=== PATIENT | female | born 1985 | race African-American/Black ===

== ENCOUNTER 2021-04-22 13:57 | Emergency (ER) | payer MEDICAID, SELFPAY ==
[2021-04-22] VITALS (14 sets, daily range): BP systolic 132–166; BP diastolic 76–102; PULSE 78–104; RESP 16–23; TEMP 36.4–36.8; O2SAT 96–100; BMI 50.1
--- NOTE | ~2021-04-22 | XR_ITS ---
EXAMINATION: XR SHOULDER, RIGHT CLINICAL INFORMATION: Post reduction. COMPARISON: Radiograph of the right shoulder done earlier today at 2:36 PM. TECHNIQUE: One view of the right shoulder. XR/XR shoulder RT min 2V FINDINGS/IMPRESSION: Satisfactory reduction of previously described right shoulder dislocation which is now in anatomic positioning. No fractures.
--- NOTE | ~2021-04-22 | XR_ITS ---
EXAMINATION: XR SHOULDER, RIGHT XR HUMERUS, RIGHT CLINICAL INFORMATION: Shoulder pain. Fall. COMPARISON: None TECHNIQUE: 2 views, 3 images of the right shoulder. 2 views of the right humerus. FINDINGS: There is anterior glenohumeral dislocation. The acromioclavicular joint is intact. No acute humeral fracture. Grossly appropriate alignment of the elbow. The visualized ribs are intact. The visualized lung is clear. XR/XR shoulder RT min 2V IMPRESSION: No fracture. Anterior right shoulder dislocation.
--- NOTE | ~2021-04-22 | XR_ITS ---
EXAMINATION: XR SHOULDER, RIGHT XR HUMERUS, RIGHT CLINICAL INFORMATION: Shoulder pain. Fall. COMPARISON: None TECHNIQUE: 2 views, 3 images of the right shoulder. 2 views of the right humerus. FINDINGS: There is anterior glenohumeral dislocation. The acromioclavicular joint is intact. No acute humeral fracture. Grossly appropriate alignment of the elbow. The visualized ribs are intact. The visualized lung is clear. XR/XR humerus RT IMPRESSION: No fracture. Anterior right shoulder dislocation.
[2021-04-22] MEDS: Ibuprofen 800 MG TABLET PO (14:20)
--- NOTE | 2021-04-22 15:33 | PC.NURSE ---
pt moved to main ed for conscious sedation. report given to clotilde barney. pt aware of plan of care.
--- NOTE | 2021-04-22 15:42 | ED.EXTPRO ---
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 Reports was not paying attention and playing on phone when did not see curb and fell on right shoulder. Denies head trauma or LOC. Denies taking anticoagulation. Denies numbness, tingling, injury to other area MD Complaint: extremity pain Related Data Previous Rx's Medication Instructions Recorded acetaminophen 500 mg tablet 500 mg PO Q6H PRN #20 tab 04/22/21 (Tylenol Extra Strength) naproxen 500 mg tablet 500 mg PO BID PRN 10 Days #20 tab 04/22/21 Allergies Allergy/AdvReac Type Severity Reaction Status Date / Time No Known Allergies Allergy Unverified 10/31/19 16:14 Review of Systems Review of Systems: Constitutional: No Fever, No Chills ENT/Mouth: No Ear Pain, No Nasal Congestion, No sore throat, No Rhinorrhea, No Swallowing Difficulty Cardiovascular: No Chest Pain, No SOB Respiratory: No Cough Gastrointestinal: No Nausea, No Vomiting, No Diarrhea, No Abdominal pain Genitourinary: No Dysuria, No Urinary Incontinence, No Flank Pain Musculoskeletal: + joint pain, No Myalgias, No Joint Swelling Skin: No Skin Lesions, No rash Neuro: No Weakness, No Numbness, No Paresthesias, No headache, No LOC Yes all other systems are reviewed and are negative [facility] Past Medical History Attestation statement: The following information was validated with the patient. Medical History No known health problems Social History Social History Advance Directives: No Advance Directives Information Provided: Yes Patient : No Physical Exam Vital Signs: Vital Signs: Last Vital Signs Temp 98.3 F 04/22/21 16:36 Pulse 83 04/22/21 18:08 Resp 16 04/22/21 18:08 BP 138/99 H 04/22/21 18:08 Pulse Ox 98 04/22/21 18:08 BMI result Body Mass Index 50.1 Const: General: cooperative, healthy appearing and no acute distress Orientation/consciousness: patient oriented x3 Limitations: no limitations HENMT: Head: Yes normal to inspection and Yes atraumatic Ears: hearing grossly normal bilaterally General nose exam: Normal external nose present Face and sinus: Yes normal facial exam Eyes: General: appearance normal, both eyes and all related structures EOM: EOMs intact bilaterally Neck: Neck: Yes normal visual inspection and Yes no meningeal signs Resp: Effort & Inspection: normal respiratory effort and no respiratory distress Cardio: Rate: regular rate Peripheral pulses: radial pulses present Skin: Rashes: no rashes Wounds: no wounds Neuro: General: patient oriented x3 and no meningeal signs Gait exam (Neuro): Normal gait present Extrem: Other: + right shoulder with noted deformity. Tender to palpation. Neurovascularly intact distally. Limited ROM secondary to pain. Right elbow/forearm/wrist/hand nontender Course Course Course Narrative: XR humerus RT / XR shoulder RT min 2V IMPRESSION: No fracture. Anterior right shoulder dislocation >> will perform procedural sedation to reduce shoulder. Procedural consent signed Reduction successful with Dr. Turner and respiratory at bedside > sling applied XR shoulder RT min 2V FINDINGS/IMPRESSION: Satisfactory reduction of previously described right shoulder dislocation which is now in anatomic positioning. No fractures -[id number]--patient now awake and alert, A&O x3, ambulating around the ED without any difficulty. Safe for discharge home at this time. Discussed worrisome signs and symptoms and strict return precautions and needed close follow-up with orthopedics. She verbalized understanding and feel safe for discharge home . 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 On exam vital signs stable, NAD, appears in pain, physical exam as above. Concern for dislocation versus fracture. Plan: X-rays Medical Records Attestation: I reviewed the patient's medical records. Lab Data Attestation: I reviewed the patient's lab results. Procedures Orthopedic Joint Reduction Joint #1: Time Out Performed: Yes Side: right Joint Reduction Location: shoulder Analgesia: procedural sedation Shoulder Technique Used (if applicable): traction/counter-traction and external rotation Technique used: traction/counter-traction Post-reduction neuro exam: intact Post-reduction vascular: intact Post Reduction X-Ray Obtained: Yes Post Reduction X-Ray Results: reduced Splint Applied: Yes (sling) Patient Tolerated Procedure: well Procedural Sedation Indication: fracture/dislocation reduction ASA Class: I Mallampati Class: I Preparation: telemetry monitor applied, pulse oximeter, capnometry used, supplemental O2 applied, suction/airway equipment at bedside and IV secured IV Propofol dose (mg): 120 Patient Tolerated Procedure: well Complications: none Discharge Plan Discharge Clinical Impression: Anterior shoulder dislocation Patient Disposition: Home, Self-Care Instructions: Shoulder Dislocation (ED), Shoulder Immobilizer (ED) Additional Instructions: Your shoulder was dislocated and relocated today in the ED. Wear sling at all times, you may take off to shower and sleep however if you take it off do not move your arm more than what you would be able to if you were wearing the sling Ice Take Tylenol and Motrin for pain and swelling Please follow-up with orthopedics If you develop numbness, pain becomes unbearable, or you feel like her shoulder becomes dislocated again return to the ED immediately Prescriptions: New acetaminophen [Tylenol Extra Strength] 500 mg tablet 500 mg PO Q6H PRN (Reason: pain or fever) Qty: 20 0RF naproxen 500 mg tablet 500 mg PO BID PRN (Reason: pain) 10 Days Qty: 20 0RF Referrals: Matthew Vargas MD [Physician] - 5 days Stand Alone Forms: Work/School Release Interventions: ED Discharge Assessment Last Done: 04/22/21 18:06 Discharge Date/Time: 04/22/21 18:09
--- NOTE | 2021-04-22 16:58 | PC.NURSE ---
PT SHOULDER REDUCTION SUCCESSFUL, X RAY DONE TOTAL OF 120 OF PROPOFOL GIVEN BY DR MINAL Salas
[2021-04-22] MEDS: propofoL 200 MG/20 ML VIAL IVPUSH (17:03)
== END 2021-04-22 18:09 | disposition home or self-care (01) ==
PROVIDERS: Emergency Provider Emergency Medicine Emergency Medical Services; PCP Family Medicine
DX: S43.004A Unspecified dislocation of right shoulder joint, initial encounter (principal); W19.XXXA Unspecified fall, initial encounter; Y93.9 Activity, unspecified; Y92.481 Parking lot as the place of occurrence of the external cause; Y99.9 Unspecified external cause status
CPT/HCPCS: 23650; 73030; 73060; 96374; 96375; 99152; 99153; 99284; 99285

== ENCOUNTER → 2021-05-06 13:14 | Outpatient (BNVA) | payer MEDICAID, SELFPAY | PROVIDERS: PCP Family Medicine; Visit Provider Physician Assistant | DX: S43.014A Anterior dislocation of right humerus, initial encounter (principal) | CPT/HCPCS: 99202 ==

== ENCOUNTER 2021-06-16 06:04 | Outpatient (REF) | payer MEDICAID, SELFPAY ==
[2021-06-16 06:46] LABS: COVID-19 Test Negative (Negative)
== END 2021-06-16 06:05 | disposition home or self-care (01) ==
LOC: HO.LAB 06:04
PROVIDERS: Visit Provider Internal Medicine
DX: Z20.822 Contact with and (suspected) exposure to COVID-19 (principal)
CPT/HCPCS: 87635

== ENCOUNTER 2021-11-08 06:43 | Outpatient (REF) | payer OTHER, SELFPAY ==
[2021-11-08 07:37] LABS: COVID-19 Test Negative (Negative); IDNOW Serial# 9DB6401D
== END 2021-11-08 06:44 | disposition home or self-care (01) ==
LOC: HO.LAB 06:43
PROVIDERS: Visit Provider Internal Medicine
DX: Z20.822 Contact with and (suspected) exposure to COVID-19 (principal)
CPT/HCPCS: 87635

== ENCOUNTER 2023-02-14 22:02 | Inpatient (IN) | payer MEDICAID, SELFPAY ==
--- NOTE | 2023-02-14 | ECG_ITS ---
Test Reason : FEVER Blood Pressure : / mmHG Vent. Rate : 114 BPM Atrial Rate : 114 BPM P-R Int : 144 ms QRS Dur : 086 ms QT Int : 346 ms P-R-T Axes : 062 034 029 degrees QTc Int : 476 ms Sinus tachycardia Otherwise normal ECG When compared with ECG of 03-JUN-2019 00:02, Non-specific change in ST segment in Anterior leads Referred By: Generic ED Physician Electronically Signed By:Tesfaye Richard
--- NOTE | ~2023-02-14 | XR_ITS ---
EXAMINATION: XR CHEST CLINICAL INFORMATION: Cough, shortness of breath COMPARISON: 04/25/2018 TECHNIQUE: Frontal view of the chest was obtained. FINDINGS: No significant abnormality is noted involving the heart, lungs, mediastinum, bony thorax or soft tissues. XR/XR chest 1V IMPRESSION: Unremarkable examination.
[2023-02-14 22:14] VITALS: BP 150/90; PULSE 120; PULSE 131; RESP 26; TEMP 38.4; O2SAT 100; O2SAT 96; BMI 50.7
--- NOTE | 2023-02-14 22:25 | ED_ITS ---
HPI - SOB/Dyspnea General Chief Complaint: Dyspnea Stated Complaint: SOB, diminishing lung sounds bilaterally, on duone Time Seen by Provider: 02/14/23 22:11 History of Present Illness HPI Narrative: Patient is 37 years old positive history of asthma positive history of smoking positive coughing congestion upper respiratory symptoms. Feels very weak has subjective fever at home never been intubated for asthma been hospitalized x1 many years ago. Patient has a long history of smoking quit smoking in the last 24 hours. No diaphoresis. No leg swelling. Positive generalized aches Related Data Previous Rx's Medication Instructions Recorded acetaminophen 500 mg tablet 500 mg PO Q6H PRN pain or fever 04/22/21 (Tylenol Extra Strength) #20 tabs naproxen 500 mg tablet 500 mg PO BID PRN pain 10 days #20 04/22/21 tabs oseltamivir 75 mg capsule (Tamiflu) 75 mg PO BID 5 days #10 caps 02/14/23 Allergies Allergy/AdvReac Type Severity Reaction Status Date / Time No Known Allergies Allergy Unverified 05/06/21 13:59 Review of Systems 2 Review of Systems: Positive generalized ache Yes all other systems are reviewed and are negative COUNTS INCLUDE 234 BEDS AT THE [facility] Past Medical History Attestation statement: The following information was validated with the patient. 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 Oriented X3. No acute distress. Eyes: Pupils equal, round and reactive to light. ENT: Pharynx normal. Neck: Normal inspection. Neck supple. No lymph nodes noted. No crepitus CVS: Normal heart rate and rhythm. Pulses normal. Normal S1 and S2 Respiratory: No respiratory distress. Breath sounds normal. No Wheezing. No rales Abdomen: Soft and nontender. No rigidity. No distention. good BS x4 Skin: Skin warm and dry. Normal skin color. Normal skin turgor. Extremities: No lower extremity edema. Neurovascular intact to all extremities. No Lacerations. No Rash Neuro: Oriented X 3. No motor deficit. No sensory deficit. Moving all extermities. No slurred speech Medications Administered Discontinued Medications Generic Name Dose Route Start Last Admin Trade Name Freq PRN Reason Stop Dose Admin Acetaminophen 975 mg 02/14/23 22:22 02/14/23 22:47 Acetaminophen 325 Mg Tablet PO 02/14/23 22:23 975 mg ONCE ONE Administration Albuterol Sulfate 5 mg 02/14/23 22:23 02/14/23 22:35 Albuterol Sulfate (0.083%) 2.5 Mg/3 Ml Vial.Neb INHALE 02/14/23 22:24 5 mg ONCE ONE Administration Albuterol/Ipratropium 3 ml 02/14/23 22:23 02/14/23 22:35 Albuterol/Iprat 2.5/0.5mg 3 Ml Ampul.Neb INHALE 02/14/23 22:24 3 ml ONCE ONE Administration Sodium Chloride 1,000 mls @ 999 mls/hr 02/14/23 22:30 02/14/23 22:35 Ns IV 02/14/23 23:30 999 mls/hr .Q1H1M MINOR Administration Methylprednisolone Sodium Succinate 125 mg 02/14/23 22:23 02/14/23 22:47 Methylprednisolone Sod Succ 125 Mg/2 Ml Vial IVPUSH 02/14/23 22:24 125 mg ONCE ONE Administration Medical Decision Making Medical Decision Making MDM Narrative: Positive coughing congestion upper respiratory symptoms. Positive fever here in the emergency department. Patient's flu RSV COVID test was done. Positive for influenza. Symptoms started within the last 24 hours will start patient on Tamiflu. Have patient closely follow up on an outpatient basis. O2 sat is normal here in the emergency department chest x-ray by my interpretation showed no acute pneumonia pneumothorax. Cardiac enzymes are negative. Patient to be discharged home. Differential Diagnosis Differential Diagnoses: The differential diagnosis associated with the presentation includes Pneumonia, asthma, COVID, flu, RSV Admission/Observation Consideration of admission/observation: Escalation of care including admission/observation considered No need for admission is patient's symptoms improving Lab Data MDM Lab Attestation statement: I reviewed the patient's lab results. 02/14/23 22:27 02/14/23 22:27 Labs: Lab Results 02/14/23 02/14/23 Range/Units 22:27 22:30 WBC 10.3 (4.8-10.8) X10*3/uL RBC 3.78 L (4.20-5.50) X10*6/uL Hgb 7.2 L (12.0-16.0) g/dl Hct 25.9 L (37.0-47.0) % MCV 68.5 L (80.0-98.0) fL MCH 19.0 L (27.0-33.0) pg MCHC 27.8 L (31.0-35.0) g/dl RDW 18.9 H (11.0-16.0) % Plt Count 541 H (160-400) X10*3/uL MPV 9.6 (9.4-12.3) fL Immature Gran % (Auto) 0.3 (0.0-0.4) % Neut % (Auto) 77.2 H (45-73) % Lymph % (Auto) 12.9 L (20-40) % Throckmorton % (Auto) 8.4 (2-11) % Eos % (Auto) 0.9 (0-4) % Baso % (Auto) 0.3 (0-2) % Lymph # (Auto) 1.3 (1.2-4.9) X10*3/uL Throckmorton # (Auto) 0.9 (0.1-1.2) X10*3/uL Eos # (Auto) 0.1 (0.0-0.4) X10*3/uL Baso # (Auto) 0.0 (0.0-0.2) X10*3/uL Abs Immat Gran (auto) 0.03 (0.00-0.03) X10*3/uL Absolute Neuts (auto) 8.0 (2.0-8.3) x10*3/uL Absolute Nucleated RBC 0.000 (0.0-0.012) X10*3/uL Nucleated RBC % (auto) 0.0 (0.0-0.2) /100WBC Sodium 142 (135-145) mmol/L Potassium 3.8 (3.3-5.1) mmol/L Chloride 108 (96-108) mmol/L Carbon Dioxide 25 (22-29) mmol/L Anion Gap 13 (12-20) BUN 9 (9-16) mg/dL Creatinine 0.83 (0.5-1.4) mg/dL Estim Creat Clear Calc 147.6 Estimated GFR > 60 Random Glucose 105 (60-115) mg/dL Lactic Acid 1.3 (0.5-2.0) mmol/L Calcium 9.1 (8.4-10.2) mg/dL Total Bilirubin 0.3 (0.0-1.0) mg/dL AST 24 (5-31) U/L ALT 11 (0-31) U/L Alkaline Phosphatase 84 (39-117) U/L Troponin I High Sens 7.9 (<3.5-17.0) ng/L Total Protein 7.8 (6.5-8.0) g/dL Albumin 4.0 (3.5-5.0) g/dL Influenza Type A (PCR) POSITIVE A (Negative) Influenza Type B (PCR) NEGATIVE (Negative) RSV RNA Qual (PCR) NEGATIVE (Negative) SARS-CoV-2 RNA (RT-PCR) NEGATIVE (Negative) Independent Interpretation I performed an independent interpretation of an: Plain X-Ray (Grossly negative) Radiology Impression Discussion of test interpretation with radiology: I have reviewed the radiologist's reading. Prescription Management I considered prescription management with: Pain Medication and Antibiotic No need for antibiotic will give antiviral as patient has flu and symptoms less than 48 hours Chronic Conditions Asthma Discharge Plan Discharge Clinical Impression: Asthma with exacerbation, Influenza Patient Disposition: Home, Self-Care Instructions: Asthma (ED), Influenza (ED) Additional Instructions: Please drink lots of fluids. Please refrain from smoking. Prescriptions: New oseltamivir [Tamiflu] 75 mg capsule 75 mg PO BID 5 Days Qty: 10 0RF No Action acetaminophen [Tylenol Extra Strength] 500 mg tablet 500 mg PO Q6H PRN (Reason: pain or fever) Qty: 20 0RF naproxen 500 mg tablet 500 mg PO BID PRN (Reason: pain) 10 Days Qty: 20 0RF Referrals: [facility] [Provider Group] - 02/16/23
[2023-02-14 22:30] VITALS: PULSE 125; RESP 25
[2023-02-14 22:34] LABS: Basophils Percent Auto 0.3 % (0-2); Eosinophils Absolute Auto 0.1 X10*3/uL (0.0-0.4); Eosinophils Percent Auto 0.9 % (0-4); Hematocrit 25.9 % (37.0-47.0); Hemoglobin 7.2 g/dl (12.0-16.0); Imm Gran Abs Auto 0.03 X10*3/uL (0.00-0.03); Imm Gran Pct Auto 0.3 % (0.0-0.4); Lymphocytes Absolute Auto 1.3 X10*3/uL (1.2-4.9); Lymphocytes Percent Auto 12.9 % (20-40); MANUAL DIFF FLAG NO; Mean Corpuscular HGB Conc 27.8 g/dl (31.0-35.0); Mean Corpuscular Volume 68.5 fL (80.0-98.0); Mean Platelet Volume 9.6 fL (9.4-12.3); Monocytes Absolute Auto 0.9 X10*3/uL (0.1-1.2); Monocytes Percent Auto 8.4 % (2-11); Neutrophils Percent Auto 77.2 % (45-73); Platelet Count 541 X10*3/uL (160-400); Red Blood Count 3.78 X10*6/uL (4.20-5.50); Red Cell Distribution Width 18.9 % (11.0-16.0); White Blood Count 10.3 X10*3/uL (4.8-10.8)
[2023-02-14 22:35] VITALS: PULSE 124; RESP 30; O2SAT 99
[2023-02-14] MEDS: Albuterol Sulfate (0.083%) 2.5 MG/3 ML VIAL.NEB 5 MG INHALE (22:35)
[2023-02-14] MEDS: 0.9 % Sodium Chloride 1,000 ML 999 ML IV (22:35)
[2023-02-14] MEDS: Albuterol/Iprat 2.5/0.5MG 3 ML AMPUL.NEB INHALE (22:35)
[2023-02-14 22:43] LABS: Lactic Acid 1.3 mmol/L (0.5-2.0)
[2023-02-14] MEDS: methylPREDNISolone Sod Succ 125 MG/2 ML VIAL IVPUSH (22:47)
[2023-02-14] MEDS: Acetaminophen 325 MG TABLET 975 MG PO (22:47)
[2023-02-14 22:48] LABS: Alanine Aminotransferase 11 U/L (0-31); Alkaline Phosphatase 84 U/L (39-117); Anion Gap 13 (12-20); Aspartate Amino Transferase 24 U/L (5-31); Bilirubin Total 0.3 mg/dL (0.0-1.0); Blood Urea Nitrogen 9 mg/dL (9-16); Calcium 9.1 mg/dL (8.4-10.2); Carbon Dioxide 25 mmol/L (22-29); Chloride 108 mmol/L (96-108); Creatinine Clr Calc Pharmacy 147.6; Estimated Glomerular Filt Rate > 60; Glucose Random 105 mg/dL (60-115); Potassium 3.8 mmol/L (3.3-5.1); Sodium 142 mmol/L (135-145); Total Protein 7.8 g/dL (6.5-8.0)
[2023-02-14 22:55] LABS: Troponin-I High Sensitivity 7.9 ng/L (<3.5-17.0)
[2023-02-14 23:19] LABS: Influenza A PCR POSITIVE (Negative); Influenza B PCR NEGATIVE (Negative); Resp Syncy Virus RNA Qual PCR NEGATIVE (Negative); SARS COV2 PCR INHOUSE NEGATIVE (Negative)
--- NOTE | 2023-02-14 23:40 | PC.NURSE ---
pt states not feeling better after breathing tx. lung sounds wheezing/diminished. sats 93% on ra. Dr. Saleh notified.
--- OUTSIDE RECORDS SUMMARY | 2023-02-14 23:46 | XMS_ITS | Continuity of Care Document ---
Author Name Unknown Organization [facility] Kelly Hope n[facility] Address [address], [address] [place] [address]- Care Team Providers Care Furniture Reproducer Name Role Phone Aida Vasquez DO Primary Care Physician Encounter [facility] [place] Date(s): 04/18/19 - 07/13/19 [facility] Kelly ReyesTeam [facility] [address] [place] [address]- [facility] Attending Physician: George Andre MD Referring Physician: Aida Vasquez DO Allergies, Adverse Reactions, Alerts Substance Reaction Severity Status NKA Active Problem List Condition Effective Dates Status Health Status Inform ant Asthma(Confirmed) Active Chronic GERD(Confirmed) Active H/O transfusion of packed re d blood cells(Confirmed) 2008 Active Headache(Confirmed) 2019 Active History of gestational hypertension(Confirmed) 2010 Active HTN (hypertension)(Confirmed) 1 Active Morbid obesity with BMI of 4 5.0-49.9, adult(Confirmed) Active HEMORRHAGE(Confirmed) 09/10/08 Active 1no meds Social History Social History Type Response Smoking Status 5-9 cigarettes (betw een 1/4 to 1/2 pack)/day in last 30 days; Tobacco user in household: Yes entered on: 05/23/19 Sex
--- OUTSIDE RECORDS SUMMARY | 2023-02-14 23:46 | XMS_ITS | Continuity of Care Document ---
Author Name [facility] Address [address] [place] [address], [address] [place] [address]- Care Team Providers Care Daub Color Mixer Name Role Phone Aida Vasquez DO Primary Care Physician [place] [facility] [place] Date(s): 04/18/19 - 04/28/19 [facility] Kellyelizabeth ReyesArquo Technologiess [facility] [address] [place] [address], [address] [place] [address]- Attending Physician: Tyson Hardy Admitting Physician: Tyson Hardy Referring Physician: AdmtrTyson Allergies, Adverse Reactions, Alerts Substance Reaction Severity Status NKA Active Problem List Condition Effective Dates Status Health Status Inform ant Asthma(Confirmed) Active HTN (hypertension)(Confirmed) 1 Active Morbid obesity with BMI of 4 5.0-49.9, adult(Confirmed) Active HEMORRHAGE(Confirmed) 09/10/08 Active 1no meds
--- OUTSIDE RECORDS SUMMARY | 2023-02-14 23:46 | XMS_ITS | Continuity of Care Document ---
Author Name Unknown Organization [facility] Address [address] [place] [address]- Care Team Providers Care Plain Goods Hemmer Name Role Phone Aida Vasquez DO Primary Care Physician Encounter [facility] Date(s): 05/22/19 - 06/01/[facility] [address] [place] [address]- [facility] Attending Physician: Tyson Hardy Admitting Physician: Tyson [...]
--- OUTSIDE RECORDS SUMMARY | 2023-02-14 23:46 | XMS_ITS | Continuity of Care Document ---
Author Name Unknown Organization [facility] Kelly Hope [employer] [facility] Address [address], [address] [place] [address]- Care Team Providers Care Asphalt Distributor Tender Name Role Phone Aida Vasquez DO Primary Care Physician [place] [facility] [place] Date(s[place] 05/23/19 - 07/10/19 [facility] Kellyelizabeth ReyesK[employer] Pharm[employer]ss [facility] [address], [address] [place] [address]- [facility] Attending Physician: Olivia Alberto MD Allergies, Adverse Reactions, Alerts Substance Reaction Severity [...]
--- OUTSIDE RECORDS SUMMARY | 2023-02-14 23:46 | XMS_ITS | Continuity of Care Document ---
Author Name Unknown [facility] Address [address], [address] [place] [address]- Care Team Providers Care Histology Tech Name Role Phone Aida Vasquez DO Primary Care Physician Encounter [facility] [place] Date(s): 05/23/19 - 05/30/19 [facility] Kelly ReyesmSilicas [facility] [address], [address] [place] [address]- Attending Physician: George Andre MD Allergies, Adverse Reactions, Alerts Substance Reaction Severity Status NKA Active Problem List Condition Effective Dates Status Health Status Inform ant Asthma(Confirmed) Active Chronic GERD(Confirmed) Active H/O transfusion of packed re d blood cells(Confirmed) 2008 Active Headache(Confirmed) 2019 Active History of gestational hypertension(Confirmed) 2010 Active HTN (hypertension)(Confirmed) 1 Active Morbid obesity with BMI of 4 5.0-49.9, adult(Confirmed) Active HEMORRHAGE(Confirmed) 09/10/08 Active 1no meds Procedures Procedure Date Related Diagnosis Body Site Status Vaginal delivery 2010 Complete d Vaginal delivery 2008 Complete d Vital Signs Most recent to oldest [Reference Range]: 1 Height 172.00 cm (05/23/19 10:49 AM) Weight 140.75 kg (05/23/19 10:49 AM) Body Mass Index [18.5-24.99] 47.58 *>HHI* (05/23/19 10:49 AM) Dry Weight 134 kg (05/23/19 10:49 AM) Social History Social History Type Response Smoking Status 5-9 cigarettes (betw een 1/4 to 1/2 pack)/day in last 30 days; Tobacco user in household: Yes entered on: 05/23/19 Sex
--- OUTSIDE RECORDS SUMMARY | 2023-02-14 23:46 | XMS_ITS | Continuity of Care Document ---
Author Name Unknown Organization [facility] Kelly Hope [employer] Address [address], [address] [place] [address]- Care Team Providers Care Sr. Manager Marketing Name Role Phone Adia Vasquez DO Primary Care Physician [phone] Encounter [facility] [place] Date(s): 04/18/19 - 07/13/19 [facility] [address], [address] [place] [address]- [facility] Attending Physician: Sofiya Ireland MD Referring Physician: Aida Vasquez DO Allergies, [...]
--- OUTSIDE RECORDS SUMMARY | 2023-02-14 23:46 | XMS_ITS | Continuity of Care Document ---
Author Name Unknown Organization [facility] Kelly Hope n's [facility] Address [address], [address] [address]- Care Team Providers Care Picking Machine Operator Name Role Phone Aida Vasquez DO Primary Care Physician [phone] Encounter [facility] [place] Date(s): 05/23/19 - 06/22/19 [facility] Kelly ReyesCon[employer]ged Access[employer] [facility] [address], [address] [place] [address]- [facility] Attending Physician: Tyson Hardy Admitting Physician: Tyson [...]
[2023-02-15] VITALS (19 sets, daily range): BP systolic 124–168; BP diastolic 63–115; PULSE 78–117; RESP 18–27; TEMP 36.3–38.5; O2SAT 92–100
--- NOTE | 2023-02-15 00:04 | MHC.EDTECH ---
this pct assumed care of Patient at 2300 ,vitals taken ,RN aware of pt high temp ,resp and high heart rate ,Provider morales said not to bother get ekg as Patient has the flu .
--- NOTE | 2023-02-15 00:30 | PC.NURSE ---
after 2nd breathing tx pt states still not feeling well lung sounds remain same. ekg previously canceled by Dr. Saleh. sats 93% on RA drops to 89% while ambulating pt not tolerating ambulatory o2 well. pt refusing d/c; dr. saleh notified as I do not feel comfortable d/c home.
[2023-02-15] MEDS: Albuterol Sulfate (0.083%) 2.5 MG/3 ML VIAL.NEB INHALE (00:35)
--- NOTE | 2023-02-15 01:44 | PM.IMHP ---
History of Present Illness Date of Service: 02/15/23 Chief Complaint: Dyspnea This is a 37-year-old female with no pertinent past medical history and not on prescription medications who presents to the emergency department for evaluation of dyspnea. Patient states that dyspnea started 1 day prior to presentation. It has been progressive and she is unable to walk from her bedroom to her bathroom without being short of breath. Also has associated dry cough and wheezing. Endorses generalized body aches. No sick contacts. Patient denies melena, hematochezia or hematemesis. States she has been having heavy periods for the last 2 and half weeks. No fever, chills, chest discomfort, palpitations, abdominal pain, changes in urinary or bowel habits. In the emergency department, patient tested positive for influenza A. 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 Allergies Allergy/AdvReac Type Severity Reaction Status Date / Time No Known Allergies Allergy Unverified 05/06/21 13:59 Active Medications: Current Medications Albuterol/Ipratropium (Albuterol/Iprat 2.5/0.5mg 3 Ml Ampul.Neb) 3 ml INHALE RQ4H WHILE AWAKE [facility] Albuterol/Ipratropium (Albuterol/Iprat 2.5/0.5mg 3 Ml Ampul.Neb) 3 ml INHALE Q4H PRN PRN Reason: Wheezing Methylprednisolone Sodium Succinate (Methylprednisolone Sod Succ 40 Mg/Ml Vial) 40 mg IVPUSH Q12H [facility] Physical Exam Vital Signs and Narrative: Vital Signs: Last Vital Signs Temp 101.3 F H 02/15/23 00:00 Pulse 115 H 02/15/23 01:39 Resp 27 H 02/15/23 01:39 BP 133/63 02/15/23 00:00 Pulse Ox 92 02/15/23 01:39 O2 Del Method Room Air 02/15/23 01:39 BMI result Body Mass Index 50.7 Middle-aged female lying in bed in mild distress Neck supple, no JVD Tachycardic with regular rhythm, S1-S2 heard Decreased breath sounds due to body habitus, tachypneic Abdomen soft nontender, no guarding, no rigidity Patient is awake, alert and oriented to self, place, time and person ; no focal motor deficit Psych: Normal mood No pedal edema Results Labs 02/14/23 22:27 02/14/23 22:27 Labs: Laboratory Results - last 24 hr 02/14/23 02/14/23 22:27 22:30 MCV 68.5 L MCH 19.0 L MCHC 27.8 L RDW 18.9 H Plt Count 541 H MPV 9.6 Immature Gran % (Auto) 0.3 Neut % (Auto) 77.2 H Lymph % (Auto) 12.9 L [place] % (Auto) 8.4 Eos % (Auto) 0.9 Baso % (Auto) 0.3 Lymph # (Auto) 1.3 [place] # (Auto) 0.9 Eos # (Auto) 0.1 Baso # (Auto) 0.0 Abs Immat Gran (auto) 0.03 Absolute Neuts (auto) 8.0 Absolute Nucleated RBC 0.000 Nucleated RBC % (auto) 0.0 Anion Gap 13 Estim Creat Clear Calc 147.6 Estimated GFR > 60 Random Glucose 105 Lactic Acid 1.3 Calcium 9.1 Total Bilirubin 0.3 AST 24 ALT 11 Alkaline Phosphatase 84 Total Protein 7.8 Albumin 4.0 Influenza Type A (PCR) POSITIVE A Influenza Type B (PCR) NEGATIVE RSV RNA Qual (PCR) NEGATIVE SARS-CoV-2 RNA (RT-PCR) NEGATIVE Imaging Radiologist's Impressions: Impressions Chest X-Ray 02/14/23 22:45 IMPRESSION: Unremarkable examination. Assessment and Plan (1) Influenza: Status: Acute Plan This is a 37-year-old female with no pertinent past medical history and not on prescription medications who presents to the emergency department for evaluation of dyspnea. #. Acute respiratory distress due to influenza a bronchitis: Initiating systemic steroids and Tamiflu. Scheduled and p.r.n. DuoNebs. #. Tachypnea and tachycardia due to above. No sepsis #. Microcytic anemia likely iron deficiency due to menometrorrhagia: Obtaining iron panel. Giving IV iron. Will benefit from iron supplementation at discharge. #. Obesity: Counseled regarding diet and exercise DVT prophylaxis: Mechanical Full code Quality Stroke Does the patient have a stroke diagnosis?: No VTE Prior VTE?: No VTE Risk Level:: Medical - low VTE Device Contraindication: N/A - Device Ordered VTE Drug Contraindication: Treatment Not Indicated
[2023-02-15 02:05] LABS: Iron 13 mcg/dL (30-160); Percent Iron Saturation 4 % (15-50); Total Iron Binding Capacity 364 mcg/dL (228-428); Unsaturated Iron Binding 351 ug/dL
[2023-02-15] MEDS: Oseltamivir Phosphate 75 MG CAPSULE PO ×3 (02:09→19:46)
[2023-02-15] MEDS: Ibuprofen 600 MG TABLET PO (02:09)
--- NOTE | 2023-02-15 02:12 | MHC.EDTECH ---
Patient ekg taken ,2nd sets of blood culture drawn and sent to lab ,And Pt belongings list done .
--- NOTE | 2023-02-15 03:05 | MHC.EDTECH ---
Patient type and screen drawn ,urine sample collected and sent to lab .
[2023-02-15 03:19] LABS: Appearance Urine Cloudy; Glucose Urine UA Negative (Negative); Leukocyte Esterase Urine Small (1+) (Negative); Nitrite Urine Negative (Negative); PH 5.5 (5.0-9.0); UMIC TRIGGER UACC YES; Urine Blood Large (3+) (Negative); Urine Ketones Trace mg/dL (Negative); Urine Protein 100 (2+) mg/dL (Neg-Trace)
[2023-02-15 03:21] LABS: Color Urine Straw
[2023-02-15 03:23] LABS: Bacteria Urine 2+ (None Seen); Hyaline Casts Urine 0-2 /LPF (0-2); RBC Urine >20 /HPF (0-2); UACC Culture Trigger YES
[2023-02-15] MEDS: levalbuterol HCL 1.25 MG/3 ML VIAL.NEB 5 MG INHALE (05:25)
--- NOTE | 2023-02-15 05:29 | PC.NURSE ---
resp and dr. lowe called to bedside as pt states she cannot breathe. ra trial with respiratory pt 82% on RA. pt having breathing tx at this time.
[2023-02-15 05:43] LABS: ABG Base Excess -0.3 mmol/L; ABG HCO3 24 mmol/L (22-26); ABG pCO2 41 mmHg (32-45); ABG pH 7.38 (7.35-7.45); ABG pO2 87 mmHg (83-108)
[2023-02-15 05:53] LABS: ABG Refer to POC result
[2023-02-15 06:47] LABS: MANUAL DIFF FLAG NO
--- NOTE | 2023-02-15 06:56 | PC.NURSE ---
afebrile pt reports feeling better after breathing tx. blood infusing.
[2023-02-15 07:00] LABS: Basophils Percent Auto 0.3 % (0-2); Hemoglobin 7.4 g/dl (12.0-16.0); Imm Gran Abs Auto 0.05 X10*3/uL (0.00-0.03); Imm Gran Pct Auto 0.5 % (0.0-0.4); Lymphocytes Percent Auto 9.7 % (20-40); Mean Corpuscular HGB Conc 26.4 g/dl (31.0-35.0); Mean Corpuscular Hemoglobin 18.5 pg (27.0-33.0); Mean Corpuscular Volume 70.2 fL (80.0-98.0); Mean Platelet Volume 10.1 fL (9.4-12.3); Monocytes Absolute Auto 0.2 X10*3/uL (0.1-1.2); Monocytes Percent Auto 1.7 % (2-11); Neutrophils Absolute Auto 8.9 x10*3/uL (2.0-8.3); Neutrophils Percent Auto 87.8 % (45-73); Platelet Count 607 X10*3/uL (160-400); Red Blood Count 3.99 X10*6/uL (4.20-5.50); Red Cell Distribution Width 18.8 % (11.0-16.0); White Blood Count 10.2 X10*3/uL (4.8-10.8)
[2023-02-15 07:22] LABS: Anion Gap 11 (12-20); Blood Urea Nitrogen 9 mg/dL (9-16); Calcium 9.3 mg/dL (8.4-10.2); Carbon Dioxide 24 mmol/L (22-29); Chloride 110 mmol/L (96-108); Creatinine Clr Calc Pharmacy 149.4; Estimated Glomerular Filt Rate > 60; Glucose Random 131 mg/dL (60-115); Potassium 4.1 mmol/L (3.3-5.1); Sodium 141 mmol/L (135-145)
--- NOTE | 2023-02-15 07:31 | PC.NURSE ---
assumed care of pt at 0700. report taken from YADIEL Westbrook. pt a&o x4, pleasant, calm, and cooperative. pt has blood transfusing per hung by YADIEL Westbrook, documented in TAR. pt on 6L O2 via oxymask. sating 98% with forehead probe due to pt's artificial nails. pt on bedside monitor, pulse high 90s, low 100s. rr even/unlabored 23RR. pt awaiting bed assignment. aware of plan of care. pt resting quietly in stretcher, call escobedo within pt reach.
[2023-02-15] MEDS: Albuterol/Iprat 2.5/0.5MG 3 ML AMPUL.NEB INHALE ×4 (07:57→19:45)
[2023-02-15] MEDS: Magnesium Sulfate/H2O 2 GM/50 ML PIGGYBACK IV (07:57)
--- NOTE | 2023-02-15 08:03 | PHA.MEDREC ---
Pharmacy Consult ? Medication Reconciliation Pharmacy has completed the medication reconciliation. spoke with patient to confirm medications. She reports having two inhalers, one red (albuterol) and one blue (flovent). She reports that one of them is BID (flovent) however last case picker for this inhaler was in September. She reports using the albuterol nebulizer solution but ran out (last filled in October). She explains that she has an iron supplement at home but has not been taking it.
--- NOTE | 2023-02-15 08:10 | PC.NURSE ---
20G IV placed to RAC. Magnesium infusing per mar. pt ate banana from breakfast tray only. respiratory at bedside. plan of care ongoing.
--- NOTE | 2023-02-15 09:09 | PC.NURSE ---
confirmed with Dr. Padgett to give IV iron. given OK. called pharmacy to mix and bring down.
[2023-02-15] MEDS: methylPREDNISolone Sod Succ 40 MG/ML VIAL IVPUSH ×2 (09:27→19:44)
[2023-02-15] MEDS: ondansetron HCL 4 MG/2 ML VIAL IVPUSH (09:27)
[2023-02-15] MEDS: Iron Sucrose Complex 200 MG in 0.9 % Sodium Chloride 100 ML 440 MG IV ×2 (09:27→17:36)
--- NOTE | 2023-02-15 09:34 | PC.NURSE ---
pt medicated per apr. lights turned off and head of bed lowered for pt comfort. call escobedo within reach. pt watching tv. awaiting bed assignment.
--- NOTE | 2023-02-15 11:17 | MHC.CM.PN ---
Pt lives with her children, she is independent, does not have home health services, nor has had [facility] in the past. She does not use med equipment. She is able to get a ride home upon DC. CM to follow and assist as needed with DC.
--- NOTE | 2023-02-15 12:21 | PC.NURSE ---
pt BP noted to be elevated post blood transfusion. 161/115. Dr. Padgett notified. ordered amlodipine. pt medicated per apr. awaiting results.
--- NOTE | 2023-02-15 12:47 | PC.NURSE ---
pt BP noted to come down slightly. 138/108. pt resting quietly, rr even/unlabored. O2 100% on 6L oxymask.
--- NOTE | 2023-02-15 14:29 | MHC.CM.PN ---
HCP form given to Pt. and discussed. She declined to complete at this time.
--- NOTE | 2023-02-15 15:36 | PC.NURSE ---
pt intermittently c/o sob and being hot . pt also having cough attacks. BP still elevated. Dr. Padgett aware of all the above and plans on meeting with pt soon. pt speaking in full complete sentences. call escobedo within pt reach. plan of care ongoing.
--- NOTE | 2023-02-15 15:41 | PM.EVENT ---
Event Note Date of Service: 02/15/23 Event Note: Chart reviewed patient examined agree with history and physical and assessment and plan as outlined Time Spent With Patient Time: Total time managing care of this patient today ____ minutes.
--- NOTE | 2023-02-15 17:12 | MHC.EDTECH ---
Patient felt wet and patient was dry but changed purewick as it was soaked. Emptied purewick container as it was full. Gave patient a warm blanket.
--- NOTE | 2023-02-15 17:25 | PC.NURSE ---
admission report complete, awaiting transport to pt room.
[2023-02-15] MEDS: Acetaminophen 325 MG TABLET 650 MG PO (19:45)
[2023-02-16] VITALS (11 sets, daily range): BP systolic 126–166; BP diastolic 65–88; PULSE 62–99; RESP 16–22; TEMP 36.1–37; O2SAT 93–100
[2023-02-16] MEDS: 0.9 % Sodium Chloride Flush 3 ML SYRINGE IVFLUSH (01:05)
[2023-02-16] MEDS: Acetaminophen 325 MG TABLET 650 MG PO (05:16)
--- NOTE | 2023-02-16 11:42 | HO.PM.IMPN ---
Subjective Subjective Date of Service: 02/16/23 Interval History: Breathing still remains poor. Patient notes shortness of breath with minimal exertion Review of Systems Denies chest pain Admit shortness of breath minimal movement Denies nausea vomiting diarrhea Denies fever chills Physical Exam Vital Signs: Vital Signs: Last Vital Signs Temp 98 F 02/16/23 06:46 Pulse 98 02/16/23 07:16 Resp 22 H 02/16/23 07:16 BP 129/65 02/16/23 06:46 Pulse Ox 93 02/16/23 06:46 O2 Del Method Oxymask 02/16/23 06:46 O2 Flow Rate 7 02/16/23 04:00 BMI result Body Mass Index 50.7 Const: Other: Awake alert no acute distress Resp: Other: Diminished at bases with scattered expiratory wheezes Cardio: Other: No S4; positive S1-S2; no S3 murmurs rubs or gallops GI: Other: Soft nontender nondistended normoactive bowel sounds Extrem: Other: No edema bilaterally Objective Data Active Medications Acetaminophen (Acetaminophen 325 Mg Tablet) 650 mg PO Q6H PRN PRN Reason: Pain, Mild (Pain Scale 1-3) Last Admin: 02/16/23 05:16 Dose: 650 mg Documented By: KING Hydrocodone Bitart/Acetaminophen (Hydrocodone Bit/Acetam 5/325 Tablet) 1 tab PO Q4H PRN PRN Reason: Cough Albuterol Sulfate (Albuterol Sulfate 90 Mcg 8 Gm Inhaler) 2 puff INHALE RQ4H PRN PRN Reason: Wheezing Albuterol/Ipratropium (Albuterol/Iprat 2.5/0.5mg 3 Ml Ampul.Neb) 3 ml INHALE RQ4H WHILE AWAKE [facility] Last Admin: 02/16/23 07:14 Dose: 3 ml Documented By: BELLA Albuterol/Ipratropium (Albuterol/Iprat 2.5/0.5mg 3 Ml Ampul.Neb) 3 ml INHALE Q4H PRN PRN Reason: Wheezing Last Admin: 02/16/23 01:55 Dose: 3 ml Documented By: CYNTHIA Benzonatate (Benzonatate 100 Mg Capsule) 200 mg PO TID PRN PRN Reason: Cough Last Admin: 02/16/23 04:56 Dose: 200 mg Documented By: KING Guaifenesin (Guaifenesin 200 Mg/10 Ml 10 Ml Liquid) 10 ml PO Q4H PRN PRN Reason: Cough Melatonin (Melatonin 3 Mg Tablet) 6 mg PO BEDTIME PRN PRN Reason: Insomnia Omeprazole (Omeprazole 20 Mg Capsule.Dr) 20 mg PO DAILY PRN PRN Reason: Acid Reflux Ondansetron HCl (Ondansetron Hcl 4 Mg/2 Ml Vial) 4 mg IVPUSH Q8H PRN PRN Reason: Nausea and Vomiting Last Admin: 02/15/23 09:27 Dose: 4 mg Documented By: HOLDEN Oseltamivir Phosphate (Oseltamivir Phosphate 75 Mg Capsule) 75 mg PO BID [facility] Stop: 02/19/23 09:01 Last Admin: 02/16/23 09:43 Dose: 75 mg Documented By: MARIAM Sodium Chloride (0.9 % Sodium Chloride Flush 3 Ml Syringe) [facility] Last Admin: 02/16/23 09:43 Dose: 3 ml Documented By: MARIAM Labs 02/16/23 10:15 02/15/23 05:27 Labs: Laboratory Results - last 24 hr 02/16/23 10:15 MCV 71.5 L MCH 19.6 L MCHC 27.3 L RDW 19.5 H Plt Count 544 H MPV 9.7 Immature Gran % (Auto) 0.2 Neut % (Auto) 68.7 Lymph % (Auto) 21.6 [place] % (Auto) 9.3 Eos % (Auto) 0.0 Baso % (Auto) 0.2 Lymph # (Auto) 2.7 [place] # (Auto) 1.2 Eos # (Auto) 0.0 Baso # (Auto) 0.0 Abs Immat Gran (auto) 0.03 Absolute Neuts (auto) 8.6 H Absolute Nucleated RBC 0.040 H Nucleated RBC % (auto) 0.3 H Microbiology Microbiology Results: Microbiology 02/15/23 Unknown Urine Culture - Final Urine clean catch - Urine jimenes top 02/15/23 02:05 Blood Culture - Preliminary Blood - Venous No growth after 24 hours. 02/14/23 22:27 Blood Culture - Preliminary Blood - Venous No growth after 24 hours. Assessment and Plan (1) Influenza: Status: Acute (2) Asthma with exacerbation: Status: Acute Plan This is a 37-year-old female with asthma history history and not on prescription medications who presents to the emergency department for evaluation of dyspnea. Found to be asthma exacerbation secondary to influenza 1.Acute respiratory distress/asthma exacerbation due to influenza a bronchitis Slow response to therapy with considerable O2 requirement. Acutely short of breath with minimal movement. Notes chest pain with cough -increase methylprednisolone to 60 mg q.6 -titrate O2 to maintain sats greater than equal to 90 % 2.Microcytic anemia/iron deficiency Patient received 2 doses of IV iron in ER. Iron studies pending. -hematology consult Mechanical Full code Requires ongoing hospitalization for supplemental O2, IV steroids and specialist consultation Quality Stroke Does the patient have a stroke diagnosis?: No VTE Prior VTE?: No VTE Risk Level:: Medical - low VTE Device Contraindication: N/A - Device Ordered VTE Drug Contraindication: Treatment Not Indicated
[2023-02-17 03:53] VITALS: PULSE 99; RESP 21; O2SAT 95
[2023-02-17 04:00] VITALS: BP 143/75; PULSE 89; RESP 17; TEMP 36; O2SAT 96
[2023-02-17 07:07] VITALS: BP 146/85; PULSE 74; RESP 18; TEMP 36.1; O2SAT 99
--- NOTE | 2023-02-17 08:11 | PM.HEMONCCN ---
Subjective - Subjective Chief complaint: Shortness of breath Patient: new to practice Consult date: 02/17/23 Primary Care Provider: Aida Vasquez DO Medical Summary: Diagnosis: Iron deficiency anemia HPI - Consult Narrative Reason for consult: Anemia Narrative: Mayte Rosa is a 37 year old female who presented to emergency department for dyspnea. Workup revealed influenza a as well as iron deficiency anemia with hemoglobin of 7.2 gram/dL. She received 2 infusions of Venofer and 1 unit of PRBC because of hypoxemia and symptoms of shortness of breath. Patient has been told of iron deficiency anemia in the past, she received several units blood transfusion when she bled out after of her son 14 years ago. There is no family history of anemia, thalassemia or sickle cell disease. Patient denies any complaints of GERD, hematochezia or melena. She has been recommended oral iron which she takes on and off. Her menstrual cycles tend to be quite heavy and she is currently on her period. She is feeling slightly better today. Review of Systems - Constitutional Reports as per HPI, Reports malaise - Cardiovascular Reports no additional cardiovascular complaints - Respiratory Reports no additional respiratory complaints - Gastrointestinal Reports no additional gastrointestinal complaints - Neurologic Reports weakness PMFSH Medical History: Medical History (Last Updated 02/15/23 @ 23:11 by Ebony Arriola RN) Asthma No known health problems Social History: Social History (Last Reviewed 02/15/23 @ 01:50 by Elisa Lozano MD) Living Situation History: Household Members: Spouse Household Members: Children Housing: House Do you presently have visiting nurse or other home services: No Tobacco History: Patient Tobacco Use Status: Current everyday Tobacco Tobacco use type: Cigarette Second Hand Smoke Exposure: Yes Occupation Assessmet: service: No Current occupational status: employed 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 Home Medications and Allergies Current Medications: Current Medications Acetaminophen (Acetaminophen 325 Mg Tablet) 650 mg PO Q6H PRN PRN Reason: Pain, Mild (Pain Scale 1-3) Last Admin: 02/16/23 05:16 Dose: 650 mg Hydrocodone Bitart/Acetaminophen (Hydrocodone Bit/Acetam 5/325 Tablet) 1 tab PO Q4H PRN PRN Reason: Cough Last Admin: 02/17/23 01:52 Dose: 1 tab Albuterol Sulfate (Albuterol Sulfate 90 Mcg 8 Gm Inhaler) 2 puff INHALE RQ4H PRN PRN Reason: Wheezing Albuterol/Ipratropium (Albuterol/Iprat 2.5/0.5mg 3 Ml Ampul.Neb) 3 ml INHALE RQ4H WHILE AWAKE [facility] Last Admin: 02/16/23 20:16 Dose: 3 ml Albuterol/Ipratropium (Albuterol/Iprat 2.5/0.5mg 3 Ml Ampul.Neb) 3 ml INHALE Q4H PRN PRN Reason: Wheezing Last Admin: 02/17/23 03:53 Dose: 3 ml Benzonatate (Benzonatate 100 Mg Capsule) 200 mg PO TID PRN PRN Reason: Cough Last Admin: 02/16/23 20:02 Dose: 200 mg Guaifenesin (Guaifenesin 200 Mg/10 Ml 10 Ml Liquid) 10 ml PO Q4H PRN PRN Reason: Cough Last Admin: 02/17/23 01:52 Dose: 10 ml Melatonin (Melatonin 3 Mg Tablet) 6 mg PO BEDTIME PRN PRN Reason: Insomnia Last Admin: 02/16/23 20:02 Dose: 6 mg Methylprednisolone Sodium Succinate (Methylprednisolone Sod Succ 125 Mg/2 Ml Vial) 60 mg IVPUSH Q6H [facility] Last Admin: 02/17/23 06:45 Dose: 60 mg Omeprazole (Omeprazole 20 Mg Capsule.Dr) 20 mg PO DAILY PRN PRN Reason: Acid Reflux Ondansetron HCl (Ondansetron Hcl 4 Mg/2 Ml Vial) 4 mg IVPUSH Q8H PRN PRN Reason: Nausea and Vomiting Last Admin: 02/15/23 09:27 Dose: 4 mg Oseltamivir Phosphate (Oseltamivir Phosphate 75 Mg Capsule) 75 mg PO BID [facility] Stop: 02/19/23 09:01 Last Admin: 02/16/23 20:02 Dose: 75 mg Sodium Chloride (0.9 % Sodium Chloride Flush 3 Ml Syringe) 3 ml IVFLUSH QSHIFT [facility] Last Admin: 02/16/23 23:36 Dose: 3 ml Home Medications Medication Instructions Recorded Confirmed Type albuterol sulfate 90 mcg/actuation 2 puff inhalation Q4-6H PRN 02/15/23 02/15/23 History aerosol inhaler (Ventolin HFA) wheezing baclofen 10 mg tablet 10 mg PO TID PRN muscle spasm 02/15/23 02/15/23 History calcium carbonate 200 mg calcium 400 mg PO TIDWM PRN Heartburn 02/15/23 02/15/23 History (500 mg) chewable tablet (Calcium Antacid) fluticasone propionate 220 2 puff inhalation BID 02/15/23 02/15/23 History mcg/actuation HFA aerosol inhaler (Flovent HFA) omeprazole 20 mg capsule,delayed 20 mg PO DAILY PRN Acid Reflux 02/15/23 02/15/23 History release Allergies Allergy/AdvReac Type Severity Reaction Status Date / Time No Known Allergies Allergy Unverified 05/06/21 13:59 Physical Exam Vital signs: Vital Signs Temp 97 F 02/17/23 07:07 Pulse 74 02/17/23 07:07 Resp 18 02/17/23 07:07 BP 146/85 H 02/17/23 07:07 Pulse Ox 99 02/17/23 07:07 O2 Del Method Oxymask 02/17/23 07:07 O2 Flow Rate 7 02/17/23 07:07 Intake & Output 02/16/23 02/17/23 02/17/23 18:59 06:59 18:59 Intake Total 320 / 1760 1440 / 1760 Output Total 600 / 600 Balance 320 / 1160 840 / 1160 Urine Output (Average ml/kg/hr) 0.33 Intake: Intake, Oral Amount 320 / 1760 1440 / 1760 Output: Output, Urine Amount (Catheter) 600 / 600 purewick 600 / 600 Other: Breakfast % Eaten 100% Lunch % Eaten 100% Number of Unmeasured Voids 2 Urine Bathroom Weight 151.3 kg - Constitutional Present: no acute distress - Routine HEENT Exam Head: Present: normal inspection Eye: Present: PERRL - Routine Neck Exam Present: supple. Absent: lymphadenopathy - Routine Respiratory Exam Absent: stridor, wheezes - Routine Cardiovascular Exam Cardiovascular: Present: S1, S2 Hem/Onc Consult Result - Labs CBC & Chem 7: 02/16/23 10:15 02/15/23 05:27 Labs: Short CBC 02/16/23 Range/Units 10:15 WBC 12.5 H (4.8-10.8) X10*3/uL Hgb 7.9 L (12.0-16.0) g/dl Hct 28.9 L (37.0-47.0) % Plt Count 544 H (160-400) X10*3/uL Assessment and Plan Patient Active problem list reviewed?: Yes (1) Anemia Status: Acute Assessment and plan: 1. This is a 37-year-old woman with iron deficiency anemia secondary to menorrhagia. She has been recommended oral iron in the past but has not been compliant with it. Her acute worsening could be partly from iron deficiency and partly from recent infection. She has reactive leukocytosis and thrombocytosis. He has received 2 infusions of Venofer and 1 unit PRBC. I recommend that she take oral iron at home ferrous sulfate 325 mg p.o. once to twice a day with vitamin-C to enhance absorption. She can follow-up with Hematology upon discharge. - Time Spent With Patient Time Spent with Patient (in minutes): 18
[2023-02-17 08:25] VITALS: PULSE 84; RESP 18; O2SAT 96
--- NOTE | 2023-02-17 11:48 | MHC.CM.PN ---
Addendum entered by Yesi Alvarez RN 02/17/23 14:41: Patient now on RA. Cleared for DC home self care. Patient has own ride home. Original Note: EMR REVIEWED. PER MD ROUNDS PATIENT NOT MEDICALLY CLEARED AT THIS TIME, NURSING TO CONTINUE WEANING 02. CM WILL FOLLOW.
[2023-02-17 12:05] VITALS: PULSE 91; RESP 18; O2SAT 91
--- NOTE | 2023-02-17 14:17 | PM.DS ---
DS: Providers Provider Date of Service: 02/17/23 Date of admission: 02/15/23 01:44 Primary care physician: Aida Vasquez DO Consults: 02/16/23 11:34 Consult to Hematology / Oncology Routine Consulting Provider: Marisel Harper Reason for consultation: Anemia Has provider been notified: No DS: Diagnosis Discharge Diagnosis (1) Anemia: Status: Acute DS: Summary Hospital Course Hospital Course: Hospital course: Date of Service: 02/15/23 Chief Complaint: Dyspnea This is a 37-year-old female with no pertinent past medical history and not on prescription medications who presents to the emergency department for evaluation of dyspnea. Patient states that dyspnea started 1 day prior to presentation. It has been progressive and she is unable to walk from her bedroom to her bathroom without being short of breath. Also has associated dry cough and wheezing. Endorses generalized body aches. No sick contacts. Patient denies melena, hematochezia or hematemesis. States she has been having heavy periods for the last 2 and half weeks. No fever, chills, chest discomfort, palpitations, abdominal pain, changes in urinary or bowel habits. In the emergency department, patient tested positive for influenza A. History of presenting illness: 37-year-old female patient with past medical history significant for mild persistent asthma presented to [facility] due to symptoms of shortness of breath and diagnosed to have acute respiratory distress with acute asthma exacerbation due to influenza a bronchitis patient treated with IV steroids, updraft treatment and Tamifluvshe responded well to above treatment tachypnea tachycardia and shortness of breath resolved, her oxygenation normalized currently 94 95% on room air, therefore she is being discharged home on prednisone 20 mg daily for for 5 days, and 4 more dosages of Tamiflu to finish a total 5 day course she is recommended to cover face with sneezing and coughing in regard to microcytic anemia due to iron deficiency patient received 2 doses of IV iron infusion seen by Dr. Harper she recommends ferrous sulfate 325 mg twice daily with vitamin-C to enhance absorption, anemia likely related to acute infection, heavy periods, she is recommended to follow up with Hematology as outpatient. Morbid obesity recommend weight reduction. Time Attestation Discharge coordination time: Greater than 30 minutes Quality: Safe Use of Opioids Does Pt have an Active Cancer Diagnosis on the Problem List?: No Quality: Stroke Does the patient have a stroke diagnosis?: No Physical Exam Vital Signs: Vital Signs: Last Vital Signs Temp 97 F 02/17/23 07:07 Pulse 91 02/17/23 12:05 Resp 18 02/17/23 12:05 BP 146/85 H 02/17/23 07:07 Pulse Ox 99 02/17/23 07:07 O2 Del Method Oxymask 02/17/23 07:07 O2 Flow Rate 7 02/17/23 07:07 BMI result Body Mass Index 50.7 Const: Other: General awake alert x3, sitting comfortably in no acute distress. Neck supple no JVD. CVS regular rate rhythm, Respiratory lungs clear to auscultation, diminished, no respiratory distress, no wheeze, no rhonchi. Gastrointestinal abdomen soft, non tender, bowel sounds audible Extremities no edema. Neuro nonfocal Skin no rash Psych appropriate affect DS: Data Data Completed and Pending Labs on day of discharge: Preliminary micro results at discharge 02/15/23 02:05 Blood Culture - Preliminary Blood - Venous No growth after 48 hours. 02/14/23 22:27 Blood Culture - Preliminary Blood - Venous No growth after 48 hours. Discharge Plan Discharge Anticipated Discharge Date/Time: 02/17/23 14:08 Patient Disposition: Home, Self-Care Discharge Diagnosis: Acute asthma exacerbation due to influenza A Microcytic iron deficiency anemia Referrals: [facility] [Provider Group] - 02/16/23 Aida Vasquez DO [Primary Care Provider] - 1 Week Discharge Medications: New oseltamivir [Tamiflu] 75 mg Capsule 75 mg PO BID Qty: 4 0RF prednisone 20 mg tablet 20 mg PO DAILY Qty: 5 0RF albuterol sulfate 90 mcg/actuation HFA aerosol inhaler 2 puff inhalation Q6H PRN (Reason: sob) Qty: 8.5 0RF ferrous sulfate 325 mg (65 mg iron) tablet 325 mg PO BID Qty: 60 0RF ascorbic acid (vitamin C) [Vitamin C] 250 mg tablet 250 mg PO BID Qty: 60 0RF Continued baclofen 10 mg tablet 10 mg PO TID PRN (Reason: muscle spasm) calcium carbonate [Calcium Antacid] 200 mg calcium (500 mg) tablet,chewable 400 mg PO TIDWM PRN (Reason: Heartburn) omeprazole 20 mg capsule,delayed release(DR/EC) 20 mg PO DAILY PRN (Reason: Acid Reflux) fluticasone propionate [Flovent HFA] 220 mcg/actuation HFA aerosol inhaler 2 puff INHALATION BID albuterol sulfate [Ventolin HFA] 90 mcg/actuation HFA aerosol inhaler 2 puff INHALATION Q4-6H PRN (Reason: wheezing) Discharge Orders: Discharge Order (Routine); Ordered 02/17/23 Ordered By: Brandy Alcantar Diet: Advance to usual diet Activity on Discharge: As tolerated Stand Alone Forms: Patient Portal Discharge page, Work/School Release Activity Restrictions/Additional Instructions: Please drink lots of fluids. Please refrain from smoking. Care Plan Goals: Acute asthma exacerbation improved take prednisone as directed and albuterol inhaler 2 puffs as needed for shortness of breath Take Tamiflu four more dosages Rest ,drink fluids, cough medication as needed Cover mouth and face with sneezing and coughing Health Concerns: Asthma Plan of Treatment: Outpatient follow-up with primary care physician Outpatient follow-up with Hematology Dr. Harper call for appointment Assessment: As above Patient Instructions: Asthma (ED), Influenza (ED)
== END 2023-02-17 15:13 | disposition home or self-care (01) | DRG 113 ==
LOC: HO.ED 23:45 → HO.EDOVER 02-15 01:48 → HO.S3 02-15 16:25
PROVIDERS: Admitting Provider Student in an Organized Health Care Education/Training Program; Emergency Provider Emergency Medicine Emergency Medical Services; PCP Family Medicine; Visit Provider Hospitalist
DX: J10.1 Influenza due to other identified influenza virus with other respiratory manifestations (principal); J45.31 Mild persistent asthma with (acute) exacerbation; Z68.43 Body mass index [BMI] 50.0-59.9, adult; D50.9 Iron deficiency anemia, unspecified; F17.210 Nicotine dependence, cigarettes, uncomplicated; N92.0 Excessive and frequent menstruation with regular cycle; E66.01 Morbid (severe) obesity due to excess calories; R06.03 Acute respiratory distress; Z91.148 Patient's other noncompliance with medication regimen for other reason; Z71.3 Dietary counseling and surveillance; Z79.51 Long term (current) use of inhaled steroids; Z79.52 Long term (current) use of systemic steroids; Z79.899 Other long term (current) drug therapy
CPT/HCPCS: 0241U; 36415; 36600; 71045; 80048; 80053; 81001; 82803; 83540; 83605; 84484; 85025; 86850; 86870; 86900; 86901; 86902; 86905; 86920; 86922; 87040; 87086; 93005; 94640; 99285; J1756; J2405; J2920; J2930; J3475; P9016

== ENCOUNTER → 2023-02-14 | Outpatient (BNV) | payer MEDICAID, SELFPAY | PROVIDERS: Admitting Provider Student in an Organized Health Care Education/Training Program; Emergency Provider Emergency Medicine Emergency Medical Services; PCP Family Medicine; Visit Provider Internal Medicine Cardiovascular Disease | DX: R00.0 Tachycardia, unspecified (principal) | CPT/HCPCS: 93010 ==

== ENCOUNTER → 2023-02-15 01:44 | Outpatient (BNV) | payer MEDICAID, SELFPAY | PROVIDERS: Admitting Provider Student in an Organized Health Care Education/Training Program; Emergency Provider Emergency Medicine Emergency Medical Services; Visit Provider Student in an Organized Health Care Education/Training Program | DX: D64.9 Anemia, unspecified (principal) | CPT/HCPCS: 99222; 99233; 99239; 99499 ==

== ENCOUNTER → 2023-02-15 01:44 | Outpatient (BNV) | payer MEDICAID, SELFPAY | PROVIDERS: Admitting Provider Student in an Organized Health Care Education/Training Program; Emergency Provider Emergency Medicine Emergency Medical Services; PCP Family Medicine; Visit Provider Internal Medicine | DX: D50.0 Iron deficiency anemia secondary to blood loss (chronic) (principal); N92.0 Excessive and frequent menstruation with regular cycle | CPT/HCPCS: 99221 ==

== ENCOUNTER 2023-03-13 11:30 | Outpatient (REF) | payer MEDICAID, SELFPAY ==
[2023-03-13 13:07] LABS: MANUAL DIFF FLAG NO
[2023-03-13 13:19] LABS: Basophils Absolute Auto 0.1 X10*3/uL (0.0-0.2); Basophils Percent Auto 0.7 % (0-2); Eosinophils Absolute Auto 0.5 X10*3/uL (0.0-0.4); Eosinophils Percent Auto 6.1 % (0-4); Hematocrit 31.2 % (37.0-47.0); Hemoglobin 8.7 g/dl (12.0-16.0); Imm Gran Abs Auto 0.02 X10*3/uL (0.00-0.03); Imm Gran Pct Auto 0.3 % (0.0-0.4); Immature Retic Fraction 26.6 % (3.0-15.9); Lymphocytes Absolute Auto 2.7 X10*3/uL (1.2-4.9); Lymphocytes Percent Auto 36.7 % (20-40); Mean Corpuscular HGB Conc 27.9 g/dl (31.0-35.0); Mean Corpuscular Hemoglobin 21.1 pg (27.0-33.0); Mean Corpuscular Volume 75.7 fL (80.0-98.0); Mean Platelet Volume 10.7 fL (9.4-12.3); Monocytes Absolute Auto 0.5 X10*3/uL (0.1-1.2); Monocytes Percent Auto 7.1 % (2-11); Neutrophils Absolute Auto 3.7 x10*3/uL (2.0-8.3); Neutrophils Percent Auto 49.1 % (45-73); Platelet Count 532 X10*3/uL (160-400); Red Blood Count 4.12 X10*6/uL (4.20-5.50); Retic HGB Equivalent 21.5 pg (30.0-35.0); Reticulocyte Percent 1.6 % (0.5-1.8); Reticulocytes Absolute 0.068 X10*6/uL (0.026-0.095); White Blood Count 7.4 X10*3/uL (4.8-10.8)
[2023-03-13 13:52] LABS: Iron 20 mcg/dL (30-160); Percent Iron Saturation 7 % (15-50); Total Iron Binding Capacity 307 mcg/dL (228-428); Unsaturated Iron Binding 287 ug/dL
[2023-03-13 14:05] LABS: Vitamin D 25-OH Total 10.1 ng/mL (>30)
[2023-03-13 14:13] LABS: Ferritin 267 ng/mL (10-122)
[2023-03-13 14:25] LABS: Folate 7.1 ng/mL (> or = 4.0); Vitamin B12 615 pg/mL (200-900)
== END 2023-03-13 11:31 | disposition home or self-care (01) ==
LOC: HO.HHCL 11:30
PROVIDERS: Family Medicine; Internal Medicine; Visit Provider Registered Nurse
DX: D64.9 Anemia, unspecified (principal)
CPT/HCPCS: 36415; 82306; 82607; 82728; 82746; 83540; 85025; 85045

== ENCOUNTER → 2024-01-05 10:46 | Outpatient (BNVA) | payer MEDICAID, SELFPAY | PROVIDERS: PCP Family Medicine; Visit Provider Surgery ==

== ENCOUNTER 2024-01-19 11:46 | Outpatient (REF) | payer MEDICAID, SELFPAY ==
[2024-01-19 13:15] LABS: Hematocrit 27.9 % (37.0-47.0); Hemoglobin 7.4 g/dl (12.0-16.0); Mean Corpuscular HGB Conc 26.5 g/dl (31.0-35.0); Mean Corpuscular Hemoglobin 18.1 pg (27.0-33.0); Mean Corpuscular Volume 68.2 fL (80.0-98.0); Mean Platelet Volume 9.7 fL (9.4-12.3); Platelet Count 636 X10*3/uL (160-400); Red Blood Count 4.09 X10*6/uL (4.20-5.50); Red Cell Distribution Width 20.1 % (11.0-16.0); White Blood Count 11.6 X10*3/uL (4.8-10.8)
[2024-01-19 13:35] LABS: Estimated Average Glucose 100 mg/dL; Hemoglobin A1C 61.3479 umol/L; Hemoglobin A1c % 5.1 % (<6.0); Total Hemoglobin (HGBA1C) 1921.9142 umol/L
[2024-01-19 13:39] LABS: Anion Gap 10 (12-20)
[2024-01-19 13:42] LABS: Alanine Aminotransferase 11 U/L (0-31); Alkaline Phosphatase 89 U/L (39-117); Aspartate Amino Transferase 18 U/L (5-31); Bilirubin Direct 0.1 mg/dL (0.0-0.5); Bilirubin Total 0.3 mg/dL (0.0-1.0); Blood Urea Nitrogen 10 mg/dL (9-16); Calcium 9.7 mg/dL (8.4-10.2); Carbon Dioxide 25 mmol/L (22-29); Chloride 109 mmol/L (96-108); Cholesterol 147 mg/dL (<200); Estimated Glomerular Filt Rate > 60; Glucose Random 84 mg/dL (60-115); HDL Cholesterol 36 mg/dL (>40); Iron 16 mcg/dL (30-160); LDL Cholesterol Calculated 91 mg/dL (<100); Percent Iron Saturation 4 % (15-50); Potassium 3.7 mmol/L (3.3-5.1); Sodium 140 mmol/L (135-145); Total Iron Binding Capacity 396 mcg/dL (228-428); Triglycerides 100 mg/dL (<150); Unsaturated Iron Binding 380 ug/dL
[2024-01-19 14:01] LABS: Folate 7.2 ng/mL (> or = 4.0); Vitamin B12 558 pg/mL (200-900)
[2024-01-19 14:05] LABS: Ferritin 8 ng/mL (10-122); Free T4 (Free Thyroxine) 1.08 ng/dL (0.71-1.85); Thyroid Stimulating Hormone 0.85 uIU/mL (0.32-4.0)
[2024-01-19 14:29] LABS: CT PCR NOT DETECTED (Not Detect.); NG PCR NOT DETECTED (Not Detect.)
[2024-01-22 08:04] LABS: HIV AB/AG Nonreactive (Nonreactive); HIV Num 1 0.06 S/CO (0.00-0.99); ~Hepatitis C Antibody Nonreactive (Nonreactive)
[2024-01-22 17:13] LABS: RPR Rapid Plasma Reagin NON-REACTIVE (NON-REACTIVE)
== END 2024-01-19 11:47 | disposition home or self-care (01) ==
LOC: HO.HHCL 11:46
PROVIDERS: Visit Provider Family Medicine
DX: Z00.00 Encounter for general adult medical examination without abnormal findings (principal); R33.9 Retention of urine, unspecified; J45.41 Moderate persistent asthma with (acute) exacerbation; D64.9 Anemia, unspecified; K21.9 Gastro-esophageal reflux disease without esophagitis; N93.9 Abnormal uterine and vaginal bleeding, unspecified; R35.0 Frequency of micturition; E66.01 Morbid (severe) obesity due to excess calories; Z68.43 Body mass index [BMI] 50.0-59.9, adult
CPT/HCPCS: 80048; 80061; 80076; 82306; 82607; 82728; 82746; 83036; 83540; 84439; 84443; 85027; 86592; 86803; 87389; 87491; 87591

== ENCOUNTER 2024-01-22 08:02 | Outpatient (AMB) | payer MEDICAID, SELFPAY ==
--- NOTE | 2024-01-22 09:15 | A.OFFVIS_ITS ---
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 Allergies No Known Allergies Allergy (Verified 01/22/24 09:15) Medication List - Last Reconciled 01/22/24 by Jairon Fox MD albuterol sulfate 90 mcg/actuation (Ventolin HFA) 2 puffs inhalation Q4-6H PRN albuterol sulfate 90 mcg/actuation 2 puffs inhalation Q6H PRN baclofen 10 mg PO TID PRN fluticasone propionate 220 mcg/actuation (Flovent HFA) 2 puffs inhalation BID omeprazole 20 mg PO DAILY PRN prednisone 20 mg PO DAILY HPI HPI 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 53.7: Details: Start time: 9.03am, End time: 10.03am ?I spent 55 minutes speaking with the patient on the phone plus an additional 5 minutes reviewing and updating records for a total of 60 minutes HPI Comments Details: Previous weight loss efforts: Keto diet, exercise, supplements Wakes up: 7am, Sleeps: 10pm Breakfast: skips Lunch: occasionally Dinner: 5pm (meat, rice, potatoes, pasta, vegetables) Snacks: 6 times before dinner (cheese, yogurt, chips), 2-3 times after dinner (like before dinner) Exercise: none Fluids: Coffee: rarely, tea: none, soda: regular Coke and Pepsi, juice: daily, ETOH: 1/month PFS Medical History (Updated 01/22/24 @ 09:51 by Jairon Fox MD) Hypertension GERD (gastroesophageal reflux disease) Back pain Morbid obesity Anemia Asthma No known health problems Surgical History (Updated 01/22/24 @ 09:22 by Jairon Fox MD) History of bladder suspension procedure Social History Household Members: Spouse and Children Housing: House Do you presently have visiting nurse or other home services: No Patient Tobacco Use Status: Current everyday Tobacco user Tobacco use type: Cigarette Second Hand Smoke Exposure: Yes service: No Current occupational status: employed 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 Plan for lap sleeve gastrectomy. If diaphragmatic or ventral hernias are present at time of surgery, these will be repaired laparoscopically as well. Risks and complications include possible conversion to an open procedure, anastomotic leak, bleeding requiring transfusion, small bowel obstruction, , DVT and pulmonary embolism, cardiac, or pulmonary complications, as winch driver complications such as anastomotic ulcer, insufficient weight loss and vitamin deficiencies. I emphasized the importance of close follow-up, adherence to instructions and good communication. 2. Please buy a body composition scale and start sharing measurements with me 3. Do aerobic exercise (outside walking, or treadmill, or elliptical or stationary bike) and do 150 minutes of aerobic exercise per week, or 22 minutes per day. 4. Start the Zepbound when you get your body composition scale once a week. Use a calorie-counting binu to track your daily calories to create a calorie deficit with a target of consuming 1800 calories per day. We discussed the potential side effects of Zepbound such as nausea, vomiting, abdominal pain, diarrhea and constipation and you will need to contact me if any of these symptoms occur or for any other new symptom you may experience. Phentermine is not indicated because the patient has untreated hypertension and requires medical treatment. 5.?It is important of avoiding and for at least 18 month s postoperatively and has been discussed at the infosession. ?6. Goal is to lose at least 1.5-2lbs per week ?7. Goal to lose 10% of your weight before surgery, which is about 35lbs. Ultimate weight goal: 318lbs before surgery 8. I also prescribed a blood pressure medication because your blood pressure was very high. Please buy a blood pressure monitor, measure your blood pressure daily in the morning and let me know daily the readings. Orders: Orders Insulin Today E66.01 - Morbid (severe) obesity due to excess calories, J45.909 - Unspecified asthma, uncomplicated, K21.9 - Gastro-esophageal reflux disease without esophagitis Hemoglobin A1c Today E66.01 - Morbid (severe) obesity due to excess calories, J45.909 - Unspecified asthma, uncomplicated, K21.9 - Gastro-esophageal reflux disease without esophagitis H Pylori Breath Test Today E66.01 - Morbid (severe) obesity due to excess calories, J45.909 - Unspecified asthma, uncomplicated, K21.9 - Gastro-esophageal reflux disease without esophagitis Lipid Panel Today E66.01 - Morbid (severe) obesity due to excess calories, J45.909 - Unspecified asthma, uncomplicated, K21.9 - Gastro-esophageal reflux disease without esophagitis Comprehensive Met. Panel Today E66.01 - Morbid (severe) obesity due to excess calories, J45.909 - Unspecified asthma, uncomplicated, K21.9 - Gastro-esophageal reflux disease without esophagitis Vitamin B1 Today E66.01 - Morbid (severe) obesity due to excess calories, J45.909 - Unspecified asthma, uncomplicated, K21.9 - Gastro-esophageal reflux disease without esophagitis TSH reflex Free T4 Today E66.01 - Morbid (severe) obesity due to excess calories, J45.909 - Unspecified asthma, uncomplicated, K21.9 - Gastro-esophageal reflux disease without esophagitis Vitamin D 25-OH Total Today E66.01 - Morbid (severe) obesity due to excess calories, J45.909 - Unspecified asthma, uncomplicated, K21.9 - Gastro-esophageal reflux disease without esophagitis XR chest 2V Today E66.01 - Morbid (severe) obesity due to excess calories, J45.909 - Unspecified asthma, uncomplicated, K21.9 - Gastro-esophageal reflux disease without esophagitis Complete Blood Count Auto Diff Today E66.01 - Morbid (severe) obesity due to excess calories, J45.909 - Unspecified asthma, uncomplicated, K21.9 - Gastro- esophageal reflux disease without esophagitis IRON PROFILE Today E66.01 - Morbid (severe) obesity due to excess calories, J45.909 - Unspecified asthma, uncomplicated, K21.9 - Gastro-esophageal reflux disease without esophagitis Vitamin B12 and Folate Today E66.01 - Morbid (severe) obesity due to excess calories, J45.909 - Unspecified asthma, uncomplicated, K21.9 - Gastro-esophageal reflux disease without esophagitis Zinc Today E66.01 - Morbid (severe) obesity due to excess calories, J45.909 - Unspecified asthma, uncomplicated, K21.9 - Gastro-esophageal reflux disease without esophagitis C Reactive Protein Today E66.01 - Morbid (severe) obesity due to excess calories, J45.909 - Unspecified asthma, uncomplicated, K21.9 - Gastro-esophageal reflux disease without esophagitis Vitamin A Today E66.01 - Morbid (severe) obesity due to excess calories, J45.909 - Unspecified asthma, uncomplicated, K21.9 - Gastro-esophageal reflux disease without esophagitis Ferritin Today E66.01 - Morbid (severe) obesity due to excess calories, J45.909 - Unspecified asthma, uncomplicated, K21.9 - Gastro-esophageal reflux disease without esophagitis US abdomen comp w elastography Today E66.01 - Morbid (severe) obesity due to excess calories, J45.909 - Unspecified asthma, uncomplicated, K21.9 - Gastro- esophageal reflux disease without esophagitis ECG 12 lead EKG Today E66.01 - Morbid (severe) obesity due to excess calories, J45.909 - Unspecified asthma, uncomplicated, K21.9 - Gastro-esophageal reflux disease without esophagitis FL upper GI w air Today E66.01 - Morbid (severe) obesity due to excess calories, J45.909 - Unspecified asthma, uncomplicated, K21.9 - Gastro-esophageal reflux disease without esophagitis Referrals Nutrition/Dietitian Referral E66.01 - Morbid (severe) obesity due to excess calories, J45.909 - Unspecified asthma, uncomplicated, K21.9 - Gastro-esophageal reflux disease without esophagitis Behavioral Health Referral E66.01 - Morbid (severe) obesity due to excess calories, J45.909 - Unspecified asthma, uncomplicated, K21.9 - Gastro-esophageal reflux disease without esophagitis Medications: New tirzepatide (weight loss) (Zepbound) for 4 weeks 2.5 mg (0.5 mL) subcut QWEEK 2 mL 0RF E66.01 - Morbid (severe) obesity due to excess calories amlodipine 2.5 mg PO DAILY 30 tabs 0RF I10 - Essential (primary) hypertension
[2024-01-22 09:27] VITALS: BMI 53.7
== END 2024-01-22 10:05 | disposition home or self-care (01) ==
LOC: HO.HBS 08:02
PROVIDERS: PCP Family Medicine; Visit Provider Surgery
DX: E66.01 Morbid (severe) obesity due to excess calories (principal); Z68.43 Body mass index [BMI] 50.0-59.9, adult; E66.813 Obesity, class 3
CPT/HCPCS: 99205

== ENCOUNTER 2024-01-23 09:54 | Outpatient (REF) | payer MEDICAID, SELFPAY ==
--- NOTE | ~2024-01-23 | XR_ITS ---
EXAMINATION: XR CHEST CLINICAL INFORMATION: Morbid (severe) obesity due to excess calories E66.01. COMPARISON: XR Chest 02/14/2023 TECHNIQUE: 2 views of the chest were obtained. FINDINGS: No significant abnormality is noted involving the heart, lungs, mediastinum, bony thorax or soft tissues. XR/XR chest 2V IMPRESSION: No evidence of acute pulmonary process. Study is assigned/presented to me for interpretation on Feb 29, 2024 Electronically signed by: Paul Johnson MD 02/29/2024 12:58 PM EST
[2024-01-23 10:14] LABS: MANUAL DIFF FLAG NO
--- NOTE | 2024-01-23 11:13 | ECG_ITS ---
Test Reason : e66.01 Blood Pressure : / mmHG Vent. Rate : 093 BPM Atrial Rate : 093 BPM P-R Int : 146 ms QRS Dur : 088 ms QT Int : 374 ms P-R-T Axes : 061 047 036 degrees QTc Int : 465 ms Normal sinus rhythm Normal ECG When compared with ECG of 15-FEB-2023 01:48, No significant change was found Referred By: Jairon Fox Electronically Signed By:IVORY BACA MD
[2024-01-23 11:19] LABS: Basophils Absolute Auto 0.1 X10*3/uL (0.0-0.2); Basophils Percent Auto 0.5 % (0-2); Eosinophils Absolute Auto 0.5 X10*3/uL (0.0-0.4); Eosinophils Percent Auto 3.4 % (0-4); Hematocrit 27.5 % (37.0-47.0); Hemoglobin 7.1 g/dl (12.0-16.0); Imm Gran Abs Auto 0.05 X10*3/uL (0.00-0.03); Imm Gran Pct Auto 0.4 % (0.0-0.4); Lymphocytes Absolute Auto 4.2 X10*3/uL (1.2-4.9); Lymphocytes Percent Auto 31.7 % (20-40); Mean Corpuscular HGB Conc 25.8 g/dl (31.0-35.0); Mean Corpuscular Hemoglobin 17.8 pg (27.0-33.0); Mean Corpuscular Volume 69.1 fL (80.0-98.0); Mean Platelet Volume 9.8 fL (9.4-12.3); Monocytes Absolute Auto 0.8 X10*3/uL (0.1-1.2); Monocytes Percent Auto 5.7 % (2-11); Neutrophils Absolute Auto 7.7 x10*3/uL (2.0-8.3); Neutrophils Percent Auto 58.3 % (45-73); Platelet Count 664 X10*3/uL (160-400); Red Blood Count 3.98 X10*6/uL (4.20-5.50); Red Cell Distribution Width 19.6 % (11.0-16.0); White Blood Count 13.1 X10*3/uL (4.8-10.8)
[2024-01-23 11:42] LABS: Estimated Average Glucose 103 mg/dL; Hemoglobin A1C 62.2052 umol/L; Hemoglobin A1c % 5.2 % (<6.0); Total Hemoglobin (HGBA1C) 1859.8193 umol/L
[2024-01-23 12:03] LABS: Alanine Aminotransferase 10 U/L (0-31); Albumin Level 3.9 g/dL (3.5-5.0); Alkaline Phosphatase 77 U/L (39-117); Anion Gap 12 (12-20); Aspartate Amino Transferase 16 U/L (5-31); Bilirubin Total 0.4 mg/dL (0.0-1.0); Blood Urea Nitrogen 10 mg/dL (9-16); C Reactive Protein 4.15 mg/dL (< or = 0.50); Calcium 8.6 mg/dL (8.4-10.2); Carbon Dioxide 26 mmol/L (22-29); Chloride 105 mmol/L (96-108); Cholesterol 120 mg/dL (<200); Estimated Glomerular Filt Rate > 60; Glucose Random 79 mg/dL (60-115); HDL Cholesterol 36 mg/dL (>40); Iron 15 mcg/dL (30-160); LDL Cholesterol Calculated 66 mg/dL (<100); Percent Iron Saturation 4 % (15-50); Potassium 3.5 mmol/L (3.3-5.1); Sodium 139 mmol/L (135-145); Total Iron Binding Capacity 378 mcg/dL (228-428); Total Protein 7.5 g/dL (6.5-8.0); Triglycerides 92 mg/dL (<150); Unsaturated Iron Binding 363 ug/dL
[2024-01-23 12:18] LABS: Folate 5.8 ng/mL (> or = 4.0); Vitamin B12 527 pg/mL (200-900)
[2024-01-23 12:23] LABS: Ferritin 8 ng/mL (10-122); Insulin 23 uU/mL (2-29); TSH reflex Free T4 0.69 uIU/mL (0.32-4.0); Vitamin D 25-OH Total 11.3 ng/mL (>30)
[2024-01-26 13:42] LABS: Zinc 73 mcg/dL (60-130)
[2024-01-28 10:14] LABS: Vitamin A 61 mcg/dL (38-98)
[2024-01-29 06:14] LABS: Vitamin B1 <6 nmol/L (8-30)
== END 2024-01-23 09:55 | disposition home or self-care (01) ==
LOC: HO.XRAY 09:54
PROVIDERS: PCP Family Medicine; Visit Provider Surgery
DX: E66.01 Morbid (severe) obesity due to excess calories (principal); K21.9 Gastro-esophageal reflux disease without esophagitis; J45.909 Unspecified asthma, uncomplicated; N93.9 Abnormal uterine and vaginal bleeding, unspecified
CPT/HCPCS: 36415; 71046; 80053; 80061; 81025; 82306; 82607; 82728; 82746; 83036; 83525; 83540; 84425; 84443; 84590; 84630; 85025; 86140; 93005; 99202

== ENCOUNTER 2024-01-23 10:16 | Outpatient (AMB) | payer MEDICAID, SELFPAY ==
--- NOTE | 2024-01-23 10:24 | A.OFFVIS_ITS ---
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 ) Date of last menstrual period: 12/13/23 Review of Systems Const All systems reviewed & are unremarkable except as noted in HPI and below Physical Exam Chest Chest palpation & inspection: normal inspection of the chest and normal palpation of entire chest wall Breast/axilla inspection: normal inspection of the breasts and normal inspection of the axillae Breast/axilla palpation: normal palpation of the breasts and normal palpation of the axillae General: Yes no CVA tenderness External Female Exam: normal external appearance and normal appearance of the urethra Speculum Exam - Vagina: normal appearance of the vagina, normal palpation, no lesions and no masses Speculum Exam - Cervix: normal appearance of the cervix, normal palpation, no lesions, no masses and nontender Bimanual exam- vagina & uterus: normal bimanual exam, normal palpation, uterine size normal, normal palpation, uterine shape normal, No Cervical tenderness present and non-tender Bimanual Exam- Adnexa, other: normal adnexae Back/Spine/Pelvis Back: no CVA tenderness Assessment & Plan Assessment & Plan (1) Abnormal uterine bleeding: Code(s): N93.9 - Abnormal uterine and vaginal bleeding, unspecified Category: Medical Plan: Co testing done, GC and chlamydia taken CBC, TSH, HCG, and pelvic ultrasound ordered. Discussed with the patient the different causes of abnormal bleeding including thyroid disorders, uterine and ovarian pathology, endometrial hyperplasia, carcinoma and other potential causes. Discussed with the patient the work up including CBC (to r/o anemia), TSH, pelvic Ultrasound, endometrial biopsy to r/o endometrial pathology. All questions answered and the patient verbalized understanding. Instructed the patient to schedule an appointment for an endometrial biopsy in 2 weeks. Orders: Orders US pelvic and transvaginal Today N93.9 - Abnormal uterine and vaginal bleeding, unspecified Coding Level of Care Code New Pt Level 3 (65568) Diagnoses Abnormal uterine bleeding N93.9
== END 2024-01-23 10:52 | disposition home or self-care (01) ==
PROVIDERS: PCP Family Medicine; Visit Provider Obstetrics & Gynecology
DX: Z32.02 Encounter for pregnancy test, result negative (principal); N93.9 Abnormal uterine and vaginal bleeding, unspecified
CPT/HCPCS: 99203

== ENCOUNTER 2024-01-23 11:12 | Outpatient (REF) | payer MEDICAID, SELFPAY ==
[2024-01-24 13:33] LABS: HPV 16,18/45 See PAP report
== END 2024-01-23 11:13 | disposition home or self-care (01) ==
LOC: HO.LNP 11:12
PROVIDERS: Visit Provider Obstetrics & Gynecology
DX: N93.9 Abnormal uterine and vaginal bleeding, unspecified (principal)
CPT/HCPCS: 87624; 88175

== ENCOUNTER → 2024-01-23 11:13 | Outpatient (BNV) | payer MEDICAID, SELFPAY | PROVIDERS: PCP Family Medicine; Visit Provider Internal Medicine Cardiovascular Disease | DX: E66.01 Morbid (severe) obesity due to excess calories (principal) | CPT/HCPCS: 93010 ==

== ENCOUNTER → 2024-01-25 10:38 | Outpatient (BNVA) | payer MEDICAID, SELFPAY | PROVIDERS: PCP Family Medicine; Visit Provider Physician Assistant Surgical ==

== ENCOUNTER 2024-01-31 11:16 | Outpatient (REF) | payer MEDICAID, SELFPAY | END 2024-01-31 11:17 | disposition home or self-care (01) | LOC: HO.US 11:16 | PROVIDERS: PCP Family Medicine; Visit Provider Obstetrics & Gynecology | DX: N93.9 Abnormal uterine and vaginal bleeding, unspecified (principal) | CPT/HCPCS: 76830; 76856 ==

== ENCOUNTER 2024-02-01 11:29 | Day surgery (SDC) | payer MEDICAID, SELFPAY ==
--- NOTE | 2024-01-30 14:59 | P.CONAN_ITS ---
Documented by User: Ninfa Grullon NP 01/30/24 14:59 HPI - Anesthesia Eval Consult details Narrative: 38yo F for Upper Endoscopy PMFSH Active Problems Active Problems: All Active Problems Vitamin D deficiency (Acute) Abnormal uterine bleeding (Acute) Hypertension (Acute) GERD (gastroesophageal reflux disease) (Acute) Back pain (Acute) Asthma (Acute) Morbid obesity (Acute) Influenza (Acute) Past Medical History Medical History Hypertension GERD (gastroesophageal reflux disease) Back pain Morbid obesity Anemia Asthma Surgical History Surgical History H/O dilation and curettage History of bladder suspension procedure Social History Social History Household Members: Spouse and Children Housing: House Do you presently have visiting nurse or other home services: No Patient Tobacco Use Status: Current everyday Tobacco user Tobacco use type: Cigarette Cigarettes Per Day: 2 Second Hand Smoke Exposure: Yes service: No Current occupational status: employed 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 Allergies Allergy/AdvReac Type Severity Reaction Status Date / Time No Known Allergies Allergy Verified 01/25/24 11:29 Home Medications ?Medication ?Instructions ?Recorded ?Confirmed ?Last Taken ?Type albuterol sulfate 90 mcg/actuation 2 puff inhalation Q4-6H PRN 02/15/23 01/22/24 Unknown History aerosol inhaler (Ventolin HFA) wheezing baclofen 10 mg tablet 10 mg PO TID PRN muscle spasm 02/15/23 01/22/24 Unknown History fluticasone propionate 220 2 puff inhalation BID 02/15/23 01/22/24 Unknown History mcg/actuation HFA aerosol inhaler (Flovent HFA) omeprazole 20 mg capsule,delayed 20 mg PO DAILY PRN Acid Reflux 02/15/23 01/22/24 Unknown History release Assessment and Plan Assessment Anesthesia Assessment: Chart Reviewed Documented by User: Nilsa Alonso MD 02/01/24 13:08 [facility] Active Problems Active Problems: All Active Problems Vitamin D deficiency (Acute) Abnormal uterine bleeding (Acute) Hypertension (Acute) GERD (gastroesophageal reflux disease) (Acute) Back pain (Acute) Asthma (Acute). Inhaler prn Morbid obesity (Acute). BMI 53.9 Influenza (Acute) Snores but never tested for DELL Past Medical History Medical History Hypertension GERD (gastroesophageal reflux disease) Back pain Morbid obesity Anemia Asthma Family History Family history of problems with anesthesia: No Surgical History Surgical History H/O dilation and curettage History of bladder suspension procedure History of Problems with Anesthesia: No Social History Social History Household Members: Spouse and Children Housing: House Do you presently have visiting nurse or other home services: No Patient Tobacco Use Status: Current everyday Tobacco user Tobacco use type: Cigarette Cigarettes Per Day: 2 Second Hand Smoke Exposure: Yes service: No Current occupational status: employed 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 Allergies Allergy/AdvReac Type Severity Reaction Status Date / Time No Known Allergies Allergy Verified 01/25/24 11:29 Home Medications ?Medication ?Instructions ?Recorded ?Confirmed ?Last Taken ?Type albuterol sulfate 90 mcg/actuation 2 puff inhalation Q4-6H PRN 02/15/23 01/22/24 Unknown History aerosol inhaler (Ventolin HFA) wheezing baclofen 10 mg tablet 10 mg PO TID PRN muscle spasm 02/15/23 01/22/24 Unknown History fluticasone propionate 220 2 puff inhalation BID 02/15/23 01/22/24 Unknown History mcg/actuation HFA aerosol inhaler (Flovent HFA) omeprazole 20 mg capsule,delayed 20 mg PO DAILY PRN Acid Reflux 02/15/23 01/22/24 Unknown History release Exam Height,Weight and Vital Signs: Height 5 ft 8 in Weight 160.798 kg Vital Signs Temp Pulse Resp BP Pulse Ox O2 Del Method 02/01/24 11:58 98.2 F 85 16 143/95 H 99 Room Air Pertinent Lab Results Pertinent Lab Results: Lab Results 02/01/24 Range/Units 11:44 Urine Test NEGATIVE (NEGATIVE) Airway Mallampati Class: II TM Dist: >3cm Neck ROM: Full Loose/Missing/Broken Teeth: Yes (Some missing. Denies broken or loose teeth) Heart: RRR Lungs: CTAB Assessment and Plan Assessment Anesthesia Assessment: Anesthesia Plan Discussed and Chart Reviewed Final Anesthetic Review Family History of Problems with Anesthesia: No History of Problems with Anesthesia: No NPO: Yes ASA Class: III Final Preanesthetic Review: No Changes in Pt Med Stat, Meds/Allgs Chart Rev iewed, Consent Obtained/Reviewed and Anes Risks/Benef Reviewed Patient Risk: Intermediate Procedure Risk: Intermediate Assessment/Block/Sedation in SS: Assess/Block/Sedation-SS Anesthetic Plan Anesthetic Plan: TIVA Disposition: Standard PACU
[2024-02-01 11:50] VITALS: BMI 53.9
[2024-02-01 11:58] VITALS: BP 143/95; PULSE 85; RESP 16; TEMP 36.8; O2SAT 99
[2024-02-01 11:58] LABS: UPreg QC Valid YES; Urine Pregnancy NEGATIVE (NEGATIVE)
[2024-02-01] MEDS: Lactated Ringers 1,000 ML 80 ML IVCONT (12:21)
--- NOTE | 2024-02-01 12:50 | MHC.SHP ---
Pre-Procedural Eval Section A - 24 Hr Update-Section A only Date of Service: 02/01/24 The patient is an INPATIENT: No The patient has been examined within 24 hours of the surgical procedure. The History & Physical has been completed within 30 days and I have reviewed it.: Yes Section B - Complete if H&P > 30 days Chief Complaint: Morbid (severe) obesity due to excess calories Details of Present Illness: GERD Relevant Family History (Specify if Yes): No Relevant Social History: None Present Medications: None Medical History: No relevant PMH History of Previous Operations: No relevant previous surgery Allergies: Allergies Allergy/AdvReac Type Severity Reaction Status Date / Time No Known Allergies Allergy Verified 01/25/24 11:29 Review of Systems Sugical H&P ROS: Negative: Constitution, Cardiovascular, Respiratory, Neurological, Psychiatric, Hem-Onc, Allergic/Immunologic, Gastrointestinal, Genitourinary, Musculoskeletal, Integumentary, Endocrine and Eyes/Ears/Nose/Throat Exam Surgical H&P Exam: Normal: HEENT, Normal: Heart, Normal: Lungs, Normal: Extremities, Normal: Abdomen, Normal: Skin and Normal: Neurological Plan Diagnosis/Plan: Unchanged (EGD to assess etiology of GERD. Risks of bleeding and perforation were discussed with the patient and she is in agreement with the plan.) I have reviewed the history and physical and performed a pertinent physical examination on my patient. No changes have occurred unless specified. Time Spent With Patient Time: Total time managing care of this patient today ____ minutes.
--- NOTE | 2024-02-01 12:59 | PM.OP ---
Brief Operative Note Date of Service: 02/01/24 Pre-op diagnosis: GERD Post-op diagnosis: same (& dipahragmatic hernia) Procedure: PROCEDURE DATE: 02/01/2024 PREOPERATIVE DIAGNOSIS: GERD POSTOPERATIVE DIAGNOSIS: ?Same as above. 1) diaphragmatic hernia PROCEDURE: Inwltrhk-zmowxm-zbqnzzsvluub with biopsies Surgeon: ?Balwinder Fox M.D.. Ph.D. Timber Framer Helper: None ? Anesthesia: IV sedation Estimated blood loss: ?Minimal FINDINGS AND PROCEDURE: ? OPERATIVE INDICATIONS: ?The patient is a 38 year old female known to me who is interested in bariatric surgery. The patient has GERD. Based on this information I recommended an upper endoscopy to evaluate the patient's symptoms. Risks and complications of the surgery were discussed with the patient in advance particularly the possibility of perforation or bleeding that may require surgical intervention. The patient understood the risks and was in agreement with the plan. ? PROCEDURE: After informed consent was obtained by the patient, the patient was ?transferred to the Operating Room and was placed in the supine position.? After successful induction of IV sedation, a mouth block was inserted and the patient was placed in the left lateral decubitus position. An upper endoscopy was performed next, the oropharynx and esophagus appeared within the normal limits. There was a small 3cm diaphragmatic hernia. The z-line was smooth. Two biopsies were obtained from the distal esophagus 2-3 cm proximal to the GE junction and two additional biopsies from the GE junction. The stomach was entered and it appeared to be of normal size. There was no gastritis. There was no stricture or ulcer. A biopsy was obtained from the gastric fundus and the antrum. No significant bleeding was noted from any of the biopsy sites. Retroflexion of the scope confirmed the presence of a diaphragmatic hernia. The scope was then advanced into the duodenum which appeared to be normal as well. At that point the duodenum ?and the stomach were decompressed and the scope was withdrawn from the patient's mouth. The patient extubated and was transferred in stable condition to the Recovery Room for further care. I was present and performed all steps of the procedure. There were no residents to assist with this case. Balwinder Fox M.D., Ph.D. Surgeon: Jairon Fox MD Anesthesia: MAC Was an Timber Framer Helper used for this Procedure?: No Estimated blood loss (mL): 0 IV fluids (mL): 400 Urine output (mL): 0 (No Bose to record output) Pathology: other (1) antrum x1, 2) fundus x1, 3) GE junction x2, 4) distal esophagus x2) Condition: stable Disposition: PACU
[2024-02-01 13:46] VITALS: BP 146/104; PULSE 118; RESP 18; TEMP 37.1; O2SAT 96
[2024-02-01 14:01] VITALS: BP 138/87; PULSE 105; RESP 18; TEMP 37.1; O2SAT 96
== END 2024-02-01 14:46 | disposition home or self-care (01) ==
PROVIDERS: Nurse Practitioner; PCP Family Medicine; Visit Provider Surgery
PROC: 0DJ08ZZ Inspection of Upper Intestinal Tract, Via Natural or Artificial Opening Endoscopic (ICD-10-PCS; CPT 43235; principal; 2024-02-01 13:10)
DX: K21.9 Gastro-esophageal reflux disease without esophagitis (principal); E66.01 Morbid (severe) obesity due to excess calories; Z68.43 Body mass index [BMI] 50.0-59.9, adult; K44.9 Diaphragmatic hernia without obstruction or gangrene; I10 Essential (primary) hypertension; D64.9 Anemia, unspecified; J45.909 Unspecified asthma, uncomplicated; M54.9 Dorsalgia, unspecified; Z79.51 Long term (current) use of inhaled steroids; Z79.52 Long term (current) use of systemic steroids; Z79.899 Other long term (current) drug therapy; Z98.890 Other specified postprocedural states; F17.210 Nicotine dependence, cigarettes, uncomplicated
CPT/HCPCS: 43239; 81025; 88305; 88313; 88342; J1596; J2003; J2704

== ENCOUNTER → 2024-02-01 11:29 | Outpatient (BNV) | payer MEDICAID, SELFPAY | PROVIDERS: PCP Family Medicine; Visit Provider Surgery | DX: K44.9 Diaphragmatic hernia without obstruction or gangrene (principal) | CPT/HCPCS: 43239 ==

== ENCOUNTER → 2024-02-09 11:25 | Outpatient (AMB) | payer OTHER, SELFPAY ==
--- NOTE | 2024-02-09 11:15 | A.OFFWM_ITS ---
Intake 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: VIDEO BH Intake Allergies No Known Allergies Allergy (Verified 01/25/24 11:29) [facility] Medical History Hypertension GERD (gastroesophageal reflux disease) Back pain Morbid obesity Anemia Asthma Surgical History H/O dilation and curettage History of bladder suspension procedure Social History Household Members: Spouse and Children Housing: House Do you presently have visiting nurse or other home services: No Patient Tobacco Use Status: Current everyday Tobacco user Tobacco use type: Cigarette Cigarettes Per Day: 2 Second Hand Smoke Exposure: Yes service: No Current occupational status: employed 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 Presenting Concerns Referral Source WMP- Provider. Reason for referral Completion of behavioral health assessment as part of process for weight-loss surgery. Precipitating Event Obesity. Living Situation Current Living Situation Rent At risk of losing current housing? No Satisfied with current living situation? Yes Comments -PT lives with her 2 children and partn er. Also the family dog. Food/Weight/Diet Expectations of change Initial Goal to lose 10% of her weight before surgery, which is about 35lbs. Ultimate weight goal: 318lbs before surgery. Start weight 01/04- 353Lbs. Most recent weight 02/05/2024: 351Lbs Social History Family history and relationship PT is in a relationship for about 6 years. She has 2 children. Mom alive, no communication with father. She has 1 sister. PT reports she has good relationships in general but she's closer to her mom. Parental/Familial auto emissions technician obligations 2 children. They 're 15 (Boy) and 13 (girl). Developmental history and status PT had an IEP in school. Currently [place]. Social support Mother, children, partner. Community support PCP. DYS services for her son. Advent/Spirituality None Cultural/Ethnic information PT is , Mom from [place] and father from [place]. She was born in [place]. Legal Involvement and History Current or historical involvement with the legal system? None reported Education Highest grade completed GED. 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 Preferred learning style Learn by doing Currently enrolled in educational program? No Interested in further educational program? Yes Educational Interests/Skills PT would like to go to college in the healthcare field. 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 Employment Employment Status Unemployed (2 months ago. ) Wants help to find employment? No Meaningful activities [place]. Financial Situation Describe current financial situation Comfortable Financial assistance? Food [place] and [employer]AF[employer] Service Service? No Mental Health and Addiction Treatment Current/Past substance abuse? No Comments Alcohol: 1-2 x month. more than 4. Cigarettes/Tobacco: smokes 7-8 cigarettes at day Cannabis/Edibles: Yes, smokes cannabis daily, 5 blonds at day. Current/Past addictive behavior concerns? No Psychiatric history Not in counseling now but has been in the past. Last time about 1 year ago due to a lot of things going on on her life . PT reports a diagnosis of depression however she has never had a full depressive episode, rather has been couple days feeling down, depressed and with low energy. In the past she was on Zoloft prescribed by her PCP. PT denies ever been in crisis or inpatient for mental health. There is no history and/or current concern about SI/SA and self-harm or other-harm. Medical and Physical Health Summary Additional Medical History not covered in history None additional Sexual History concerns None reported Physical exam in the last year? Yes Pain Screening Current pain? No Pain in the last few months? Yes (Back pain. ) Medications Is the patient compliant with medications? Yes Does the patient have [place] Guardian in place? Not applicable Does the patient use complimentary health approaches? No Trauma/Abuse History History of trauma? No (She was under DCF -custody, in foster home on and off for couple years in childhood. committed to DYS from age 14 to 20. ) Current Involvement By Other (DYS for her son's behavior. ) Questionnaires PHQ-9 Over the last 2 weeks, how often have you been bothered by any of the following problems? 1. Little interest or pleasure in doing things: several days 2. Feeling down, depressed, or hopeless: several days 3. Trouble falling or staying asleep, or sleeping too much: not at all 4. Feeling tired or having little energy: not at all 5. Poor appetite or overeating: nearly every day 6. Feeling bad about yourself - or that you are a failure or have let yourself or your family down: several days 7. Trouble concentrating on things, such as reading the newspaper or watching television: several days 8. Moving or speaking so slowly that other people could have noticed. Or the opposite - being so fidgety or restless that you have been moving around a lot more than usual: not at all 9. Thoughts that you would be better off or of hurting yourself in some way: not at all Total score: 7 Depression Screening Interpretation: Positive (From new client Pck- scanned on 01/25 - NEW ONE WILL BE ADMINISTERED AT NEXT VISIT OR BEFORE COMPETING ASSESSMENT FOR ACCURATE RESULTS AND STATUS.) Depression Screening Done: Yes Source: Developed by Drs. Schuyler Hanley, Anjelica Lopez, Adrian Farmer and colleagues, with an educational cyrus from [employer]. Binge Eating Scale Group 1 A. I don't feel self-conscious about my wt. or body size when I'm with others. B. I feel concerned about how I look to others, but it normally does not make me fell disappointed with myself C. I do get self-conscious about my appearance and wt. which makes me feel disappointed in myself. D. I feel very self-conscious about my wt. and frequently I feel intense shame and disgust for myself. I try to avoid social contacts because of my self- consciousness. Response Group 1: D Group 2 A. I don't have any difficulty eating slowly in the proper manner. B. Although I seem to gobble down foods, I don't end up feeling stuffed because of eating to much. C. At times, I tend to eat quickly and then, I feel uncomfortably full afterwards. D. I have the habit of bolting down my food, without really chewing it. When this happens I usually feel uncomfortably stuffed because I've eaten to much. Response Group 2: C Group 3 A. I feel capable to control my eating urges when I want to. B. I feel like I have failed to control my eating more than the average person. C. I feel utterly helpless when it comes to feeling in control of my eating urges. D. Because I feel so helpless about controlling my eating I have become very desperate about trying to get control. Response Group 3: C Group 4 A. I don't have the habit of eating when I'm bored. B. I sometimes eat when I'm bored, but often I'm able to get busy and get my mind off food. C. I have a regular habit of eating when I'm bored, but occasionally, I can use some other activity to get my mind off eating. D. I have a strong habit of eating when I'm bored. Nothing seems to help me breath the habit. Response Group 4: D Group 5 A. I'm usually physically hungry when I eat something. B. Occasionally, I eat something on impulse even though I really am not hungry. C. I have the regular habit of eating foods, that I might not really enjoy, to satisfy a hungry feeling even though physically, I don't need the food. D. Although I'm not physically hungry, I get a hungry feeling in my mouth that only seems to be satisfied when I eat a food, like sandwich, that fills my mouth. Sometimes, when I eat the food to satisfy my mouth hunger, I then spit the food out so I won't gain weight. Response Group 5: B Group 6 A. I don't feel any guilt or self-hate after I overeat. B. After I overeat, occasionally I feel guilt or self-hate. C. Almost all the time I experience strong guilt or self-hate after I overeat. Response Group 6: B Group 8 A. I rarely eat so much food that I feel uncomfortably stuffed afterwards. B. Usually about once a month, I each such a quantity of food, I end up feeling very stuffed. C. I have regular periods during the month when I eat large amounts of food, either at mealtime or at snacks. D. I eat so much food that I regularly feel quite uncomfortable after eating and sometimes a bit nauseous. Response Group 8: C Group 9 A. My level of calorie intake does not go up very high or go down very low on a regular basis. B. Sometimes after I overeat, I will try to reduce my caloric intake to almost nothing to compensate for the excess calories I've eaten. C. I have a regular habit of overeating during the night. It seems that my routine is not to be hungry in the morning but overeat in the evening. D. In my adult years, I have had week-long periods where I practically starve myself. This follows periods when I overeat. It seems I live a life of either feast or famine. Response Group 9: C Group 10 A. I usually am able to stop eating when I want to. I know when enough is enough. B. Every so often, I experience a compulsion to eat which I can't seem to control. C. Frequently, I experience strong urges to eat which I seem unable to control, but at other times I can control my eating urges. D. I feel incapable of controlling urges to eat. I have a fear of not being able to stop eating voluntarily. Response Group 10: B Group 11 A. I don't have any problem stopping eating when I feel full. B. I usually can stop eating when I feel full but occasionally overeat leaving me feeling uncomfortably stuffed. C. I have a problem stopping eating once I start and usually I feel uncomfortably stuffed after I eat a meal. D. Because I have a problem not being able to stop eating when I want, I sometimes have to induce vomiting to relieve my stuffed feeling. Response Group 11: C Group 12 A. I seem to eat just as much when I'm with others, Family social gatherings as when I'm by myself. B. Sometimes, when I'm with other persons, I don't eat as much as I want to eat because I'm self-conscious about my eating. C. Frequently, I eat only a small amount of food when others are present, because I'm very embarrassed about my eating. D. I feel so ashamed about overeating that I pick times to overeat when I know no one will see me. I feel like a closet eater. Response Group 12: B Group 13 A. I eat three meals a day with only an occasional between meal snack. B. I eat 3 meals a day, but I also normally snack between meals. C. When I am snacking heavily, I get in the habit of skipping regular meals. D. There are regular periods when I seem to be continually eating, with no planned meals. Response Group 13: C Group 14 A. I don't think much about trying to control unwanted eating urges. B. At least some of the time, I feel my thoughts are pre-occupied with trying to control my eating urges. C. I feel that frequently I spend much time thinking about how much I ate or about trying not to eat anymore. D. It seems to me that most of my waking hours are pre-occupied by thoughts about eating or not eating. I feel like I'm constantly struggling not to eat. Response Group 14: C Group 15 A. I don't think about food a great deal. B. I have strong craving for food but they last only for brief periods of time. C. I have days when I can't seem to think about anything else but food. D. Most of my days seem to be pre-occupied with thoughts about food. I feel like I live to eat. Response Group 15: C Group 16 A. I usually know whether or not I'm physically hungry. I take the right portion of food to satisfy me. B. Occasionally, I feel uncertain about knowing whether or not I'm physically hungry. A these times it's hard to know how much food I should take to satisfy me. C. Even though I might know how many calories I should eat, I don't have any idea what is a normal amount of food for me. Response Group 16: B (PT wrote: NOT SURE ) Binge Eating Score: 27 Score less than 17 Minimal Risk Score between 18-26 Moderate Risk Score between 27-46 High Risk Assessment & Plan Assessment & Plan (1) Morbid obesity: Code(s): E66.01 - Morbid (severe) obesity due to excess calories (2) Adjustment disorder, unspecified: Code(s): F43.20 - Adjustment disorder, unspecified (3) Inappropriate diet and eating habits: Code(s): Z72.4 - Inappropriate diet and eating habits Plan PT not cleared yet. She will return in 2-4 weeks to complete assessment. A new PHQ-9 will be administered at next visit. Next binu: 02/18/2023 at 1pm - Telehealth Telehealth Telehealth [facility]health [facility] Location of provider rendering services: practice address Location of patient: address on file Patient Identification confirmed using: Name, : Yes Telehealth method: video Patient verbally consented to treatment: Yes Patient verbally consented to billing insurance company: Yes Patient informed of any privacy concerns related to visit: Yes Minutes spent on Phone/Video with Pt.: 45 Coding Level of Care Code New Pt Tele Psy Diag [place] ([id number]) Patient Type New Diagnoses Morbid obesity E66.01 Adjustment disorder, unspecified F43.20 Inappropriate diet and eating habits Z72.4 Time Spent (min) 45
== END ==
PROVIDERS: PCP Family Medicine; Visit Provider Counselor Mental Health
DX: F43.20 Adjustment disorder, unspecified (principal); E66.01 Morbid (severe) obesity due to excess calories; Z72.4 Inappropriate diet and eating habits
CPT/HCPCS: 90834

== ENCOUNTER 2024-02-20 10:13 | Outpatient (AMB) | payer MEDICAID, SELFPAY ==
--- NOTE | 2024-02-20 10:05 | MHC.WMTHER ---
Intake 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: VIDEO BH F/U Allergies No Known Allergies Allergy (Verified 01/25/24 11:29) [facility] Medical History Hypertension GERD (gastroesophageal reflux disease) Back pain Morbid obesity Anemia Asthma Surgical History H/O dilation and curettage History of bladder suspension procedure Social History Household Members: Spouse and Children Housing: House Do you presently have visiting nurse or other home services: No Patient Tobacco Use Status: Current everyday Tobacco user Tobacco use type: Cigarette Cigarettes Per Day: 2 Second Hand Smoke Exposure: Yes service: No Current occupational status: employed Current occupation: [employer] Behavioral Health Assessment Weight Management Therapy Therapy Notes Details The patient is a 38-year-old female presenting for a second visit to complete a behavioral health assessment as part of the surgical weight loss program. She reports that she is not currently in counseling but has previously participated in therapy, with her last session occurring about a year ago due to a lot of things going on in her life. The patient has been diagnosed with depression but states that she has never experienced a full depressive episode. Instead, she has occasionally felt down, depressed, and low in energy for a few days at a time. In the past, she was prescribed Zoloft by her primary care provider. The patient denies any history of crisis situations or inpatient mental health treatment. There are no current or past concerns regarding suicidal ideation (SI), suicidal attempts (SA), self-harm, or harm to others. There is no indication of stress or emotional eating. BES scores suggest a low to moderate risk for binge eating behavior. PHQ scores show no active symptoms or concerns related to depression. Additionally, the mental status exam is within normal limits, indicating that the patient?s overall functioning is not impaired. At this time, the patient is cleared from a behavioral health standpoint. Presenting Concerns Referral Source WMP- Provider. Reason for referral Completion of behavioral health assessment as part of process for weight-loss surgery. Precipitating Event Obesity. Living Situation Current Living Situation Rent At risk of losing current housing? No Satisfied with current living situation? Yes Comments -PT lives with her 2 children and partner. Also the family dog. Food/Weight/Diet Expectations of change PT would like to lose weight and maintain a healthy weight to be healthy and feel comfortable with her body. She feels tired of being big and wants to focus on living longer a healthier and happier life. . The initial Goal is to lose 10% of her weight before surgery, about 35 lbs. Ultimate weight goal: 318lbs before surgery. Start weight 01/04- 353 lbs. weight 02/05/2024: 351Lbs Weight 02/19/2024: 342Lbs . Meal plan: under 1800cal a day. Using an binu. exercise plan: attends [employer], 3-4 days at week. It does treadmill mostly. Using [employer]. History/Relationship with food PT reports she loves food and likes to eat junk and grease food. Denies using food to either cheer herself up or celebrate good things. However, found herself snacking more when tense. . Example of meals before starting the program: Breakfast: Skip or would have regular food like a slice of pizza or pasta around. never had a set time for the first meal of the day. Lunch: none formal, mostly snacks. Chips, candy. Dinner: 5-6pm/ somedays homemade, some take-out a couple of days a week. If cooking at home, it would be rice, fried chicken, beans, and rarely salad or veggies. Snacks: mostly during the whole day in between breakfast and dinner. Mostly things chips, candy, ice cream, cheese. And a bigger portion. snacking mostly in between dinner and bedtime. History/Relationship with weight PT reports she was always a chunky girl but very active. She believes she was under 300 lbs 5 years ago, and around 200 lbs when had her first child 15 years ago. The client was never weighting herself regularly, so she's not aware of her highest and/or lowest weight in the past year. History/Relationship with dieting 7 years ago did WMP @[facility] [employer]. Self diets OTC pills Working out. Never stick to any method for the longest, a couple of months but less than a year and was never consistent. Binge Eating Do you frequently eat large amounts of food in short periods of time, not feeling physically hungry? No Do you feel out of control when you eat a large amount of food in a short period of time? No Do you eat large amounts of food rapidly and typically alone? No Night Eating Do you wake up at least once during the night to eat? Yes If you wake up in the night, do you find that it is necessary to eat something in order to fall back asleep? No Do you have little or no appetite in the morning and feel very hungry in the evening, often overeating between dinner and when you go to bed? Yes Social History Family history and relationship PT is in a relationship for about 6 years. She has 2 children. Mom alive, no communication with father. She has 1 sister. PT reports she has good relationships in general but she's closer to her mom. 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 They 're 15 (Boy) and 13 (girl). Developmental history and status PT had an IEP in school. Currently [facility]. Social support Mother, children, partner. Community support PCP. DYS services for her son. Orthodoxy/Spirituality None Cultural/Ethnic information PT is , Mom from [place] and father from [place]. She was born in [place]. Legal Involvement and History Current or historical involvement with the legal system? None reported Education Highest grade completed GED. [employer] license. Preferred learning style Learn by doing Currently enrolled in educational program? No Interested in further educational program? Yes Educational Interests/Skills PT would like to go to college in the healthcare field. 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 Employment Employment Status Unemployed (2 months ago. ) Wants help to find employment? No Meaningful activities [employer]. Financial Situation Describe current financial situation Comfortable Financial assistance? Food Kathleen and [employer]AF[employer] Service Service? No Mental Health and Addiction Treatment Current/Past substance abuse? No Comments Alcohol: 1-2 x month. more than 4. Cigarettes/Tobacco: smokes 7-8 cigarettes at day Cannabis/Edibles: Yes, smokes cannabis daily, 5 blonds at day. Current/Past addictive behavior concerns? No Psychiatric history Not in counseling now but has been in the past. Last time about 1 year ago due to a lot of things going on on her life . PT reports a diagnosis of depression however she has never had a full depressive episode, rather has been couple days feeling down, depressed and with low energy. In the past she was on Zoloft prescribed by her PCP. PT denies ever been in crisis or inpatient for mental health. There is no history and/or current concern about SI/SA and self-harm or other-harm. Medical and Physical Health Summary Additional Medical History not covered in history None additional Sexual History concerns None reported Physical exam in the last year? Yes Pain Screening Current pain? No Pain in the last few months? Yes (Back pain. ) Medications Is the patient compliant with medications? Yes Does the patient have [place] Guardian in place? Not applicable Does the patient use complimentary health approaches? No Trauma/Abuse History History of trauma? No (She was under DCF -custody, in foster home on and off for couple years in childhood. committed to DYS from age 14 to 20. ) Current Involvement By Other (DYS for her son's behavior. ) Questionnaires PHQ-9 Over the last 2 weeks, how often have you been bothered by any of the following problems? 1. Little interest or pleasure in doing things: not at all 2. Feeling down, depressed, or hopeless: not at all 3. Trouble falling or staying asleep, or sleeping too much: not at all 4. Feeling tired or having little energy: not at all 5. Poor appetite or overeating: several days (Poor appetite) 6. Feeling bad about yourself - or that you are a failure or have let yourself or your family down: not at all 7. Trouble concentrating on things, such as reading the newspaper or watching television: not at all 8. Moving or speaking so slowly that other people could have noticed. Or the opposite - being so fidgety or restless that you have been moving around a lot more than usual: not at all 9. Thoughts that you would be better off or of hurting yourself in some way: not at all Total score: 1 Depression Screening Interpretation: Negative Depression Screening Done: Yes 77450 - PHQ-9 Billing: Yes Source: Developed by Drs. Schuyler Hanley, Anjelica Lopez, Adrian Farmer and colleagues, with an educational cyrus from [employer]. Binge Eating Scale Group 1 A. I don't feel self-conscious about my wt. or body size when I'm with others. B. I feel concerned about how I look to others, but it normally does not make me fell disappointed with myself C. I do get self-conscious about my appearance and wt. which makes me feel disappointed in myself. D. I feel very self-conscious about my wt. and frequently I feel intense shame and disgust for myself. I try to avoid social contacts because of my self-consciousness. Response Group 1: D Group 2 A. I don't have any difficulty eating slowly in the proper manner. B. Although I seem to gobble down foods, I don't end up feeling stuffed because of eating to much. C. At times, I tend to eat quickly and then, I feel uncomfortably full afterwards. D. I have the habit of bolting down my food, without really chewing it. When this happens I usually feel uncomfortably stuffed because I've eaten to much. Response Group 2: C Group 3 A. I feel capable to control my eating urges when I want to. B. I feel like I have failed to control my eating more than the average person. C. I feel utterly helpless when it comes to feeling in control of my eating urges. D. Because I feel so helpless about controlling my eating I have become very desperate about trying to get control. Response Group 3: C Group 4 A. I don't have the habit of eating when I'm bored. B. I sometimes eat when I'm bored, but often I'm able to get busy and get my mind off food. C. I have a regular habit of eating when I'm bored, but occasionally, I can use some other activity to get my mind off eating. D. I have a strong habit of eating when I'm bored. Nothing seems to help me breath the habit. Response Group 4: D Group 5 A. I'm usually physically hungry when I eat something. B. Occasionally, I eat something on impulse even though I really am not hungry. C. I have the regular habit of eating foods, that I might not really enjoy, to satisfy a hungry feeling even though physically, I don't need the food. D. Although I'm not physically hungry, I get a hungry feeling in my mouth that only seems to be satisfied when I eat a food, like sandwich, that fills my mouth. Sometimes, when I eat the food to satisfy my mouth hunger, I then spit the food out so I won't gain weight. Response Group 5: B Group 6 A. I don't feel any guilt or self-hate after I overeat. B. After I overeat, occasionally I feel guilt or self-hate. C. Almost all the time I experience strong guilt or self-hate after I overeat. Response Group 6: B Group 8 A. I rarely eat so much food that I feel uncomfortably stuffed afterwards. B. Usually about once a month, I each such a quantity of food, I end up feeling very stuffed. C. I have regular periods during the month when I eat large amounts of food, either at mealtime or at snacks. D. I eat so much food that I regularly feel quite uncomfortable after eating and sometimes a bit nauseous. Response Group 8: C Group 9 A. My level of calorie intake does not go up very high or go down very low on a regular basis. B. Sometimes after I overeat, I will try to reduce my caloric intake to almost nothing to compensate for the excess calories I've eaten. C. I have a regular habit of overeating during the night. It seems that my routine is not to be hungry in the morning but overeat in the evening. D. In my adult years, I have had week-long periods where I practically starve myself. This follows periods when I overeat. It seems I live a life of either feast or famine. Response Group 9: C Group 10 A. I usually am able to stop eating when I want to. I know when enough is enough. B. Every so often, I experience a compulsion to eat which I can't seem to control. C. Frequently, I experience strong urges to eat which I seem unable to control, but at other times I can control my eating urges. D. I feel incapable of controlling urges to eat. I have a fear of not being able to stop eating voluntarily. Response Group 10: B Group 11 A. I don't have any problem stopping eating when I feel full. B. I usually can stop eating when I feel full but occasionally overeat leaving me feeling uncomfortably stuffed. C. I have a problem stopping eating once I start and usually I feel uncomfortably stuffed after I eat a meal. D. Because I have a problem not being able to stop eating when I want, I sometimes have to induce vomiting to relieve my stuffed feeling. Response Group 11: C Group 12 A. I seem to eat just as much when I'm with others, Family social gatherings as when I'm by myself. B. Sometimes, when I'm with other persons, I don't eat as much as I want to eat because I'm self-conscious about my eating. C. Frequently, I eat only a small amount of food when others are present, because I'm very embarrassed about my eating. D. I feel so ashamed about overeating that I pick times to overeat when I know no one will see me. I feel like a closet eater. Response Group 12: B Group 13 A. I eat three meals a day with only an occasional between meal snack. B. I eat 3 meals a day, but I also normally snack between meals. C. When I am snacking heavily, I get in the habit of skipping regular meals. D. There are regular periods when I seem to be continually eating, with no planned meals. Response Group 13: C Group 14 A. I don't think much about trying to control unwanted eating urges. B. At least some of the time, I feel my thoughts are pre-occupied with trying to control my eating urges. C. I feel that frequently I spend much time thinking about how much I ate or about trying not to eat anymore. D. It seems to me that most of my waking hours are pre-occupied by thoughts about eating or not eating. I feel like I'm constantly struggling not to eat. Response Group 14: C Group 15 A. I don't think about food a great deal. B. I have strong craving for food but they last only for brief periods of time. C. I have days when I can't seem to think about anything else but food. D. Most of my days seem to be pre-occupied with thoughts about food. I feel like I live to eat. Response Group 15: C Group 16 A. I usually know whether or not I'm physically hungry. I take the right portion of food to satisfy me. B. Occasionally, I feel uncertain about knowing whether or not I'm physically hungry. A these times it's hard to know how much food I should take to satisfy me. C. Even though I might know how many calories I should eat, I don't have any idea what is a normal amount of food for me. Response Group 16: B (PT wrote: NOT SURE ) Binge Eating Score: 27 Score less than 17 Minimal Risk Score between 18-26 Moderate Risk Score between 27-46 High Risk Assessment & Plan Assessment & Plan (1) Morbid obesity: Code(s): E66.01 - Morbid (severe) obesity due to excess calories (2) Adjustment disorder, unspecified: Code(s): F43.20 - Adjustment disorder, unspecified (3) Inappropriate diet and eating habits: Code(s): Z72.4 - Inappropriate diet and eating habits Plan The patient is cleared from a behavioral health standpoint. The patient has expressed a desire to meet with this provider prior to surgery, as she anticipates feeling stressed and would like additional support. Since the surgery date is not yet set and depends on her progress toward the initial weight loss goal, she will be scheduled for follow-up in 6-8 weeks. Next appointment: 04/02/2024 at 10:00 AM via Telehealth. Telehealth Telehealth [facility]health [facility]: [facility] Location of provider rendering services: practice address Location of patient: address on file Patient Identification confirmed using: Name, : Yes Telehealth method: video Patient verbally consented to treatment: Yes Patient verbally consented to billing insurance company: Yes Patient informed of any privacy concerns related to visit: Yes Minutes spent on Phone/Video with Pt.: 55 Coding Level of Care Code Established Pt Tele Psytx >53 mins (10563) Patient Type Established Diagnoses Morbid obesity E66.01 Adjustment disorder, unspecified F43.20 Inappropriate diet and eating habits Z72.4 Additional Codes PHQ-9 - 81748 - PHQ-9 Billing: Yes ([id number]) Time Spent (min) 55
== END 2024-02-20 11:19 | disposition home or self-care (01) ==
LOC: HO.HBST 10:13
PROVIDERS: PCP Family Medicine; Visit Provider Counselor Mental Health
DX: F43.20 Adjustment disorder, unspecified (principal); E66.01 Morbid (severe) obesity due to excess calories; Z72.4 Inappropriate diet and eating habits
CPT/HCPCS: 90837

== ENCOUNTER → 2024-02-20 10:13 | Outpatient (BNVA) | payer OTHER, MEDICAID, SELFPAY | PROVIDERS: PCP Family Medicine; Visit Provider Counselor Mental Health ==

== ENCOUNTER 2024-02-26 08:37 | Outpatient (REF) | payer MEDICAID, SELFPAY ==
--- NOTE | ~2024-02-26 | US_ITS ---
EXAMINATION: US ABDOMEN COMPLETE WITH LIVER ELASTOGRAPHY HISTORY: E66.01 - Morbid (severe) obesity due to excess calories TECHNIQUE: Real-time grayscale ultrasound imaging of the abdomen was performed and images were reviewed. COMPARISON: There are no prior studies for comparison. FINDINGS: Liver: The liver is normal in size, but demonstrates increased echotexture, consistent with steatosis. No focal mass or intrahepatic biliary ductal dilatation is identified. There is normal hepatopedal flow in the portal vein. Ultrasound elastography of the liver was performed with 10 separate measurements of the liver parenchyma with the patient in the supine position. Measurements were obtained approximately 2 cm below Josie's capsule and perpendicular to the capsule. Images are of satisfactory quality. The median shear wave velocity is 1.22 m/s. The interquartile range/median (IQR/median) is 0.11. Gallbladder and biliary tree: The gallbladder is unremarkable, without evidence of calculi, wall thickening, or pericholecystic fluid. There is no sonographic Aguiar sign. The common bile duct is normal in caliber measuring 3 mm. Kidneys: The right kidney measures 11.7 cm in length. The left kidney measures 11.6 cm in length. The kidneys are unremarkable, without evidence of masses, hydronephrosis, or calculi. Pancreas: The pancreatic head, neck, and body are unremarkable. The pancreatic tail is obscured by bowel gas. Spleen: The spleen is normal in size and contour, measuring 10.7 cm in length. Abdominal aorta and inferior vena cava: The visualized portions of the abdominal aorta and inferior vena cava are normal in caliber. There is no free fluid in the abdomen. US/US abdomen comp w elastography IMPRESSION: Hepatic steatosis. The median shear wave velocity is 1.22 m/s, corresponding to a median liver stiffness of 4.52 kPa. The IQR/median value is 0.11. This is indicative of a quality data set. Findings are indicative of a normal elastography value with a low likelihood of severe fibrosis or cirrhosis. REFERENCE: Society of Radiologists in Ultrasound Liver Stiffness Thresholds (2019): LIVER STIFFNESS THRESHOLDS: *Shear wave velocity less than 1.3 m/s (Liver Stiffness equal or less than 5 kPa): High probability of being normal. *Shear wave velocity less than 1.7 m/s (Liver Stiffness less than 9 kPa): In the absence of other known clinical signs, rules out compensated advanced chronic liver disease. *Shear wave velocity between 1.7-2.1 m/s (Liver Stiffness 9-13 kPa): Suggestive of compensated advanced chronic liver disease but need further test for confirmation. *Shear wave velocity between 2.1-2.4 m/s (Liver Stiffness 13-17 kPa): Rules in compensated advanced chronic liver disease. *Shear wave velocity greater than 2.4 m/s (Liver Stiffness over 17 kPa): Suggestive of clinically significant portal hypertension. QUALITY OF DATA SET: *IQR/Median value equal or less than 0.15 implies a quality data set. *IQR/Median value over 0.15 implies a poor quality data set. SIGNIFICANT CHANGE FROM PRIOR EXAM: Significant change if liver stiffness measurement is 10% or greater from prior exam. OTHER CONSIDERATIONS: The stage of liver fibrosis may be overestimated in the setting of acute hepatitis, liver inflammation, elevated liver function tests, hepatic vascular congestion, obstructive cholestasis, non-fasting state, and infiltrative diseases such as amyloidosis and lymphoma. In some patients with NAFLD, the liver stiffness thresholds for compensated advanced chronic liver disease may be lower. In causes other than viral hepatitis and NAFLD, liver stiffness thresholds are not well established. Electronically signed by: Schuyler Montes De Oca MD 02/27/2024 11:27 AM [facility]
== END 2024-02-26 08:38 | disposition home or self-care (01) ==
LOC: HO.US 08:37
PROVIDERS: PCP Family Medicine; Visit Provider Surgery
DX: E66.01 Morbid (severe) obesity due to excess calories (principal); K21.9 Gastro-esophageal reflux disease without esophagitis; J45.909 Unspecified asthma, uncomplicated
CPT/HCPCS: 76700; 76981

== ENCOUNTER → 2024-02-26 08:41 | Outpatient (BNV) | payer MEDICAID, SELFPAY | PROVIDERS: PCP Family Medicine; Visit Provider Radiology Diagnostic Radiology | DX: K74.00 Hepatic fibrosis, unspecified (principal) | CPT/HCPCS: 76700 ==

== ENCOUNTER 2024-04-02 10:18 | Outpatient (AMB) | payer OTHER, SELFPAY ==
--- NOTE | 2024-04-02 10:00 | MHC.WMTHER ---
Intake 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: VIDEO BH F/U Allergies No Known Allergies Allergy (Verified 04/30/24 11:18) [facility] Medical History Hypertension GERD (gastroesophageal reflux disease) Back pain Morbid obesity Anemia Asthma Surgical History H/O dilation and curettage History of bladder suspension procedure Social History Household Members: Spouse and Children Housing: House Do you presently have visiting nurse or other home services: No Patient Tobacco Use Status: Current everyday Tobacco user Tobacco use type: Cigarette Cigarettes Per Day: 2 Second Hand Smoke Exposure: Yes Patient : No service: No Current occupational status: employed 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 While she has not yet stopped smoking as advised, she is now aware that her insurance requires nicotine labs, which has motivated her to begin reducing her smoking. She currently smokes [insert current number of cigarettes per day, if available]. Objective: The patient presented for a follow-up visit via Telehealth. We discussed her current functioning, progress, and any challenges she is facing as she prepares for bariatric surgery. A smoking cessation plan was reviewed, and we worked on increasing her readiness for surgery by exploring her motivations and setting realistic goals for smoking reduction. Cognitive Behavioral Therapy (CBT) techniques were used to help her identify and challenge any thoughts that might be hindering her ability to quit smoking. We also discussed potential triggers for smoking and worked on developing strategies to manage cravings. Assessment/Response: Mental Status: Within normal limits. The patient was alert, oriented, and engaged in the session. She demonstrated insight into her smoking behavior and the importance of quitting for her surgical success and overall health. Risk: No immediate risk concerns identified. The patient denies any issues related to self-harm, suicidal ideation, or substance abuse. She is aware of the risks smoking poses to her health and is actively working on reducing her nicotine use. Food/Weight/Diet Expectations of change PT would like to lose weight and maintain a healthy weight to be healthy and feel comfortable with her body. She feels tired of being big and wants to focus on living longer a healthier and happier life. . The initial Goal is to lose 10% of her weight before surgery, about 35 lbs. Ultimate weight goal: 318lbs before surgery. Start weight 01/04- 353 lbs. weight 02/05/2024: 351Lbs Weight 02/19/2024: 342Lbs Weight 03/29/2024: 321Lbs . Meal plan: under 1800cal a day. Using an binu. Breakfast: eggs or fruit. Lunch: protein shake - Dinner: mac and cheese yesterday. exercise plan: attends [employer], 2-3 days a week. It does treadmill for 1 hour. Using [employer]. Assessment & Plan Assessment & Plan (1) Morbid obesity: Code(s): E66.01 - Morbid (severe) obesity due to excess calories (2) Adjustment disorder, unspecified: Code(s): F43.20 - Adjustment disorder, unspecified (3) Inappropriate diet and eating habits: Code(s): Z72.4 - Inappropriate diet and eating habits Plan PT is cleared from BH standpoint. We will follow up 1-2 weeks post-operatively. Telehealth Telehealth Telehealth Platform: [facility] Location of provider rendering services: other Location of patient: address on file Patient Identification confirmed using: Name, : Yes Telehealth method: video Patient verbally consented to treatment: Yes Patient verbally consented to billing insurance company: Yes Patient informed of any privacy concerns related to visit: Yes Minutes spent on Phone/Video with Pt.: 55 Coding Level of Care Code Established Pt Tele Psytx >53 mins (30614) Patient Type Established Diagnoses Morbid obesity E66.01 Adjustment disorder, unspecified F43.20 Inappropriate diet and eating habits Z72.4 Time Spent (min) 55
--- OUTSIDE RECORDS SUMMARY | 2024-04-02 11:18 | XMS_ITS | Clinical Summary ---
Author Organization [email or web address] Address [address] [facility] [address] [place] [address] Care Team Providers Care Professional Architect Name Role Phone Aida Vasquez DO Primary Care Provider Allergies Active Allergy Reactions Criticality Noted Date Comments Pollen Extract 07/08/2022 Medications * This document contains information received from the source organization and may not represent a complete record from that organization. acetaminophen (Tylenol 8 Hour) 650 MG ER tablet TAKE 1 TABLET BY MOUTH EVERY 8 HOURS NEEDED FOR PAIN OR FEVER 11/30/19 22 Active ergocalciferol (Vitamin D2) 1.25 MG (00121 UT) capsuleIndicati ons:Vitamin D deficiency Take 1 capsule (1.25 mg) by mouth 1 (one) time per week. 12 capsule 3 04/19/19 24 Active albuterol (2.5 MG/3ML) 0.083% nebulizer solution INHALE 1 AMPULE USING A NEBULIZER EVERY 4 HOURS NEEDED FOR COUGH, WHEEZING, OR SHORTNESS OF BREATH 90 mL 2 04/25/19 24 Active nicotine polacrilex (Nicorette) 4 MG gumIndications: Tobacco dependence CHEW 1 PIECE OF GUM NEEDED SMOKING CESSATION, UP TO 20 PER DAY 110 each 06/14/19 24 Active nicotine (Nicoderm, Step 1) 21 MG/24HR patchIndication s:Tobacco dependence APPLY 1 PATCH TOPICALLY TO THE SKIN IN THE MORNING *DO NOT SMOKE WHILE USING PATCH* 30 patch 06/14/19 24 Active omeprazole (PriLOSEC) [address] capsule TAKE 1 CAPSULE BY MOUTH TWICE DAILY BEFORE BREAKFAST AND BEFORE SUPPER DO NOT BREAK, CRUSH, DISSOLVE OR CHEW 180 capsule 3 09/04/19 24 Active baclofen (Lioresal) 10 MG tabletIndicatio ns:Acute right-sided low back pain, unspecified whether sciatica present TAKE 1 TABLET BY MOUTH THREE TIMES DAILY NEEDED FOR MUSCLE SPASMS OR MUSCLE PAIN 60 tablet 09/25/19 24 Active cyclobenzaprine (Flexeril) 10 MG tablet Take 1 tablet (10 mg) by mouth at bedtime for 15 days. 15 tablet 10/25/19 24 Active meloxicam (Mobic) 7.5 MG tablet Take 1 tablet (7.5 mg) by mouth Once per day. 60 tablet 11 10/25/19 24 025 Active calcium carbonate (Calcium Antacid) 500 MG chewable tablet CHEW 2 TABLETS BY MOUTH AFTER MEALS NEEDED HEARTBURN. DO NOT EXCEED 8 TABLETS IN 24 HOURS 180 tablet 10/25/19 24 Active Asmanex HFA 200 MCG/ACT aerosol INHALE 2 PUFFS BY MOUTH TWICE DAILY RINSE MOUTH AFTER USING. 13 g 3 11/17/19 24 Active loratadine (Claritin) 10 MG tablet Take 1 tablet (10 mg) by mouth Once per day. 90 tablet 3 01/19/20 24 025 Active oxybutynin XL (Ditropan XL) 5 MG 24 hr tablet Take 1 tablet (5 mg) by mouth Once per day. Do not crush, chew, or split. 90 tablet 3 01/19/20 24 025 Active Semaglutide-Salvador ght Management (Wegovy) 0.25 MG/0.5ML solution auto-injector Inject 0.5 mL (0.25 mg) under the skin 1 (one) time per week. 2 mL 3 01/19/20 24 Active ferrous sulfate (Fe Tabs) 325 (65 Fe) MG EC tabletIndicatio ns:Anemia, unspecified type Take 1 tablet (325 mg) by mouth with breakfast. 90 tablet 3 01/23/20 24 025 Active cholecalciferol (Vitamin D-3) 50 MCG (2000 UT) capsule Take 1 capsule (50 mcg) by mouth Once per day. 90 capsule 3 01/23/20 24 025 Active albuterol (Ventolin HFA) 108 (90 Base) MCG/ACT inhalerIndicati ons:Asthma, unspecified asthma severity, unspecified whether complicated, unspecified whether persistent INHALE 2 PUFFS BY MOUTH EVERY 4 TO 6 HOURS NEEDED FOR COUGH, WHEEZING, OR SHORTNESS OF BREATH 18 g 1 03/27/19 25 Active ascorbic acid (Vitamin C) 250 MG tabletIndicatio ns:Anemia, unspecified type Take 1 tablet (250 mg) by mouth in the morning. 90 tablet 3 03/13/19 24 025 albuterol (Ventolin HFA) 108 (90 Base) MCG/ACT inhalerIndicati ons:Asthma, unspecified asthma severity, unspecified whether complicated, unspecified whether persistent INHALE 2 PUFFS BY MOUTH EVERY 4 TO 6 HOURS NEEDED FOR WHEEZING OR SHORTNESS OF BREATH OR FOR COUGH 18 g 1 01/26/20 24 025 Discontinued Active Problems Problem Noted Date Diagnosed Date History of hypertension 03/29/2023 Family conflict 08/19/2022 History of gestational hypertension 07/08/2022 Chronic gastroesophageal reflux disease 07/09/19 23 PCOS (polycystic ovarian syndrome) 07/08/2022 Anemia 07/08/2022 Chronic low back pain 07/08/2022 Moderate persistent asthma 06/01/2016 Anxiety 01/28/2015 BMI 50.0-59.9, adult 01/28/2015 Tobacco dependence 01/28/2015 Major depression, recurrent, chronic 01/28/2015 Resolved Problems Problem Noted Date Diagnosed Date Resolved Date Mastitis 08/29/2022 03/29/2023 Assessment & Plan (08/29/2022 11:52 AM EDT): Keep area Clean and dry, piercing off area for now. Bactrim DS x 10d to cover potential MRSA Use Lotrisone cream bid On affected area and fu with PCP for complete resolution of sxs, may or not need mammogram if a lesion is detected Elevated blood-pressure read ing without diagnosis of hypertension 08/29/2022 03/29/2023 Assessment & Plan (08/29/2022 11:55 AM EDT): Hx gestational htn Counseled re low salt diet/increase moderate physical activity. Check home BP BIW and prn CP/DOW/COHEN FU with PCP in 10d. No meds for now Moderate episode of recurren t major depressive disorder 08/19/2022 03/29/2023 Assessment & Plan (08/19/2022 3:19 PM EDT): Patient presenting with positive depression screening showing moderate depressive sxs. Annette presents with anhedonia, hopelessness, depressed mood, difficulty sleeping, fatigued and irritability nearly daily for at least the past 2 weeks, which has presented as very difficult to take care of home, family, work and get along with others. Patient indicates that depressive sxs have been part of her life for many years, but have exacerbated in the past month after her son who was in custody of DSS/DCF ran away and has been missing since. We discussed possible treatment options and patient agreed to referral to individual BH therapy in OP setting, but requested it be telehealth. Encounters Date Type Department Care Team Description 03/30/2024 Orders Only [facility] [address] ProviderQueta MD 03/25/2024 [place] [address] Aida Vasquez DO Asthma, unspecified asthma severity, unspecified whether complicated, unspecified whether persistent 02/06/2024 [place] [address] Aida Vasquez DO Prior Authorization 02/01/2024 Orders Only GENERIC EXTERNAL DATA DEPARTMENT Provider, Generic External Data 01/31/2024 Orders Only [facility] External Provider, [facility] 01/26/2024 Refill [facility] [place] [address] Aida Vasquez DO Asthma, unspecified asthma severity, unspecified whether complicated, unspecified whether persistent 01/23/2024 [place] [address] Aida Vasquez DO Prior Authorization (DONAL López: [place]) 01/23/2024 Orders Only GENERIC EXTERNAL DATA DEPARTMENT Provider, Generic External Data 01/19/2024 10:30 AM EST [place] [address] Aida Vasquez DO Routine history and physical examination of adult (Primary Dx); Major depression, recurrent, chronic ([facility]); Moderate persistent asthma with acute exacerbation; Anemia, unspecified type; Chronic gastroesophageal reflux disease; Abnormal uterine bleeding (AUB); Urinary frequency; Morbid obesity ([facility]); BMI 50.0-59.9, adult ([facility]); Encounter for immunization 01/19/2024 Telephone [facility] [address] [place] [address] Sunshine Pardo RN Results 01/19/2024 Travel 01/05/2024 Patient Outreach [facility] [address], [place] [phone] Aida Vasquez DO Pre-visit Planning (Pre-visit planning - LVM ) from Last 3 Months Immunizations Name Administration Dates Next Due DTaP 05/02/1990, 0,08/02/1988,06/02,04/04/1988 Hep B, Adolescent or Pediatric 01/06/1999,1997,12/18/1997 Hib ([facility]) 01/02/1990 Influenza injectable quadriv alent IIV4 with preservative 11/11/2015 Influenza injectable quadriv alent preservative free 03/13/2023,01/14/2020,01/15/2018 Influenza, IIV3, injectable 11/11/2013, 2 Influenza, Split (incl. niles fied surface antigen) 12/03/2012 Influenza, seasonal, injecta ble, preservative free 01/19/2024 MMR 01/06/1999,01/02/1990 OPV 07/02/1992, 9,06/02/1988,04/04 Pfizer Covid-19 Vaccine 12+ 01/19/2024 Pneumococcal Conjugate PCV 20 03/13/2023 Pneumococcal Polysaccharide PPSV23 11/11/2013 TD (adult), 2 Lf tetanus tox oid, preservative free, adsorbed 07/31/2006,07/02/1992 Tdap 03/13/2023,02/14/2013 Family History Medical History Relation Name Comments Coronary artery disease Maternal Grandmother Diabetes Maternal Grandmother Asthma Mother COPD Mother Hypertension Mother Stomach cancer Mother Asthma Sister Relation Name Status Comments Maternal Grandmother Mother Sister Social History Tobacco Use Types Packs/Day Years Used Date Smoking Tobacco: Every Day Cigarettes Smokeless Tobacco: Never Tobacco Cessation:Ready to Q uit: Not Asked; Counseling Given: Not Answered Alcohol Use Standard Drinks/Week Comments Not Currently 0 (1 standard drink = 0.6 oz pur e alcohol) social Depression Answer Date Recorded Patient Health Questionnaire-9 Score 11 01/19/2024 Patient Health Questionnaire-9 Score 11 01/19/2024 Last PHQ-9: Questionnaire Data Not on file 1 03/21/2023 Housing Stability Answer Date Recorded What is your housing situation today? I have marya jain [address] you li ve. Do you have problems with any of the following? None of the above 2022 Food Insecurity Answer Date Recorded Within the past 12 months, y ou worried that your food would run out before you got money to buy more: Never True 2022 Within the past 12 months,th e food you bought just didn't last and you didn't have enough money to get more: Never True 07/2022 Transportation Answer Date Recorded In the past 12 months, has l ack of transportation kept you from medical appts, meetings, work or from getting things needed for daily living? No 2022 Utilities Answer Date Recorded In the past 12 months, has t he electric, gas, oil or water company threatened to shut off services in your home? No 2022 Depression Answer Date Recorded Patient Health Questionnaire-2 Score 5 01/19/2024 Comments Unknown Sex and Gender Information Value Date Recorded Sex Assigned at Female 12/13/2021 10:14 AM EDT Legal Sex Female 10:14 AM EDT Gender Identity Female 12/13/2021 10:14 AM EDT Sexual Orientation Lesbian or Lucio 12/13/2021 10 :14 AM EDT Last Filed Vital Signs Vital Sign Reading Time Taken Comments Blood Pressure 134/90 01/19/2024 1:47 PM EST Pulse 101 01/19/2024 11:05 AM EST Temperature 36.4 ??C (97.5 ??F) 01/19/2024 11:[address] Respiratory Rate 16 01/19/2024 11:05 AM EST Oxygen Saturation 96% 10/25/2023 10:31 AM EDT Inhaled Oxygen Concentration - - Weight 159 kg (350 lb) 01/19/2024 11:05 AM EST Height 172.7 cm (5' 8 ) 01/19/2024 11:05 AM EST Body Mass Index 53.22 01/19/2024 11:05 AM EST Plan of Treatment Health Maintenance Due Date Last Done Comments Family Planning (PISQ) 12/18/2002 Hepatitis A Vaccines (1 of 2 - Risk 2-dose series) 12/18/2006 SDOH Screening 02/23/2024 02/22/2023 Depression Monitoring (PHQ-9) 07/19/2024 01/19/2024, 01/19/2024 Alcohol/Substance Use Screening 01/18/2025 01/19/2024 Depression Screening 01/18/2025 01/19/2024, 01/19/20 Tobacco Screening 01/18/2025 01/19/2024 Cervical Cancer Screening 01/22/2029 HPV/Cotest 01/22/2029 Lipid Panel 01/22/2029 01/23/2024, 07/2023, 07/08/2022, Additional history exists Pap Smear 01/22/2029 01/23/2024 DTaP/Tdap/Td Vaccines (8 - Td or Tdap) 03/13/2033 03/13/2023, 02/14/2013, 07/31/2006, Additional history exists Zoster Vaccines (1 of 2) 12/18/2037 RSV Patients and Patients Aged 60 years or older (1 - 1-dose 75+ series) 12/18/2062 HIB Vaccines Completed 01/02/1990 IPV Vaccines Completed 07/02/1992, 07/15, 06/02/1988, Additional history exists Hepatitis B Vaccines Completed 01/06/1999, 01/19/1998, 12/18/1997 Pneumococcal Vaccine: Pediatrics (0 to 5 Years) and At-Risk Patients (6 to 49) Years) Completed 03/13/2023, 11/11/2013 COVID-19 Vaccine Completed 01/19/2024, 03/2020, 09/24/2020 HIV Screening Completed 01/19/2024, 06/14, 10/22/2021, Additional history exists Hepatitis C Screening Completed 01/19/2024 , 07/08/2022, 10/22/2021, Additional history exists Influenza Vaccine Completed 01/19/2024, , 01/14/2020, Additional history exists HPV Vaccines Aged Out No longer eligi ble based on patient's age to complete this topic Meningococcal Vaccine Aged Out No justine melissa eligible based on patient's age to complete this topic RSV under 20 months Aged Out No longe r eligible based on patient's age to complete this topic Rotavirus Vaccines Aged Out No longer eligible based on patient's age to complete this topic Procedures Procedure Name Priority Date/Time Associated Diagnosis Comments US ABDOMEN COMPLETE WITH ELASTOGRAPHY Routine 02/26/2024 9:14 AM EST HEMATOXYLIN AND EOSIN STAIN Routine 02/01/2024 1:35 PM EST HCG, QL, URINE Routine 02/01/2024 11:44 AM EST US PELVIS TRANSVAGINAL Routine 01/31/2024 11:43 AM EST HM PAP/HPV Routine 01/23/2024 5:50 PM EST XR CHEST 2 VIEWS Routine 01/23/2024 10:5 8 AM EST VITAMIN B1 Routine 01/23/2024 10:12 AM EST VITAMIN A Routine 01/23/2024 10:12 AM EST ZINC Routine 01/23/2024 10:12 AM EST INSULIN Routine 01/23/2024 10:12 AM EST TSH W/REFLEX TO FT4 Routine 01/23/2024 1 0:12 AM EST VITAMIN D,25-OH,TOTAL,IA Routine 01/23/2024 10:12 AM EST FERRITIN Routine 01/23/2024 10:12 AM EST VITAMIN B12/FOLATE, SERUM PANEL Routine 01/23/2024 10:12 AM EST LIPID PANEL, STANDARD Routine 01/23/2024 10:12 AM EST C-REACTIVE PROTEIN Routine 01/23/2024 10 :12 AM EST IRON AND TOTAL IRON BINDING CAPACITY Routine 01/23/2024 10:12 AM EST COMPREHENSIVE METABOLIC PANEL Routine 01/23/2024 10:12 AM EST HEMOGLOBIN A1C Routine 01/23/2024 10:12 AM EST CBC WITH AUTO DIFFERENTIAL Routine 01/23/2024 10:12 AM EST IRON AND TOTAL IRON BINDING CAPACITY Routine 01/19/2024 11:52 AM EST Routine history and physical examination of adult Major depression, recurrent, chronic (CMS/HCC) Moderate persistent asthma with acute exacerbation Anemia, unspecified type Chronic gastroesophageal reflux disease Abnormal uterine bleeding (AUB) Urinary frequency Morbid obesity (CMS/HCC) BMI 50.0-59.9, adult (CMS/HCC) FERRITIN Routine 01/19/2024 11:52 AM EST Routine history and physical examination of adult Major depression, recurrent, chronic (CMS/HCC) Moderate persistent asthma with acute exacerbation Anemia, unspecified type Chronic gastroesophageal reflux disease Abnormal uterine bleeding (AUB) Urinary frequency Morbid obesity (CMS/HCC) BMI 50.0-59.9, adult (CMS/HCC) VITAMIN B12/FOLATE, SERUM PANEL Routine 01/19/2024 11:52 AM EST Routine history and physical examination of adult Major depression, recurrent, chronic (CMS/HCC) Moderate persistent asthma with acute exacerbation Anemia, unspecified type Chronic gastroesophageal reflux disease Abnormal uterine bleeding (AUB) Urinary frequency Morbid obesity (CMS/HCC) BMI 50.0-59.9, adult (CMS/HCC) RPR (MONITOR) W/REFL TITER Routine 01/19/2024 11:52 AM EST Routine history and physical examination of adult Major depression, recurrent, chronic (CMS/HCC) Moderate persistent asthma with acute exacerbation Anemia, unspecified type Chronic gastroesophageal reflux disease Abnormal uterine bleeding (AUB) Urinary frequency Morbid obesity (CMS/HCC) BMI 50.0-59.9, adult (CMS/HCC) HEPATITIS C AB W/REFL TO HCV RNA, QN, PCR Routine 01/19/2024 11:52 AM EST Routine history and physical examination of adult Major depression, recurrent, chronic (CMS/HCC) Moderate persistent asthma with acute exacerbation Anemia, unspecified type Chronic gastroesophageal reflux disease Abnormal uterine bleeding (AUB) Urinary frequency Morbid obesity (CMS/HCC) BMI 50.0-59.9, adult (CMS/HCC) HIV 1/2 ANTIGEN/ANTIBODY, FOURTH GENERATION W/RFL Routine 01/19/2024 11:52 AM EST Routine history and physical examination of adult Major depression, recurrent, chronic (CMS/HCC) Moderate persistent asthma with acute exacerbation Anemia, unspecified type Chronic gastroesophageal reflux disease Abnormal uterine bleeding (AUB) Urinary frequency Morbid obesity (CMS/HCC) BMI 50.0-59.9, adult (CMS/HCC) BASIC METABOLIC PANEL Routine 01/19/2024 11:52 AM EST Routine history and physical examination of adult Major depression, recurrent, chronic (CMS/HCC) Moderate persistent asthma with acute exacerbation Anemia, unspecified type Chronic gastroesophageal reflux disease Abnormal uterine bleeding (AUB) Urinary frequency Morbid obesity (CMS/HCC) BMI 50.0-59.9, adult (CMS/HCC) CBC Routine 01/19/2024 11:52 AM EST Routine history and physical examination of adult Major depression, recurrent, chronic (CMS/HCC) Moderate persistent asthma with acute exacerbation Anemia, unspecified type Chronic gastroesophageal reflux disease Abnormal uterine bleeding (AUB) Urinary frequency Morbid obesity (CMS/HCC) BMI 50.0-59.9, adult (CMS/HCC) HEMOGLOBIN A1C Routine 01/19/2024 11:52 AM EST Routine history and physical examination of adult Major depression, recurrent, chronic (CMS/HCC) Moderate persistent asthma with acute exacerbation Anemia, unspecified type Chronic gastroesophageal reflux disease Abnormal uterine bleeding (AUB) Urinary frequency Morbid obesity (CMS/HCC) BMI 50.0-59.9, adult (CMS/HCC) HEPATIC FUNCTION PANEL Routine 01/19/2024 11:52 AM EST Routine history and physical examination of adult Major depression, recurrent, chronic (CMS/HCC) Moderate persistent asthma with acute exacerbation Anemia, unspecified type Chronic gastroesophageal reflux disease Abnormal uterine bleeding (AUB) Urinary frequency Morbid obesity (CMS/HCC) BMI 50.0-59.9, adult (CMS/HCC) VITAMIN D,25-OH,TOTAL,IA Routine 01/19/2024 11:52 AM EST Routine history and physical examination of adult Major depression, recurrent, chronic (CMS/HCC) Moderate persistent asthma with acute exacerbation Anemia, unspecified type Chronic gastroesophageal reflux disease Abnormal uterine bleeding (AUB) Urinary frequency Morbid obesity (CMS/HCC) BMI 50.0-59.9, adult (CMS/HCC) TSH Routine 01/19/2024 11:52 AM EST Routine history and physical examination of adult Major depression, recurrent, chronic (CMS/HCC) Moderate persistent asthma with acute exacerbation Anemia, unspecified type Chronic gastroesophageal reflux disease Abnormal uterine bleeding (AUB) Urinary frequency Morbid obesity (CMS/HCC) BMI 50.0-59.9, adult (CMS/HCC) LIPID PANEL, STANDARD Routine 01/19/2024 11:52 AM EST Routine history and physical examination of adult Major depression, recurrent, chronic (CMS/HCC) Moderate persistent asthma with acute exacerbation Anemia, unspecified type Chronic gastroesophageal reflux disease Abnormal uterine bleeding (AUB) Urinary frequency Morbid obesity (CMS/HCC) BMI 50.0-59.9, adult (CMS/HCC) T4, FREE Routine 01/19/2024 11:52 AM EST Routine history and physical examination of adult Major depression, recurrent, chronic (CMS/HCC) Moderate persistent asthma with acute exacerbation Anemia, unspecified type Chronic gastroesophageal reflux disease Abnormal uterine bleeding (AUB) Urinary frequency Morbid obesity (CMS/HCC) BMI 50.0-59.9, adult (CMS/HCC) CHLAMYDIA/N. GONORRHOEAE RNA, TMA, UROGENITAL Routine 01/19/2024 11:52 AM EST Routine history and physical examination of adult Major depression, recurrent, chronic (CMS/HCC) Moderate persistent asthma with acute exacerbation Anemia, unspecified type Chronic gastroesophageal reflux disease Abnormal uterine bleeding (AUB) Urinary frequency Morbid obesity (CMS/HCC) BMI 50.0-59.9, adult (CMS/HCC) from Last 3 Months Results * US Abdomen Comp w elastography (02/26/2024 9:14 AM EST) Anatomical Region Laterality Modality Abdomen Ultrasound 02/26/2024 9:14 AM EST Narrative 02/27/2024 11:29 AM EST ? [facility] ?[address] ?[place] [address] ? Ultrasound Report ? Signed ? Patient: Colon,Quiara ?MR#: [id number] ? : 1985 ?Acct:[id number] ? Age/Sex: 38 / F ?ADM Date: 02/26/24 ? Loc: HO.US ? Attending Dr: Jairon Fox MD ? Ordering Physician: Jairon Fox MD ?? Date of Service: 02/26/24 ?? Procedure(s): US abdomen comp w elastography ?? Accession Number(s): [id number] ? cc: Aida Vasquez DO; Jairon Fox MD ? EXAMINATION: ??US ABDOMEN COMPLETE WITH LIVER ELASTOGRAPHY ? HISTORY: E66.01 - Morbid (severe) obesity due to excess calories ? TECHNIQUE: Real-time grayscale ultrasound imaging of the abdomen was ?? performed and images were reviewed. ? COMPARISON: There are no prior studies for comparison. ? FINDINGS: ?? Liver: ??The liver is normal in size, but demonstrates increased ?? echotexture, consistent with steatosis. ??No focal mass or intrahepatic ?? biliary ductal dilatation is identified. ??There is normal hepatopedal ?? flow in the portal vein. ? Ultrasound elastography of the liver was performed with 10 separate ?? measurements of the liver parenchyma with the patient in the supine ?? position. ??Measurements were obtained approximately 2 cm below ?? Josie's capsule and perpendicular to the capsule. ??Images are of ?? satisfactory quality. ? The median shear wave velocity is 1.22 m/s. ?? The interquartile range/median (IQR/median) is 0.11. ? Gallbladder and biliary tree: The gallbladder is unremarkable, without ?? evidence of calculi, wall thickening, or pericholecystic fluid. ??There ?? is no sonographic Aguiar sign. ??The common bile duct is normal in ?? caliber measuring 3 mm. ? Kidneys: ??The right kidney measures 11.7 cm in length. The left kidney ?? measures 11.6 cm in length. ??The kidneys are unremarkable, without ?? evidence of masses, hydronephrosis, or calculi. ? Pancreas: The pancreatic head, neck, and body are unremarkable. The ?? pancreatic tail is obscured by bowel gas. ? Spleen: The spleen is normal in size and contour, measuring 10.7 cm in ?? length. ? Abdominal aorta and inferior vena cava: The visualized portions of the ?? abdominal aorta and inferior vena cava are normal in caliber. ? There is no free fluid in the abdomen. ? US/US abdomen comp w elastography ?? IMPRESSION: ? Hepatic steatosis. ? The median shear wave velocity is 1.22 m/s, corresponding to a median ?? liver stiffness of 4.52 kPa. ??The IQR/median value is 0.11. ??This is ?? indicative of a quality data set. ?? Findings are indicative of a normal elastography value with a low ?? likelihood of severe fibrosis or cirrhosis. ? REFERENCE: ?? Society of Radiologists in Ultrasound Liver Stiffness Thresholds (2020): ? LIVER STIFFNESS THRESHOLDS: ?? *Shear wave velocity less than 1.3 m/s (Liver Stiffness equal or less ?? than 5 kPa): ??High probability of being normal. ?? *Shear wave velocity less than 1.7 m/s (Liver Stiffness less than 9 ?? kPa): ??In the absence of other known clinical signs, rules out ?? compensated advanced chronic liver disease. ?? *Shear wave velocity between 1.7-2.1 m/s (Liver Stiffness 9-13 kPa): ? Suggestive of compensated advanced chronic liver disease but need ?? further test for confirmation. ?? *Shear wave velocity between 2.1-2.4 m/s (Liver Stiffness 13-17 kPa): ? Rules in compensated advanced chronic liver disease. ?? *Shear wave velocity ??greater than 2.4 m/s (Liver Stiffness over 17 ?? kPa): ??Suggestive of clinically significant portal hypertension. ? QUALITY OF DATA SET: ?? *IQR/Median value equal or less than 0.15 implies a quality data set. ?? *IQR/Median value over 0.15 implies a poor quality data set. ? SIGNIFICANT CHANGE FROM PRIOR EXAM: ?? Significant change if liver stiffness measurement is 10% or greater ?? from prior exam. ? OTHER CONSIDERATIONS: ?? The stage of liver fibrosis may be overestimated in the setting of ?? acute hepatitis, liver inflammation, elevated liver function tests, ?? hepatic vascular congestion, obstructive cholestasis, non-fasting ?? state, and infiltrative diseases such as amyloidosis and lymphoma. ??In ?? some patients with NAFLD, the liver stiffness thresholds for ?? compensated advanced chronic liver disease may be lower. ??In causes ?? other than viral hepatitis and NAFLD, liver stiffness thresholds are ?? not well established. ? Electronically signed by: ??Schuyler Montes De Oca MD ??02/27/2024 11:27 AM EST ?? RP ? Dictated By: ?Schuyler Montes De Oca MD ? Signed By: ?<Electronically signed by Schuyler Montes De Oca MD in OV> ?02/27/24 1127 ? DD/ 0914 ? TD/TT: 02/26/24 0927 ? Captain Assistant: ? Procedure Note Cristhian, Image - 02/27/[address] [address] Ultrasound Report Signed Patient: Shanae Rosa#: [id number] : 1985Acct:[id number] Age/Sex: 38 / FADM Date: 02/26/24 Loc: HO.US Attending Dr: Jairon Fox MD Ordering Physician: Jairon Fox MD Date of Service: 02/26/24 Procedure(s): US abdomen comp w elastography Accession Number(s): [id number] cc: Aida Vasquez DO; Jairon Fox MD EXAMINATION: US ABDOMEN COMPLETE WITH LIVER ELASTOGRAPHY HISTORY: E66.01 - Morbid (severe) obesity due to excess calories TECHNIQUE: Real-time grayscale ultrasound imaging of the abdomen was performed and images were reviewed. COMPARISON: There are no prior studies for comparison. FINDINGS: Liver: The liver is normal in size, but demonstrates increased echotexture, consistent with steatosis. No focal mass or intrahepatic biliary ductal dilatation is identified. There is normal hepatopedal flow in the portal vein. Ultrasound elastography of the liver was performed with 10 separate measurements of the liver parenchyma with the patient in the supine position. Measurements were obtained approximately 2 cm below Josie's capsule and perpendicular to the capsule. Images are of satisfactory quality. The median shear wave velocity is 1.22 m/s. The interquartile range/median (IQR/median) is 0.11. Gallbladder and biliary tree: The gallbladder is unremarkable, without evidence of calculi, wall thickening, or pericholecystic fluid. There is no sonographic Aguiar sign. The common bile duct is normal in caliber measuring 3 mm. Kidneys: The right kidney measures 11.7 cm in length. The left kidney measures 11.6 cm in length. The kidneys are unremarkable, without evidence of masses, hydronephrosis, or calculi. Pancreas: The pancreatic head, neck, and body are unremarkable. The pancreatic tail is obscured by bowel gas. Spleen: The spleen is normal in size and contour, measuring 10.7 cm in length. Abdominal aorta and inferior vena cava: The visualized portions of the abdominal aorta and inferior vena cava are normal in caliber. There is no free fluid in the abdomen. US/US abdomen comp w elastography IMPRESSION: Hepatic steatosis. The median shear wave velocity is 1.22 m/s, corresponding to a median liver stiffness of 4.52 kPa. The IQR/median value is 0.11. This is indicative of a quality data set. Findings are indicative of a normal elastography value with a low likelihood of severe fibrosis or cirrhosis. REFERENCE: Society of Radiologists in Ultrasound Liver Stiffness Thresholds (2020): LIVER STIFFNESS THRESHOLDS: *Shear wave velocity less than 1.3 m/s (Liver Stiffness equal or less than 5 kPa): High probability of being normal. *Shear wave velocity less than 1.7 m/s (Liver Stiffness less than 9 kPa): In the absence of other known clinical signs, rules out compensated advanced chronic liver disease. *Shear wave velocity between 1.7-2.1 m/s (Liver Stiffness 9-13 kPa): Suggestive of compensated advanced chronic liver disease but need further test for confirmation. *Shear wave velocity between 2.1-2.4 m/s (Liver Stiffness 13-17 kPa): Rules in compensated advanced chronic liver disease. *Shear wave velocity greater than 2.4 m/s (Liver Stiffness over 17 kPa): Suggestive of clinically significant portal hypertension. QUALITY OF DATA SET: *IQR/Median value equal or less than 0.15 implies a quality data set. *IQR/Median value over 0.15 implies a poor quality data set. SIGNIFICANT CHANGE FROM PRIOR EXAM: Significant change if liver stiffness measurement is 10% or greater from prior exam. OTHER CONSIDERATIONS: The stage of liver fibrosis may be overestimated in the setting of acute hepatitis, liver inflammation, elevated liver function tests, hepatic vascular congestion, obstructive cholestasis, non-fasting state, and infiltrative diseases such as amyloidosis and lymphoma. In some patients with NAFLD, the liver stiffness thresholds for compensated advanced chronic liver disease may be lower. In causes other than viral hepatitis and NAFLD, liver stiffness thresholds are not well established. Electronically signed by: Schuyler Montes De Oca MD 02/27/2024 11:27 AM EST Dictated By: Schuyler Montes De Oca MD Signed By: <Electronically signed by Schuyler Montes De Oca MD in OV> 02/27/24 1127 DD/ TD/TT: 02/26/2427 Captain Assistant: us [facility] External Provider IMG US PROCEDURES Final Result * Hematoxylin and Eosin Stain (02/01/2024 1:35 PM EST) 02/01/2024 1:35 PM EST 02/01/2024 2:24 PM EST [facility] - 02/06/2024 7:58 AM EST ----- ------- Name: Colon,Quiara ? Age/Sex: 38/F ? : 1985 Unit#: [id number] ?? Attend Dr: Jairon Fox MD ?Re02/01/24 ?Status: DEP SDC ? Location: HO.SSS ?Disch: ? ----- ------- SPEC : [id number] ? RECD: 02/01/24 ? STATUS: ??SOUT ? REQ NUM: [id number] ? JILLIAN: 02/01/244 ? SUBM DR: Jairon Fox MD ? ENTERED: ??02/01/24 ?SP TYPE: Surgical ? OTHR DR: Aida Vasquez DO ? ORDERED: ??HE Stain/9, Gross Micro L4/4, IHC/2, H. pylori/2, AB/PAS/3 ?Addendum Addendum ??1 ?Entered: 02/06/24-756 Metaplastic changes are not present, supported by AB/PAS stains (A, B and C); Helicobacter organisms are not identified with H. pylori immunostain (A, B). ??No change is made to the diagnoses. Addendum Signed (signature on file) Pradip Johnson MD 02/06/24 0758 ? ----- ------- ? Diagnosis ?? A. ??Stomach, antrum, biopsy: ??Oxyntic mucosa within normal limits. ? B. ??Stomach, fundus, biopsy: ??Oxyntic mucosa with mild chronic inactive inflammation. ? C. ??EG junction, biopsy: ?- Cardiac-type mucosa with moderate chronic inactive inflammation; no intestinal ?? metaplasia seen. ?- Squamous mucosa within normal limits. ? D. ??Esophagus, biopsy: ??Active esophagitis (maximum eosinophil count 2 per high powered ?? field). ? Comment: ??H.pylori immunostains will be addended (A and B). ?Clinical History Pre-Op Dx: ??Obesity Post-Op Dx: Diaphragmatic hernia ?Microscopic Description A-D. ??Microscopic sections reviewed. ? CONTINUED ON NEXT PAGE ----- ------- Name: Colon,Quiara ? Age/Sex: 38/F ? : 1985 Unit#: [id number] ?? Attend Dr: Jairon Fox MD ?Re02/01/24 ?Status: DEP SDC ? Location: HO.SSS ?Disch: ? ----- ------- SPEC : [id number] ? RECD: 02/01/24 ? STATUS: ??SOUT ? REQ NUM: [id number] ? JILLIAN: 02/01/24-1334 ? SUBM DR: Jairon Fox MD ? ENTERED: ??02/01/24 ?SP TYPE: Surgical ? OTHR DR: Aida Vasquez DO ? ORDERED: ??HE Stain/9, Gross Micro L4/4, IHC/2, H. pylori/2, AB/PAS/3 ? Material Received ?? A. Antrum bx's ?? B. Fundus bx's ?? C. EG junction bx's ?? D. Esophagus bx's ? Gross Description Received in 4 parts. Part A: ??Received in formalin labeled ?antrum biopsy? is 1 piece of doty-pink tissue measuring 0.2 cm, all submitted in cassette labeled A. Part B: ??Received in formalin labeled ?fundus biopsy is 1 piece of doty- pink tissue measuring 0.5 cm, all submitted in cassette labeled B. Part C: ??Received in formalin labeled ?GE junction biopsy? are 2 pieces of doty-pink tissue measuring from 0.5-0.6 cm, all submitted in cassette labeled C. Part D: ??Received in formalin labeled ?esophagus biopsy are 2 pieces of doty tissue both measuring 0.4 cm, all submitted in cassette labeled D. FM Copies To: ?? Aida Vasquez DO ?? [facility] ?? [address] ?? [place] [address] ?? [phone] ?? Jairon Fox MD ?? [facility] ?? [address] ?? [place] [address] ?? [phone] ----- ------- Signed (signature on file) Pradip Johnson MD 02/02/24 2492 ? ----- ------- ? END OF REPORT ? us Generic External Data Provider LAB BLOOD ORDERAB LES Final Result Performing Organization Address [facility] [[email or web address]] Co de Phone Number [facility] [address] [place] [address] [phone] * HCG, Qualitative, Urine (02/01/2024 11:44 AM EST) Urine NEGATIVE NEGATIVE [facility] Comment:This test was develo ped to detect early . Falsenegative results may occur after the 5th - 7th week ofpregnancy when using this test method. If clinicallyindicated, consider a serum hCG. 02/01/2024 11:4 4 AM EST 02/01/2024 11:49 AM EST us Generic External Data Provider LAB URINE ORDERAB LES Final Result Performing Organization Address [facility] [[email or web address]] Co de Phone Number [facility] [address] [place] [address] [phone] * US Pelvis Transvaginal (01/31/2024 11:43 AM EST) Anatomical Region Laterality Modality Pelvis Ultrasound 01/31/2024 11:4 3 AM EST Narrative 03/12/2024 2:08 PM EST ? [facility] ?[address] ?[place] [address] ? Ultrasound Report ? Signed ? Patient: Colon,Quiara ?MR#: [id number] ? : 1985 ?Acct:[id number] ? Age/Sex: 38 / F ?ADM Date: 01/31/24 ? Loc: HO.US ? Attending Dr: Juan Velazco MD ? Ordering Physician: Juan Velazco MD ?? Date of Service: 01/31/24 ?? Procedure(s): US pelvic and transvaginal ?? Accession Number(s): [id number] ? cc: Aida Vasquez DO; Juan Velazco MD ? EXAMINATION: ? US PELVIS ? CLINICAL INFORMATION: ? Abnormal uterine bleeding. 38-year-old, currently menstruating. ? COMPARISON: ?? 09/02/2019 ? TECHNIQUE: ?? Ultrasound of the pelvis is performed using both transabdominal and ?? transvaginal transducers along with Doppler. Transvaginal imaging is ?? performed due to inadequate visualization transabdominally. ? FINDINGS: ?? Uterus: ?? The uterus is anteverted and measures 9.8 x 5.8 x 6.4 cm. ??0.4 ? The double wall endometrial thickness is 0.4 mm. ? The uterus is somewhat globular in appearance with heterogeneous ?? appearing myometrium. ??No visible fibroid. ? Adnexa: ?? Both ovaries are visualized. There is normal color flow to the adnexa. ?? There is no ovarian torsion. ??There is no pelvic ascites or fluid ?? collection. ? Right ovary measures 4.0 x 2.1 x 2.1 cm. ? Left ovary measures 3.4 x 2.9 x 2.6 cm. ? US/US pelvic and transvaginal ?? IMPRESSION: ?? Somewhat globular appearance of the uterus with heterogeneous appearing ?? myometrium. This is a nonspecific finding but can be seen in the ?? setting of adenomyosis. ? Electronically signed by: ??Dorita Lopez MD ??03/12/2024 02:05 PM EST RP ? Dictated By: ?Dorita Lopez MD ? Signed By: ?<Electronically signed by Dorita Lopez MD in OV> ? 03/12/24 1405 ? DD/ 1143 ? TD/TT: 01/30/24 1155 ? Captain Assistant: ? Procedure Note Donotuseinterpreter, Image - 03/12/2024 [place] [address] Ultrasound Report Signed Patient: Shanae Rosa#: [id number] : 1985Acct:[id number] Age/Sex: 38 / FADM Date: 01/31/24 Loc: HO.US Attending Dr: Juan Velazco MD Ordering Physician: Juan Velazco MD Date of Service: 01/31/24 Procedure(s): US pelvic and transvaginal Accession Number(s): [id number] cc: Aida Vasquez DO; Juan Velazco MD EXAMINATION: US PELVIS CLINICAL INFORMATION: Abnormal uterine bleeding. 38-year-old, currently menstruating. COMPARISON: 09/02/2019 TECHNIQUE: Ultrasound of the pelvis is performed using both transabdominal and transvaginal transducers along with Doppler. Transvaginal imaging is performed due to inadequate visualization transabdominally. FINDINGS: Uterus: The uterus is anteverted and measures 9.8 x 5.8 x 6.4 cm. 0.4 The double wall endometrial thickness is 0.4 mm. The uterus is somewhat globular in appearance with heterogeneous appearing myometrium. No visible fibroid. Adnexa: Both ovaries are visualized. There is normal color flow to the adnexa. There is no ovarian torsion. There is no pelvic ascites or fluid collection. Right ovary measures 4.0 x 2.1 x 2.1 cm. Left ovary measures 3.4 x 2.9 x 2.6 cm. US/US pelvic and transvaginal IMPRESSION: Somewhat globular appearance of the uterus with heterogeneous appearing myometrium. This is a nonspecific finding but can be seen in the setting of adenomyosis. Electronically signed by: Dorita Lopez MD 03/12/2024 02:05 PM [facility] [place] [place] Dictated By: Dorita Lopez MD Signed By: <Electronically signed by Dorita Lopez MD in OV> 03/12/24 1405 DD/ 1143 TD/TT: 01/31/24 1155 Captain Assistant: us [facility] External Provider IMG US PROCEDURES Final Result * HM PAP/HPV (01/23/2024 5:50 PM EST) us Historical Provider HEALTH MAINTENANCE Final Result * XR Chest 2 Views (01/23/2024 10:58 AM EST) Anatomical Region Laterality Modality Chest Radiographic Mamie ging 01/23/2024 10:5 8 AM EST Narrative 02/29/2024 1:01 PM EST ? [facility] ?[address] ?[place] [address] ?XRay Report ? Signed ? Patient: Colon,Quiara ?MR#: [id number] ? : 1985 ?Acct:[id number] ? Age/Sex: 38 / F ?ADM Date: 01/23/24 ? Loc: HO.XRAY ? Attending Dr: Jairon Fox MD ? Ordering Physician: Jairon Fox MD ?? Date of Service: 01/23/24 ?? Procedure(s): XR chest 2V ?? Accession Number(s): [id number] ? cc: Aida Vasquez DO; Jairon Fox MD ? EXAMINATION: ?? XR CHEST ? CLINICAL INFORMATION: ?? Morbid (severe) obesity due to excess calories E66.01. ? COMPARISON: ?? XR Chest 02/14/2023 ? TECHNIQUE: ?? 2 views of the chest were obtained. ? FINDINGS: ?? No significant abnormality is noted involving the heart, lungs, ?? mediastinum, bony thorax or soft tissues. ? XR/XR chest 2V ?? IMPRESSION: ?? No evidence of acute pulmonary process. ? Study is assigned/presented to wi for interpretation on Feb 29, 2024 ? Electronically signed by: ??Paul Johnson MD ??02/29/2024 12:58 PM EST ?? RP ? Dictated By: ?Paul Johnson MD ? Signed By: ?<Electronically signed by Paul Johnson MD in OV> ?02/29/24 1258 ? DD/ 1058 ? TD/TT: 12/10/24 1110 ? Captain Assistant: HB ? Procedure Note Donotuseinterpreter, Image - 02/29/[address] [address] XRay Report Signed Patient: Shanae Rosa#: [id number] : 1985Acct:[id number] Age/Sex: 38 / FADM Date: 01/23/24 Loc: HO.XRAY Attending Dr: Jairon Fox MD Ordering Physician: Jairon Fox MD Date of Service: 01/23/24 Procedure(s): XR chest 2V Accession Number(s): [id number] cc: Aida aVsquez DO; Jairon Fox MD EXAMINATION: XR CHEST CLINICAL INFORMATION: Morbid (severe) obesity due to excess calories E66.01. COMPARISON: XR Chest 02/14/2023 TECHNIQUE: 2 views of the chest were obtained. FINDINGS: No significant abnormality is noted involving the heart, lungs, mediastinum, bony thorax or soft tissues. XR/XR chest 2V IMPRESSION: No evidence of acute pulmonary process. Study is assigned/presented to me for interpretation on Feb 29, 2024 Electronically signed by: Paul Johnson MD 02/29/2024 12:58 PM EST RP Dictated By: Paul Johnson MD Signed By: <Electronically signed by Paul Johnson MD in OV> 02/29/24 1258 DD/ 1058 TD/TT: 01/23/24 1110 Captain Assistant: NATALIA us [facility] External Provider IMG XR PROCEDURES Final Result * (ABNORMAL) Vitamin D, 25-Hydroxy, Total, Immunoassay (01/23/2024 10:12 AM EST) Only the most recent of2 resultswithin the time period is included. Vitamin D 25-OH Total 11.3(L) >30 ng/mL [facility] Comment:Health Based Referen ce Values*< 20 ng/mL Drxpusszf06-37 ng/mL Insufficient> 30 ng/mL Sufficient*Tanner PGAE. N Engl J Med. 2007;357:266-280Care must be taken in interpreting Vitamin D results fromdifferent laboratories and methodologies. Published datademonstrated that results from patients undergoinghemodialysis may show a negative bias when tested withvarious automated 25-OH vitamin D assays when compared toLC-MS/MS.When testing samples from patients whose predominant form ofVitamin D is Vitamin D2, such as patients receiving VitaminD2 supplementation, results that are subtherapeutic shouldbe confirmed with another method such as LC-MS/MS. 01/23/2024 10:1 2 AM EST 01/23/2024 10:12 AM EST Generic External Data Provider LAB BLOOD ORDERAB LES Final Result Performing Organization Address [facility] [[email or web address]] Co de Phone Number [facility] [address] [place] [phone] * Vitamin B12 (Cobalamin) and Folate Panel, Serum (01/23/2024 10:12 AM EST) Only the most recent of2 resultswithin the time period is included. Vitamin B12 527 200 - 900 pg/mL [facility] Comment:NORMAL 200-900 PG/ML INDETERMINATE 160-199 PG/ML DEFICIENT < 160 PG/ML Folate 5.8 > or = 4.0 ng/mL [facility] Comment:Reference Values:> o r = 4.0 ng/mL< 4.0 ng/mL suggests folate deficiency Methotrexate, aminopterin and folinic acid(leucovorin) are chemotherapeutic agents whose molecularstructures are similar to folate; therefore, the Architectfolate assay cannot be used for patients using these drugs. 01/23/2024 10:1 2 AM EST 01/23/2024 10:12 AM EST Generic External Data Provider LAB BLOOD ORDERAB LES Final Result Performing Organization Address [facility] [[email or web address]] Co de Phone Number [facility] [address] [place] [phone] * TSH with Reflex to Free T4 (01/23/2024 10:12 AM EST) TSH reflex Free T4 0.69 0.32 - 4.0 uIU/mL [facility] 01/23/2024 10:1 2 AM EST 01/23/2024 10:12 AM EST us Generic External Data Provider LAB BLOOD ORDERAB LES Final Result [facility] [address] [place] [address] [phone] * (ABNORMAL) CBC auto differential (01/23/2024 10:12 AM EST) White Blood Count 13.1(H) 4.8 - 10.8 X10*3/uL [facility] Red Blood Count 3.98(L) 4.20 - 5.50 X10*6/uL [facility] Hemoglobin 7.1(L) 12.0 - 16.0 g/dl [facility] Hematocrit 27.5(L) 37.0 - 47.0 % [facility] Mean Corpuscular Volume 69.1(L) 80.0 - 98.0 fL [facility] Mean Corpuscular Hemoglobin 17.8(L) 27.0 - 33.0 pg [facility] Mean Corpuscular HGB Conc 25.8(L) 31.0 - 35.0 g/dl [facility] Red Cell Distribution Width 19.6(H) 11.0 - 16.0 % [facility] Platelet Count 664(H) 160 - 400 X10*3/uL [facility] Mean Platelet Volume 9.8 9.4 - 12.3 fL [facility] Neutrophils Percent Auto 58.3 45 - 73 % [facility] Imm Gran Pct Auto 0.4 0.0 - 0.4 % [facility] Lymphocytes Percent Auto 31.7 20 - 40 % [facility] Monocytes Percent Auto 5.7 2 - 11 % [facility] Eosinophils Percent Auto 3.4 0 - 4 % [facility] Basophils Percent Auto 0.5 0 - 2 % [facility] NRBC Pct Auto 0.0 0.0 - 0.2 /100WBC [facility] Neutrophils Absolute Auto 7.7 2.0 - 8.3 x10*3/uL [facility] Imm Gran Abs Auto 0.05(H) 0.00 - 0.03 X10*3/uL [facility] Lymphocytes Absolute Auto 4.2 1.2 - 4.9 X10*3/uL [facility] Monocytes Absolute Auto 0.8 0.1 - 1.2 X10*3/uL [facility] Eosinophils Absolute Auto 0.5(H) 0.0 - 0.4 X10*3/uL [facility] Basophils Absolute Auto 0.1 0.0 - 0.2 X10*3/uL [facility] NRBC Abs Auto 0.000 0.0 - 0.012 X10*3/uL [facility] 01/23/2024 10:1 2 AM EST 01/23/2024 10:12 AM EST us Generic External Data Provider LAB BLOOD ORDERAB LES Final Result [facility] [address] [place] [phone] * (ABNORMAL) Iron And Total Iron Binding Capacity (01/23/2024 10:12 AM EST) Only the most recent of2 resultswithin the time period is included. Iron 15(L) 30 - 160 mcg/dL [facility] Total Iron Binding Capacity 378 228 - 428 mcg/dL [facility] Percent Iron Saturation 4(L) 15 - 50 % [facility] Unsaturated Iron Binding 363 ug/dL [facility] 01/23/2024 10:1 2 AM EST 01/23/2024 10:12 AM EST us Generic External Data Provider LAB BLOOD ORDERAB LES Final Result Performing Organization Address [facility] [[email or web address]] Co de Phone Number [facility] [address] [place] [phone] * Insulin (01/23/2024 10:12 AM EST) Insulin 23 2 - 29 uU/mL [facility] Comment:This test was perfor med using the Gonzalez chemiluminescentmethod. Values obtained from different assay methods cannot beused interchangeably. This insulin assay shows a possiblecross-reactivity with antibodies generated against insulin(immunoreactive insulin and some patients treated withbovine or porcine insulin). Insulin levels may be measuredlower in patients with insulin autoimmune syndrome orfamilial high pro-insulinemia. 01/23/2024 10:1 2 AM EST 01/23/2024 10:12 AM EST Generic External Data Provider LAB BLOOD ORDERAB LES Final Result Performing Organization Address [facility] de Phone Number [facility] [address] [place] [phone] * Zinc (01/23/2024 10:12 AM EST) Zinc 73 60 - 130 mcg/dL [facility] Comment:This test was develo ped and its analytical performancecharacteristics have been determined by [employer] [place], [place]. It hasnot been cleared or approved by the U.S. Food and DrugAdministration. This assay has been validated pursuantto the CLIA regulations and is used for clinicalpurposes.THIS TEST WAS PERFORMED AT:[employer] [place] [address]CILBSSMPRABHU BUSTAMANTE MD,PHD 01/23/2024 10:1 2 AM EST 01/23/2024 10:12 AM EST us Generic External Data Provider LAB BLOOD ORDERAB LES Final Result Performing Organization Address City/[facility] [[email or web address]] Co de Phone Number [facility] [address] [place] [phone] * Vitamin A (01/23/2024 10:12 AM EST) [facility] Vitamin A (Retinol) 61 38 - 98 mcg/dL [facility] Comment:Vitamin supplementat ion within 24 hours prior toblood draw may affect the accuracy of the results.This test was developed and its analytical performancecharacteristics have been determined by [employer] [place], [place]. It hasnot been cleared or approved by the U.S. Food and DrugAdministration. This assay has been validated pursuantto the CLIA regulations and is used for clinicalpurposes.THIS TEST WAS PERFORMED AT:[employer]/[facility] [place] [address]ESURJPMPRABHU BUSTAMANTE MD,PHD 01/23/2024 10:1 2 AM EST 01/23/2024 10:12 AM EST us Generic External Data Provider LAB BLOOD ORDERAB LES Final Result [facility] [address] [place] [phone] * (ABNORMAL) C-reactive Protein (01/23/2024 10:12 AM EST) [facility] C Reactive Protein 4.15(H) < or = 0.50 mg/dL [facility] 01/23/2024 10:1 2 AM EST 01/23/2024 10:12 AM EST us Generic External Data Provider LAB BLOOD ORDERAB LES Final Result Performing Organization Address City/[facility]/ZIP Co de Phone Number [facility] [address] [place] [phone] * (ABNORMAL) Vitamin B1 (01/23/2024 10:12 AM EST) [facility] Vitamin B1 <6(A) 8 - 30 nmol/L [facility] Comment:Vitamin supplementat ion within 24 hours prior toblood draw may affect the accuracy of the results.This test was developed and its analytical performancecharacteristics have been determined by [employer] [place], [place]. It hasnot been cleared or approved by the U.S. Food and DrugAdministration. This assay has been validated pursuantto the CLIA regulations and is used for clinicalpurposes.THIS TEST WAS PERFORMED AT:[employer]/[facility] [place] [address]GDUDTXIPRABHU BUSTAMANTE MD,PHD 01/23/2024 10:1 2 AM EST 01/23/2024 10:12 AM EST us Generic External Data Provider LAB BLOOD ORDERAB LES Final Result Performing Organization Address City/[facility]/ZIP Co de Phone Number [facility] [address] [place] [phone] * Hemoglobin A1c (01/23/2024 10:12 AM EST) Only the most recent of2 resultswithin the time period is included. Hemoglobin A1c 5.2 <6.0 % [facility] Comment:Hemoglobin A1C Refer ence Range Adults: 4.8 - 6.0 % Non diabetic: < 6.0 % Goal: < 7.0 %Additional Action Suggested: > 8.0 %Note: Hemoglobin A1c results are invalid for patients with abnormal amounts of HbF. Blood transfusions may impact the HbA1c concentration in the patient sample. Estimated Average Glucose 103 mg/dL [facility] Comment:eAG = Estimated ave rage glucose which is %A1C expressed asaverage glucose, using the formula of the U2L-OdvjjvxYemtqau Glucose study (ADAG), Diabetes Care, Vol.31,#8,Sep. 2007 01/23/2024 10:1 2 AM EST 01/23/2024 10:12 AM EST us Generic External Data Provider LAB BLOOD ORDERAB LES Final Result [facility] [address] [place] [address] [phone] * (ABNORMAL) Ferritin (01/23/2024 10:12 AM EST) Only the most recent of2 resultswithin the time period is included. Ferritin 8(L) 10 - 122 ng/mL [facility] 01/23/2024 10:1 2 AM EST 01/23/2024 10:12 AM EST us Generic External Data Provider LAB BLOOD ORDERAB LES Final Result Performing Organization Address [facility] [[email or web address]] Co de Phone Number [facility] [address] [place] [phone] * (ABNORMAL) Lipid Panel, Standard (01/23/2024 10:12 AM EST) Only the most recent of2 resultswithin the time period is included. Triglycerides 92 <150 mg/dL [facility] Comment:Desirable Triglyceri de: less than 150 mg/dLBorderline High Triglyceride 150-199 mg/dLHigh Triglyceride: 200-499 mg/dLVery High Triglyceride: greater than or equal to 5OO mg/dL Cholesterol 120 <200 mg/dL [facility] Comment:Desirable Cholestero l: less than 200 mg/dLBorderline High Cholesterol: 200-239 mg/dLHigh Cholesterol: greater than 239 mg/dL LDL Cholesterol Calculated 66 <100 mg/dL [facility] Comment:Desirable LDL: less than 100 mg/dLNear Optimal/Above Optimal LDL: 110- 129 mg/dLBorderline High LDL: 130-159 mg/dLHigh LDL: 160-189 mg/dLVery High LDL: greater than or equal to 190 mg/dL HDL Cholesterol 36(L) >40 mg/dL [facility] Comment:Desirable HDL: great er than 40 mg/dL Note: This HDL assay may give artificially low results in patients with liver disease. 01/23/2024 10:1 2 AM EST 01/23/2024 10:12 AM EST us Generic External Data Provider LAB BLOOD ORDERAB LES Final Result Performing Organization Address City/[facility]/ZIP Co de Phone Number [facility] [address] [place] [address] [phone] * Comprehensive Metabolic Panel (01/23/2024 10:12 AM EST) Sodium 139 135 - 145 mmol/L [facility] Potassium 3.5 3.3 - 5.1 mmol/L [facility] Chloride 105 96 - 108 mmol/L [facility] Carbon Dioxide 26 22 - 29 mmol/L [facility] Anion Gap 12 12 - 20 [facility] Urea Nitrogen (BUN) 10 9 - 16 mg/dL [facility] Creatinine, Serum 0.75 0.5 - 1.4 mg/dL [facility] Estimated Glomerular Filt Rate >60 [facility] Comment:Chronic Kidney Disea se: Estimated GFR < 60 mL/min/1.74x6Psksjg Kidney Disease: Estimated GFR < 15 mL/min/1.73m2 Glucose 79 60 - 115 mg/dL [facility] Calcium 8.6 8.4 - 10.2 mg/dL [facility] Bilirubin, Total 0.4 0.0 - 1.0 mg/dL [facility] Aspartate Amino Transferase 16 5 - 31 U/L [facility] Alanine Aminotransferase 10 0 - 31 U/L [facility] Total Protein 7.5 6.5 - 8.0 g/dL [facility] Albumin Level 3.9 3.5 - 5.0 g/dL [facility] Alkaline Phosphatase 77 39 - 117 U/L [facility] 01/23/2024 10:1 2 AM EST 01/23/2024 10:12 AM EST us Generic External Data Provider LAB BLOOD ORDERAB LES Final Result Performing Organization Address City/[facility]/ZIP Co de Phone Number [facility] [address] [place] [address] [phone] * Hepatitis C Antibody with Reflex to HCV, RNA, Quantitative, Real-Time PCR (01/19/2024 11:52 AM EST) Hepatitis C Antibody Nonreactive Nonreactive [facility] Comment:Antibodies to HCV no t detected; does not exclude early acuteHCV infection. Blood Venous blood specimen / Unknown 01/19/2024 11:52 AM EST 01/19/2024 12:55 PM EST us Aida Vasquez DO LAB BLOOD ORDERABLES Final R esult [facility] [address] [place] [phone] * Chlamydia/N. Gonorrhoeae RNA, TMA, Urogenitial (01/19/2024 11:52 AM EST) [facility] CT PCR NOT DETECTED Not Detect. [facility] Comment:A not detected test result does not exclude the possibilityof infection because test results can be affected byimproper specimen collection, concurrent antibiotic therapy,or the number of organisms in the specimen which may bebelow the sensitivity of the test. As with many diagnostictests, results from the Xpert CT/NG assay should beinterpreted in conjunction with other laboratory andclinical data available to the clinician.Xpert CT/NG performance has not been evaluated in patientsless than 14 years of age. The assay should not be used forthe evaluationof suspected sexual abuse or for other medico-legalindications. Additional testing is recommended in anycircumstance when false positive or false negative resultscould lead to adverse medical, social or psychologicalconsequences. NG PCR NOT DETECTED Not Detect. [facility] Comment:A not detected test result does not exclude the possibilityof infection because test results can be affected byimproper specimen collection, concurrent antibiotic therapy,or the number of organisms in the specimen which may bebelow the sensitivity of the test. As with many diagnostictests, results from the Xpert CT/NG assay should beinterpreted in conjunction with other laboratory andclinical data available to the clinician.Xpert CT/NG performance has not been evaluated in patientsless than 14 years of age. The assay should not be used forthe evaluationof suspected sexual abuse or for other medico-legalindications. Additional testing is recommended in anycircumstance when false positive or false negative resultscould lead to adverse medical, social or psychologicalconsequences. Urine Urethral structure / Unknown 01/19/2024 11:52 AM EST 01/19/2024 12:54 PM EST Narrative [facility] - 01/19/2024 2:29 PM EST Urine us Aida Vasquez DO LAB MICROBIOLOGY - GENERAL O RDERABLES Final Result Performing Organization Address [facility] de Phone Number [facility] [address] [place] [phone] * RPR (Monitor) with Reflex to??Titer (01/19/2024 11:52 AM EST) RPR (Monitor) w/Refl Titer NON-REACTI VE NON-REACT LESLY [facility] Comment:THIS TEST WAS PERFOR MED AT:[employer] [address] [id number] AGUILAR MD Rapid Plasma Reagin Ab Titer TNP [facility] Blood Venous blood specimen / Unknown 01/19/2024 11:52 AM EST 01/19/2024 12:55 PM EST us Aida Vasquez DO LAB BLOOD ORDERABLES Final R esult Performing Organization Address [facility] [[email or web address]] Co de Phone Number [facility] [address] [place] [phone] * HIV-1/2 Antigen and Antibodies, Fourth Generation, with Reflexes (01/19/2024 11:52 AM EST) HIV AB/AG Nonreactive Nonreactive [facility] Comment:HIV-1 p24 Ag and/or HIV-1/HIV-2 Ab not detected.A test result that is nonreactive does not exclude thepossibility of exposure to or infection with HIV-1 and/orHIV-2. Nonreactive results in this assay for individualswith prior exposure to HIV-1 and/or HIV-2 may be due toantigen and antibody levels that are below the limit ofdetection of this assay.The [employer] HIV Ag/Ab Combo assay result andsupplemental assay results should be interpreted inconjunction with the patient's clinical presentation,history and other laboratory results. If the results areinconsistent with clinical evidence, additional testing issuggested to confirm the result. Blood Venous blood specimen / Unknown 01/19/2024 11:52 AM EST 01/19/2024 12:55 PM EST us Aida Vasquez DO LAB BLOOD ORDERABLES Final R esult [facility] [address] [place] [phone] * (ABNORMAL) CBC (01/19/2024 11:52 AM EST) White Blood Count 11.6(H) 4.8 - 10.8 X10*3/uL [facility] Red Blood Count 4.09(L) 4.20 - 5.50 X10*6/uL [facility] Hemoglobin 7.4(L) 12.0 - 16.0 g/dl [facility] Hematocrit 27.9(L) 37.0 - 47.0 % [facility] Mean Corpuscular Volume 68.2(L) 80.0 - 98.0 fL [facility] Mean Corpuscular Hemoglobin 18.1(L) 27.0 - 33.0 pg [facility] Mean Corpuscular HGB Conc 26.5(L) 31.0 - 35.0 g/dl [facility] Red Cell Distribution Width 20.1(H) 11.0 - 16.0 % [facility] Platelet Count 636(H) 160 - 400 X10*3/uL [facility] Mean Platelet Volume 9.7 9.4 - 12.3 fL [facility] NRBC Pct Auto 0.0 0.0 - 0.2 /100WBC [facility] NRBC Abs Auto 0.000 0.0 - 0.012 X10*3/uL [facility] Blood Venous blood specimen / Unknown 01/19/2024 11:52 AM EST 01/19/2024 12:55 PM EST Aida Vasquez LAB BLOOD ORDERABLES Final R esult Performing Organization Address City/[facility]/ZIP Co de Phone Number [facility] [address] [place] [phone] * TSH (01/19/2024 11:52 AM EST) Thyroid Stimulating Hormone 0.85 0.32 - 4.0 uIU/mL [facility] Comment:TSH 3rd Generation ( [facility]) Blood Venous blood specimen / Unknown 01/19/2024 11:52 AM EST 01/19/2024 12:55 PM EST Aida Vasquez LAB BLOOD ORDERABLES Final R esult Performing Organization Address [facility] [[email or web address]] Co de Phone Number [facility] [address] [place] [phone] * T4, Free (01/19/2024 11:52 AM EST) Free T4 (Free Thyroxine) 1.08 0.71 - 1.85 ng/dL [facility] Blood Venous blood specimen / Unknown 01/19/2024 11:52 AM EST 01/19/2024 12:55 PM EST Aida Pedro LAB BLOOD ORDERABLES Final R esult Performing Organization Address City/[facility]/ZIP Co de Phone Number [facility] [address] [place] [phone] * Hepatic Function Panel (01/19/2024 11:52 AM EST) Pathologist [facility] Bilirubin, Total 0.3 0.0 - 1.0 mg/dL [facility] Bilirubin, Direct 0.1 0.0 - 0.5 mg/dL [facility] Aspartate Amino Transferase 18 5 - 31 U/L [facility] Alanine Aminotransferase 11 0 - 31 U/L [facility] Total Protein 8.0 6.5 - 8.0 g/dL [facility] Albumin Level 4.0 3.5 - 5.0 g/dL [facility] Alkaline Phosphatase 89 39 - 117 U/L [facility] Blood Venous blood specimen / Unknown 01/19/2024 11:52 AM EST 01/19/2024 12:55 PM EST Aida Vasquez DO LAB BLOOD ORDERABLES Final R esult Performing Organization Address City/State/[facility] [[email or web address]] Co de Phone Number [facility] [address] [place] [phone] * (ABNORMAL) Basic Metabolic Panel (01/19/2024 11:52 AM EST) Pathologist [facility] Sodium 140 135 - 145 mmol/L [facility] Potassium 3.7 3.3 - 5.1 mmol/L [facility] Chloride 109(H) 96 - 108 mmol/L [facility] Carbon Dioxide 25 22 - 29 mmol/L [facility] Anion Gap 10(L) 12 - 20 [facility] Urea Nitrogen (BUN) 10 9 - 16 mg/dL [facility] Creatinine, Serum 0.78 0.5 - 1.4 mg/dL [facility] Estimated Glomerular Filt Rate >60 [facility] Comment:Chronic Kidney Disea se: Estimated GFR < 60 mL/min/1.82e1Miffrm Kidney Disease: Estimated GFR < 15 mL/min/1.73m2 Glucose 84 60 - 115 mg/dL [facility] Calcium 9.7 8.4 - 10.2 mg/dL [facility] Blood Venous blood specimen / Unknown 01/19/2024 11:52 AM EST 01/19/2024 12:55 PM EST Aida Vasquez DO LAB BLOOD ORDERABLES Final R esult [facility] [address] [place] [phone] [phone] from Last 3 Months Insurance [employer] Care Teams Professional Architect Relationship Specialty Start Date End Date Aida Vasquez DO [address] [place] [address] PCP - General Family Medicine 10/24/14
--- OUTSIDE RECORDS SUMMARY | 2024-04-02 11:19 | XMS_ITS | Encounter Summary ---
Author Organization [employer] Address [address] [facility] [address]t [place] [address] Care Team Providers Care Clinical Molecular Geneticist Name Role Phone Pedro Aida Primary Care Provider + [phone] Encounter Details Date Type Department Care Team (Late st Contact Info) Description 03/30/2024 Orders Only [facility] [address] [place] [address] ProviderQueta MD Social History Tobacco Use Types Packs/Day Years Used Date Smoking Tobacco: Every Day Cigarettes Smokeless Tobacco: Never Alcohol Use Standard Drinks/Week Comments Not Currently [...] or Lucio 12/13/2021 10 :14 AM EDT documented as of this encounter Plan of Treatment Not on file documented as of this encounter Procedures Procedure Name Priority Date/Time Associated Diagnosis Comments HM PAP/HPV Routine 01/23/2024 5:50 PM EST documented in this encounter Results * HM PAP/HPV (01/23/2024 5:50 PM EST) us Historical Provider HEALTH MAINTENANCE Final Result documented in this encounter Visit Diagnoses Not on filedocumented in this encounter Additional Health Concerns Assessment Noted Time PHQ-9 Depression Total Score: 11 024 11:07 AM EST documented as of this encounter Care Teams Clinical Molecular Geneticist Relationship Specialty Start Date End Date Aida Vasquez DO [address] [place] [address] PCP - General Family Medicine 10/24/14 documented as of this encounter
--- OUTSIDE RECORDS SUMMARY | 2024-04-02 11:19 | XMS_ITS | Encounter Summary ---
Author Organization [employer] Address [address] [facility] 7t [place] [address] Care Team Providers Care Ironworker Name Role Phone Aida Vasquez DO Primary Care Provider [phone] Encounter Details Date Type Department Care Team (Late st Contact Info) Description 05/12/2022 Orders Only [facility] [address] [place] [address] Aida Feliz LPN Social History Tobacco Use Types Packs/Day Years Used Date Smoking Tobacco: Never Assessed Comments Unknown Sex and Gender Information Value Date Recorded Sex Assigned at Female 12/13/2021 10:14 AM EDT Legal Sex Female 10:14 AM EDT Gender Identity Female 12/13/2021 10:14 AM EDT Sexual Orientation Lesbian or Lucio 12/13/2021 10 :14 AM EDT documented as of this encounter Plan of Treatment Not on file documented as of this encounter Visit Diagnoses Not on filedocumented in this encounter Care Teams Ironworker Relationship Specialty Start Date End Date Aida Vasquez DO [address] [place] [address] PCP - General Family Medicine 10/24/14 documented as of this encounter
--- OUTSIDE RECORDS SUMMARY | 2024-04-02 11:19 | XMS_ITS | Encounter Summary ---
Author Organization [employer] Address [address] [facility] 7t [place] [address] Care Team Providers Care Saturation Equipment Operator Name Role Phone Aida Vasquez DO Primary Care Provider [phone] Encounter Details Date Type Department Care Team (Late st Contact Info) Description 03/01/2022 Orders Only [facility] MED[facility] [address] [place] [address] Cielo Elias LPN Social History Tobacco Use Types Packs/Day [...] on filedocumented in this encounter Care Teams Saturation Equipment Operator Relationship Specialty Start Date End Date Aida Vasquez DO [address] [place] [address] PCP - General Family Medicine 10/24/14 documented as of this encounter
--- OUTSIDE RECORDS SUMMARY | 2024-04-02 11:19 | XMS_ITS | Encounter Summary ---
Author Organization [employer] Address [address] [facility] [address] [place] [address] Care Team Providers Care Electronic Scale Subassembler Name Role Phone PedroAida Primary Care Provider + [phone] Encounter Details Date Type Department Care Team (Late st Contact Info) Description 01/31/2024 Orders Only [facility] External Provider, [facility] Social History Tobacco Use Types Packs/Day Years [...] Name Priority Date/Time Associated Diagnosis Comments US PELVIS TRANSVAGINAL Routine 01/31/2024 11:43 AM EST documented in this encounter Results * US Pelvis Transvaginal (01/31/2024 11:43 AM EST) Anatomical Region Laterality Modality Pelvis Ultrasound 01/31/2024 11:4 3 AM EST Narrative 03/12/2024 2:08 PM EST ? [facility] ?[address] ?[place] [address] ? Ultrasound Report ? Signed ? Patient: Colon,Quiara ?MR#: [id number] ? : 1985 ?Acct:[id number] ? Age/Sex: 38 / F ?ADM Date: 01/31/24 ? Loc: HO.US ? Attending Dr: Juan Velazco MD ? Ordering Physician: Juan Velazco MD ?? Date of Service: 01/31/24 ?? Procedure(s): US pelvic and transvaginal ?? Accession Number(s): [id number] ? cc: Aida Vasquez DO; Juan Velazco [...] 03/12/24 1405 ? DD/ 1143 ? TD/TT: 01/31/24 1155 ? Cafe Helper: ? Procedure Note Cristhian, Image - 03/12/2024 [place] [address] Ultrasound Report Signed Patient: Shanae Rosa#: [id number] : 1985Acct:[id number] Age/Sex: 38 / FADM Date: 01/31/24 Loc: HO.US Attending Dr: Juan Velazco MD Ordering Physician: Juan Velazco MD Date of Service: 01/31/24 Procedure(s): US pelvic and transvaginal Accession Number(s): [id number] cc: Aida Vasquez DO; Juan Velazco MD [...] by: Dorita Lopez MD 03/12/2024 02:05 PM EST Dictated By: Dorita Lopez MD Signed By: <Electronically signed by Dorita Lopez MD in OV> 03/12/24 1405 DD/ 1143 TD/TT: 01/31/24 1155 Cafe Helper: [facility] External Provider IMG US PROCEDURES Final Result documented in this encounter Visit Diagnoses Not on filedocumented in this encounter Additional Health Concerns Assessment Noted Time PHQ-9 Depression Total Score: 11 024 11:07 AM EST documented as of this encounter Care Teams Electronic Scale Subassembler Relationship Specialty Start Date End Date Aida Vasquez DO [address] [place] [phone] PCP - General Family Medicine 10/24/14 documented as of this encounter
--- OUTSIDE RECORDS SUMMARY | 2024-04-02 11:19 | XMS_ITS | Encounter Summary ---
Author Organization [employer] Address [address] [facility] [address]t [place] [address] Care Team Providers Care Seismic Computer Name Role Phone Aida Vasquez DO Primary Care Provider + [phone] Reason for Visit * Reason Comments Med Refill Encounter Details Date Type Department Care Team (Late st Contact Info) Description 03/25/2024 Refill [facility] MED[facility] [address] [place] [address] Aida Vasquez DO [address] [place] [address] Asthma, unspecified asthma severity, unspecified whether complicated, unspecified whether persistent Social History Tobacco Use Types Packs/Day Years [...] documented as of this encounter Visit Diagnoses Diagnosis Asthma, unspecified asthma severity, unspecified whether complicated, unspecified whether persistent documented in this encounter Additional Health Concerns Assessment Noted Time PHQ-9 Depression Total Score: 11 024 11:07 AM EST documented as of this encounter Care Teams Seismic Computer Relationship Specialty Start Date End Date Aida Vasquez DO [address] [place] [address] PCP - General Family Medicine 10/24/14 documented as of this encounter
== END 2024-04-02 11:17 | disposition home or self-care (01) ==
LOC: HO.HBST 10:18
PROVIDERS: PCP Family Medicine; Visit Provider Counselor Mental Health
DX: F43.20 Adjustment disorder, unspecified (principal); Z72.4 Inappropriate diet and eating habits; E66.01 Morbid (severe) obesity due to excess calories
CPT/HCPCS: 90837

== ENCOUNTER 2024-04-15 07:53 | Outpatient (REF) | payer MEDICAID, SELFPAY ==
--- NOTE | ~2024-04-15 | FL_ITS ---
EXAMINATION: XR FLUOROSCOPY UPPER GI WITH AIR CLINICAL INFORMATION: Moderate/severe obesity due to excess calories. Preop. COMPARISON: None available. TECHNIQUE: Routine upper GI air contrast study was performed in upright and lying position. FINDINGS: Following oral administration of thick barium and effervescent granules and upright view standing there is normal propagation bolus from the oral cavity through the pharynx, esophagus into stomach without any evidence of obstruction, narrowing or stricture. On placing patient in supine and prone lying there is mild gastroesophageal reflux without hiatal hernia. Otherwise the course and caliber of the stomach and the duodenal bulb and sweep is normal. The mucosal pattern of the stomach and the duodenum is normal. FLUOROSCOPY TIME: 2.04 minutes DOSE AREA PRODUCT: 2869 uGy-m2 (microgray-meter squared) FL/FL upper GI w air IMPRESSION: Mild gastroesophageal reflux without hiatal hernia. Rest of the upper GI exam is unremarkable. Electronically signed by: Clay Georges MD 04/15/2024 10:14 AM COTY
--- OUTSIDE RECORDS SUMMARY | 2024-04-15 07:58 | XMS_ITS | Encounter Summary ---
Author Organization [employer] Address [address] [facility] [address]t [place] [address] Care Team Providers Care Mid Teacher Name Role Phone Aida Vasquez DO Primary Care Provider [phone] Encounter Details Date Type Department Care Team (Late st Contact Info) Description 05/12/2022 Orders Only [facility] [address] [place] [address] Aida Feliz LPN Social History Tobacco Use [...] on filedocumented in this encounter Care Teams Mid Teacher Relationship Specialty Start Date End Date Aida Vasquez DO [address] [place] [address] PCP - General Family Medicine 10/24/14 documented as of this encounter
--- OUTSIDE RECORDS SUMMARY | 2024-04-15 07:58 | XMS_ITS | Encounter Summary ---
Author Organization [employer] [facility] Address [address] [facility] [address] [place] [address] Care Team Providers Care Global Compensation Director Name Role Phone Aida Vasquez DO Primary Care Provider [phone] Encounter Details Date Type Department Care Team (Late st Contact Info) Description 03/01/2022 Orders Only [facility] MED[facility] [address] [place] [address] Cielo Elias LPN Social History Tobacco Use [...] on filedocumented in this encounter Care Teams Global Compensation Director Relationship Specialty Start Date End Date Aida Vasquez DO [address] [place] [address] PCP - General Family Medicine 10/24/14 documented as of this encounter
--- OUTSIDE RECORDS SUMMARY | 2024-04-15 07:58 | XMS_ITS | Encounter Summary ---
Author Organization [employer] Address [address] [facility] [address] [place] [address] Care Team Providers Care Tuber Machine Operator Name Role Phone Aida Vasquez DO Primary Care Provider + [phone] Reason for Visit * Reason Comments Med Refill Encounter Details Date Type Department Care Team (Late st Contact Info) Description 03/25/2024 Refill [facility]INE [address] [place] [address] Aida Vasquez DO [address] [place] [address] Asthma, unspecified asthma severity, unspecified whether complicated, [...] documented as of this encounter Care Teams Tuber Machine Operator Relationship Specialty Start Date End Date Aida Vasquez DO [address] [place] [address] PCP - General Family Medicine 10/24/14 documented as of this encounter
--- OUTSIDE RECORDS SUMMARY | 2024-04-15 07:58 | XMS_ITS | Clinical Summary ---
Author Organization [employer] Address [address] [facility] 7[address] [place] [address] Care Team Providers Care Die Designer Name Role Phone JaneyAida young DO Primary Care Provider Allergies Active Allergy [...] 22 Active ergocalciferol (Vitamin D2) 1.25 MG (18665 UT) capsuleIndicati ons:Vitamin D deficiency Take 1 [...] BREATH 18 g 1 03/27/19 25 Active albuterol (Ventolin HFA) 108 (90 Base) [...] positive depression screening showing moderate depressive sxs. Quaira presents with anhedonia, hopelessness, depressed mood, difficulty [...] and patient agreed to referral to individual therapy in OP setting, but requested it be telehealth. Encounters Date Type Department Care Team Description 03/30/2024 Orders Only [address] [address] Provider, MD Queta 03/25/[address] [address] Aida Vasquez DO Asthma, unspecified asthma severity, unspecified whether complicated, unspecified whether persistent 02/06/[address] [address] Aida Vasquez DO Prior Authorization 02/01/2024 Orders Only GENERIC EXTERNAL DATA DEPARTMENT Provider, Generic External Data 01/31/2024 Orders Only [facility] External Provider, [facility] 01/26/[address] [address] Aida Vasquez DO Asthma, unspecified asthma severity, unspecified whether complicated, unspecified whether persistent 01/23/[address] [address] Aida Vasquez DO Prior Authorization ( [facility]rak[employer]: Winter[place]) 01/23/2024 Orders Only GENERIC EXTERNAL DATA DEPARTMENT Provider, Generic External Data 01/19/2024 10:30 AM EST Office Visit [address] [address] Aida Vasquez DO Routine history and physical examination of adult (Primary Dx); Major depression, recurrent, chronic (CMS/HCC); Moderate persistent asthma with acute exacerbation; Anemia, unspecified type; Chronic gastroesophageal reflux disease; Abnormal uterine bleeding (AUB); Urinary frequency; Morbid obesity (CMS/HCC); BMI 50.0-59.9, adult ([facility]); Encounter for immunization 01/19/[address] [facility] [address] [place] [address] [phone] Sunshine Pardo, RN Results 01/19/2024 Travel from Last 3 Months Immunizations Name Administration Dates Next Due DTaP 05/02/1990, 0,08/02/1988,06/02,04/04/1988 Hep B, Adolescent or Pediatric 01/06/1999,1997,12/18/1997 Hib ([facility]) 01/02/1990 Influenza injectable quadriv alent IIV4 with [...] EST Narrative 02/27/2024 11:29 AM EST ? [facility] ?[address] ?[place] [address] ? Ultrasound Report ? Signed ? Patient: Colon,Quiara ?MR#: [id number] ? : 1985 ?Acct:[id number] ? Age/Sex: 38 / F ?ADM Date: 02/26/24 ? Loc: HO.US ? Attending Dr: Jairon Fox MD ? Ordering Physician: Jairon Fox MD ?? Date of Service: 02/26/24 ?? Procedure(s): US abdomen comp w elastography ?? Accession Number(s): [id number] ? cc: Aida Vasquez DO; Jairon Fox [...] of Radiologists in Ultrasound Liver Stiffness Thresholds (2019): ? LIVER STIFFNESS THRESHOLDS: ?? *Shear wave [...] De Oca MD ??02/27/2024 11:27 AM EST ? Dictated By: ?Schuyler Montes De Oca MD ? Signed By: ?<Electronically signed by Schuyler Montes De Oca MD in OV> ?02/27/24 1127 ? DD/ 3 ? TD/TT: 02/26/24926 ? Cutter Operator Tile: ? Procedure Note Cristhian, Son - 02/27/2024 [place] [address] Ultrasound Report Signed Patient: Shanae Rosa#: [id number] : 1985Acct:[id number] Age/Sex: 38 / FADM Date: 02/26/24 Loc: HO.US Attending Dr: Jairon Fox MD Ordering Physician: Jairon Fox MD Date of Service: 02/26/24 Procedure(s): US abdomen comp w elastography Accession Number(s): [id number] cc: Aida Vasquez DO; Jairon Fox MD [...] Oca MD in OV> 02/27/24 1127 DD/ 0914 TD/TT: 02/26/24 0927 Cutter Operator Tile: us [facility] External Provider IMG US PROCEDURES Final Result * Hematoxylin and Eosin Stain (02/01/2024 1:35 PM EST) 02/01/2024 1:35 PM EST 02/01/2024 2:24 PM EST [facility] - 02/06/2024 7:58 AM EST ----- ------- Name: Colon,Quiara ? Age/Sex: 38/F ? : 1985 Unit#: [id number] ?? Attend Dr: Jairon Fox MD ?Re02/01/24 ?Status: DEP SDC ? Location: HO.SSS ?Disch: ? ----- ------- SPEC : [id number] ? RECD: 02/01/24 ? STATUS: ??SOUT ? REQ NUM: [id number] ? JILLIAN: 02/01/248 ? SUBM DR: Jairon Fox MD ? ENTERED: ??02/01/24 ?SP TYPE: Surgical ? OTHR DR: Aida Vasquez DO ? ORDERED: ??HE Stain/9, Gross Micro L4/4, IHC/2, H. pylori/2, AB/PAS/3 ?Addendum Addendum ??1 ?Entered: 02/06/245663 Metaplastic changes are not present, supported by [...] ? Age/Sex: 38/F ? : 1985 Unit#: [id number] ?? Attend Dr: Jairon Fox MD ?Re02/01/24 ?Status: DEP SDC ? Location: HO.SSS ?Disch: ? ----- ------- SPEC : [id number] ? RECD: 02/01/24 ? STATUS: ??SOUT ? REQ NUM: [id number] ? JILLIAN: 02/01/24-1 ? SUBM DR: Jairon Fox MD ? [...] cm, all submitted in cassette labeled D. Copies To: ?? Aida Vasquez DO ?? [facility] ?? [address] ?? [place] [address] ?? [phone] ?? Jairon Fox MD ?? [facility] ?? [address] ?? [place] [address] ?? [phone] ----- ------- Signed (signature on file) Pradip Johnson MD 02/02/24 4616 ? ----- ------- ? END OF REPORT ? us Generic External Data Provider LAB BLOOD ORDERAB LES Final Result Performing Organization Address [facility] de Phone Number [facility] [address] [place] [address] [phone] * HCG, Qualitative, Urine (02/01/2024 11:44 AM EST) Urine NEGATIVE NEGATIVE [facility] Comment:This test was develo ped to detect early . Falsenegative results may occur after the 5th - 7th week ofpregnancy when using this test method. If clinicallyindicated, consider a serum hCG. 02/01/2024 11:4 4 AM EST 02/01/2024 11:49 AM EST us Generic External Data Provider LAB URINE ORDERAB LES Final Result Performing Organization Address [facility] de Phone Number [facility] [address] [place] [address] [phone] * US Pelvis Transvaginal (01/31/2024 11:43 AM EST) Anatomical Region Laterality Modality Pelvis Ultrasound 01/31/2024 11:4 3 AM EST Narrative 03/12/2024 2:08 PM EST ? [facility] ?[address] ?[place] [address] ? Ultrasound Report ? Signed ? Patient: Colon,Quiara ?MR#: [id number] ? : 1985 ?Acct:[id number] ? Age/Sex: 38 / F ?ADM Date: 12/18/24 ? Loc: HO.US ? Attending Dr: Juan Velazco MD ? Ordering Physician: Juan Velazco MD ?? Date of Service: 01/31/24 ?? Procedure(s): US pelvic and transvaginal ?? Accession Number(s): [id number] ? cc: Aida Vasquez DO; Juan Velazco [...] DD/ 1143 ? TD/TT: 01/31/24 1155 ? Cutter Operator Tile: ? Procedure Note Son Morrow - 03/12/[address] [address] Ultrasound Report Signed Patient: Shanae Rosa#: [id number] : 1985Acct:[id number] Age/Sex: 38 / FADM Date: 01/31/24 Loc: HO.US Attending Dr: Juan Velazco MD Ordering Physician: Juan Velazco MD Date of Service: 01/31/24 Procedure(s): US pelvic and transvaginal Accession Number(s): [id number] cc: Aida Vasquez DO; Juan Velazco MD [...] 03/12/24 1405 DD/ 1143 TD/TT: 01/31/24 1155 Cutter Operator Tile: [facility] External Provider IMG US PROCEDURES Final Result * HM PAP/HPV (01/23/2024 5:50 PM EST) Historical Provider HEALTH MAINTENANCE Final Result * XR Chest 2 Views (01/23/2024 10:58 AM EST) Anatomical Region Laterality Modality Chest Radiographic Mamie ging 01/23/2024 10:5 8 AM EST Narrative 02/29/2024 1:01 PM EST ? [facility] ?[address] ?[place] [address] ?XRay Report ? Signed ? Patient: Colon,Quiara ?MR#: [id number] ? : 1985 ?Acct:[id number] ? Age/Sex: 38 / F ?ADM Date: 01/23/24 ? Loc: HO.XRAY ? Attending Dr: Jairon Fox MD ? Ordering Physician: Jairon Fox MD ?? Date of Service: 01/23/24 ?? Procedure(s): XR chest 2V ?? Accession Number(s): [id number] ? cc: Aida Vasquez DO; Jairon Fox [...] ??Paul Johnson MD ??02/29/2024 12:58 PM EST ? Dictated By: ?Baweja,Paul MD ? Signed By: ?<Electronically signed by Paul Johnson MD in OV> ?02/29/24 1258 ? DD/ 1058 ? TD/TT: 01/23/24 1110 ? Cutter Operator Tile: HB ? Procedure Note Son Morrow - 02/29/[address] [address] XRay Report Signed Patient: Shanae Rosa#: [id number] : 1985Acct:[id number] Age/Sex: 38 / FADM Date: 01/23/24 Loc: HO.XRAY Attending Dr: Jairon Fox MD Ordering Physician: aJiron Fox MD Date of Service: 01/23/24 Procedure(s): XR chest 2V Accession Number(s): [id number] cc: Aida Vasquez DO; Jairon Fox MD EXAMINATION: XR CHEST [...] Johnson MD 02/29/2024 12:58 PM EST RP Workstation: [employer] Dictated By: Paul Johnson MD Signed By: <Electronically signed by Paul Johnson MD in OV> 02/29/24 1258 DD/ 1058 TD/TT: 01/23/24 1110 Cutter Operator Tile: NATALIA [facility] External Provider IMG XR PROCEDURES Final Result * (ABNORMAL) Vitamin D, 25-Hydroxy, Total, Immunoassay (01/23/2024 10:12 AM EST) Only the most recent of2 resultswithin the time period is included. Vitamin D 25-OH Total 11.3(L) >30 ng/mL [facility] Comment:Health Based Referen ce Values*< 20 ng/mL Aymjwojcb25-74 ng/mL Insufficient> 30 ng/mL Sufficient*Tanner PAGE. N Engl J Med. 2007;357:266-280Care must be [...] ORDERAB LES Final Result Performing Organization Address City/[facility] de Phone Number [facility] [address] [place] [phone] * Vitamin B12 (Cobalamin) and Folate Panel, Serum (01/23/2024 10:12 AM EST) Only the most recent of2 resultswithin the time period is included. Vitamin B12 527 200 - 900 pg/mL [facility] Comment:NORMAL 200-900 PG/ML INDETERMINATE 160-199 PG/ML DEFICIENT < 160 PG/ML Folate 5.8 > or = 4.0 ng/mL [facility] Comment:Reference Values:> o r = 4.0 ng/mL< 4.0 ng/mL suggests folate deficiency Methotrexate, aminopterin and folinic acid(leucovorin) are chemotherapeutic agents whose molecularstructures are similar to folate; therefore, the Architectfolate assay cannot be used for patients using these drugs. 01/23/2024 10:1 2 AM EST 01/23/2024 10:12 AM EST us Generic External Data Provider LAB BLOOD ORDERAB LES Final Result Performing Organization Address [facility] de Phone Number [facility] [address] [place] [phone] * TSH with Reflex to Free T4 (01/23/2024 10:12 AM EST) TSH reflex Free T4 0.69 0.32 - 4.0 uIU/mL [facility] 01/23/2024 10:1 2 AM EST 01/23/2024 10:12 AM EST us Generic External Data Provider LAB BLOOD ORDERAB LES Final Result [facility] [address] [place], [place] [phone] * (ABNORMAL) CBC auto differential (01/23/2024 10:12 AM EST) White Blood Count 13.1(H) 4.8 - 10.8 X10*3/uL [facility] Red Blood Count 3.98(L) 4.20 - 5.50 X10*6/uL [facility] Hemoglobin 7.1(L) 12.0 - 16.0 g/dl [facility] Hematocrit 27.5(L) 37.0 - 47.0 % [facility] Mean Corpuscular Volume 69.1(L) 80.0 - 98.0 fL [facility] Mean Corpuscular Hemoglobin 17.8(L) 27.0 - 33.0 pg [facility] Mean Corpuscular HGB Conc 25.8(L) 31.0 - 35.0 g/dl [facility] Red Cell Distribution Width 19.6(H) 11.0 - 16.0 % [facility] Platelet Count 664(H) 160 - 400 X10*3/uL [facility] Mean Platelet Volume 9.8 9.4 - 12.3 fL [facility] Neutrophils Percent Auto 58.3 45 - 73 % [facility] Imm Gran Pct Auto 0.4 0.0 - 0.4 % [facility] Lymphocytes Percent Auto 31.7 20 - 40 % [facility] Monocytes Percent Auto 5.7 2 - 11 % [facility] Eosinophils Percent Auto 3.4 0 - 4 % [facility] Basophils Percent Auto 0.5 0 - 2 % [facility] NRBC Pct Auto 0.0 0.0 - 0.2 /100WBC [facility] Neutrophils Absolute Auto 7.7 2.0 - 8.3 x10*3/uL [facility] Imm Gran Abs Auto 0.05(H) 0.00 - 0.03 X10*3/uL [facility] Lymphocytes Absolute Auto 4.2 1.2 - 4.9 X10*3/uL [facility] Monocytes Absolute Auto 0.8 0.1 - 1.2 X10*3/uL [facility] Eosinophils Absolute Auto 0.5(H) 0.0 - 0.4 X10*3/uL [facility] Basophils Absolute Auto 0.1 0.0 - 0.2 X10*3/uL [facility] NRBC Abs Auto 0.000 0.0 - 0.012 X10*3/uL [facility] 01/23/2024 10:1 2 AM EST 01/23/2024 10:12 AM EST Generic External Data Provider LAB BLOOD ORDERAB LES Final Result Performing Organization Address [facility] de Phone Number [facility] [address] [place] [phone] * (ABNORMAL) Iron And Total Iron Binding Capacity (01/23/2024 10:12 AM EST) Only the most recent of2 resultswithin the time period is included. Iron 15(L) 30 - 160 mcg/dL [facility] Total Iron Binding Capacity 378 228 - 428 mcg/dL [facility] Percent Iron Saturation 4(L) 15 - 50 % [facility] Unsaturated Iron Binding 363 ug/dL [facility] 01/23/2024 10:1 2 AM EST 01/23/2024 10:12 AM EST Generic External Data Provider LAB BLOOD ORDERAB LES Final Result Performing Organization Address [facility] de Phone Number [facility] [address] [place] [phone] * Insulin (01/23/2024 10:12 AM EST) Insulin 23 2 - 29 uU/mL [facility] Comment:This test was perfor med [...] ORDERAB LES Final Result Performing Organization Address [facility] de Phone Number [facility] [address] [place] [phone] * Zinc (01/23/2024 10:12 AM EST) Zinc 73 60 - 130 mcg/dL [facility] Comment:This test was develo ped and its analytical performancecharacteristics have been determined by [employer] [place], [place]. It hasnot been cleared or approved by the U.S. Food and DrugAdministration. This assay has been validated pursuantto the CLIA regulations and is used for clinicalpurposes.THIS TEST WAS PERFORMED AT:[id number] [place] [address]FZBADQUPRABHU BUSTAMANTE MD,PHD 01/23/2024 10:1 2 AM EST 01/23/2024 10:12 AM EST Generic External Data Provider LAB BLOOD ORDERAB LES Final Result Performing Organization Address [facility] de Phone Number [facility] [address] [place] [phone] * Vitamin A (01/23/2024 10:12 AM EST) Vitamin A (Retinol) 61 38 - 98 mcg/dL [facility] Comment:Vitamin supplementat ion within 24 hours prior toblood draw may affect the accuracy of the results.This test was developed and its analytical performancecharacteristics have been determined by [employer] [place], [place]. It hasnot been cleared or approved by the U.S. Food and DrugAdministration. This assay has been validated pursuantto the CLIA regulations and is used for clinicalpurposes.THIS TEST WAS PERFORMED AT:[employer]/[facility] [id number] [place] [address]NOJJQVCPRABHU BUSTAMANTE MD,PHD 01/23/2024 10:1 2 AM EST 01/23/2024 10:12 AM EST Generic External Data Provider LAB BLOOD ORDERAB LES Final Result Performing Organization Address [facility]/ZIP Co de Phone Number [facility] [address] [place] [phone] * (ABNORMAL) C-reactive Protein (01/23/2024 10:12 AM EST) C Reactive Protein 4.15(H) < or = 0.50 mg/dL [facility] 01/23/2024 10:1 2 AM EST 01/23/2024 10:12 AM EST Generic External Data Provider LAB BLOOD ORDERAB LES Final Result Performing Organization Address [facility] de Phone Number [facility] [address] [place] [phone] * (ABNORMAL) Vitamin B1 (01/23/2024 10:12 AM EST) Vitamin B1 <6(A) 8 - 30 nmol/L [facility] Comment:Vitamin supplementat ion within 24 hours prior toblood draw may affect the accuracy of the results.This test was developed and its analytical performancecharacteristics have been determined by [employer], [place]. It hasnot been cleared or approved by the U.S. Food and DrugAdministration. This assay has been validated pursuantto the CLIA regulations and is used for clinicalpurposes.THIS TEST WAS PERFORMED AT:[employer]/[facility] [id number] [place] [address]DJIBSCPPRABHU BUSTAMANTE MD,PHD 01/23/2024 10:1 2 AM EST 01/23/2024 10:12 AM EST us Generic External Data Provider LAB BLOOD ORDERAB LES Final Result Performing Organization Address City/[facility]/ZIP Co de Phone Number [facility] [address] [place] [phone] * Hemoglobin A1c (01/23/2024 10:12 AM EST) Only the most recent of2 resultswithin the time period is included. Hemoglobin A1c 5.2 <6.0 % [facility] Comment:Hemoglobin A1C Refer ence Range Adults: 4.8 - 6.0 % Non diabetic: < 6.0 % Goal: < 7.0 %Additional Action Suggested: > 8.0 %Note: Hemoglobin A1c results are invalid for patients with abnormal amounts of HbF. Blood transfusions may impact the HbA1c concentration in the patient sample. Estimated Average Glucose 103 mg/dL [facility] Comment:eAG = Estimated ave rage glucose which is %A1C expressed asaverage glucose, using the formula of the L4X-JqcurniWyewthx Glucose study (ADAG), Diabetes Care, Vol.31,#8,Sep. 2007 01/23/2024 10:1 2 AM EST 01/23/2024 10:12 AM EST us Generic External Data Provider LAB BLOOD ORDERAB LES Final Result Performing Organization Address [facility]/ZIP Co de Phone Number [facility] [address] [place] [phone] * (ABNORMAL) Ferritin (01/23/2024 10:12 AM EST) Only the most recent of2 resultswithin the time period is included. Ferritin 8(L) 10 - 122 ng/mL [facility] 01/23/2024 10:1 2 AM EST 01/23/2024 10:12 AM EST Generic External Data Provider LAB BLOOD ORDERAB LES Final Result Performing Organization Address [facility] de Phone Number [facility] [address] [place] [phone] * (ABNORMAL) Lipid Panel, Standard (01/23/2024 10:12 AM EST) Only the most recent of2 resultswithin the time period is included. Triglycerides 92 <150 mg/dL [facility] Comment:Desirable Triglyceri de: less than 150 mg/dLBorderline High Triglyceride 150-199 mg/dLHigh Triglyceride: 200-499 mg/dLVery High Triglyceride: greater than or equal to 5OO mg/dL Cholesterol 120 <200 mg/dL [facility] Comment:Desirable Cholestero l: less than 200 mg/dLBorderline High Cholesterol: 200-239 mg/dLHigh Cholesterol: greater than 239 mg/dL LDL Cholesterol Calculated 66 <100 mg/dL [facility] Comment:Desirable LDL: less than 100 mg/dLNear Optimal/Above Optimal LDL: 110- 129 mg/dLBorderline High LDL: 130-159 mg/dLHigh LDL: 160-189 mg/dLVery High LDL: greater than or equal to 190 mg/dL HDL Cholesterol 36(L) >40 mg/dL [facility] Comment:Desirable HDL: great er than 40 mg/dL Note: This HDL assay may give artificially low results in patients with liver disease. 01/23/2024 10:1 2 AM EST 01/23/2024 10:12 AM EST us Generic External Data Provider LAB BLOOD ORDERAB LES Final Result Performing Organization Address [facility] de Phone Number [facility] [address] [place] [phone] * Comprehensive Metabolic Panel (01/23/2024 10:12 AM EST) Sodium 139 135 - 145 mmol/L [facility] Potassium 3.5 3.3 - 5.1 mmol/L [facility] Chloride 105 96 - 108 mmol/L [facility] Carbon Dioxide 26 22 - 29 mmol/L [facility] Anion Gap 12 12 - 20 [facility] Urea Nitrogen (BUN) 10 9 - 16 mg/dL [facility] Creatinine, Serum 0.75 0.5 - 1.4 mg/dL [facility] Estimated Glomerular Filt Rate >60 [facility] Comment:Chronic Kidney Disea se: Estimated GFR < 60 mL/min/1.72w1Kptjrm Kidney Disease: Estimated GFR < 15 mL/min/1.73m2 Glucose 79 60 - 115 mg/dL [facility] Calcium 8.6 8.4 - 10.2 mg/dL [facility] Bilirubin, Total 0.4 0.0 - 1.0 mg/dL [facility] Aspartate Amino Transferase 16 5 - 31 U/L [facility] Alanine Aminotransferase 10 0 - 31 U/L [facility] Total Protein 7.5 6.5 - 8.0 g/dL [facility] Albumin Level 3.9 3.5 - 5.0 g/dL [facility] Alkaline Phosphatase 77 39 - 117 U/L [facility] 01/23/2024 10:1 2 AM EST 01/23/2024 10:12 AM EST us Generic External Data Provider LAB BLOOD ORDERAB LES Final Result [facility] [address] [place] [phone] * Hepatitis C Antibody with Reflex to HCV, RNA, Quantitative, Real-Time PCR (01/19/2024 11:52 AM EST) Hepatitis C Antibody Nonreactive Nonreactive [facility] Comment:Antibodies to HCV no t detected; does not exclude early acuteHCV infection. Blood Venous blood specimen / Unknown 01/19/2024 11:52 AM EST 01/19/2024 12:55 PM EST us Aida Pedro DO LAB BLOOD ORDERABLES Final R esult [facility] [address] [place] [phone] * Chlamydia/N. Gonorrhoeae RNA, TMA, Urogenitial (01/19/2024 11:52 AM EST) CT PCR NOT DETECTED Not Detect. [facility] Comment:A not detected test result [...] psychologicalconsequences. NG PCR NOT DETECTED Not Detect. [facility] Comment:A not detected test result [...] AM EST 01/19/2024 12:54 PM EST Narrative [facility] - 01/19/2024 2:29 PM EST Urine us Aida Vasquez DO LAB MICROBIOLOGY - GENERAL O RDERABLES Final Result Performing Organization Address [facility] de Phone Number [facility] [address] [place] [phone] * RPR (Monitor) with Reflex to??Titer (01/19/2024 11:52 AM EST) RPR (Monitor) w/Refl Titer NON-REACTI VE NON-REACT LESLY [facility] Comment:THIS TEST WAS PERFOR MED AT:[facility] [place] [id number] AGUILAR MD Rapid Plasma Reagin Ab Titer TNP [facility] Blood Venous blood specimen / Unknown 01/19/2024 11:52 AM EST 01/19/2024 12:55 PM EST us Aida Vasquez DO LAB BLOOD ORDERABLES Final R esult Performing Organization Address [facility]/ZIP Co de Phone Number [facility] [address] [place] [phone] * HIV-1/2 Antigen and Antibodies, Fourth Generation, with Reflexes (01/19/2024 11:52 AM EST) HIV AB/AG Nonreactive Nonreactive [facility] Comment:HIV-1 p24 Ag and/or HIV-1/HIV-2 Ab not detected.A test result that is nonreactive does not exclude thepossibility of exposure to or infection with HIV-1 and/orHIV-2. Nonreactive results in this assay for individualswith prior exposure to HIV-1 and/or HIV-2 may be due toantigen and antibody levels that are below the limit ofdetection of this assay.The [employer] HIV Ag/Ab Combo assay result andsupplemental assay results should be interpreted inconjunction with the patient's clinical presentation,history and other laboratory results. If the results areinconsistent with clinical evidence, additional testing issuggested to confirm the result. Blood Venous blood specimen / Unknown 01/19/2024 11:52 AM EST 01/19/2024 12:55 PM EST us Aida Pedro FLOYD LAB BLOOD ORDERABLES Final R esult [facility] [address] [place] [phone] * (ABNORMAL) CBC (01/19/2024 11:52 AM EST) White Blood Count 11.6(H) 4.8 - 10.8 X10*3/uL [facility] Red Blood Count 4.09(L) 4.20 - 5.50 X10*6/uL [facility] Hemoglobin 7.4(L) 12.0 - 16.0 g/dl [facility] Hematocrit 27.9(L) 37.0 - 47.0 % [facility] Mean Corpuscular Volume 68.2(L) 80.0 - 98.0 fL [facility] Mean Corpuscular Hemoglobin 18.1(L) 27.0 - 33.0 pg [facility] Mean Corpuscular HGB Conc 26.5(L) 31.0 - 35.0 g/dl [facility] Red Cell Distribution Width 20.1(H) 11.0 - 16.0 % [facility] Platelet Count 636(H) 160 - 400 X10*3/uL [facility] Mean Platelet Volume 9.7 9.4 - 12.3 fL [facility] NRBC Pct Auto 0.0 0.0 - 0.2 /100WBC [facility] NRBC Abs Auto 0.000 0.0 - 0.012 X10*3/uL [facility] Blood Venous blood specimen / Unknown 01/19/2024 11:52 AM EST 01/19/2024 12:55 PM EST Aida Pedro DO LAB BLOOD ORDERABLES Final R esult Performing Organization Address [facility] Co de Phone Number [facility] [address] [place] [phone] * TSH (01/19/2024 11:52 AM EST) Thyroid Stimulating Hormone 0.85 0.32 - 4.0 uIU/mL [facility] Comment:TSH 3rd Generation ( [facility]) Blood Venous blood specimen / Unknown 01/19/2024 11:52 AM EST 01/19/2024 12:55 PM EST Aida Vasquez DO LAB BLOOD ORDERABLES Final R esult Performing Organization Address [facility] de Phone Number [facility] [address] [place] [phone] * T4, Free (01/19/2024 11:52 AM EST) Free T4 (Free Thyroxine) 1.08 0.71 - 1.85 ng/dL [facility] Blood Venous blood specimen / Unknown 01/19/2024 11:52 AM EST 01/19/2024 12:55 PM EST Aida Pedro DO LAB BLOOD ORDERABLES Final R esult Performing Organization Address [facility] Co de Phone Number [facility] [address] [place] [phone] * Hepatic Function Panel (01/19/2024 11:52 AM EST) Bilirubin, Total 0.3 0.0 - 1.0 mg/dL [facility] Bilirubin, Direct 0.1 0.0 - 0.5 mg/dL [facility] Aspartate Amino Transferase 18 5 - 31 U/L [facility] Alanine Aminotransferase 11 0 - 31 U/L [facility] Total Protein 8.0 6.5 - 8.0 g/dL [facility] Albumin Level 4.0 3.5 - 5.0 g/dL [facility] Alkaline Phosphatase 89 39 - 117 U/L [facility] Blood Venous blood specimen / Unknown 01/19/2024 11:52 AM EST 01/19/2024 12:55 PM EST us Aida Vasquez DO LAB BLOOD ORDERABLES Final R esult Performing Organization Address City/[facility]/ZIP Co de Phone Number [facility] [address] [place] [phone] * (ABNORMAL) Basic Metabolic Panel (01/19/2024 11:52 AM EST) Sodium 140 135 - 145 mmol/L [facility] Potassium 3.7 3.3 - 5.1 mmol/L [facility] Chloride 109(H) 96 - 108 mmol/L [facility] Carbon Dioxide 25 22 - 29 mmol/L [facility] Anion Gap 10(L) 12 - 20 [facility] Urea Nitrogen (BUN) 10 9 - 16 mg/dL [facility] Creatinine, Serum 0.78 0.5 - 1.4 mg/dL [facility] Estimated Glomerular Filt Rate >60 [facility] Comment:Chronic Kidney Disea se: Estimated GFR < 60 mL/min/[id number] Kidney Disease: Estimated GFR < 15 mL/min/1.73m2 Glucose 84 60 - 115 mg/dL [facility] Calcium 9.7 8.4 - 10.2 mg/dL [facility] Blood Venous blood specimen / Unknown 01/19/2024 11:52 AM EST 01/19/2024 12:55 PM EST us Aida Vasquez DO LAB BLOOD ORDERABLES Final R esult Performing Organization Address [facility]/ZIP Co de Phone Number [facility] [address] [place] [phone] from Last 3 Months Insurance [facility] C3 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
--- OUTSIDE RECORDS SUMMARY | 2024-04-15 07:58 | XMS_ITS | Encounter Summary ---
Author Organization [employer] Address [address] [facility] [address] [place] [address] Care Team Providers Care Beam Builder Helper Name Role Phone Pedro Aida Primary Care Provider + [phone] Encounter Details Date Type Department Care Team (Late st Contact Info) Description 03/30/2024 Orders Only [facility] [address] [place] [address] ProviderQueta MD Social History Tobacco Use Types [...] documented as of this encounter Care Teams Beam Builder Helper Relationship Specialty Start Date End Date Aida Vasquez DO [address] [place] [address] PCP - General Family Medicine 10/24/14 documented as of this encounter
[2024-04-19 01:39] LABS: Cotinine 11 ng/mL (see note); Nicotine <2 ng/mL (see note)
[2024-04-19 18:29] LABS: Cotinine, U 84 ng/mL; Nicotine, U 24 ng/mL
== END 2024-04-15 07:54 | disposition home or self-care (01) ==
LOC: HO.XRAY 07:53
PROVIDERS: Absent Provider Physician Assistant Surgical; PCP Family Medicine; Visit Provider Surgery
DX: E66.01 Morbid (severe) obesity due to excess calories (principal); Z01.818 Encounter for other preprocedural examination; K21.9 Gastro-esophageal reflux disease without esophagitis; J45.909 Unspecified asthma, uncomplicated
CPT/HCPCS: 58100; 74246; 80323

== ENCOUNTER → 2024-04-15 08:11 | Outpatient (BNV) | payer MEDICAID, SELFPAY | PROVIDERS: Absent Provider Physician Assistant Surgical; PCP Family Medicine; Visit Provider Radiology Diagnostic Radiology | DX: K21.9 Gastro-esophageal reflux disease without esophagitis (principal) | CPT/HCPCS: 74246 ==

== ENCOUNTER 2024-04-15 08:58 | Outpatient (AMB) | payer MEDICAID, SELFPAY ==
--- NOTE | 2024-04-15 09:18 | MHC.OFFVIS ---
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 Present (Kassy) Accompanied by: Self / Same As Patient Allergies No Known Allergies Allergy (Verified 04/15/24 09:26) HPI Comments Details: Presenting for EMB [facility] Medical History Hypertension GERD (gastroesophageal reflux disease) Back pain Morbid obesity Anemia Asthma Surgical History H/O dilation and curettage History of bladder suspension procedure Social History Household Members: Spouse and Children Housing: House Do you presently have visiting nurse or other home services: No Patient Tobacco Use Status: Current everyday Tobacco user Tobacco use type: Cigarette Cigarettes Per Day: 2 Second Hand Smoke Exposure: Yes service: No Current occupational status: employed 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 hysteroscopy D&C) & the risks were discussed with the patient including but not limited: pain, uterine perforation, bleeding, infection, possible injury to bladder, bowel, ureter, possible need for blood transfusion with all its possible risks. The patient verbalized understanding all questions answered and signed consent. Urine test done in the office was negative The patient was placed into the dorsal lithotomy position; a speculum was inserted in the vagina. Using aseptic technique for the procedure, the cervix was cleansed with Betadine. The anterior lip of the cervix was grasped with a single tooth tenaculum. The uterus was sounded to 7 cm with a 4 mm Pipelle was used. Tissues samples were obtained and placed in formalin, in a patient labeled container and sent to the pathology department. At the end of the procedure, there was minimal bleeding noted The patient tolerated the procedure well and was discharged in good condition with the following instructions: Nothing in the vagina until the bleeding stops. No sex until the bleeding stops, to call if any of the following occurs: fever (>100.4), flu-like symptoms, abdominal pain, heavy bleeding, four smelling vaginal discharge. The patient was instructed to schedule a Follow up appointment in 2 weeks to discuss pathology results of the biopsy and treatment options. This note was generated with a voice recognition program. Some errors may have been overlooked during the review of this note. Sometimes these errors may affect the content or meaning of a given sentence. 25923-[id number] Biopsy Assessment & Plan Assessment & Plan (1) Abnormal uterine bleeding: Code(s): N93.9 - Abnormal uterine and vaginal bleeding, unspecified Category: Medical Plan: EMB done, see procedure note Orders: Orders AMB Endometrial Biopsy Today N93.9 - Abnormal uterine and vaginal bleeding, unspecified Coding Level of Care Code Procedure Only Diagnoses Abnormal uterine bleeding N93.9 CPT Codes Endometrial Biopsy - CPT: 24750-Hivsleiyedq Biopsy ([id number])
--- OUTSIDE RECORDS SUMMARY | 2024-04-15 09:34 | XMS_ITS | Clinical Summary ---
Author Organization [employer] Address [address] [place] [address] Care Team Providers Care Back Grinder Name Role Phone JaneyAida young DO Primary [...] 22 Active ergocalciferol (Vitamin D2) 1.25 MG (76281 UT) capsuleIndicati ons:Vitamin D deficiency Take 1 [...] Department Care Team Description 03/30/2024 Orders Only [address] [address] Provider, MD Queta 03/25/[address] [address] Aida Vasquez DO Asthma, unspecified asthma severity, unspecified whether complicated, unspecified whether persistent 02/06/[address] [address] Aida Vasquez DO Prior Authorization 02/01/2024 Orders Only GENERIC EXTERNAL DATA DEPARTMENT Provider, Generic External Data 01/31/2024 Orders Only [facility] External Provider, [employer] 01/26/[address] [address] Aida Vasquez DO Asthma, unspecified asthma severity, unspecified whether complicated, unspecified whether persistent 01/23/[address] [address] Aida Vasquez DO Prior Authorization ( [facility] [employer]rak[employer]: [place]) 01/23/2024 Orders Only GENERIC EXTERNAL DATA DEPARTMENT Provider, Generic External Data 01/19/2024 10:30 AM EST Office Visit [address] [address] Aida Vasquez DO Routine history and physical examination of adult (Primary Dx); Major depression, recurrent, chronic (CMS/HCC); Moderate persistent asthma with acute exacerbation; Anemia, unspecified type; Chronic gastroesophageal reflux disease; Abnormal uterine bleeding (AUB); Urinary frequency; Morbid obesity (CMS/HCC); BMI 50.0-59.9, adult ([facility]); Encounter for immunization 01/19/2024 Telephone [facility] [address] [place] [address] [phone] Sunshine Pardo, RN Results 01/19/2024 Travel from Last 3 Months Immunizations Name Administration Dates Next Due DTaP 05/02/1990, 0,08/02/1988,06/02,04/04/1988 Hep B, Adolescent or Pediatric 01/06/1999,1997,12/18/1997 Hib ([facility]) 01/02/1990 Influenza injectable quadriv alent IIV4 with [...] EST Narrative 02/27/2024 11:29 AM EST ? [employer] ?[address] ?[place] [address] ? Ultrasound Report ? Signed ? Patient: Colon,Quiara ?MR#: [id number] ? : 1985 ?Acct:[id number] ? Age/Sex: 38 / F ?ADM Date: 02/26/24 ? Loc: HO.US ? Attending Dr: Jairon Fox MD ? Ordering Physician: Jairon Fox MD ?? Date of Service: 02/26/24 ?? Procedure(s): US abdomen comp w elastography ?? Accession Number(s): [id number] ? cc: Aida Vasquez DO; Jairon Fox [...] ? DD/ 3 ? TD/TT: 02/26/24926 ? Bench Chemist: ? Procedure Note Cristhian, Son - 02/27/2024 [place] [address] Ultrasound Report Signed Patient: Shanae Rosa#: [id number] : 1985Acct:[id number] Age/Sex: 38 / FADM Date: 02/26/24 Loc: HO.US Attending Dr: Jairon Fox MD Ordering Physician: Jairon Fox MD Date of Service: 02/26/24 Procedure(s): US abdomen comp w elastography Accession Number(s): [id number] cc: Aida Vasquez DO; Jairon Fox MD [...] 02/27/24 1127 DD/ 0914 TD/TT: 02/26/24 0927 Bench Chemist: us [employer] External Provider IMG US PROCEDURES Final Result * Hematoxylin and Eosin Stain (02/01/2024 1:35 PM EST) 02/01/2024 1:35 PM EST 02/01/2024 2:24 PM EST [facility] - 02/06/2024 7:58 AM EST ----- ------- Name: Colon,Quiara ? Age/Sex: 38/F ? : 1985 Unit#: [id number] ?? Attend Dr: Jairon Fox MD ?Re02/01/24 ?Status: DEP SDC ? Location: HO.SSS ?Disch: ? ----- ------- SPEC : [id number] ? RECD: 02/01/24 ? STATUS: ??SOUT ? REQ NUM: [id number] ? JILLIAN: 02/01/247 ? SUBM DR: Jairon Fox MD ? ENTERED: ??02/01/24 ?SP TYPE: Surgical ? OTHR DR: Aida Vasquez DO ? ORDERED: ??HE Stain/9, Gross Micro L4/4, IHC/2, H. pylori/2, AB/PAS/3 ?Addendum Addendum ??1 ?Entered: 02/06/245254 Metaplastic changes are not present, supported by [...] ? Age/Sex: 38/F ? : 1985 Unit#: [id number] ?? Attend Dr: Jairon Fox MD ?Re02/01/24 ?Status: DEP SDC ? Location: HO.SSS ?Disch: ? ----- ------- SPEC : [id number] ? RECD: 02/01/24 ? STATUS: ??SOUT ? REQ NUM: [id number] ? JILLIAN: 02/01/24- ? SUBM DR: Jairon Fox MD ? [...] Copies To: ?? Aida Vasquez DO ?? [facility] ?? [address] ?? [place] [address] ?? [phone] ?? Jairon Fox MD ?? [facility] ?? [address] ?? [place] [address] ?? [phone] ----- ------- Signed (signature on file) Pradip Johnson MD 02/02/24 4582 ? ----- ------- ? END OF REPORT ? us Generic External Data Provider LAB BLOOD ORDERAB LES Final Result Performing Organization Address [facility] de Phone Number [facility] [address] [place] [address] [phone] * HCG, Qualitative, Urine (02/01/2024 11:44 AM EST) Urine NEGATIVE NEGATIVE [facility] Comment:This test was develo ped to detect early . Falsenegative results may occur after the 5th - 7th week ofpregnancy when using this test method. If clinicallyindicated, consider a serum hCG. 02/01/2024 11:4 4 AM EST 02/01/2024 11:49 AM EST us Generic External Data Provider LAB URINE ORDERAB LES Final Result Performing Organization Address [facility] de Phone Number [facility] [address] [place] [address] [phone] * US Pelvis Transvaginal (01/31/2024 11:43 AM EST) Anatomical Region Laterality Modality Pelvis Ultrasound 01/31/2024 11:4 3 AM EST Narrative 03/12/2024 2:08 PM EST ? [employer] ?[address] ?[place] [address] ? Ultrasound Report ? Signed ? Patient: Colon,Quiara ?MR#: [id number] ? : 1985 ?Acct:[id number] ? Age/Sex: 38 / F ?ADM Date: 12/18/24 ? Loc: HO.US ? Attending Dr: Juan Velazco MD ? Ordering Physician: Juan Velazco MD ?? Date of Service: 01/31/24 ?? Procedure(s): US pelvic and transvaginal ?? Accession Number(s): [id number] ? cc: Aida Vasquez DO; Juan Velazco [...] DD/ 1143 ? TD/TT: 01/31/24 1155 ? Bench Chemist: ? Procedure Note Son Morrow - 03/12/[address] [address] Ultrasound Report Signed Patient: Shanae Rosa#: [id number] : 1985Acct:[id number] Age/Sex: 38 / FADM Date: 01/31/24 Loc: HO.US Attending Dr: Juan Velazco MD Ordering Physician: Juan Velazco MD Date of Service: 01/31/24 Procedure(s): US pelvic and transvaginal Accession Number(s): [id number] cc: Aida Vasquez DO; Juan Velazco MD [...] the setting of adenomyosis. Electronically signed by: Doirta Lopez MD 03/12/2024 02:05 PM EST Dictated By: Dorita Lopez MD Signed By: <Electronically signed by Dorita Lopez MD in OV> 03/12/24 1405 DD/ 1143 TD/TT: 01/31/24 1155 Bench Chemist: [facility] External Provider IMG US PROCEDURES Final Result * HM PAP/HPV (01/23/2024 5:50 PM EST) Historical Provider HEALTH MAINTENANCE Final Result * XR Chest 2 Views (01/23/2024 10:58 AM EST) Anatomical Region Laterality Modality Chest Radiographic Mamie ging 01/23/2024 10:5 8 AM EST Narrative 02/29/2024 1:01 PM EST ? [employer] ?[address] ?[place] [address] ?XRay Report ? Signed ? Patient: Colon,Quiara ?MR#: [id number] ? : 1985 ?Acct:[id number] ? Age/Sex: 38 / F ?ADM Date: 01/23/24 ? Loc: HO.XRAY ? Attending Dr: Jairon Fox MD ? Ordering Physician: Jairon Fox MD ?? Date of Service: 01/23/24 ?? Procedure(s): XR chest 2V ?? Accession Number(s): [id number] ? cc: Aida Vasquez DO; Jairon Fox [...] pulmonary process. ? Study is assigned/presented to ar for interpretation on Feb 29, 2024 ? Electronically signed by: ??Paul Johnson MD ??02/29/2024 12:58 PM EST ? Dictated By: ?Baweja,Paul MD ? Signed By: ?<Electronically signed by Paul Johnson MD in OV> ?02/29/24 1258 ? DD/ 1058 ? TD/TT: 01/23/24 1110 ? Bench Chemist: HB ? Procedure Note Son Morrow - 02/29/[address] [address] XRay Report Signed Patient: Shanae Rosa#: [id number] : 1985Acct:[id number] Age/Sex: 38 / FADM Date: 01/23/24 Loc: HO.XRAY Attending Dr: Jairon Fox MD Ordering Physician: Jairon Fox MD Date of Service: 01/23/24 Procedure(s): XR chest 2V Accession Number(s): [id number] cc: Aida Vasquez DO; Jairon Fox MD [...] MD 02/29/2024 12:58 PM EST RP Workstation: [employer] [address] Dictated By: Paul Johnson MD Signed By: <Electronically signed by Paul Johnson MD in OV> 02/29/24 1258 DD/ 1058 TD/TT: 01/23/24 1110 Bench Chemist: NATALIA [facility] External Provider IMG XR PROCEDURES Final Result * (ABNORMAL) Vitamin D, 25-Hydroxy, Total, Immunoassay (01/23/2024 10:12 AM EST) Only the most recent of2 resultswithin the time period is included. Vitamin D 25-OH Total 11.3(L) >30 ng/mL [facility] Comment:Health Based Referen ce Values*< 20 ng/mL Ipdgqvlxl50-50 ng/mL Insufficient> 30 ng/mL Sufficient*Tanner PAGE. N [...] ORDERAB LES Final Result Performing Organization Address City/[facility] Co de Phone Number [facility] [address] [place] [phone] * Vitamin B12 (Cobalamin) and Folate Panel, Serum (01/23/2024 10:12 AM EST) Only the most recent of2 resultswithin the time period is included. Vitamin B12 527 200 - 900 pg/mL [facility] Comment:NORMAL 200-900 PG/ML INDETERMINATE 160-199 PG/ML DEFICIENT < 160 PG/ML Folate 5.8 > or = 4.0 ng/mL [facility] Comment:Reference Values:> o r = 4.0 ng/mL< 4.0 ng/mL suggests folate deficiency Methotrexate, aminopterin and folinic acid(leucovorin) are chemotherapeutic agents whose molecularstructures are similar to folate; therefore, the Architectfolate assay cannot be used for patients using these drugs. 01/23/2024 10:1 2 AM EST 01/23/2024 10:12 AM EST us Generic External Data Provider LAB BLOOD ORDERAB LES Final Result Performing Organization Address [facility] Co de Phone Number [facility] [address] [place] [phone] * TSH with Reflex to Free T4 (01/23/2024 10:12 AM EST) TSH reflex Free T4 0.69 0.32 - 4.0 uIU/mL [facility] 01/23/2024 10:1 2 AM EST 01/23/2024 10:12 AM EST us Generic External Data Provider LAB BLOOD ORDERAB LES Final Result [facility] [address] [place], [place] [phone] * (ABNORMAL) CBC auto differential (01/23/2024 10:12 AM EST) White Blood Count 13.1(H) 4.8 - 10.8 X10*3/uL [facility] Red Blood Count 3.98(L) 4.20 - 5.50 X10*6/uL [facility] Hemoglobin 7.1(L) 12.0 - 16.0 g/dl [facility] Hematocrit 27.5(L) 37.0 - 47.0 % [facility] Mean Corpuscular Volume 69.1(L) 80.0 - 98.0 fL [facility] Mean Corpuscular Hemoglobin 17.8(L) 27.0 - 33.0 pg [facility] Mean Corpuscular HGB Conc 25.8(L) 31.0 - 35.0 g/dl [facility] Red Cell Distribution Width 19.6(H) 11.0 - 16.0 % [facility] Platelet Count 664(H) 160 - 400 X10*3/uL [facility] Mean Platelet Volume 9.8 9.4 - 12.3 fL [facility] Neutrophils Percent Auto 58.3 45 - 73 % [facility] Imm Gran Pct Auto 0.4 0.0 - 0.4 % [facility] Lymphocytes Percent Auto 31.7 20 - 40 % [facility] Monocytes Percent Auto 5.7 2 - 11 % [facility] Eosinophils Percent Auto 3.4 0 - 4 % [facility] Basophils Percent Auto 0.5 0 - 2 % [facility] NRBC Pct Auto 0.0 0.0 - 0.2 /100WBC [facility] Neutrophils Absolute Auto 7.7 2.0 - 8.3 x10*3/uL [facility] Imm Gran Abs Auto 0.05(H) 0.00 - 0.03 X10*3/uL [facility] Lymphocytes Absolute Auto 4.2 1.2 - 4.9 X10*3/uL [facility] Monocytes Absolute Auto 0.8 0.1 - 1.2 X10*3/uL [facility] Eosinophils Absolute Auto 0.5(H) 0.0 - 0.4 X10*3/uL [facility] Basophils Absolute Auto 0.1 0.0 - 0.2 X10*3/uL [facility] NRBC Abs Auto 0.000 0.0 - 0.012 X10*3/uL [facility] 01/23/2024 10:1 2 AM EST 01/23/2024 10:12 AM EST Generic External Data Provider LAB BLOOD ORDERAB LES Final Result Performing Organization Address [facility] de Phone Number [facility] [address] [place] [phone] * (ABNORMAL) Iron And Total Iron Binding Capacity (01/23/2024 10:12 AM EST) Only the most recent of2 resultswithin the time period is included. Iron 15(L) 30 - 160 mcg/dL [facility] Total Iron Binding Capacity 378 228 - 428 mcg/dL [facility] Percent Iron Saturation 4(L) 15 - 50 % [facility] Unsaturated Iron Binding 363 ug/dL [facility] 01/23/2024 10:1 2 AM EST 01/23/2024 10:12 AM EST Generic External Data Provider LAB BLOOD ORDERAB LES Final Result Performing Organization Address [facility] Co de Phone Number [facility] [address] [place] [phone] * Insulin (01/23/2024 10:12 AM EST) Insulin 23 2 - 29 uU/mL [facility] Comment:This test was perfor med [...] ORDERAB LES Final Result Performing Organization Address [facility] Co de Phone Number [facility] [address] [place] [phone] * Zinc (01/23/2024 10:12 AM EST) Zinc 73 60 - 130 mcg/dL [facility] Comment:This test was develo ped and its analytical performancecharacteristics have been determined by [employer] [place], [place]. It hasnot been cleared or approved by the U.S. Food and DrugAdministration. This assay has been validated pursuantto the CLIA regulations and is used for clinicalpurposes.THIS TEST WAS PERFORMED AT:[id number] [place] [address]MKAFEFCPRABHU BUSTAMANTE MD,PHD 01/23/2024 10:1 2 AM EST 01/23/2024 10:12 AM EST Generic External Data Provider LAB BLOOD ORDERAB LES Final Result Performing Organization Address [facility] de Phone Number [facility] [address] [place] [phone] * Vitamin A (01/23/2024 10:12 AM EST) Vitamin A (Retinol) 61 38 - 98 mcg/dL [facility] Comment:Vitamin supplementat ion within 24 hours prior toblood draw may affect the accuracy of the results.This test was developed and its analytical performancecharacteristics have been determined by [employer] [place], [place]. It hasnot been cleared or approved by the U.S. Food and DrugAdministration. This assay has been validated pursuantto the CLIA regulations and is used for clinicalpurposes.THIS TEST WAS PERFORMED AT:[employer] [id number] [place] [address]PBRWUYFPRABHU BUSTAMANTE MD,PHD 01/23/2024 10:1 2 AM EST 01/23/2024 10:12 AM EST Generic External Data Provider LAB BLOOD ORDERAB LES Final Result Performing Organization Address [facility]/ZIP Co de Phone Number [facility] [address] [place] [phone] * (ABNORMAL) C-reactive Protein (01/23/2024 10:12 AM EST) C Reactive Protein 4.15(H) < or = 0.50 mg/dL [facility] 01/23/2024 10:1 2 AM EST 01/23/2024 10:12 AM EST Generic External Data Provider LAB BLOOD ORDERAB LES Final Result Performing Organization Address [facility] Co de Phone Number [facility] [address] [place] [phone] * (ABNORMAL) Vitamin B1 (01/23/2024 10:12 AM EST) Vitamin B1 <6(A) 8 - 30 nmol/L [facility] Comment:Vitamin supplementat ion within 24 hours prior toblood draw may affect the accuracy of the results.This test was developed and its analytical performancecharacteristics have been determined by [employer] [place], [place]. It hasnot been cleared or approved by the U.S. Food and DrugAdministration. This assay has been validated pursuantto the CLIA regulations and is used for clinicalpurposes.THIS TEST WAS PERFORMED AT:[employer]/[place] [id number] [place] [address]DXXIVTPPRABHU BUSTAMANTE MD,PHD 01/23/2024 10:1 2 AM EST 01/23/2024 10:12 AM EST us Generic External Data Provider LAB BLOOD ORDERAB LES Final Result Performing Organization Address City/[facility]/ZIP Co de Phone Number [facility] [address] [place] [phone] * Hemoglobin A1c (01/23/2024 10:12 AM EST) Only the most recent of2 resultswithin the time period is included. Hemoglobin A1c 5.2 <6.0 % [facility] Comment:Hemoglobin A1C Refer ence Range Adults: 4.8 - 6.0 % Non diabetic: < 6.0 % Goal: < 7.0 %Additional Action Suggested: > 8.0 %Note: Hemoglobin A1c results are invalid for patients with abnormal amounts of HbF. Blood transfusions may impact the HbA1c concentration in the patient sample. Estimated Average Glucose 103 mg/dL [facility] Comment:eAG = Estimated ave rage glucose which is %A1C expressed asaverage glucose, using the formula of the N8F-OwvnuexTbxgqgz Glucose study (ADAG), Diabetes Care, Vol.31,#8,Sep. 2007 01/23/2024 10:1 2 AM EST 01/23/2024 10:12 AM EST us Generic External Data Provider LAB BLOOD ORDERAB LES Final Result Performing Organization Address [facility]/ZIP Co de Phone Number [facility] [address] [place] [phone] * (ABNORMAL) Ferritin (01/23/2024 10:12 AM EST) Only the most recent of2 resultswithin the time period is included. Ferritin 8(L) 10 - 122 ng/mL [facility] 01/23/2024 10:1 2 AM EST 01/23/2024 10:12 AM EST Generic External Data Provider LAB BLOOD ORDERAB LES Final Result Performing Organization Address [facility] de Phone Number [facility] [address] [place] [phone] * (ABNORMAL) Lipid Panel, Standard (01/23/2024 10:12 AM EST) Only the most recent of2 resultswithin the time period is included. Triglycerides 92 <150 mg/dL [facility] Comment:Desirable Triglyceri de: less than 150 mg/dLBorderline High Triglyceride 150-199 mg/dLHigh Triglyceride: 200-499 mg/dLVery High Triglyceride: greater than or equal to 5OO mg/dL Cholesterol 120 <200 mg/dL [facility] Comment:Desirable Cholestero l: less than 200 mg/dLBorderline High Cholesterol: 200-239 mg/dLHigh Cholesterol: greater than 239 mg/dL LDL Cholesterol Calculated 66 <100 mg/dL [facility] Comment:Desirable LDL: less than 100 mg/dLNear Optimal/Above Optimal LDL: 110- 129 mg/dLBorderline High LDL: 130-159 mg/dLHigh LDL: 160-189 mg/dLVery High LDL: greater than or equal to 190 mg/dL HDL Cholesterol 36(L) >40 mg/dL [facility] Comment:Desirable HDL: great er than 40 mg/dL Note: This HDL assay may give artificially low results in patients with liver disease. 01/23/2024 10:1 2 AM EST 01/23/2024 10:12 AM EST us Generic External Data Provider LAB BLOOD ORDERAB LES Final Result Performing Organization Address [facility] Co de Phone Number [facility] [address] [place] [phone] * Comprehensive Metabolic Panel (01/23/2024 10:12 AM EST) Sodium 139 135 - 145 mmol/L [facility] Potassium 3.5 3.3 - 5.1 mmol/L [facility] Chloride 105 96 - 108 mmol/L [facility] Carbon Dioxide 26 22 - 29 mmol/L [facility] Anion Gap 12 12 - 20 [facility] Urea Nitrogen (BUN) 10 9 - 16 mg/dL [facility] Creatinine, Serum 0.75 0.5 - 1.4 mg/dL [facility] Estimated Glomerular Filt Rate >60 [facility] Comment:Chronic Kidney Disea se: Estimated GFR < 60 mL/min/1.91g3[place] Kidney Disease: Estimated GFR < 15 mL/min/1.73m2 Glucose 79 60 - 115 mg/dL [facility] Calcium 8.6 8.4 - 10.2 mg/dL [facility] Bilirubin, Total 0.4 0.0 - 1.0 mg/dL [facility] Aspartate Amino Transferase 16 5 - 31 U/L [facility] Alanine Aminotransferase 10 0 - 31 U/L [facility] Total Protein 7.5 6.5 - 8.0 g/dL [facility] Albumin Level 3.9 3.5 - 5.0 g/dL [facility] Alkaline Phosphatase 77 39 - 117 U/L [facility] 01/23/2024 10:1 2 AM EST 01/23/2024 10:12 AM EST us Generic External Data Provider LAB BLOOD ORDERAB LES Final Result [facility] [address] [place] [phone] * Hepatitis C Antibody with Reflex to HCV, RNA, Quantitative, Real-Time PCR (01/19/2024 11:52 AM EST) Hepatitis C Antibody Nonreactive Nonreactive [facility] Comment:Antibodies to HCV no t detected; does not exclude early acuteHCV infection. Blood Venous blood specimen / Unknown 01/19/2024 11:52 AM EST 01/19/2024 12:55 PM EST us Aida Pedro DO LAB BLOOD ORDERABLES Final R esult [facility] [address] [place] [phone] * Chlamydia/N. Gonorrhoeae RNA, TMA, Urogenitial (01/19/2024 11:52 AM EST) CT PCR NOT DETECTED Not Detect. [facility] Comment:A not detected test result [...] psychologicalconsequences. NG PCR NOT DETECTED Not Detect. [facility] Comment:A not detected test result [...] AM EST 01/19/2024 12:54 PM EST Narrative [facility] - 01/19/2024 2:29 PM EST Urine us Aida Vasquez DO LAB MICROBIOLOGY - GENERAL O RDERABLES Final Result Performing Organization Address [facility] Co de Phone Number [facility] [address] [place] [phone] * RPR (Monitor) with Reflex to??Titer (01/19/2024 11:52 AM EST) RPR (Monitor) w/Refl Titer NON-REACTI VE NON-REACT LESLY [facility] Comment:THIS TEST WAS PERFOR MED AT:[employer] [place] [id number] AGUILAR MD Rapid Plasma Reagin Ab Titer TNP [facility] Blood Venous blood specimen / Unknown 01/19/2024 11:52 AM EST 01/19/2024 12:55 PM EST us Aida Vasquez DO LAB BLOOD ORDERABLES Final R esult Performing Organization Address [facility]/ZIP Co de Phone Number [facility] [address] [place] [phone] * HIV-1/2 Antigen and Antibodies, Fourth Generation, with Reflexes (01/19/2024 11:52 AM EST) HIV AB/AG Nonreactive Nonreactive [facility] Comment:HIV-1 p24 Ag and/or HIV-1/HIV-2 Ab not detected.A test result that is nonreactive does not exclude thepossibility of exposure to or infection with HIV-1 and/orHIV-2. Nonreactive results in this assay for individualswith prior exposure to HIV-1 and/or HIV-2 may be due toantigen and antibody levels that are below the limit ofdetection of this assay.The [employer] HIV Ag/Ab Combo assay result andsupplemental assay results should be interpreted inconjunction with the patient's clinical presentation,history and other laboratory results. If the results areinconsistent with clinical evidence, additional testing issuggested to confirm the result. Blood Venous blood specimen / Unknown 01/19/2024 11:52 AM EST 01/19/2024 12:55 PM EST us Aida Pedro FLOYD LAB BLOOD ORDERABLES Final R esult [facility] [address] [place] [phone] * (ABNORMAL) CBC (01/19/2024 11:52 AM EST) White Blood Count 11.6(H) 4.8 - 10.8 X10*3/uL [facility] Red Blood Count 4.09(L) 4.20 - 5.50 X10*6/uL [facility] Hemoglobin 7.4(L) 12.0 - 16.0 g/dl [facility] Hematocrit 27.9(L) 37.0 - 47.0 % [facility] Mean Corpuscular Volume 68.2(L) 80.0 - 98.0 fL [facility] Mean Corpuscular Hemoglobin 18.1(L) 27.0 - 33.0 pg [facility] Mean Corpuscular HGB Conc 26.5(L) 31.0 - 35.0 g/dl [facility] Red Cell Distribution Width 20.1(H) 11.0 - 16.0 % [facility] Platelet Count 636(H) 160 - 400 X10*3/uL [facility] Mean Platelet Volume 9.7 9.4 - 12.3 fL [facility] NRBC Pct Auto 0.0 0.0 - 0.2 /100WBC [facility] NRBC Abs Auto 0.000 0.0 - 0.012 X10*3/uL [facility] Blood Venous blood specimen / Unknown 01/19/2024 11:52 AM EST 01/19/2024 12:55 PM EST Aida Pedro DO LAB BLOOD ORDERABLES Final R esult Performing Organization Address [facility] Co de Phone Number [facility] [address] [place] [phone] * TSH (01/19/2024 11:52 AM EST) Thyroid Stimulating Hormone 0.85 0.32 - 4.0 uIU/mL [facility] Comment:TSH 3rd Generation ( [facility]) Blood Venous blood specimen / Unknown 01/19/2024 11:52 AM EST 01/19/2024 12:55 PM EST Aida Vasquez DO LAB BLOOD ORDERABLES Final R esult Performing Organization Address [facility] de Phone Number [facility] [address] [place] [phone] * T4, Free (01/19/2024 11:52 AM EST) Free T4 (Free Thyroxine) 1.08 0.71 - 1.85 ng/dL [facility] Blood Venous blood specimen / Unknown 01/19/2024 11:52 AM EST 01/19/2024 12:55 PM EST Aida Pedro DO LAB BLOOD ORDERABLES Final R esult Performing Organization Address [facility] Co de Phone Number [facility] [address] [place] [phone] * Hepatic Function Panel (01/19/2024 11:52 AM EST) Bilirubin, Total 0.3 0.0 - 1.0 mg/dL [facility] Bilirubin, Direct 0.1 0.0 - 0.5 mg/dL [facility] Aspartate Amino Transferase 18 5 - 31 U/L [facility] Alanine Aminotransferase 11 0 - 31 U/L [facility] Total Protein 8.0 6.5 - 8.0 g/dL [facility] Albumin Level 4.0 3.5 - 5.0 g/dL [facility] Alkaline Phosphatase 89 39 - 117 U/L [facility] Blood Venous blood specimen / Unknown 01/19/2024 11:52 AM EST 01/19/2024 12:55 PM EST us Aida Vasquez DO LAB BLOOD ORDERABLES Final R esult Performing Organization Address City/[facility]/ZIP Co de Phone Number [facility] [address] [place] [phone] [phone] * (ABNORMAL) Basic Metabolic Panel (01/19/2024 11:52 AM EST) Sodium 140 135 - 145 mmol/L [facility] Potassium 3.7 3.3 - 5.1 mmol/L [facility] Chloride 109(H) 96 - 108 mmol/L [facility] Carbon Dioxide 25 22 - 29 mmol/L [facility] Anion Gap 10(L) 12 - 20 [facility] Urea Nitrogen (BUN) 10 9 - 16 mg/dL [facility] Creatinine, Serum 0.78 0.5 - 1.4 mg/dL [facility] Estimated Glomerular Filt Rate >60 [facility] Comment:Chronic Kidney Disea se: Estimated GFR < 60 mL/min/1.20g6Fbsmqv Kidney Disease: Estimated GFR < 15 mL/min/1.73m2 Glucose 84 60 - 115 mg/dL [facility] Calcium 9.7 8.4 - 10.2 mg/dL [facility] Blood Venous blood specimen / Unknown 01/19/2024 11:52 AM EST 01/19/2024 12:55 PM EST us Aida Vasquez DO LAB BLOOD ORDERABLES Final R esult Performing Organization Address [facility]/ZIP Co de Phone Number [facility] [address] [place] [phone] from Last 3 Months Insurance [facility] C3 Care Teams Back Grinder Relationship Specialty Start Date End Date Aida Vasquez DO [address] [place] [phone] PCP - General Family Medicine 10/24/14
--- OUTSIDE RECORDS SUMMARY | 2024-04-15 09:34 | XMS_ITS | Encounter Summary ---
Author Organization [employer] Address [address] [facility] [address] [place] [address] Care Team Providers Care Sub Arc Operator Name Role Phone Pedro Aida Primary Care Provider + [phone] Encounter Details Date Type Department Care Team (Late st Contact Info) Description 03/30/2024 Orders Only [facility] MED[facility]INE [address] [place] [address] ProviderQueta MD Social History Tobacco Use Types [...] documented as of this encounter Care Teams Sub Arc Operator Relationship Specialty Start Date End Date Aida Vasquez DO [address] [place] [address] PCP - General Family Medicine 10/24/14 documented as of this encounter
--- OUTSIDE RECORDS SUMMARY | 2024-04-15 09:34 | XMS_ITS | Encounter Summary ---
Author Organization [employer] [facility] Address [address] [facility] [address] [place] [address] Care Team Providers Care Monomer Recovery Operator Name Role Phone Aida Vasquez DO Primary Care Provider +[phone] Encounter Details Date Type Department Care Team (Late st Contact Info) Description 03/01/2022 Orders Only [facility] MED[facility]INE [address] [place] [address] Cielo Elias LPN Social History Tobacco Use [...] on filedocumented in this encounter Care Teams Monomer Recovery Operator Relationship Specialty Start Date End Date Aida Vasquez DO [address] [place] [address] PCP - General Family Medicine 10/24/14 documented as of this encounter
--- OUTSIDE RECORDS SUMMARY | 2024-04-15 09:34 | XMS_ITS | Encounter Summary ---
Author Organization [employer] Address [address] [facility] 7[address] [place] [address] Care Team Providers Care Director Education Name Role Phone Aida Vasquez DO Primary Care Provider [phone] Encounter Details Date Type Department Care Team (Late st Contact Info) Description 05/12/2022 Orders Only [facility] [address] [place] [address] Aida Feliz LPN Social History Tobacco Use [...] on filedocumented in this encounter Care Teams Director Education Relationship Specialty Start Date End Date Aida Vasquez DO [address] [place] [address] PCP - General Family Medicine 10/24/14 documented as of this encounter
--- OUTSIDE RECORDS SUMMARY | 2024-04-15 09:34 | XMS_ITS | Encounter Summary ---
Author Organization [employer] Address [address] [facility] [address] [place] [address] Care Team Providers Care Scrap Drop Engineer Name Role Phone Aida Vasquez DO Primary Care Provider + [phone] Reason for Visit * Reason Comments Med Refill Encounter Details Date Type Department Care Team (Late st Contact Info) Description 03/25/2024 Refill [facility] MEDICINE [address] [place] [address] Aida Vasquez DO [address] [place] [address] Asthma, unspecified asthma severity, unspecified whether complicated, [...] documented as of this encounter Care Teams Scrap Drop Engineer Relationship Specialty Start Date End Date Aida Vasquez DO [address] [place] [address] PCP - General Family Medicine 10/24/14 documented as of this encounter
== END 2024-04-15 09:39 | disposition home or self-care (01) ==
LOC: HO.HWS 08:58
PROVIDERS: PCP Family Medicine; Visit Provider Obstetrics & Gynecology
DX: N93.9 Abnormal uterine and vaginal bleeding, unspecified (principal)
CPT/HCPCS: 58100

== ENCOUNTER 2024-04-15 10:15 | Outpatient (REF) | payer MEDICAID, SELFPAY ==
--- OUTSIDE RECORDS SUMMARY | 2024-04-15 12:36 | XMS_ITS | Encounter Summary ---
Author Organization [employer] Address [address] [facility] [address] [place] [address] Care Team Providers Care Mailroom Coordinator Name Role Phone Pedro Aida Primary Care Provider + [phone] Encounter Details Date Type Department Care Team (Late st Contact Info) Description 03/30/2024 Orders Only [facility] MEDICINE [address] [place] [address] ProviderQueta MD Social History Tobacco Use Types [...] Procedure Name Priority Date/Time Associated Diagnosis Comments FL UPPER GI W AIR Routine 04/15/2024 8:1 1 AM EST HM PAP/HPV Routine 01/23/2024 5:50 PM EST documented in this encounter Results * FL upper GI w air (04/15/2024 8:11 AM EST) Anatomical Region Laterality Modality Body Radiographic Mamie ging 04/15/2024 8:11 AM EST Narrative 04/15/2024 10:17 AM EST ? [facility] ?[address] ?[place] [address] ? Fluoroscopy Report ? Signed ? Patient: Colon,Quiara ?MR#: [id number] ? : 1985 ?Acct:[id number] ? Age/Sex: 38 / F ?ADM Date: 04/15/24 ? Loc: HO.XRAY ? Attending Dr: Jairon Fox MD ? Ordering Physician: Jairon Fox MD ?? Date of Service: 04/15/24 ?? Procedure(s): FL upper GI w air ?? Accession Number(s): [id number] ? cc: Aida Vasquez DO; Jairon Fox MD ? EXAMINATION: ?? XR FLUOROSCOPY UPPER GI WITH AIR ? CLINICAL INFORMATION: ?? Moderate/severe obesity due to excess calories. Preop. ? COMPARISON: ?? None available. ? TECHNIQUE: ?? Routine upper GI air contrast study was performed in upright and lying ?? position. ? FINDINGS: ?? Following oral administration of thick barium and effervescent granules ?? and upright view standing there is normal propagation bolus from the ?? oral cavity through the pharynx, esophagus into stomach without any ?? evidence of obstruction, narrowing or stricture. ? On placing patient in supine and prone lying there is mild ?? gastroesophageal reflux without hiatal hernia. Otherwise the course and ?? caliber of the stomach and the duodenal bulb and sweep is normal. The ?? mucosal pattern of the stomach and the duodenum is normal. ? FLUOROSCOPY TIME: ?? 2.04 minutes ? DOSE AREA PRODUCT: ?? 2869 uGy-m2 (microgray-meter squared) ? FL/FL upper GI w air ?? IMPRESSION: ?? Mild gastroesophageal reflux without hiatal hernia. ??Rest of the upper ?? GI exam is unremarkable. ? Electronically signed by: ??Clay Georges MD ??04/15/2024 10:14 AM EST RP ? Dictated By: ?Clay Georges MD ? Signed By: ?<Electronically signed by Clay Georges MD in OV> ?04/15/24 1014 ? DD/ 0811 ? TD/TT: 04/15/24 0845 ? Maintenance Apprentice: MSM ? Procedure Note Cristhian, Image - 04/15/2024 [place] [id number] Fluoroscopy Report Signed Patient: Shanae Rosa#: [id number] : 1985Acct:[id number] Age/Sex: 38 / FADM Date: 04/15/24 Loc: DASH Attending Dr: Jairon Fox MD Ordering Physician: Jairon Fox MD Date of Service: 04/15/24 Procedure(s): FL upper GI w air Accession Number(s): [id number] cc: Aida Vasquez DO; Jairon Fox MD EXAMINATION: XR FLUOROSCOPY UPPER GI WITH AIR CLINICAL INFORMATION: Moderate/severe obesity due to excess calories. Preop. COMPARISON: None available. TECHNIQUE: Routine upper GI air contrast study was performed in upright and lying position. FINDINGS: Following oral administration of thick barium and effervescent granules and upright view standing there is normal propagation bolus from the oral cavity through the pharynx, esophagus into stomach without any evidence of obstruction, narrowing or stricture. On placing patient in supine and prone lying there is mild gastroesophageal reflux without hiatal hernia. Otherwise the course and caliber of the stomach and the duodenal bulb and sweep is normal. The mucosal pattern of the stomach and the duodenum is normal. FLUOROSCOPY TIME: 2.04 minutes DOSE AREA PRODUCT: 2869 uGy-m2 (microgray-meter squared) FL/FL upper GI w air IMPRESSION: Mild gastroesophageal reflux without hiatal hernia. Rest of the upper GI exam is unremarkable. Electronically signed by: Clay Georges MD 04/15/2024 10:14 AM EST RP Dictated By: Clay Georges MD Signed By: <Electronically signed by Clay Georges MD in OV> 04/15/24 1014 DD/ 0811 TD/TT: 04/15/24 0845 Maintenance Apprentice: PEDRO [facility] External Provider IMG FLU OROSCOPY PROCEDURES Final Result * HM PAP/HPV (01/23/2024 5:50 PM EST) Historical Provider HEALTH MAINTENANCE Final Result documented in this encounter Visit Diagnoses Not on filedocumented in this encounter Additional Health Concerns Assessment Noted Time PHQ-9 Depression Total Score: 11 024 11:07 AM EST documented as of this encounter Care Teams Mailroom Coordinator Relationship Specialty Start Date End Date Aida Vasquez DO [address] [place] [phone] PCP - General Family Medicine 10/24/14 documented as of this encounter
--- OUTSIDE RECORDS SUMMARY | 2024-04-15 12:36 | XMS_ITS | Encounter Summary ---
Author Organization [employer] Address [address] [facility] [address]t [place] [address] Care Team Providers Care Hand Singer Name Role Phone Aida Vasquez DO Primary Care Provider + [phone] Reason for Visit * Reason Comments Med Refill Encounter Details Date Type Department Care Team (Late st Contact Info) Description 03/25/2024 Refill [facility]INE [address] [place] [address] Aida Vasquez DO [address] [place] [address] Asthma, unspecified asthma severity, unspecified whether complicated, [...] documented as of this encounter Care Teams Hand Singer Relationship Specialty Start Date End Date Aida Vasquez DO [address] [place] [address] PCP - General Family Medicine 10/24/14 documented as of this encounter
--- OUTSIDE RECORDS SUMMARY | 2024-04-15 12:36 | XMS_ITS | Clinical Summary ---
Author Organization [employer] Address [address] [place] [address] Care Team Providers Care Ironmolder Name Role Phone JaneyAida young DO Primary Care Provider [phone] Allergies Active Allergy Reactions Criticality Noted Date Comments Pollen Extract 07/08/2022 Medications * This document contains information received from the source organization and may not represent a complete record from that organization. acetaminophen (Tylenol 8 Hour) 650 MG ER tablet TAKE 1 TABLET BY MOUTH EVERY 8 HOURS NEEDED FOR PAIN OR FEVER 11/30/19 22 Active ergocalciferol (Vitamin D2) 1.25 MG (95624 UT) capsuleIndicati ons:Vitamin D deficiency Take 1 [...] Department Care Team Description 03/30/2024 Orders Only [address] [address] Provider, MD Queta 03/25/[address] [address] Aida Vasquez DO Asthma, unspecified asthma severity, unspecified whether complicated, unspecified whether persistent 02/06/[address] [address] Aida Vasquez DO Prior Authorization 02/01/2024 Orders Only GENERIC EXTERNAL DATA DEPARTMENT Provider, Generic External Data 01/31/2024 Orders Only [facility] External Provider, [facility] 01/26/[address] [address] Aida Vasquez DO Asthma, unspecified asthma severity, unspecified whether complicated, unspecified whether persistent 01/23/[address] [address] Aida Vasquez DO Prior Authorization ( [facility]rak[employer]: Winter[place]) 01/23/2024 Orders Only GENERIC EXTERNAL DATA DEPARTMENT Provider, Generic External Data 01/19/2024 10:30 AM EST Office Visit [address] [address] Aida Vasquez DO Routine history and physical examination of adult (Primary Dx); Major depression, recurrent, chronic (CMS/HCC); Moderate persistent asthma with acute exacerbation; Anemia, unspecified type; Chronic gastroesophageal reflux disease; Abnormal uterine bleeding (AUB); Urinary frequency; Morbid obesity (CMS/HCC); BMI 50.0-59.9, adult ([facility]); Encounter for immunization 01/19/2024 Telephone [facility] [address] [place] [address] [phone] Sunshine Pardo, RN Results 01/19/2024 Travel from Last 3 Months Immunizations Name Administration Dates Next Due DTaP 05/02/1990, 0,08/02/1988,06/02,04/04/1988 Hep B, Adolescent or Pediatric 01/06/1999,1997,12/18/1997 Hib ([facility]) 01/02/1990 Influenza injectable quadriv alent IIV4 with [...] AIR Routine 04/15/2024 8:1 1 AM EST US ABDOMEN COMPLETE WITH ELASTOGRAPHY Routine 02/26/2024 [...] frequency Morbid obesity (CMS/HCC) BMI 50.0-59.9, adult ([facility]) LIPID PANEL, STANDARD Routine 01/19/2024 11:52 AM EST Routine history and physical examination of adult Major depression, recurrent, chronic (CMS/HCC) Moderate persistent asthma with acute exacerbation Anemia, unspecified type Chronic gastroesophageal reflux disease Abnormal uterine bleeding (AUB) Urinary frequency Morbid obesity (CMS/HCC) BMI 50.0-59.9, adult ([facility]/HCC) T4, FREE Routine 01/19/2024 11:52 AM EST Routine history and physical examination of adult Major depression, recurrent, chronic (CMS/HCC) Moderate persistent asthma with acute exacerbation Anemia, unspecified type Chronic gastroesophageal reflux disease Abnormal uterine bleeding (AUB) Urinary frequency Morbid obesity (CMS/HCC) BMI 50.0-59.9, adult ([facility]/HCC) CHLAMYDIA/N. GONORRHOEAE RNA, TMA, UROGENITAL Routine 01/19/2024 11:52 AM EST Routine history and physical examination of adult Major depression, recurrent, chronic (CMS/HCC) Moderate persistent asthma with acute exacerbation Anemia, unspecified type Chronic gastroesophageal reflux disease Abnormal uterine bleeding (AUB) Urinary frequency Morbid obesity (CMS/HCC) BMI 50.0-59.9, adult (CMS/HCC) from Last 3 Months Results * FL upper GI w air (04/15/2024 8:11 AM EST) Anatomical Region Laterality Modality Body Radiographic Mamie ging 04/15/2024 8:11 AM EST Narrative 04/15/2024 10:17 AM EST ? [facility] ?[address] ?[place] [address] ? Fluoroscopy Report ? Signed ? Patient: Colon,Quiara ?MR#: [id number] ? : 1985 ?Acct:[id number] ? Age/Sex: 38 / F ?ADM Date: 04/15/24 ? Loc: HO.XRAY ? Attending Dr: Jairon Fox MD ? Ordering Physician: Jairon Fox MD ?? Date of Service: 04/15/24 ?? Procedure(s): FL upper GI w air ?? Accession Number(s): [id number] ? cc: Aida Vasquez DO; Jairon Fox [...] 10:14 AM EST RP ? Dictated By: ?Destini,Clay S MD ? Signed By: ?<Electronically signed by lCay S Destini, MD in OV> ?04/15/24 1014 ? DD/ 0811 ? TD/TT: 04/15/24 0845 ? Skills Trainer: PEDRO ? Procedure Note Donotkevininterpreter, Image - 04/15/[address] [address] Fluoroscopy Report Signed Patient: Shanae Rosa#: [id number] : 1985Acct:[id number] Age/Sex: 38 / FADM Date: 04/15/24 Loc: HO.XRAY Attending Dr: Jairon Fox MD Ordering Physician: Jairon Fox MD Date of Service: 04/15/24 Procedure(s): FL upper GI w air Accession Number(s): [id number] cc: Aida Vasquez DO; Jairon Fox MD [...] by: Clay Georges MD 04/15/2024 10:14 AM [facility] Dictated By: Clay Georges MD Signed By: <Electronically signed by Clay Georges MD in OV> 04/15/24 1014 DD/ 0811 TD/TT: 04/15/24 0845 Skills Trainer: PEDOR [facility] External Provider IMG FLU OROSCOPY PROCEDURES Final Result * US Abdomen Comp w elastography (02/26/2024 9:14 AM EST) Anatomical Region Laterality Modality Abdomen Ultrasound 02/26/2024 9:14 AM EST Narrative 02/27/2024 11:29 AM EST ? [facility] ?[address] ?[place] [address] ? Ultrasound Report ? Signed ? Patient: Colon,Quiara ?MR#: [id number] ? : 1985 ?Acct:[id number] ? Age/Sex: 38 / F ?ADM Date: 02/26/24 ? Loc: HO.US ? Attending Dr: Jairon Fox MD ? Ordering Physician: Jairon Fox MD ?? Date of Service: 02/26/24 ?? Procedure(s): US abdomen comp w elastography ?? Accession Number(s): [id number] ? cc: Aida Vasquez DO; Jairon Fox [...] ? DD/ 3 ? TD/TT: 02/26/24926 ? Skills Trainer: ? Procedure Note Son Morrow - 02/27/[address] [address] Ultrasound Report Signed Patient: Shanae Rosa#: [id number] : 1985Acct:[id number] Age/Sex: 38 / FADM Date: 02/26/24 Loc: HO.US Attending Dr: Jairon Fox MD Ordering Physician: Jairon Fox MD Date of Service: 02/26/24 Procedure(s): US abdomen comp w elastography Accession Number(s): [id number] cc: Aida Vasquez DO; Jairon Fox MD [...] Radiologists in Ultrasound Liver Stiffness Thresholds (2019): LIVER STIFFNESS THRESHOLDS: *Shear wave velocity less [...] not well established. Electronically signed by: Schuyler Monte sDe Oca MD 02/27/2024 11:27 AM EST Dictated By: Schuyler Montes De Oca MD Signed By: <Electronically signed by Schuyler Montes De Oca MD in OV> 02/27/24 1127 DD/ TD/TT: 02/26/[address] Skills Trainer: us [facility] External Provider IMG US PROCEDURES Final Result * Hematoxylin and Eosin Stain (02/01/2024 1:35 PM EST) 02/01/2024 1:35 PM EST 02/01/2024 2:24 PM EST [facility] - 02/06/2024 7:58 AM EST ----- ------- Name: Colon,Quiara ? Age/Sex: 38/F ? : 1985 Unit#: [id number] ?? Attend Dr: Jairon Fox MD ?Re02/01/24 ?Status: DEP SDC ? Location: HO.SSS ?Disch: ? ----- ------- SPEC : [id number] ? RECD: 02/01/24 ? STATUS: ??SOUT ? REQ NUM: [id number] ? JILLIAN: 02/01/24-1334 ? SUBM DR: Jairon [...] ? Age/Sex: 38/F ? : 1985 Unit#: [id number] ?? Attend Dr: Jairon Fox MD ?Re02/01/24 ?Status: DEP SDC ? Location: HO.SSS ?Disch: ? ----- ------- SPEC : [id number] ? RECD: 02/01/24 ? STATUS: ??SOUT ? REQ NUM: [id number] ? JILLIAN: 02/01/246 ? SUBM DR: Jairon Fox MD ? [...] Copies To: ?? Aida Vasquez DO ?? [facility] ?? [address] ?? [place] [address] ?? [phone] ?? Jairon Fox MD ?? [facility] ?? [address] ?? [place] [address] ?? [phone] ----- ------- Signed (signature on file) Pradip Johnson MD 02/02/24 8542 ? ----- ------- ? END OF REPORT ? Generic External Data Provider LAB BLOOD ORDERAB LES Final Result Performing Organization Address [facility] Co de Phone Number [facility] [address] [place] [address] [phone] * HCG, Qualitative, Urine (02/01/2024 11:44 AM EST) Urine NEGATIVE NEGATIVE [facility] Comment:This test was develo ped to detect early . Falsenegative results may occur after the 5th - 7th week ofpregnancy when using this test method. If clinicallyindicated, consider a serum hCG. 02/01/2024 11:4 4 AM EST 02/01/2024 11:49 AM EST Generic External Data Provider LAB URINE ORDERAB LES Final Result Performing Organization Address [facility]/ZIP Co de Phone Number [facility] [address] [place] [address] [phone] * US Pelvis Transvaginal (01/31/2024 11:43 AM EST) Anatomical Region Laterality Modality Pelvis Ultrasound 01/31/2024 11:4 3 AM EST Narrative 03/12/2024 2:08 PM EST ? [facility] ?[address] ?[place] [address] ? Ultrasound Report ? Signed ? Patient: Colon,Quiara ?MR#: [id number] ? : 1985 ?Acct:[id number] ? Age/Sex: 38 / F ?ADM Date: 12/18/24 ? Loc: HO.US ? Attending Dr: Juan Velazco MD ? Ordering Physician: Juan Velazco MD ?? Date of Service: 01/31/24 ?? Procedure(s): US pelvic and transvaginal ?? Accession Number(s): [id number] ? cc: Aida Vasquez DO; Juan Velazco [...] DD/ 1143 ? TD/TT: 01/31/24 1155 ? Skills Trainer: ? Procedure Note Cristhian, Image - 01/28/[address] [address] Ultrasound Report Signed Patient: Shanae Rosa#: [id number] : 1985Acct:[id number] Age/Sex: 38 / FADM Date: 01/31/24 Loc: .US Attending Dr: Juan Velazco MD Ordering Physician: Juan Velazco MD Date of Service: 01/31/24 Procedure(s): US pelvic and transvaginal Accession Number(s): [id number] cc: Aida Vasquez DO; Juan Velazco MD [...] by: Dorita Lopez MD 03/12/2024 02:05 PM [facility] Dictated By: Dorita Lopez MD Signed By: <Electronically signed by Dorita Lopez MD in OV> 03/12/24 1405 DD/ 1143 TD/TT: 01/31/24 1155 Skills Trainer: [facility] External Provider IMG US PROCEDURES Final Result * HM PAP/HPV (01/23/2024 5:50 PM EST) us Historical Provider HEALTH MAINTENANCE Final Result * XR Chest 2 Views (01/23/2024 10:58 AM EST) Anatomical Region Laterality Modality Chest Radiographic Mamie ging 01/23/2024 10:5 8 AM EST Narrative 02/29/2024 1:01 PM EST ? [facility] ?[address] ?[place] [address] ?XRay Report ? Signed ? Patient: Colon,Quiara ?MR#: [id number] ? : 1985 ?Acct:[id number] ? Age/Sex: 38 / F ?ADM Date: 01/23/24 ? Loc: HO.XRAY ? Attending Dr: Jairon Fox MD ? Ordering Physician: Jairon Fox MD ?? Date of Service: 01/23/24 ?? Procedure(s): XR chest 2V ?? Accession Number(s): [id number] ? cc: Aida Vasquez DO; Jairon Fox [...] pulmonary process. ? Study is assigned/presented to [facility] for interpretation on Feb 29, 2024 ? Electronically signed by: ??Paul Johnson MD ??02/29/2024 12:58 PM EST ?? RP ? Dictated By: ?Paul Johnson MD ? Signed By: ?<Electronically signed by Paul Johnson MD in OV> ?02/29/24 1258 ? DD/ 1058 ? TD/TT: 01/23/24 1110 ? Skills Trainer: HB ? Procedure Note Cristhian, Image - 02/29/[address] [address] XRay Report Signed Patient: Shanae Rosa#: [id number] : 1985Acct:[id number] Age/Sex: 38 / FADM Date: 01/23/24 Loc: HO.XRAY Attending Dr: Jairon Fox MD Ordering Physician: Jairon Fox MD Date of Service: 01/23/24 Procedure(s): XR chest 2V Accession Number(s): [id number] cc: Aida Vasquez DO; Jairon Fox MD [...] Paul Johnson MD 02/29/2024 12:58 PM EST Dictated By: Paul Johnson MD Signed By: <Electronically signed by Paul Johnson MD in OV> 02/29/24 1258 DD/ 1058 TD/TT: 01/23/24 1110 Skills Trainer: NATALIA [facility] External Provider IMG XR PROCEDURES Final Result * (ABNORMAL) Vitamin D, 25-Hydroxy, Total, Immunoassay (01/23/2024 10:12 AM EST) Only the most recent of2 resultswithin the time period is included. Vitamin D 25-OH Total 11.3(L) >30 ng/mL [facility] Comment:Health Based Referen ce Values*< 20 ng/mL Lrdebwmen35-47 ng/mL Insufficient> 30 ng/mL Sufficient*Tanner PAGE. N [...] ORDERAB LES Final Result Performing Organization Address [facility] Co de Phone Number [facility] [address] [place] [phone] * Vitamin B12 (Cobalamin) and Folate Panel, Serum (01/23/2024 10:12 AM EST) Only the most recent of2 resultswithin the time period is included. Vitamin B12 527 200 - 900 pg/mL [facility] Comment:NORMAL 200-900 PG/ML INDETERMINATE 160-199 PG/ML DEFICIENT < 160 PG/ML Folate 5.8 > or = 4.0 ng/mL [facility] Comment:Reference Values:> o r = 4.0 ng/mL< 4.0 ng/mL suggests folate deficiency Methotrexate, aminopterin and folinic acid(leucovorin) are chemotherapeutic agents whose molecularstructures are similar to folate; therefore, the Architectfolate assay cannot be used for patients using these drugs. 01/23/2024 10:1 2 AM EST 01/23/2024 10:12 AM EST us Generic External Data Provider LAB BLOOD ORDERAB LES Final Result Performing Organization Address [facility] Co de Phone Number [facility] [address] [place] [phone] * TSH with Reflex to Free T4 (01/23/2024 10:12 AM EST) TSH reflex Free T4 0.69 0.32 - 4.0 uIU/mL [facility] 01/23/2024 10:1 2 AM EST 01/23/2024 10:12 AM EST us Generic External Data Provider LAB BLOOD ORDERAB LES Final Result [facility] [address] [place] [address] [phone] * (ABNORMAL) CBC auto differential (01/23/2024 10:12 AM EST) Pathologist [facility] White Blood Count 13.1(H) 4.8 - 10.8 X10*3/uL [facility] Red Blood Count 3.98(L) 4.20 - 5.50 X10*6/uL [facility] Hemoglobin 7.1(L) 12.0 - 16.0 g/dl [facility] Hematocrit 27.5(L) 37.0 - 47.0 % [facility] Mean Corpuscular Volume 69.1(L) 80.0 - 98.0 fL [facility] Mean Corpuscular Hemoglobin 17.8(L) 27.0 - 33.0 pg [facility] Mean Corpuscular HGB Conc 25.8(L) 31.0 - 35.0 g/dl [facility] Red Cell Distribution Width 19.6(H) 11.0 - 16.0 % [facility] Platelet Count 664(H) 160 - 400 X10*3/uL [facility] Mean Platelet Volume 9.8 9.4 - 12.3 fL [facility] Neutrophils Percent Auto 58.3 45 - 73 % [facility] Imm Gran Pct Auto 0.4 0.0 - 0.4 % [facility] Lymphocytes Percent Auto 31.7 20 - 40 % [facility] Monocytes Percent Auto 5.7 2 - 11 % [facility] Eosinophils Percent Auto 3.4 0 - 4 % [facility] Basophils Percent Auto 0.5 0 - 2 % [facility] NRBC Pct Auto 0.0 0.0 - 0.2 /100WBC [facility] Neutrophils Absolute Auto 7.7 2.0 - 8.3 x10*3/uL [facility] Imm Gran Abs Auto 0.05(H) 0.00 - 0.03 X10*3/uL [facility] Lymphocytes Absolute Auto 4.2 1.2 - 4.9 X10*3/uL [facility] Monocytes Absolute Auto 0.8 0.1 - 1.2 X10*3/uL [facility] Eosinophils Absolute Auto 0.5(H) 0.0 - 0.4 X10*3/uL [facility] Basophils Absolute Auto 0.1 0.0 - 0.2 X10*3/uL [facility] NRBC Abs Auto 0.000 0.0 - 0.012 X10*3/uL [facility] 01/23/2024 10:1 2 AM EST 01/23/2024 10:12 AM EST us Generic External Data Provider LAB BLOOD ORDERAB LES Final Result Performing Organization Address [facility] de Phone Number [facility] [address] [place] [phone] * (ABNORMAL) Iron And Total Iron Binding Capacity (01/23/2024 10:12 AM EST) Only the most recent of2 resultswithin the time period is included. Iron 15(L) 30 - 160 mcg/dL [facility] Total Iron Binding Capacity 378 228 - 428 mcg/dL [facility] Percent Iron Saturation 4(L) 15 - 50 % [facility] Unsaturated Iron Binding 363 ug/dL [facility] 01/23/2024 10:1 2 AM EST 01/23/2024 10:12 AM EST us Generic External Data Provider LAB BLOOD ORDERAB LES Final Result [facility] [address] [place] [phone] [phone] * Insulin (01/23/2024 10:12 AM EST) Insulin 23 2 - 29 uU/mL [facility] Comment:This test was perfor med using [...] ORDERAB LES Final Result Performing Organization Address City/[facility]/ZIP Co de Phone Number [facility] [address] [place] [phone] * Zinc (01/23/2024 10:12 AM EST) Zinc 73 60 - 130 mcg/dL [facility] Comment:This test was develo ped and its analytical performancecharacteristics have been determined by [facility] [place], [place]. It hasnot been cleared or approved by the U.S. Food and DrugAdministration. This assay has been validated pursuantto the CLIA regulations and is used for clinicalpurposes.THIS TEST WAS PERFORMED AT:[facility] [place] [address]WOJCXEPPRABHU BUSTAMANTE MD,PHD 01/23/2024 10:1 2 AM EST 01/23/2024 10:12 AM EST us Generic External Data Provider LAB BLOOD ORDERAB LES Final Result [facility] [address] [place] [phone] [phone] * Vitamin A (01/23/2024 10:12 AM EST) Vitamin A (Retinol) 61 38 - 98 mcg/dL [facility] Comment:Vitamin supplementat ion within 24 hours prior toblood draw may affect the accuracy of the results.This test was developed and its analytical performancecharacteristics have been determined by [facility] [place], [place]. It hasnot been cleared or approved by the U.S. Food and DrugAdministration. This assay has been validated pursuantto the CLIA regulations and is used for clinicalpurposes.THIS TEST WAS PERFORMED AT:[facility] [place] [address]IDRMGWRPRABHU BUSTAMANTE MD,PHD 01/23/2024 10:1 2 AM EST 01/23/2024 10:12 AM EST Generic External Data Provider LAB BLOOD ORDERAB LES Final Result Performing Organization Address City/[facility]/ZIP Co de Phone Number [facility] [address] [place] [phone] * (ABNORMAL) C-reactive Protein (01/23/2024 10:12 AM EST) [facility] C Reactive Protein 4.15(H) < or = 0.50 mg/dL [facility] 01/23/2024 10:1 2 AM EST 01/23/2024 10:12 AM EST Generic External Data Provider LAB BLOOD ORDERAB LES Final Result Performing Organization Address City/[facility]/ZIP Co de Phone Number [facility] [address] [place] [phone] * (ABNORMAL) Vitamin B1 (01/23/2024 10:12 AM EST) Pathologist [facility] Vitamin B1 <6(A) 8 - 30 nmol/L [facility] Comment:Vitamin supplementat ion within 24 hours prior toblood draw may affect the accuracy of the results.This test was developed and its analytical performancecharacteristics have been determined by [facility] [place]. It hasnot been cleared or approved by the U.S. Food and DrugAdministration. This assay has been validated pursuantto the CLIA regulations and is used for clinicalpurposes.THIS TEST WAS PERFORMED AT:[facility] [place] [address]TQCRRSAPRABHU BUSTAMANTE MD,PHD 01/23/2024 10:1 2 AM EST 01/23/2024 10:12 AM EST us Generic External Data Provider LAB BLOOD ORDERAB LES Final Result Performing Organization Address [facility]/ZIP Co de Phone Number [facility] [address] [place] [address] [phone] * Hemoglobin A1c (01/23/2024 10:12 AM EST) Only the most recent of2 resultswithin the time period is included. Hemoglobin A1c 5.2 <6.0 % [facility] Comment:Hemoglobin A1C Refer ence Range Adults: 4.8 - 6.0 % Non diabetic: < 6.0 % Goal: < 7.0 %Additional Action Suggested: > 8.0 %Note: Hemoglobin A1c results are invalid for patients with abnormal amounts of HbF. Blood transfusions may impact the HbA1c concentration in the patient sample. Estimated Average Glucose 103 mg/dL [facility] Comment:eAG = Estimated ave rage glucose which is %A1C expressed asaverage glucose, using the formula of the C2F-FhoqaskLfbuomw Glucose study (ADAG), Diabetes Care, Vol.31,#8,2007 01/23/2024 10:1 2 AM EST 01/23/2024 10:12 AM EST us Generic External Data Provider LAB BLOOD ORDERAB LES Final Result Performing Organization Address City/[facility]/ZIP Co de Phone Number [facility] [address] [place] [phone] * (ABNORMAL) Ferritin (01/23/2024 10:12 AM EST) Only the most recent of2 resultswithin the time period is included. Ferritin 8(L) 10 - 122 ng/mL [facility] 01/23/2024 10:1 2 AM EST 01/23/2024 10:12 AM EST Generic External Data Provider LAB BLOOD ORDERAB LES Final Result [facility] [address] [place] [phone] * (ABNORMAL) Lipid Panel, Standard (01/23/2024 10:12 AM EST) Only the most recent of2 resultswithin the time period is included. Triglycerides 92 <150 mg/dL [facility] Comment:Desirable Triglyceri de: less than 150 mg/dLBorderline High Triglyceride 150-199 mg/dLHigh Triglyceride: 200-499 mg/dLVery High Triglyceride: greater than or equal to 5OO mg/dL Cholesterol 120 <200 mg/dL [facility] Comment:Desirable Cholestero l: less than 200 mg/dLBorderline High Cholesterol: 200-239 mg/dLHigh Cholesterol: greater than 239 mg/dL LDL Cholesterol Calculated 66 <100 mg/dL [facility] Comment:Desirable LDL: less than 100 mg/dLNear Optimal/Above Optimal LDL: 110- 129 mg/dLBorderline High LDL: 130-159 mg/dLHigh LDL: 160-189 mg/dLVery High LDL: greater than or equal to 190 mg/dL HDL Cholesterol 36(L) >40 mg/dL [facility] Comment:Desirable HDL: great er than 40 mg/dL Note: This HDL assay may give artificially low results in patients with liver disease. 01/23/2024 10:1 2 AM EST 01/23/2024 10:12 AM EST us Generic External Data Provider LAB BLOOD ORDERAB LES Final Result Performing Organization Address City/[facility]/ZIP Co de Phone Number [facility] [address] [place] [phone] * Comprehensive Metabolic Panel (01/23/2024 10:12 AM EST) Sodium 139 135 - 145 mmol/L [facility] Potassium 3.5 3.3 - 5.1 mmol/L [facility] Chloride 105 96 - 108 mmol/L [facility] Carbon Dioxide 26 22 - 29 mmol/L [facility] Anion Gap 12 12 - 20 [facility] Urea Nitrogen (BUN) 10 9 - 16 mg/dL [facility] Creatinine, Serum 0.75 0.5 - 1.4 mg/dL [facility] Estimated Glomerular Filt Rate >60 [facility] Comment:Chronic Kidney Disea se: Estimated GFR < 60 mL/min/1.35h6Wvsgkj Kidney Disease: Estimated GFR < 15 mL/min/1.73m2 Glucose 79 60 - 115 mg/dL [facility] Calcium 8.6 8.4 - 10.2 mg/dL [facility] Bilirubin, Total 0.4 0.0 - 1.0 mg/dL [facility] Aspartate Amino Transferase 16 5 - 31 U/L [facility] Alanine Aminotransferase 10 0 - 31 U/L [facility] Total Protein 7.5 6.5 - 8.0 g/dL [facility] Albumin Level 3.9 3.5 - 5.0 g/dL [facility] Alkaline Phosphatase 77 39 - 117 U/L [facility] 01/23/2024 10:1 2 AM EST 01/23/2024 10:12 AM EST us Generic External Data Provider LAB BLOOD ORDERAB LES Final Result Performing Organization Address [facility]/ZIP Co de Phone Number [facility] [address] [place] [address] [phone] * Hepatitis C Antibody with Reflex to HCV, RNA, Quantitative, Real-Time PCR (01/19/2024 11:52 AM EST) Hepatitis C Antibody Nonreactive Nonreactive [facility] Comment:Antibodies to HCV no t detected; does not exclude early acuteHCV infection. Blood Venous blood specimen / Unknown 01/19/2024 11:52 AM EST 01/19/2024 12:55 PM EST Aida Vasquez DO LAB BLOOD ORDERABLES Final R esult [facility] [address] [place] [phone] [phone] * Chlamydia/N. Gonorrhoeae RNA, TMA, Urogenitial (01/19/2024 11:52 AM EST) CT PCR NOT DETECTED Not Detect. [facility] Comment:A not detected test result does [...] psychologicalconsequences. NG PCR NOT DETECTED Not Detect. [facility] Comment:A not detected test result does [...] AM EST 01/19/2024 12:54 PM EST Narrative [facility] - 01/19/2024 2:29 PM EST Urine Aida Vasquez DO LAB MICROBIOLOGY - GENERAL O RDERABLES Final Result Performing Organization Address [facility] Co de Phone Number [facility] [address] [place] [address] [phone] * RPR (Monitor) with Reflex to??Titer (01/19/2024 11:52 AM EST) RPR (Monitor) w/Refl Titer NON-REACTI VE NON-REACT LESLY [facility] Comment:THIS TEST WAS PERFOR MED AT:[employer] [place] [id number] AGUILAR MD Rapid Plasma Reagin Ab Titer TNP [facility] Blood Venous blood specimen / Unknown 01/19/2024 11:52 AM EST 01/19/2024 12:55 PM EST us Aida Vasquez DO LAB BLOOD ORDERABLES Final R esult Performing Organization Address [facility]/ZIP Co de Phone Number [facility] [address] [place] [phone] * HIV-1/2 Antigen and Antibodies, Fourth Generation, with Reflexes (01/19/2024 11:52 AM EST) HIV AB/AG Nonreactive Nonreactive [facility] Comment:HIV-1 p24 Ag and/or HIV-1/HIV-2 Ab not detected.A test result that is nonreactive does not exclude thepossibility of exposure to or infection with HIV-1 and/orHIV-2. Nonreactive results in this assay for individualswith prior exposure to HIV-1 and/or HIV-2 may be due toantigen and antibody levels that are below the limit ofdetection of this assay.The [employer] HIV Ag/Ab Combo assay result andsupplemental assay results should be interpreted inconjunction with the patient's clinical presentation,history and other laboratory results. If the results areinconsistent with clinical evidence, additional testing issuggested to confirm the result. Blood Venous blood specimen / Unknown 01/19/2024 11:52 AM EST 01/19/2024 12:55 PM EST us Aida Vasquez DO LAB BLOOD ORDERABLES Final R esult [facility] [address] [place] [phone] [phone] * (ABNORMAL) CBC (01/19/2024 11:52 AM EST) White Blood Count 11.6(H) 4.8 - 10.8 X10*3/uL [facility] Red Blood Count 4.09(L) 4.20 - 5.50 X10*6/uL [facility] Hemoglobin 7.4(L) 12.0 - 16.0 g/dl [facility] Hematocrit 27.9(L) 37.0 - 47.0 % [facility] Mean Corpuscular Volume 68.2(L) 80.0 - 98.0 fL [facility] Mean Corpuscular Hemoglobin 18.1(L) 27.0 - 33.0 pg [facility] Mean Corpuscular HGB Conc 26.5(L) 31.0 - 35.0 g/dl [facility] Red Cell Distribution Width 20.1(H) 11.0 - 16.0 % [facility] Platelet Count 636(H) 160 - 400 X10*3/uL [facility] Mean Platelet Volume 9.7 9.4 - 12.3 fL [facility] NRBC Pct Auto 0.0 0.0 - 0.2 /100WBC [facility] NRBC Abs Auto 0.000 0.0 - 0.012 X10*3/uL [facility] Blood Venous blood specimen / Unknown 01/19/2024 11:52 AM EST 01/19/2024 12:55 PM EST Aida Vasquez DO LAB BLOOD ORDERABLES Final R esult Performing Organization Address [facility]/ZIP Co de Phone Number [facility] [address] [place] [phone] * TSH (01/19/2024 11:52 AM EST) Thyroid Stimulating Hormone 0.85 0.32 - 4.0 uIU/mL [facility] Comment:TSH 3rd Generation ( [facility]) Blood Venous blood specimen / Unknown 01/19/2024 11:52 AM EST 01/19/2024 12:55 PM EST Aida Vasquez DO LAB BLOOD ORDERABLES Final R esult Performing Organization Address [facility] Co de Phone Number [facility] [address] [place] [phone] * T4, Free (01/19/2024 11:52 AM EST) Free T4 (Free Thyroxine) 1.08 0.71 - 1.85 ng/dL [facility] Blood Venous blood specimen / Unknown 01/19/2024 11:52 AM EST 01/19/2024 12:55 PM EST Aida Vasquez DO LAB BLOOD ORDERABLES Final R esult Performing Organization Address [facility] Co de Phone Number [facility] [address] [place] [phone] * Hepatic Function Panel (01/19/2024 11:52 AM EST) Bilirubin, Total 0.3 0.0 - 1.0 mg/dL [facility] Bilirubin, Direct 0.1 0.0 - 0.5 mg/dL [facility] Aspartate Amino Transferase 18 5 - 31 U/L [facility] Alanine Aminotransferase 11 0 - 31 U/L [facility] Total Protein 8.0 6.5 - 8.0 g/dL [facility] Albumin Level 4.0 3.5 - 5.0 g/dL [facility] Alkaline Phosphatase 89 39 - 117 U/L [facility] Blood Venous blood specimen / Unknown 01/19/2024 11:52 AM EST 01/19/2024 12:55 PM EST us Aida Vasquez DO LAB BLOOD ORDERABLES Final R esult [facility] [address] [place] [phone] * (ABNORMAL) Basic Metabolic Panel (01/19/2024 11:52 AM EST) Pathologist [facility] Sodium 140 135 - 145 mmol/L [facility] Potassium 3.7 3.3 - 5.1 mmol/L [facility] Chloride 109(H) 96 - 108 mmol/L [facility] Carbon Dioxide 25 22 - 29 mmol/L [facility] Anion Gap 10(L) 12 - 20 [facility] Urea Nitrogen (BUN) 10 9 - 16 mg/dL [facility] Creatinine, Serum 0.78 0.5 - 1.4 mg/dL [facility] Estimated Glomerular Filt Rate >60 [facility] Comment:Chronic Kidney Disea se: Estimated GFR < 60 mL/min/1.80r5Rtzyui Kidney Disease: Estimated GFR < 15 mL/min/1.73m2 Glucose 84 60 - 115 mg/dL [facility] Calcium 9.7 8.4 - 10.2 mg/dL [facility] Blood Venous blood specimen / Unknown 01/19/2024 11:52 AM EST 01/19/2024 12:55 PM EST us Aida Vasquez DO LAB BLOOD ORDERABLES Final R esult [facility] [address] [place] [phone] from Last 3 Months [facility] [employer] Care Teams Ironmolder Relationship Specialty Start Date End Date Aida Vasquez DO [address] [place] [phone] PCP - General Family Medicine 10/24/14
--- OUTSIDE RECORDS SUMMARY | 2024-04-15 12:36 | XMS_ITS | Encounter Summary ---
Author Organization [employer] [facility] Address [address] [facility] [address] [place] [address] Care Team Providers Care Hardboard Panel Printer Name Role Phone Aida Vasquez DO Primary Care Provider [phone] Encounter Details Date Type Department Care Team (Late st Contact Info) Description 03/01/2022 Orders Only [facility] [address] [place] [address] Cielo Elias LPN Social History Tobacco Use [...] on filedocumented in this encounter Care Teams Hardboard Panel Printer Relationship Specialty Start Date End Date Aida Vasquez DO [address] [place] [address] PCP - General Family Medicine 10/24/14 documented as of this encounter
--- OUTSIDE RECORDS SUMMARY | 2024-04-15 12:36 | XMS_ITS | Encounter Summary ---
Author Organization [employer] Address [address] [facility] [address] [place] [address] Care Team Providers Care Petrology Teacher Name Role Phone Aida Vasquez DO Primary Care Provider [phone] Encounter Details Date Type Department Care Team (Late st Contact Info) Description 05/12/2022 Orders Only [facility] [address] [place] [address] Aida Feliz LPN Social History Tobacco Use [...] on filedocumented in this encounter Care Teams Petrology Teacher Relationship Specialty Start Date End Date Aida Vasquez DO [address] [place] [address] PCP - General Family Medicine 10/24/14 documented as of this encounter
== END 2024-04-15 10:16 | disposition home or self-care (01) ==
LOC: HO.LNP 10:15
PROVIDERS: Visit Provider Obstetrics & Gynecology
DX: N93.9 Abnormal uterine and vaginal bleeding, unspecified (principal)
CPT/HCPCS: 88305

== ENCOUNTER 2024-04-30 10:11 | Outpatient (AMB) | payer MEDICAID, SELFPAY ==
[2024-04-30 11:17] VITALS: BP 120/88
--- NOTE | 2024-04-30 11:17 | A.OFFVIS_ITS ---
Vital Signs 04/30/24 11:17 BP 120/88 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: pre op Conference Manager: Conference Manager Present Allergies No Known Allergies Allergy (Verified 04/30/24 11:18) Is last menstrual period known: Yes Last menstrual period: 12/12/19 Post menopausal: No Patient : No Do you need a note to return to daycare/school/sports/work: Yes (for surgery on monday) HPI Comments Details: The patient is presenting after endometrial biopsy. The patient has no co mplaints, no vaginal bleeding, no feverishness chills or abdominal pain. The endometrial biopsy pathology report showed the following: Benign dyssynchronous secretory endometrium with fragments suggestive of benign polyps; no atypia or carcinoma PFSH Medical History Hypertension GERD (gastroesophageal reflux disease) Back pain Morbid obesity Anemia Asthma Surgical History H/O dilation and curettage History of bladder suspension procedure Social History Household Members: Spouse and Children Housing: House Do you presently have visiting nurse or other home services: No Patient Tobacco Use Status: Current everyday Tobacco user Tobacco use type: Cigarette Cigarettes Per Day: 2 Second Hand Smoke Exposure: Yes service: No Current occupational status: employed 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 Female Reproductive History Menstrual Date of last menstrual period: 12/12/19 Total pregnancies: 2 Full term: 2 Review of Systems Card Reports as per HPI and Reports no additional complaints Resp Reports as per HPI and Reports no additional complaints GI Reports as per HPI and Reports no additional complaints Reports as per HPI Physical Exam Vital Signs: Last Vital Signs BP 120/88 04/30/24 11:17 Const General: cooperative, healthy appearing and comfortable Resp Effort & Inspection: normal respiratory effort Auscultation: clear to auscultation bilaterally Percussion: percussion normal Cardio Palpation: normal PMI Rate: regular rate Rhythm: regular rhythm Heart sounds: no murmurs and no rubs Peripheral pulses: Peripheral pulses 2+ throughout GI Inspection: Yes normal to inspection Palpation (GI): Soft to palpation, nontender, no guarding, not rigid and No hepatosplenomegaly present Percussion: Yes normal to percussion Auscultation: normal bowel sounds Rectal Exam - Female: deferred Assessment & Plan Assessment & Plan (1) Abnormal uterine bleeding: Comment: Endometrial polyp on EMB pathology Code(s): N93.9 - Abnormal uterine and vaginal bleeding, unspecified Category: Medical Plan: Discussed with the patient the results the pathology showing benign endometrial polyp, recommended hysteroscopy D&C possible polypectomy/myomectomy. Discussed with the patient the procedure , all benefits and risks including but not limited to inability to complete the procedure , insufficient endometrial tissue for a complete evaluation of the endometrial cavity , bleeding, infection, possible need for blood transfusion with all its risk ( HIV,syphilis, Hepatitis, anaphylaxis shock, others..), injury to bladder, rectum, possible need for laparoscopy/laparotomy or hysterectomy. The patient verbalized understanding and signed the consent. Instructions given the patient to stay NPO after midnight the day prior to the procedure and to hold off after Tirzepatid3 for 1 week prior to the procedure and take only lisinopril with amlodipine the morning of the surgical procedure and to schedule a 2 week postoperative appointment Coding Level of Care Code Est Pt Level 3 (08928) Diagnoses Abnormal uterine bleeding N93.9
--- OUTSIDE RECORDS SUMMARY | 2024-04-30 11:38 | XMS_ITS | Encounter Summary ---
Author Organization [employer] Address [address] [facility] [address] [place] [address] Care Team Providers Care Institute Scientist Name Role Phone TomasAida schwartz Primary Care Provider [phone] Encounter Details Date Type Department Care Team ([facility] st Contact Info) Description 04/26/2024 Population Health Risk Score [facility] (C3) Department [address] [facility] [address] [place] [phone] Provider, Population Health Generic Social History Tobacco Use Types Packs/Day Years [...] documented as of this encounter Care Teams Institute Scientist Relationship Specialty Start Date End Date Aida Vasquez DO [address] [place] [address] PCP - General Family Medicine 10/24/14 documented as of this encounter
--- OUTSIDE RECORDS SUMMARY | 2024-04-30 11:38 | XMS_ITS | Encounter Summary ---
Author Organization [employer] Address [address] [facility] [address] [place] [address] Care Team Providers Care Environmental Compliance Officer Name Role Phone Aida Vasquez DO Primary Care Provider [phone] Encounter Details Date Type Department Care Team (Late st Contact Info) Description 03/01/2022 Orders Only [facility] [address] [place] [address] Cielo Elias LPN Social History Tobacco Use [...] on filedocumented in this encounter Care Teams Environmental Compliance Officer Relationship Specialty Start Date End Date Aida Vasquez DO [address] [place] [address] PCP - General Family Medicine 10/24/14 documented as of this encounter
--- OUTSIDE RECORDS SUMMARY | 2024-04-30 11:38 | XMS_ITS | Clinical Summary ---
Author Organization [employer] Address [address] [facility] 7t [place] [address] Care Team Providers Care Safety Supervisor Name Role Phone Aida Vasquez Primary Care Provider [phone] Allergies Active Allergy Reactions Criticality Noted Date Comments Pollen Extract 07/08/2022 Medications * This document contains information received from the source organization and may not represent a complete record from that organization. acetaminophen (Tylenol 8 Hour) 650 MG ER tablet TAKE 1 TABLET BY MOUTH EVERY 8 HOURS NEEDED FOR PAIN OR FEVER 11/30/19 22 Active ergocalciferol (Vitamin D2) 1.25 MG (65957 UT) capsuleIndicati ons:Vitamin D deficiency Take 1 capsule (1.25 mg) by mouth 1 (one) time per week. 12 capsule 3 04/19/19 24 Active nicotine polacrilex (Nicorette) 4 MG [...] 60 tablet 11 10/25/19 24 025 Active Asmanex HFA 200 MCG/ACT aerosol INHALE [...] 18 g 1 03/27/19 25 Active albuterol (2.5 MG/3ML) 0.083% nebulizer solution INHALE 1 AMPULE USING A NEBULIZER EVERY 4 HOURS NEEDED FOR COUGH, WHEEZING, OR SHORTNESS OF BREATH 90 mL 2 04/26/19 25 Active calcium carbonate (Calcium Antacid) 500 MG chewable tablet CHEW 2 TABLETS BY MOUTH AFTER MEALS NEEDED FOR HEARTBURN, DO NOT EXCEED 8 TABLETS / 24 HOURS 180 tablet 04/26/19 25 Active albuterol (2.5 MG/3ML) 0.083% nebulizer solution INHALE 1 AMPULE USING A NEBULIZER EVERY 4 HOURS NEEDED FOR COUGH, WHEEZING, OR SHORTNESS OF BREATH 90 mL 2 04/25/19 24 025 Discontinued calcium carbonate (Calcium Antacid) 500 MG chewable tablet CHEW 2 TABLETS BY MOUTH AFTER MEALS NEEDED HEARTBURN. DO NOT EXCEED 8 TABLETS IN 24 HOURS 180 tablet 10/25/19 24 025 Discontinued Active Problems Problem Noted [...] Encounters Date Type Department Care Team Description 04/26/2024 Population Health Risk Score [facility] (C3) Department [address] [id number] Provider, Population Health Generic 04/25/2024 Refill [facility] [address] [place] [address] Aida Vasquez DO 04/15/2024 Orders Only GENERIC EXTERNAL DATA DEPARTMENT Provider, Generic External Data 03/30/2024 Orders Only [facility] [address] [place] [address] Provider, MD Queta 03/25/2024 Refill [facility] [address] [place] [address] Aida Vasquez DO Asthma, unspecified asthma severity, unspecified whether complicated, unspecified whether persistent 02/06/2024 Telephone [facility] [address] [place] [address] Aida Vasquez DO Prior Authorization 02/01/2024 Orders Only GENERIC EXTERNAL DATA DEPARTMENT Provider, Generic External Data 01/31/2024 Orders Only [facility] External Provider, [facility] from Last 3 Months Immunizations Name Administration Dates Next Due DTaP 05/02/1990, 0,08/02/1988,06/02,04/04/1988 Hep B, Adolescent or Pediatric 01/06/1999,1997,12/18/1997 Hib (HbOC) 01/02/1990 Influenza injectable quadriv alent IIV4 with [...] is your housing situation today? I have maryapaula jain [address] you [...] Last Done Comments Family Planning (PISQ) 12/18/2002 SDOH Screening 02/23/2024 02/22/2023 Depression Monitoring (PHQ-9) 07/19/2024 01/19/2024, 01/19/2024 Alcohol/Substance Use Screening 01/18/2025 01/19/2024 Depression Screening 01/18/2025 01/19/2024, 01/19/20 Tobacco Screening 01/18/2025 01/19/2024 Cervical Cancer Screening 01/22/2029 HPV/Cotest 01/22/2029 Lipid Panel 01/22/2029 01/23/2024, 12/07/2023, 07/08/2022, Additional history exists Pap Smear 01/22/2029 [...] on patient's age to complete this topic Hepatitis A Vaccines Aged Out No long er eligible based on patient's age to complete [...] AIR Routine 04/15/2024 8:1 1 AM EST NICOTINE AND COTININE, SERUM/PLASMA Routine 04/15/2024 8:06 AM EST NICOTINE AND COTININE, URINE Routine 04/15/2024 8:05 AM EST US ABDOMEN COMPLETE WITH ELASTOGRAPHY Routine 02/26/2024 9:14 AM EST HEMATOXYLIN AND EOSIN STAIN Routine 02/01/2024 1:35 PM EST HCG, QL, URINE Routine 02/01/2024 11:44 AM EST US PELVIS TRANSVAGINAL Routine 01/31/2024 11:43 AM EST HM PAP/HPV Routine 01/23/2024 5:50 PM EST LIPID PANEL, STANDARD Routine 01/23/2024 10:12 AM EST HEPATITIS C AB W/REFL TO HCV RNA, [...] 50.0-59.9, adult (CMS/HCC) from Last 3 Months or Most Recently Relevant to Health Maintenance Results * FL upper GI w air (04/15/2024 8:11 AM EST) Anatomical Region Laterality Modality Body Radiographic Mamie ging 04/15/2024 8:11 AM EST Narrative 04/15/2024 10:17 AM EST ? [facility] ?[address] ?[place] [address] ? Fluoroscopy Report ? Signed ? Patient: Colon,Quiara ?MR#: [id number] ? : 1985 ?Acct:[id number] ? Age/Sex: 38 / F ?ADM Date: 03/03/25 ? Loc: HO.XRAY ? Attending Dr: Jairon Fox MD ? Ordering Physician: Jairon Fox MD ?? Date of Service: 04/15/24 ?? Procedure(s): FL upper GI w air ?? Accession Number(s): [id number] ? cc: Aida Vasquez DO; Jairon Fox [...] DD/ 0811 ? TD/TT: 04/15/24 0845 ? Ceo & Board Director: MSM ? Procedure Note Crsithian, Son - 04/15/[address] [address] Fluoroscopy Report Signed Patient: Shanae Rosa#: [id number] : 1985Acct:[id number] Age/Sex: 38 / FADM Date: 04/15/24 Loc: HO.XRAY Attending Dr: Jairon Fox MD Ordering Physician: Jairon Fox MD Date of Service: 04/15/24 Procedure(s): FL upper GI w air Accession Number(s): [id number] cc: Aida Vasquez DO; Jairon Fox MD [...] Clay Georges MD 04/15/2024 10:14 AM EST Dictated By: Clay Georges MD Signed By: <Electronically signed by Clay Georges MD in OV> 04/15/24 1014 DD/ 0811 TD/TT: 04/15/24 0845 Ceo & Board Director: PEDRO [facility] External Provider IMG FLU OROSCOPY PROCEDURES Final Result * Nicotine and Metabolite, Qnt, Plasma, Whole Blood, or Serum (04/15/2024 8:06 AM EST) Nicotine, Serum/Plasma <2 see note ng/mL [facility] Comment:Reference Ranges(ng/ mL): Non-Smoker Active Tobacco User < or = to 4 2-10 Cotinine, Serum/Plasma 11 see note ng/mL [facility] Comment:Reference Ranges(ng/ mL): Non-Smoker Active Tobacco User < or = to 8 16-145This test was developed and its analytical performancecharacteristics have been determined by [facility], [place]. It hasnot been cleared or approved by the U.S. Food and DrugAdministration. This assay has been validated pursuantto the CLIA regulations and is used for clinicalpurposes.THIS TEST WAS PERFORMED AT:[employer] [id number] [place] [address]URSQVJNPRABHU BUSTAMANTE MD,PHD 04/15/2024 8:06 AM EST 04/15/2024 8:06 AM EST us Generic External Data Provider LAB BLOOD ORDERAB LES Final Result [facility] [address] [place] [phone] * Nicotine and Cotinine, Urine (04/15/2024 8:05 AM EST) Nicotine, Urine 24 ng/mL [facility] Cotinine, Urine 84 ng/mL [facility] Comment:Reference Range: Mundo otine, Urine Smokers: 200-700 ng/mL Nonsmokers: < or = 17 ng/mL Cotinine, Urine Smokers: 300-1300 ng/mL Nonsmokers: < or = 20 ng/mLIndividuals exposed to second-hand or passive tobaccosmoke may demonstrate concentrations of nicotine andcotinine greater than those indicated for non-smokers.This test was developed and its analytical performancecharacteristics have been determined by [place], [place]. It hasnot been cleared or approved by the U.S. Food and DrugAdministration. This assay has been validated pursuantto the CLIA regulations and is used for clinicalpurposes.THIS TEST WAS PERFORMED AT:[employer] [place] [address]NPYLSFOPRABHU BUSTAMANTE MD,PHD 04/15/2024 8:05 AM EST 04/15/2024 8:15 AM EST us Generic External Data Provider LAB URINE ORDERAB LES Final Result [facility] [address] [place] [address] [phone] * US Abdomen Comp w elastography (02/26/2024 9:14 AM EST) Anatomical Region Laterality Modality Abdomen Ultrasound 02/26/2024 9:14 AM EST Narrative 02/27/2024 11:29 AM EST ? [facility] ?[address] ?[place] [address] ? Ultrasound Report ? Signed ? Patient: Colon,Quiara ?MR#: [id number] ? : 1985 ?Acct:[id number] ? Age/Sex: 38 / F ?ADM Date: 02/26/24 ? Loc: HO.US ? Attending Dr: Jairon Fox MD ? Ordering Physician: Jairon Fox MD ?? Date of Service: 02/26/24 ?? Procedure(s): US abdomen comp w elastography ?? Accession Number(s): [id number] ? cc: Aida Vasquez DO; Jairon Fox [...] Montes De Oca MD in OV> ?02/27/24 112 ? DD/ 3 ? TD/TT: 02/26/249[address] ? Ceo & Board Director: ? Procedure Note Son Morrow - 02/27/[address] [address] Ultrasound Report Signed Patient: Shanae Rosa#: [id number] : 1985Acct:[id number] Age/Sex: 38 / FADM Date: 02/26/24 Loc: HO.US Attending Dr: Jairon Fox MD Ordering Physician: Jairon Fox MD Date of Service: 02/26/24 Procedure(s): US abdomen comp w elastography Accession Number(s): [id number] cc: Aida Vasquez DO; Jairon Fox MD [...] in OV> 02/27/24 1127 DD/ 0914 TD/TT: 02/26/2427 Ceo & Board Director: [facility] External Provider IMG US PROCEDURES Final Result * Hematoxylin and Eosin Stain (02/01/2024 1:35 PM EST) 02/01/2024 1:35 PM EST 02/01/2024 2:24 PM EST [facility] - 02/06/2024 7:58 AM EST ----- ------- Name: Colon,Quiara ? Age/Sex: 38/F ? : 1985 Unit#: [id number] ?? Attend Dr: Jairon Fox MD ?Re02/01/24 ?Status: DEP SDC ? Location: HO.SSS ?Disch: ? ----- ------- SPEC : [id number] ? RECD: 02/01/24 ? STATUS: ??SOUT ? REQ NUM: [id number] ? JILLIAN: 02/01/24 ? SUBM DR: Jairon Fox MD ? ENTERED: ??02/01/24 ?SP TYPE: Surgical ? OTHR DR: Aida Vasquez DO ? ORDERED: ??HE Stain/9, Gross Micro L4/4, IHC/2, H. pylori/2, AB/PAS/3 ?Addendum Addendum ??1 ?Entered: 02/06/24 Metaplastic changes are not present, supported by AB/PAS stains (A, B and C); Helicobacter organisms are not identified with H. pylori immunostain (A, B). ??No change is made to the diagnoses. Addendum Signed (signature on file) Pradip Johnson MD 02/06/248 ? ----- ------- ? Diagnosis ?? A. [...] ? Age/Sex: 38/F ? : 1985 Unit#: [id number] ?? Attend Dr: Jairon Fox MD ?Re02/01/24 ?Status: DEP SDC ? Location: HO.SSS ?Disch: ? ----- ------- SPEC : [id number] ? RECD: 02/01/24 ? STATUS: ??SOUT ? REQ NUM: [id number] ? JILLIAN: 02/01/242 ? SUBM DR: Jairon Fox MD ? [...] Copies To: ?? Aida Vasquez DO ?? [facility] ?? [address] ?? [place] [address] ?? [phone] ?? Jairon Fox MD ?? [facility] ?? [address] ?? [place] [address] ?? [phone] ----- ------- Signed (signature on file) Pradip Johnson MD 02/02/24 5282 ? ----- ------- ? END OF REPORT ? Generic External Data Provider LAB BLOOD ORDERAB LES Final Result Performing Organization Address [facility] de Phone Number [facility] [address] [place] [address] [phone] * HCG, Qualitative, Urine (02/01/2024 11:44 AM EST) Urine NEGATIVE NEGATIVE [facility] Comment:This test was develo ped to detect early . Falsenegative results may occur after the 5th - 7th week ofpregnancy when using this test method. If clinicallyindicated, consider a serum hCG. 02/01/2024 11:4 4 AM EST 02/01/2024 11:49 AM EST Generic External Data Provider LAB URINE ORDERAB LES Final Result Performing Organization Address [facility] Co de Phone Number [facility] [address] [place] [address] [phone] * US Pelvis Transvaginal (01/31/2024 11:43 AM EST) Anatomical Region Laterality Modality Pelvis Ultrasound 01/31/2024 11:4 3 AM EST Narrative 03/12/2024 2:08 PM EST ? [facility] ?[address] ?[place] [address] ? Ultrasound Report ? Signed ? Patient: Colon,Quiara ?MR#: [id number] ? : 1985 ?Acct:[id number] ? Age/Sex: 38 / F ?ADM Date: 12/18/24 ? Loc: HO.US ? Attending Dr: Juan Velazco MD ? Ordering Physician: Juan Velazco MD ?? Date of Service: 01/31/24 ?? Procedure(s): US pelvic and transvaginal ?? Accession Number(s): [id number] ? cc: Aida Vasquez DO; Juan Velazco [...] DD/ 1143 ? TD/TT: 01/31/24 1155 ? Ceo & Board Director: ? Procedure Note Cristhian, Image - 03/12/[address] [address] Ultrasound Report Signed Patient: Shanae Rosa#: [id number] : 1985Acct:[id number] Age/Sex: 38 / FADM Date: 01/31/24 Loc: .US Attending Dr: Juan Velazco MD Ordering Physician: Juan Velazco MD Date of Service: 01/31/24 Procedure(s): US pelvic and transvaginal Accession Number(s): [id number] cc: Aida Vasquez DO; Juan Velazco MD [...] by: Dorita Lopez MD 03/12/2024 02:05 PM [facility] Dictated By: Dorita Lopez MD Signed By: <Electronically signed by Dorita Lopez MD in OV> 03/12/24 1405 DD/ 1143 TD/TT: 01/31/24 1155 Ceo & Board Director: us [facility] External Provider IMG US PROCEDURES Final Result * HM PAP/HPV (01/23/2024 5:50 PM EST) us Historical Provider HEALTH MAINTENANCE Final Result * (ABNORMAL) Lipid Panel, Standard (01/23/2024 10:12 AM EST) Triglycerides 92 <150 mg/dL [facility] Comment:Desirable Triglyceri de: less than 150 mg/dLBorderline High Triglyceride 150-199 mg/dLHigh Triglyceride: 200-499 mg/dLVery High Triglyceride: greater than or equal to 5OO mg/dL Cholesterol 120 <200 mg/dL [facility] Comment:Desirable Cholestero l: less than 200 mg/dLBorderline High Cholesterol: 200-239 mg/dLHigh Cholesterol: greater than 239 mg/dL LDL Cholesterol Calculated 66 <100 mg/dL [facility] Comment:Desirable LDL: less than 100 mg/dLNear Optimal/Above Optimal LDL: 110- 129 mg/dLBorderline High LDL: 130-159 mg/dLHigh LDL: 160-189 mg/dLVery High LDL: greater than or equal to 190 mg/dL HDL Cholesterol 36(L) >40 mg/dL [facility] Comment:Desirable HDL: great er than 40 mg/dL Note: This HDL assay may give artificially low results in patients with liver disease. 01/23/2024 10:1 2 AM EST 01/23/2024 10:12 AM EST us Generic External Data Provider LAB BLOOD ORDERAB LES Final Result [facility] [address] [place] [address] [phone] * Hepatitis C Antibody with Reflex to HCV, RNA, Quantitative, Real-Time PCR (01/19/2024 11:52 AM EST) Hepatitis C Antibody Nonreactive Nonreactive [facility] Comment:Antibodies to HCV no t detected; does not exclude early acuteHCV infection. Blood Venous blood specimen / Unknown 01/19/2024 11:52 AM EST 01/19/2024 12:55 PM EST Aida Pedro DO LAB BLOOD ORDERABLES Final R esult Performing Organization Address City/[facility] Co de Phone Number [facility] [address] [place] [address] [phone] * HIV-1/2 Antigen and Antibodies, Fourth Generation, with Reflexes (01/19/2024 11:52 AM EST) HIV AB/AG Nonreactive Nonreactive [facility] Comment:HIV-1 p24 Ag and/or HIV-1/HIV-2 Ab not detected.A test result that is nonreactive does not exclude thepossibility of exposure to or infection with HIV-1 and/orHIV-2. Nonreactive results in this assay for individualswith prior exposure to HIV-1 and/or HIV-2 may be due toantigen and antibody levels that are below the limit ofdetection of this assay.The Gene[employer] HIV Ag/Ab Combo assay result andsupplemental assay results should be interpreted inconjunction with the patient's clinical presentation,history and other laboratory results. If the results areinconsistent with clinical evidence, additional testing issuggested to confirm the result. Blood Venous blood specimen / Unknown 01/19/2024 11:52 AM EST 01/19/2024 12:55 PM EST Aida Vasquez DO LAB BLOOD ORDERABLES Final R kyleult Performing Organization Address City/[facility]/ZIP Co de Phone Number [facility] [address] [place] [address] [phone] from Last 3 Months or Most Recently Relevant to Health Maintenance [facility] Care Teams Safety Supervisor Relationship Specialty Start Date End Date Aida Vasquez DO [address] [place] [address] PCP - General Family Medicine 10/24/14
--- OUTSIDE RECORDS SUMMARY | 2024-04-30 11:38 | XMS_ITS | Encounter Summary ---
Author Organization [employer] Address [address] [facility] 7t [place] [address] Care Team Providers Care Patient Transport Orderly Name Role Phone Aida Vasquez DO Primary Care Provider + [phone] Reason for Visit * Reason Comments Med Refill Encounter Details Date Type Department Care Team (Late st Contact Info) Description 04/25/2024 Refill [facility] MEDICINE [address] [place] [address] Aida Vasquez DO [address] [place] [address] Social History Tobacco Use Types Packs/Day Years [...] documented as of this encounter Care Teams Patient Transport Orderly Relationship Specialty Start Date End Date Aida Vasquez DO [address] [place] [address] PCP - General Family Medicine 10/24/14 documented as of this encounter
--- OUTSIDE RECORDS SUMMARY | 2024-04-30 11:38 | XMS_ITS | Encounter Summary ---
Author Organization [employer] Address [address] [facility] [address]t [place] [address] Care Team Providers Care Chefs Name Role Phone Aida Vasquez DO Primary Care Provider [phone] Encounter Details Date Type Department Care Team (Late st Contact Info) Description 05/12/2022 Orders Only [facility] MED & PEDS [address] [place] [address] Aida Feliz LPN Social History Tobacco Use [...] on filedocumented in this encounter Care Teams Chefs Relationship Specialty Start Date End Date Aida Vasquez DO [address] [place] [address] PCP - General Family Medicine 10/24/14 documented as of this encounter
--- OUTSIDE RECORDS SUMMARY | 2024-04-30 11:38 | XMS_ITS | Encounter Summary ---
Author Organization [employer] Address [address] [facility] 7t [place] [address] Care Team Providers Care Wire Mill Rover Name Role Phone JaneyAida young Primary Care Provider + [phone] Encounter Details Date Type Department Care Team (Late st Contact Info) Description 04/15/2024 Orders Only GENERIC EXTERNAL DATA DEPARTMENT Provider, Generic External Data Social History Tobacco Use Types Packs/Day Years [...] Procedure Name Priority Date/Time Associated Diagnosis Comments NICOTINE AND COTININE, SERUM/PLASMA Routine 04/15/2024 8:06 AM EST NICOTINE AND COTININE, URINE Routine 04/15/2024 8:05 AM EST documented in this encounter Results * Nicotine and Metabolite, Qnt, Plasma, Whole Blood, or Serum (04/15/2024 8:06 AM EST) Nicotine, Serum/Plasma <2 see note ng/mL [facility] Comment:Reference Ranges(ng/ mL): Non-Smoker Active Tobacco User < or = to 4 2-10 Cotinine, Serum/Plasma 11 see note ng/mL [facility] Comment:Reference Ranges(ng/ mL): Non-Smoker Active Tobacco User < or = to 8 16-145This test was developed and its analytical performancecharacteristics have been determined by [employer], [place]. It hasnot been cleared or approved by the U.S. Food and DrugAdministration. This assay has been validated pursuantto the CLIA regulations and is used for clinicalpurposes.THIS TEST WAS PERFORMED AT:[employer]/[facility] [id number] [place] [address]TPHILJJPRABHU BUSTAMANTE MD,PHD 04/15/2024 8:06 AM EST 04/15/2024 8:06 AM EST us Generic External Data Provider LAB BLOOD ORDERAB LES Final Result [facility] [address] [place] [phone] [phone] * Nicotine and Cotinine, Urine (04/15/2024 8:05 AM EST) Nicotine, Urine 24 ng/mL [facility] Cotinine, Urine 84 ng/mL [facility] Comment:Reference Range: Mundo otine, Urine Smokers: 200-700 ng/mL Nonsmokers: < or = 17 ng/mL Cotinine, Urine Smokers: 300-1300 ng/mL Nonsmokers: < or = 20 ng/mLIndividuals exposed to second-hand or passive tobaccosmoke may demonstrate concentrations of nicotine andcotinine greater than those indicated for non-smokers.This test was developed and its analytical performancecharacteristics have been determined by [employer], [place]. It hasnot been cleared or approved by the U.S. Food and DrugAdministration. This assay has been validated pursuantto the CLIA regulations and is used for clinicalpurposes.THIS TEST WAS PERFORMED AT:[employer]/[facility] [place] [address]TLAIZZZPRABHU BUSTAMANTE MD,PHD 04/15/2024 8:05 AM EST 04/15/2024 8:15 AM EST us Generic External Data Provider LAB URINE ORDERAB LES Final Result [facility] [address] [place] [address] [phone] documented in this encounter Visit Diagnoses Not on filedocumented in this encounter Additional Health Concerns Assessment Noted Time PHQ-9 Depression Total Score: 11 01/18/2 024 11:07 AM EST documented as of this encounter Care Teams Wire Mill Rover Relationship Specialty Start Date End Date Aida Vasquez DO [address] [place] [address] PCP - General Family Medicine 10/24/14 documented as of this encounter
--- OUTSIDE RECORDS SUMMARY | 2024-04-30 11:38 | XMS_ITS | Encounter Summary ---
Author Organization [employer] Address [address] [facility] 7t [place] [address] Care Team Providers Care Test And Balance Engineer Name Role Phone Pedro Aida Primary Care Provider + [phone] Encounter Details Date Type Department Care Team (Late st Contact Info) Description 03/30/2024 Orders Only [facility] MEDICINE [address] [place] [address] ProviderQueta MD Social History Tobacco Use Types [...] EST Narrative 04/15/2024 10:17 AM EST ? [facility] ?[address] ?[place] [address] ? Fluoroscopy Report ? Signed ? Patient: Colon,Quiara ?MR#: [id number] ? : 1985 ?Acct:[id number] ? Age/Sex: 38 / F ?ADM Date: 04/15/24 ? Loc: HO.XRAY ? Attending Dr: Jairon Fox MD ? Ordering Physician: Jairon Fox MD ?? Date of Service: 04/15/24 ?? Procedure(s): FL upper GI w air ?? Accession Number(s): [id number] ? cc: Aida Vasquez DO; Jairon Fox [...] DD/ 0811 ? TD/TT: 04/15/24 0845 ? Stogie Packer: MSM ? Procedure Note Cristhian, Image - 04/15/2024 [place] [address] Fluoroscopy Report Signed Patient: Shanae Rosa#: [id number] : 1985Acct:[id number] Age/Sex: 38 / FADM Date: 04/15/24 Loc: DASH Attending Dr: Jairon Fox MD Ordering Physician: Jairon Fox MD Date of Service: 04/15/24 Procedure(s): FL upper GI w air Accession Number(s): [id number] cc: Aida Vasquez DO; Jairon Fox MD [...] GI exam is unremarkable. Electronically signed by: lCay Georges MD 04/15/2024 10:14 AM EST RP Dictated By: Clay Georges MD Signed By: <Electronically signed by Clay Georges MD in OV> 04/15/24 1014 DD/ 0811 TD/TT: 04/15/24 0845 Stogie Packer: PEDRO [facility] External Provider IMG FLU OROSCOPY PROCEDURES Final Result * HM PAP/HPV (01/23/2024 5:50 PM EST) Historical Provider HEALTH MAINTENANCE Final Result documented in this encounter Visit Diagnoses Not on filedocumented in this encounter Additional Health Concerns Assessment Noted Time PHQ-9 Depression Total Score: 11 024 11:07 AM EST documented as of this encounter Care Teams Test And Balance Engineer Relationship Specialty Start Date End Date Aida Vasquez DO [address] [place] [address] PCP - General Family Medicine 10/24/14 documented as of this encounter
== END 2024-04-30 12:07 | disposition home or self-care (01) ==
LOC: HO.HWS 10:11
PROVIDERS: PCP Family Medicine; Visit Provider Obstetrics & Gynecology
DX: N93.9 Abnormal uterine and vaginal bleeding, unspecified (principal)
CPT/HCPCS: 99213

== ENCOUNTER → 2024-04-30 10:11 | Outpatient (BNVA) | payer MEDICAID, SELFPAY | PROVIDERS: PCP Family Medicine; Visit Provider Obstetrics & Gynecology | DX: N93.9 Abnormal uterine and vaginal bleeding, unspecified (principal) | CPT/HCPCS: 99212 ==

== ENCOUNTER 2024-05-17 08:23 | Outpatient (AMB) | payer MEDICAID, SELFPAY ==
--- OUTSIDE RECORDS SUMMARY | 2024-05-17 08:39 | XMS_ITS | Encounter Summary ---
Author Organization [employer] Address [address] [facility] 7t [place] [address] Care Team Providers Care Rn Pacu Name Role Phone Aida Vasquez DO Primary Care Provider [phone] Encounter Details Date Type Department Care Team (Late st Contact Info) Description 05/12/2022 Orders Only [facility] MED & PEDS [address] [place] [address] Aida Feliz LPN Social History Tobacco Use [...] on filedocumented in this encounter Care Teams Rn Pacu Relationship Specialty Start Date End Date Aida Vasquez DO [address] [place] [address] PCP - General Family Medicine 10/24/14 documented as of this encounter
--- OUTSIDE RECORDS SUMMARY | 2024-05-17 08:39 | XMS_ITS | Clinical Summary ---
Author Organization [employer] Address [address] [facility] 7t [place] [address] Care Team Providers Care Injection Molding Machine Setter Name Role Phone Aida Vasquez Primary Care Provider Allergies Active Allergy Reactions [...] 22 Active ergocalciferol (Vitamin D2) 1.25 MG (93285 UT) capsuleIndicati ons:Vitamin D deficiency Take 1 [...] capsule 3 01/23/20 24 025 Active albuterol (2.5 MG/3ML) 0.083% nebulizer solution INHALE 1 AMPULE USING A NEBULIZER EVERY 4 HOURS NEEDED FOR COUGH, WHEEZING, OR SHORTNESS OF BREATH 90 mL 2 04/26/19 25 Active calcium carbonate (Calcium Antacid) 500 MG chewable tablet CHEW 2 TABLETS BY MOUTH AFTER MEALS NEEDED FOR HEARTBURN, DO NOT EXCEED 8 TABLETS / 24 HOURS 180 tablet 04/26/19 25 Active albuterol (Ventolin HFA) 108 (90 Base) MCG/ACT inhalerIndicati ons:Asthma, unspecified asthma severity, unspecified whether complicated, unspecified whether persistent INHALE 2 PUFFS BY MOUTH EVERY 4 TO 6 HOURS NEEDED FOR COUGH, WHEEZING, OR SHORTNESS OF BREATH 18 g 1 05/07/19 25 Active albuterol (2.5 MG/3ML) 0.083% nebulizer solution INHALE 1 AMPULE USING A NEBULIZER EVERY 4 HOURS NEEDED FOR COUGH, WHEEZING, OR SHORTNESS OF BREATH 90 mL 2 04/25/19 24 025 Discontinued calcium carbonate (Calcium Antacid) 500 MG chewable tablet CHEW 2 TABLETS BY MOUTH AFTER MEALS NEEDED HEARTBURN. DO NOT EXCEED 8 TABLETS IN 24 HOURS 180 tablet 10/25/19 24 025 Discontinued albuterol (Ventolin HFA) 108 (90 Base) MCG/ACT inhalerIndicati ons:Asthma, unspecified asthma severity, unspecified whether complicated, unspecified whether persistent INHALE 2 PUFFS BY MOUTH EVERY 4 TO 6 HOURS NEEDED FOR COUGH, WHEEZING, OR SHORTNESS OF BREATH 18 g 1 03/27/19 25 025 Discontinued Active Problems Problem Noted Date [...] Encounters Date Type Department Care Team Description 05/05/2024 Refill [facility] MEDICINE [address] [place] [address] Aida Vasquez DO Asthma, unspecified asthma severity, unspecified whether complicated, unspecified whether persistent 04/26/2024 Population Health Risk Score [facility] Department [address] [phone] Provider, Population Health Generic 04/25/2024 Refill [facility] MEDICINE [address] [place] [address] Aida Vasquez DO 04/15/2024 Orders Only GENERIC EXTERNAL DATA DEPARTMENT Provider, Generic External Data 03/30/2024 Orders Only [facility] MEDICINE [address] [place] [address] Provider, MD Queta 03/25/2024 Refill [facility] MEDICINE [address] [place] [address] Aida Vasquez DO Asthma, unspecified asthma severity, unspecified whether complicated, unspecified whether persistent from Last 3 Months Immunizations Name Administration Dates Next Due DTaP 05/02/1990, 0,08/02/1988,06/02,04/04/1988 Hep B, Adolescent or Pediatric 01/06/1999,1997,12/18/1997 Hib (HbOC) 01/02/1990 Influenza injectable quadriv alent IIV4 with preservative 11/11/2015 Influenza injectable quadriv alent preservative free 03/13/2023,01/14/2020,01/15/2018 Influenza, IIV3, injectable 11/11/2013, 2 Influenza, Split (incl. niles fied surface antigen) 12/03/2012 Influenza, seasonal, injecta ble, preservative free 01/19/2024 MMR 01/06/1999,01/02/1990 OPV, Trivalent 07/02/1992, 9,06/02/1988,04/04 Pfizer Covid-19 Vaccine 12+ 01/19/2024 [...] 01/22/2029 HPV/Cotest 01/22/2029 Lipid Panel 01/22/2029 01/23/2024, 12/0 07/2023, 07/08/2022, Additional history exists Pap Smear [...] WITH ELASTOGRAPHY Routine 02/26/2024 9:14 AM EST HM PAP/HPV Routine 01/23/2024 5:50 [...] EST Narrative 04/15/2024 10:17 AM EST ? [facility] ?[address] ?[place] [address] ? Fluoroscopy Report ? Signed ? Patient: Colon,Quiara ?MR#: [id number] ? : 1985 ?Acct:[id number] ? Age/Sex: 38 / F ?ADM Date: 03/03/25 ? Loc: HO.XRAY ? Attending Dr: Jairon Fox MD ? Ordering Physician: Jairon Fox MD ?? Date of Service: 04/15/24 ?? Procedure(s): FL upper GI w air ?? Accession Number(s): [id number] ? cc: Aida Vasquez DO; Jairon Fox [...] DD/ 0811 ? TD/TT: 04/15/24 0845 ? Freelance Recruiter: MSM ? Procedure Note Cristhian, Image - 04/15/[address] [address] Fluoroscopy Report Signed Patient: Shanae Rosa#: [id number] : 1985Acct:[id number] Age/Sex: 38 / FADM Date: 04/15/24 Loc: DASH Attending Dr: Jairon Fox MD Ordering Physician: Jairon Fox MD Date of Service: 04/15/24 Procedure(s): FL upper GI w air Accession Number(s): [id number] cc: Aida Vasquez DO; Jairon Fox MD [...] 04/15/24 1014 DD/ 0811 TD/TT: 04/15/24 0845 Freelance Recruiter: PEDRO [facility] External Provider IMG FLU OROSCOPY PROCEDURES Final Result * Nicotine and Metabolite, Qnt, Plasma, Whole Blood, or Serum (04/15/2024 8:06 AM EST) Nicotine, Serum/Plasma <2 see note ng/mL [facility] Comment:Reference Ranges(ng/ mL): Non-Smoker Active Tobacco User < or = to 4 2-10 Cotinine, Serum/Plasma 11 see note ng/mL [facility] Comment:Reference Ranges(ng/ mL): Non-Smoker Active Tobacco User < or = to 8 16-145This test was developed and its analytical performancecharacteristics have been determined by [facility] It hasnot been cleared or approved by the U.S. Food and DrugAdministration. This assay has been validated pursuantto the CLIA regulations and is used for clinicalpurposes.THIS TEST WAS PERFORMED AT:[employer] [id number] [place] [address]SAHJZUSPRABHU BUSTAMANTE MD,PHD 04/15/2024 8:06 AM EST 04/15/2024 8:06 AM EST us Generic External Data Provider LAB BLOOD ORDERAB LES Final Result [facility] [address] [place] [phone] * Nicotine and Cotinine, Urine (04/15/2024 8:05 AM EST) Nicotine, Urine 24 ng/mL [facility] Cotinine, Urine 84 ng/mL [facility] Comment:Reference Range: Ni cotine, Urine Smokers: 200-700 ng/mL Nonsmokers: < or = 17 ng/mL Cotinine, Urine Smokers: 300-1300 ng/mL Nonsmokers: < or = 20 ng/mLIndividuals exposed to second-hand or passive tobaccosmoke may demonstrate concentrations of nicotine andcotinine greater than those indicated for non-smokers.This test was developed and its analytical performancecharacteristics have been determined by [employer] [place], [place]. It hasnot been cleared or approved by the U.S. Food and DrugAdministration. This assay has been validated pursuantto the CLIA regulations and is used for clinicalpurposes.THIS TEST WAS PERFORMED AT:[id number] [place] [address]WQZBDTMPRABHU BUSTAMANTE MD,PHD 04/15/2024 8:05 AM EST 04/15/2024 8:15 AM EST us Generic External Data Provider LAB URINE ORDERAB LES Final Result [facility] [address] [place] [phone] * US Abdomen Comp w elastography (02/26/2024 9:14 AM EST) Anatomical Region Laterality Modality Abdomen Ultrasound 02/26/2024 9:14 AM EST Narrative 02/27/2024 11:29 AM EST ? [facility] ?[address] ?[place] [address] ? Ultrasound Report ? Signed ? Patient: Colon,Quiara ?MR#: [id number] ? : 1985 ?Acct:[id number] ? Age/Sex: 38 / F ?ADM Date: 02/26/24 ? Loc: HO.US ? Attending Dr: Jairon Fox MD ? Ordering Physician: Jairon Fox MD ?? Date of Service: 02/26/24 ?? Procedure(s): US abdomen comp w elastography ?? Accession Number(s): [id number] ? cc: Aida Vasquez DO; Jairon Fox [...] ?02/27/24 1127 ? DD/ 0914 ? TD/TT: 02/26/249[address] ? Freelance Recruiter: ? Procedure Note Cristhian, Image - 02/27/2024 [place] [address] Ultrasound Report Signed Patient: Shanae Rosa#: [id number] : 1985Acct:[id number] Age/Sex: 38 / FADM Date: 02/26/24 Loc: HO.US Attending Dr: Jairon Fox MD Ordering Physician: Jairon Fox MD Date of Service: 02/26/24 Procedure(s): US abdomen comp w elastography Accession Number(s): [id number] cc: Aida Vasquez DO; Jairon Fox MD [...] in OV> 02/27/24 1127 DD/ TD/TT: 02/26/249[address] Freelance Recruiter: us [facility] External Provider IMG US PROCEDURES Final Result * HM PAP/HPV (01/23/2024 5:50 PM EST) Historical Provider HEALTH MAINTENANCE Final Result * (ABNORMAL) Lipid Panel, Standard (01/23/2024 10:12 AM EST) Triglycerides 92 <150 mg/dL [facility] Comment:Desirable Triglyceri de: less than 150 mg/dLBorderline High Triglyceride 150-199 mg/dLHigh Triglyceride: 200-499 mg/dLVery High Triglyceride: greater than or equal to 5OO mg/dL Cholesterol 120 <200 mg/dL [facility] Comment:Desirable Cholestero l: less than 200 mg/dLBorderline High Cholesterol: 200-239 mg/dLHigh Cholesterol: greater than 239 mg/dL LDL Cholesterol Calculated 66 <100 mg/dL [facility] Comment:Desirable LDL: less than 100 mg/dLNear Optimal/Above Optimal LDL: 110- 129 mg/dLBorderline High LDL: 130-159 mg/dLHigh LDL: 160-189 mg/dLVery High LDL: greater than or equal to 190 mg/dL HDL Cholesterol 36(L) >40 mg/dL [facility] Comment:Desirable HDL: great er than 40 mg/dL Note: This HDL assay may give artificially low results in patients with liver disease. 01/23/2024 10:1 2 AM EST 01/23/2024 10:12 AM EST us Generic External Data Provider LAB BLOOD ORDERAB LES Final Result Performing Organization Address [facility] Co de Phone Number [facility] [address] [place] [phone] * Hepatitis C Antibody with Reflex to HCV, RNA, Quantitative, Real-Time PCR (01/19/2024 11:52 AM EST) Hepatitis C Antibody Nonreactive Nonreactive [facility] Comment:Antibodies to HCV no t detected; does not exclude early acuteHCV infection. Blood Venous blood specimen / Unknown 01/19/2024 11:52 AM EST 01/19/2024 12:55 PM EST us Aida Vasquez DO LAB BLOOD ORDERABLES Final R esult Performing Organization Address [facility] Co de Phone Number [facility] [address] [place] [phone] * HIV-1/2 Antigen and Antibodies, Fourth Generation, with Reflexes (01/19/2024 11:52 AM EST) HIV AB/AG Nonreactive Nonreactive [facility] Comment:HIV-1 p24 Ag and/or HIV-1/HIV-2 Ab not detected.A test result that is nonreactive does not exclude thepossibility of exposure to or infection with HIV-1 and/orHIV-2. Nonreactive results in this assay for individualswith prior exposure to HIV-1 and/or HIV-2 may be due toantigen and antibody levels that are below the limit ofdetection of this assay.The [employer] HIV Ag/Ab Combo assay result andsupplemental assay results should be interpreted inconjunction with the patient's clinical presentation,history and other laboratory results. If the results areinconsistent with clinical evidence, additional testing issuggested to confirm the result. Blood Venous blood specimen / Unknown 01/19/2024 11:52 AM EST 01/19/2024 12:55 PM EST us Aida Vasquez DO LAB BLOOD ORDERABLES Final R esult [facility] [address] [place] [address] [phone] from Last 3 Months or Most Recently Relevant to Health Maintenance [place] [address] [place] [address] C3 Care Teams Injection Molding Machine Setter Relationship Specialty Start Date End Date Aida Vasquez DO [address] [place] [phone] PCP - General Family Medicine 10/24/14
--- OUTSIDE RECORDS SUMMARY | 2024-05-17 08:39 | XMS_ITS | Encounter Summary ---
Author Organization [employer] Address [address] [facility] 7t [place] [address] Care Team Providers Care Cable Splicing Technician Name Role Phone Pedro Aida Primary Care Provider [phone] Encounter Details Date Type Department Care Team (Late st Contact Info) Description 03/30/2024 Orders Only [facility] MEDICINE [address] [place] [address] ProviderQueta MD Social History Tobacco Use Types [...] EST Narrative 04/15/2024 10:17 AM EST ? [facility] ?[address] ?[place] [address] ? Fluoroscopy Report ? Signed ? Patient: Colon,Quiara ?MR#: [id number] ? : 1985 ?Acct:[id number] ? Age/Sex: 38 / F ?ADM Date: 04/15/24 ? Loc: HO.XRAY ? Attending Dr: Jairon Fox MD ? Ordering Physician: Jairon Fox MD ?? Date of Service: 04/15/24 ?? Procedure(s): FL upper GI w air ?? Accession Number(s): [id number] ? cc: Aida Vasquez DO; Jairon Fox [...] DD/ 0811 ? TD/TT: 04/15/24 0845 ? Hydro Station Supervisor: MSM ? Procedure Note Cristhian, Image - 04/15/2024 [place] [address] Fluoroscopy Report Signed Patient: Shanae Rosa#: [id number] : 1985Acct:[id number] Age/Sex: 38 / FADM Date: 04/15/24 Loc: DASH Attending Dr: Jairon Fox MD Ordering Physician: Jairon Fox MD Date of Service: 04/15/24 Procedure(s): FL upper GI w air Accession Number(s): [id number] cc: Aida Vasquez DO; Jairon Fox MD [...] 04/15/24 1014 DD/ 0811 TD/TT: 04/15/24 0845 Hydro Station Supervisor: PEDRO [facility] External Provider IMG FLU OROSCOPY PROCEDURES Final Result * HM PAP/HPV (01/23/2024 5:50 PM EST) Historical Provider HEALTH MAINTENANCE Final Result documented in this encounter Visit Diagnoses Not on filedocumented in this encounter Additional Health Concerns Assessment Noted Time PHQ-9 Depression Total Score: 11 024 11:07 AM EST documented as of this encounter Care Teams Cable Splicing Technician Relationship Specialty Start Date End Date Aida Vasquez DO [address] [place] [phone] PCP - General Family Medicine 10/24/14 documented as of this encounter
--- OUTSIDE RECORDS SUMMARY | 2024-05-17 08:39 | XMS_ITS | Encounter Summary ---
Author Organization [facility] Address [address] [facility] [address]t [place] [address] Care Team Providers Care Can Runner Name Role Phone Aida Vasquez DO Primary Care Provider [phone] Encounter Details Date Type Department Care Team (Late st Contact Info) Description 03/01/2022 Orders Only [facility] MEDICINE [address] [place] [address] Cielo Elias LPN Social History Tobacco Use [...] on filedocumented in this encounter Care Teams Can Runner Relationship Specialty Start Date End Date Aida Vasquez DO [address] [place] [address] PCP - General Family Medicine 10/24/14 documented as of this encounter
--- NOTE | 2024-05-17 12:08 | MHC.OFFVISWM ---
VS Expanded 05/17/24 12:22 Height 5 ft 8.5 in Weight 303 lb 8 oz BMI 45.5 Body Fat % 39.6 Body Fat Mass 120.3 Fat Free Mass 183.4 Visceral Fat Rating 26 Body Water % 41.4 Body Water Mass 125.7 Basal Metabolic Rate/Score 2,154 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: TV Pre Op LSG 05/30/24 Allergies No Known Allergies Allergy (Verified 05/17/24 12:08) Medication List - Last Reconciled 05/17/24 by Jairon Fox MD albuterol sulfate 90 mcg/actuation (Ventolin HFA) 2 puffs inhalation Q4-6H PRN amlodipine 5 mg PO DAILY baclofen 10 mg PO TID PRN calcium carbonate (Calcium Antacid) 400 mg PO NEEDED cholecalciferol (vitamin D3) 125 mcg PO DAILY fluticasone propionate 220 mcg/actuation (Flovent HFA) 2 puffs inhalation BID PRN iron,carbonyl-vitamin C 65 mg iron- 125 mg (Vitron-C) 1 tab PO DAILY lisinopril 10 mg PO DAILY omeprazole 20 mg PO DAILY PRN ondansetron 4 mg PO Q12H pantoprazole 40 mg PO DAILY polyethylene glycol 3350 17 grams PO DAILY sucralfate 10 mL PO BID tirzepatide (weight loss) (Zepbound) 7.5 mg (0.5 mL) subcut QWEEK HPI HPI TV Pre Op LSG 05/30/24: Details: Start time: 12.05pm, End time: 12.35pm ?I spent 25 minutes speaking with the patient on the phone plus an additional 5 minutes reviewing and updating records for a total of 30 minutes HPI Comments Details: Overall weight loss: 49.4lbs, or 14% TBWL Is doing 2 Premier shakes (2 scoops each in almond milk), 2 Fit Crunch protein bars and one meal Exercise: Gym x3-4/weeks [facility] Medical History (Updated 05/16/24 @ 10:15 by Shu Levi RN) History of transfusion of packed red blood cells Hypertension GERD (gastroesophageal reflux disease) Back pain Morbid obesity Anemia Asthma Surgical History (Updated 05/16/24 @ 10:17 by Shu Levi RN) History of esophagogastroduodenoscopy (EGD) H/O dilation and curettage History of bladder suspension procedure Social History Household Members: Spouse and Children Housing: House Are you a primary home care attendant to a significant other at home: No Do you presently have visiting nurse or other home services: No Patient Tobacco Use Status: Current everyday Tobacco user Tobacco use type: Cigarette Cigarettes Per Day: 1 Second Hand Smoke Exposure: Yes service: No Current occupational status: employed 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 Plan for lap sleeve gastrectomy including upper GI endoscopy. All tests has been completed and reviewed and the patient is cleared for the surgery. ?If diaphragmatic or ventral hernias are present at time of surgery, these will be repaired laparoscopically as well. Risks and complications were discussed in detail including possible conversion to an open procedure, anastomotic leak, bleeding requiring transfusion, small bowel obstruction, , DVT and pulmonary embolism, cardiac, or pulmonary complications, as termination clerk complications such as anastomotic ulcer, insufficient weight loss and vitamin deficiencies. I emphasized the importance of close follow-up, adherence to instructions and good communication. So far she has proven to be an excellent communicator and very compliant with all our directions accomplishing a great weight loss. I believe that she is an excellent candidate and she is ready. 2. Preop prescriptions were provided and explained the purpose of each one. Need to be purchased preop. Start Pantoprazole now as you get it from the pharmacy, 1 pill per day. Sucralfate and Zofran are for after surgery as needed. 3. Bowel prep: please do 7 packets ?of Miralax mixing each one with a an 8oz glass of water, crystal light, gatorade zero, or propel ?on 05/28/24 and the same amount on 05/29/24. The Miralax you begin with one packet at a time in 8oz water or crystal light, gatorade zero, or propel ?as early in the day as you can and you do them back to back until you finish them. Continue the protein shakes during ?the bowel prep. 4. Needs to purchase 1oz medicine cups . 5. Needs to purchase Children's liquid Tylenol for postop pain control. 6. She needs to stop the Baclofen and the Zepbound as of today 05/17/24. Avoid aspirin, motrin, Advil, Aleve, Meloxicam, Excedrin, Ibuprofen, Naproxyn. Tylenol is OK. 7. She needs to purchase the Celebrate multivitamins from the hospital's gift shop, chewable or pills whatever you prefer. 8. Will do basic preop blood work-up any day on 05/24/2024 fasting for 12 hours and is scheduled to see the Anesthesiologist prior to the day of surgery. 9. Importance of adherence to postop folllow-up and recommendations was underscored and she understands that. 10. Stop food and bars as of today 05/17/24 and continue with 4 ?Premier protein shakes (TWO scoops EACH in 12oz almond milk) at 8am-10am, 11am-1pm, 2pm-4pm, 5pm-7pm and one more Premier protein shake with ONE scoop in 8oz of almond milk at 8pm-10pm 11. No soups, broths or V8 12. The patient's?medical?history has been reviewed and they are considered low risk for post op DVT and therefore DVT prophylaxis is not considered necessary. Travel after surgery was reviewed. The patient has not disclosed any travel plans during the first 30 days after surgery and they have been advised that within the first 30 days after surgery any bus, plane, train or car travel over 2 hours in duration is contraindicated due to the possibility of developing blood clots from immobility. Any travel, needs to include periods of ambulation of 10 minutes in duration every 2 hours.? Patient was instructed to discuss any plans for travel during this period with their bariatric surgeon.? 13. As of tomorrow, please check your blood pressure daily in the morning. If your blood pressure is: Below 120/70: do not take the Amlodipine or Lisinopril 121/71 to 135/85: take HALF Amlodipine and HALF Lisinopril Over 136/86: take the whole Amlodipine and whole Lisinopril 14. Please take at the day of surgery the following medications: Lisinopril and Amlodipine if the blood pressure that day is high enough to justify it based on the parameters at the previous bullet point. 15. Stop any control pills and don't use them for one month after surgery 16. Absolutely no smoking or vaping, or marijuana until the surgery and for at least the first 4 weeks. Only nicotine patches are allowed. 17. Send me weight measurements on 05/23/24 and then on 05/30/24, the day of surgery before you go to the hospital. 18. Avoid any steroids by mouth for any reason. Let me know if someone prescribes them to you 19. These instructions supersede anything else you read in the handbook, anything you watched in videos or classes or you were told by any other provider. If there is any conflict, you follow the above instructions and nothing else. Orders: Orders Hemoglobin A1c Today E66.01 - Morbid (severe) obesity due to excess calories, I10 - Essential (primary) hypertension, J45.909 - Unspecified asthma, uncomplicated, K21.9 - Gastro-esophageal reflux disease without esophagitis Lipid Panel Today E66.01 - Morbid (severe) obesity due to excess calories, I10 - Essential (primary) hypertension, J45.909 - Unspecified asthma, uncomplicated, K21.9 - Gastro-esophageal reflux disease without esophagitis Partial Thromboplastin Time Today E66.01 - Morbid (severe) obesity due to excess calories, I10 - Essential (primary) hypertension, J45.909 - Unspecified asthma, uncomplicated, K21.9 - Gastro-esophageal reflux disease without esophagitis C Reactive Protein Today E66.01 - Morbid (severe) obesity due to excess calories, I10 - Essential (primary) hypertension, J45.909 - Unspecified asthma, uncomplicated, K21.9 - Gastro-esophageal reflux disease without esophagitis Complete Blood Count Auto Diff Today E66.01 - Morbid (severe) obesity due to excess calories, I10 - Essential (primary) hypertension, J45.909 - Unspecified asthma, uncomplicated, K21.9 - Gastro-esophageal reflux disease without esophagitis Comprehensive Met. Panel Today E66.01 - Morbid (severe) obesity due to excess calories, I10 - Essential (primary) hypertension, J45.909 - Unspecified asthma, uncomplicated, K21.9 - Gastro-esophageal reflux disease without esophagitis TSH reflex Free T4 Today E66.01 - Morbid (severe) obesity due to excess calories, I10 - Essential (primary) hypertension, J45.909 - Unspecified asthma, uncomplicated, K21.9 - Gastro-esophageal reflux disease without esophagitis Prothrombin Time INR Today E66.01 - Morbid (severe) obesity due to excess calories, I10 - Essential (primary) hypertension, J45.909 - Unspecified asthma, uncomplicated, K21.9 - Gastro-esophageal reflux disease without esophagitis Type and Screen Today E66.01 - Morbid (severe) obesity due to excess calories, I10 - Essential (primary) hypertension, J45.909 - Unspecified asthma, uncomplicated, K21.9 - Gastro-esophageal reflux disease without esophagitis Insulin Today E66.01 - Morbid (severe) obesity due to excess calories, I10 - Essential (primary) hypertension, J45.909 - Unspecified asthma, uncomplicated, K21.9 - Gastro-esophageal reflux disease without esophagitis Medications: New polyethylene glycol 3350 Mix each measuring cup with 8oz of water, Crystal light, or Gatorade zero, or Propel and do 7 measuring cups on 05/28/24 and another 7 measuring cups on 05/29/24 17 grams PO DAILY 238 grams 0RF Z01.818 - Encounter for other preprocedural examination pantoprazole 40 mg PO DAILY 90 tabs 0RF K21.9 - Gastro-esophageal reflux disease without esophagitis sucralfate 10 mL PO BID 600 mL 2RF K21.9 - Gastro-esophageal reflux disease without esophagitis ondansetron Only take one every 12 hours as needed if you have nausea 4 mg PO Q12H 20 tabs 0RF nausea and vomiting K21.9 - Gastro-esophageal reflux disease without esophagitis
[2024-05-17 12:22] VITALS: BMI 45.5
== END 2024-05-17 12:36 | disposition home or self-care (01) ==
LOC: HO.HBS 08:23
PROVIDERS: PCP Family Medicine; Visit Provider Surgery
DX: E66.01 Morbid (severe) obesity due to excess calories (principal)
CPT/HCPCS: 99214

== ENCOUNTER 2024-05-30 09:49 | Inpatient (IN) | payer MEDICAID, SELFPAY ==
[2024-05-16 10:54] VITALS: BMI 45.4
[2024-05-24 09:17] LABS: MANUAL DIFF FLAG NO
[2024-05-24 09:28] LABS: Basophils Percent Auto 0.5 % (0-2); Eosinophils Absolute Auto 0.5 X10*3/uL (0.0-0.4); Eosinophils Percent Auto 5.4 % (0-4); Hematocrit 34.8 % (37.0-47.0); Hemoglobin 10.1 g/dl (12.0-16.0); Imm Gran Abs Auto 0.02 X10*3/uL (0.00-0.03); Imm Gran Pct Auto 0.2 % (0.0-0.4); Lymphocytes Absolute Auto 2.7 X10*3/uL (1.2-4.9); Lymphocytes Percent Auto 32.3 % (20-40); Mean Corpuscular Hemoglobin 21.7 pg (27.0-33.0); Mean Corpuscular Volume 74.8 fL (80.0-98.0); Mean Platelet Volume 10.9 fL (9.4-12.3); Monocytes Absolute Auto 0.5 X10*3/uL (0.1-1.2); Neutrophils Absolute Auto 4.6 x10*3/uL (2.0-8.3); Neutrophils Percent Auto 55.6 % (45-73); Platelet Count 461 X10*3/uL (160-400); Red Blood Count 4.65 X10*6/uL (4.20-5.50); Red Cell Distribution Width 20.5 % (11.0-16.0); White Blood Count 8.3 X10*3/uL (4.8-10.8)
[2024-05-24 09:32] LABS: Prothrombin Time 11.9 SEC (10.9-12.4)
[2024-05-24 09:38] LABS: Estimated Average Glucose 103 mg/dL; Hemoglobin A1C 89.6315 umol/L; Hemoglobin A1c % 5.2 % (<6.0); Total Hemoglobin (HGBA1C) 2726.2898 umol/L
[2024-05-24 10:19] LABS: Alanine Aminotransferase 26 U/L (0-31); Alkaline Phosphatase 66 U/L (39-117); Anion Gap 11 (12-20); Aspartate Amino Transferase 24 U/L (5-31); Bilirubin Total 0.3 mg/dL (0.0-1.0); Blood Urea Nitrogen 8 mg/dL (9-16); C Reactive Protein 3.28 mg/dL (< or = 0.50); Calcium 9.5 mg/dL (8.4-10.2); Carbon Dioxide 27 mmol/L (22-29); Chloride 108 mmol/L (96-108); Cholesterol 153 mg/dL (<200); Creatinine Clr Calc Pharmacy 173.6; Estimated Glomerular Filt Rate > 60; Glucose Random 93 mg/dL (60-115); HDL Cholesterol 31 mg/dL (>40); LDL Cholesterol Calculated 101 mg/dL (<100); Potassium 3.9 mmol/L (3.3-5.1); Sodium 142 mmol/L (135-145); Total Protein 7.6 g/dL (6.5-8.0); Triglycerides 108 mg/dL (<150)
[2024-05-24 10:26] LABS: TSH reflex Free T4 0.35 uIU/mL (0.32-4.0)
[2024-05-24 10:53] LABS: Insulin 21 uU/mL (2-29)
--- NOTE | 2024-05-29 09:35 | P.CONAN_ITS ---
Documented by User: Ninfa Grullon NP 05/29/24 09:36 HPI - Anesthesia Eval Consult details Narrative: 38yo F for Gastrectomy Sleeve,EGD,possibel Diaphragmatic Hernia,possible Ventral Hernia,possible Open PMFSH Active Problems Active Problems: All Active Problems Vitamin D deficiency (Acute) Abnormal uterine bleeding (Acute) Influenza (Acute) Hypertension (Acute) GERD (gastroesophageal reflux disease) (Acute) Back pain (Acute) Asthma (Acute) Morbid obesity (Acute) Past Medical History Medical History (Updated 05/30/24 @ 14:22 by Nilsa Alonso MD) History of transfusion of packed red blood cells Hypertension GERD (gastroesophageal reflux disease) Back pain Morbid obesity Anemia Asthma Family History Family history of problems with anesthesia: No Surgical History Surgical History History of esophagogastroduodenoscopy (EGD) H/O dilation and curettage History of bladder suspension procedure History of Problems with Anesthesia: No Social History Social History Household Members: Spouse and Children Housing: House Are you a primary career and technology education teacher to a significant other at home: No Do you presently have visiting nurse or other home services: No Patient Tobacco Use Status: Current everyday Tobacco user Tobacco use type: Cigarette Cigarettes Per Day: 1 Second Hand Smoke Exposure: Yes Use of substances other than those prescribed or required for medical reasons: No Have you been hit, kicked, punched, or otherwise hurt by someone within the past year? 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 Meds Allergies Allergy/AdvReac Type Severity Reaction Status Date / Time No Known Allergies Allergy Verified 05/24/24 09:26 Home Medications ?Medication ?Instructions ?Recorded ?Confirmed ?Last Taken ?Type albuterol sulfate 90 mcg/actuation 2 puff inhalation Q4-6H PRN 02/15/23 05/17/24 Unknown History aerosol inhaler (Ventolin HFA) wheezing baclofen 10 mg tablet 10 mg PO TID PRN muscle spasm 02/15/23 05/17/24 Unknown History fluticasone propionate 220 2 puff inhalation BID PRN 02/15/23 05/17/24 Unknown History mcg/actuation HFA aerosol inhaler Shortness Of Breath Or Wheezing (Flovent HFA) omeprazole 20 mg capsule,delayed 20 mg PO DAILY PRN Acid Reflux 02/15/23 05/17/24 Unknown History release calcium carbonate (Calcium Antacid) 400 mg PO NEEDED heartburn 05/16/24 05/17/24 Unknown History Exam Height,Weight and Vital Signs: Height 5 ft 8.5 in Weight 137.438 kg Pertinent Lab Results Pertinent Lab Results: Laboratory Tests 05/24/24 05/24/24 05/24/24 09:09 09:09 09:09 WBC RBC Hgb Hct MCV MCH MCHC RDW Plt Count MPV Immature Gran % (Auto) Neut % (Auto) Lymph % (Auto) Thomas % (Auto) Eos % (Auto) Baso % (Auto) Lymph # (Auto) Thomas # (Auto) Eos # (Auto) Baso # (Auto) Abs Immat Gran (auto) Absolute Neuts (auto) Absolute Nucleated RBC Nucleated RBC % (auto) PT INR APTT Sodium Potassium Chloride Carbon Dioxide Anion Gap BUN Creatinine Estim Creat Clear Calc Estimated GFR Random Glucose Estimat Average Glucose Hemoglobin A1c % Insulin Level Calcium Total Bilirubin AST ALT Alkaline Phosphatase C-Reactive Protein Total Protein Albumin Triglycerides Cholesterol LDL Cholesterol, Calc HDL Cholesterol TSH Blood Type A Positive Antibody Screen POSITIVE Antibody Identification Anti-CW Anti-E Anti-K Antigen Identification E Antigen - NEGATIVE Crossmatch ([facility]) 05/24/24 05/24/24 09:09 09:16 WBC 8.3 RBC 4.65 Hgb 10.1 L D Hct 34.8 L D MCV 74.8 L MCH 21.7 L MCHC 29.0 L RDW 20.5 H Plt Count 461 H D MPV 10.9 Immature Gran % (Auto) 0.2 Neut % (Auto) 55.6 Lymph % (Auto) 32.3 Thomas % (Auto) 6.0 Eos % (Auto) 5.4 H Baso % (Auto) 0.5 Lymph # (Auto) 2.7 Thomas # (Auto) 0.5 Eos # (Auto) 0.5 H Baso # (Auto) 0.0 Abs Immat Gran (auto) 0.02 Absolute Neuts (auto) 4.6 Absolute Nucleated RBC 0.000 Nucleated RBC % (auto) 0.0 PT 11.9 INR 1.0 APTT 28.0 Sodium 142 Potassium 3.9 Chloride 108 Carbon Dioxide 27 Anion Gap 11 L BUN 8 L Creatinine 0.66 Estim Creat Clear Calc 173.6 Estimated GFR > 60 Random Glucose 93 Estimat Average Glucose 103 Hemoglobin A1c % 5.2 Insulin Level 21 Calcium 9.5 D Total Bilirubin 0.3 AST 24 ALT 26 Alkaline Phosphatase 66 C-Reactive Protein 3.28 H Total Protein 7.6 Albumin 4.0 Triglycerides 108 Cholesterol 153 LDL Cholesterol, Calc 101 H HDL Cholesterol 31 L TSH 0.35 Blood Type Antibody Screen Antibody Identification Antigen Identification Fyb Antigen - POSITIVE Crossmatch ([facility]G) See Detail Narrative Narrative: EKG 01/2024 Vent. Rate : 093 BPM Atrial Rate : 093 BPM P-R Int : 146 ms QRS Dur : 088 ms QT Int : 374 ms P-R-T Axes : 061 047 036 degrees QTc Int : 465 ms Normal sinus rhythm Normal ECG When compared with ECG of 15-FEB-2023 01:48, No significant change was found Assessment and Plan Assessment Anesthesia Assessment: Chart Reviewed Final Anesthetic Review Family History of Problems with Anesthesia: No History of Problems with Anesthesia: No Documented by User: Nilsa Alonso MD 05/30/24 14:31 HPI - Anesthesia Eval Consult details Narrative: 38yo F for EGD, Laparoscopic Sleeve Gastrectomy, possible Diaphragmatic Hernia repair, possible Ventral Hernia repair, possible Open Anesthesia Pre-Procedure Meds Is the patient on any of the following meds?: GLP1/DPP4 (Last dose of Zepbound 05/17/24) If yes to any meds - educate patient: Pt education - increased risk of aspiration and/or euvolemic DKA PMFSH Active Problems Active Problems: All Active Problems Vitamin D deficiency (Acute) Abnormal uterine bleeding (Acute) Influenza (Acute) Hypertension (Acute) GERD (gastroesophageal reflux disease) (Acute) Back pain (Acute) Asthma (Acute) Morbid obesity (Acute) Smoker. Last cigarette yesterday morning Denies DELL Past Medical History Medical History (Updated 05/30/24 @ 14:22 by Nilsa Alonso MD) History of transfusion of packed red blood cells Hypertension GERD (gastroesophageal reflux disease) Back pain Morbid obesity Anemia Asthma Family History Family history of problems with anesthesia: No Surgical History Surgical History History of esophagogastroduodenoscopy (EGD) H/O dilation and curettage History of bladder suspension procedure History of Problems with Anesthesia: No Social History Social History Household Members: Spouse and Children Housing: House Are you a primary career and technology education teacher to a significant other at home: No Do you presently have visiting nurse or other home services: No Patient Tobacco Use Status: Current everyday Tobacco user Tobacco use type: Cigarette Cigarettes Per Day: 1 Second Hand Smoke Exposure: Yes Use of substances other than those prescribed or required for medical reasons: No Have you been hit, kicked, punched, or otherwise hurt by someone within the past year? 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 Meds Allergies Allergy/AdvReac Type Severity Reaction Status Date / Time No Known Allergies Allergy Verified 05/24/24 09:26 Home Medications ?Medication ?Instructions ?Recorded ?Confirmed ?Last Taken ?Type albuterol sulfate 90 mcg/actuation 2 puff inhalation Q4-6H PRN 02/15/23 05/17/24 Unknown History aerosol inhaler (Ventolin HFA) wheezing baclofen 10 mg tablet 10 mg PO TID PRN muscle spasm 02/15/23 05/17/24 Unknown History fluticasone propionate 220 2 puff inhalation BID PRN 02/15/23 05/17/24 Unknown History mcg/actuation HFA aerosol inhaler Shortness Of Breath Or Wheezing (Flovent HFA) omeprazole 20 mg capsule,delayed 20 mg PO DAILY PRN Acid Reflux 02/15/23 05/17/24 Unknown History release calcium carbonate (Calcium Antacid) 400 mg PO NEEDED heartburn 05/16/24 05/17/24 Unknown History Exam Height,Weight and Vital Signs: Height 5 ft 8.5 in Weight 137.438 kg Vital Signs Temp Pulse Resp BP Pulse Ox O2 Del Method 05/30/24 10:33 97.4 F 87 16 131/81 98 Room Air Pertinent Lab Results Pertinent Lab Results: Laboratory Tests 05/24/24 05/24/24 05/24/24 09:09 09:09 09:09 WBC RBC Hgb Hct MCV MCH MCHC RDW Plt Count MPV Immature Gran % (Auto) Neut % (Auto) Lymph % (Auto) Thomas % (Auto) Eos % (Auto) Baso % (Auto) Lymph # (Auto) Thomas # (Auto) Eos # (Auto) Baso # (Auto) Abs Immat Gran (auto) Absolute Neuts (auto) Absolute Nucleated RBC Nucleated RBC % (auto) PT INR APTT Sodium Potassium Chloride Carbon Dioxide Anion Gap BUN Creatinine Estim Creat Clear Calc Estimated GFR Random Glucose Estimat Average Glucose Hemoglobin A1c % Insulin Level Calcium Total Bilirubin AST ALT Alkaline Phosphatase C-Reactive Protein Total Protein Albumin Triglycerides Cholesterol LDL Cholesterol, Calc HDL Cholesterol TSH Blood Type A Positive Antibody Screen POSITIVE Antibody Identification Anti-CW Anti-E Anti-K Antigen Identification E Antigen - NEGATIVE Crossmatch ([facility]) 05/24/24 05/24/24 09:09 09:16 WBC 8.3 RBC 4.65 Hgb 10.1 L D Hct 34.8 L D MCV 74.8 L MCH 21.7 L MCHC 29.0 L RDW 20.5 H Plt Count 461 H D MPV 10.9 Immature Gran % (Auto) 0.2 Neut % (Auto) 55.6 Lymph % (Auto) 32.3 Thomas % (Auto) 6.0 Eos % (Auto) 5.4 H Baso % (Auto) 0.5 Lymph # (Auto) 2.7 Thomas # (Auto) 0.5 Eos # (Auto) 0.5 H Baso # (Auto) 0.0 Abs Immat Gran (auto) 0.02 Absolute Neuts (auto) 4.6 Absolute Nucleated RBC 0.000 Nucleated RBC % (auto) 0.0 PT 11.9 INR 1.0 APTT 28.0 Sodium 142 Potassium 3.9 Chloride 108 Carbon Dioxide 27 Anion Gap 11 L BUN 8 L Creatinine 0.66 Estim Creat Clear Calc 173.6 Estimated GFR > 60 Random Glucose 93 Estimat Average Glucose 103 Hemoglobin A1c % 5.2 Insulin Level 21 Calcium 9.5 D Total Bilirubin 0.3 AST 24 ALT 26 Alkaline Phosphatase 66 C-Reactive Protein 3.28 H Total Protein 7.6 Albumin 4.0 Triglycerides 108 Cholesterol 153 LDL Cholesterol, Calc 101 H HDL Cholesterol 31 L TSH 0.35 Blood Type Antibody Screen Antibody Identification Antigen Identification Fyb Antigen - POSITIVE Crossmatch ([facility]G) See Detail Laboratory Results - last 24 hr 05/30/24 10:22 Beta HCG, Quant < 2 Airway Mallampati Class: II TM Dist: >3cm Neck ROM: Full Loose/Missing/Broken Teeth: Yes (Missing teeth back. Denies broken or loose teeth) Heart: RRR Lungs: CTAB Assessment and Plan Assessment Anesthesia Assessment: Anesthesia Plan Discussed and Chart Reviewed Final Anesthetic Review Family History of Problems with Anesthesia: No History of Problems with Anesthesia: No NPO: Yes ASA Class: III Final Preanesthetic Review: No Changes in Pt Med Stat, Meds/Allgs Chart Reviewed, Consent Obtained/Reviewed and Anes Risks/Benef Reviewed Patient Risk: Intermediate Procedure Risk: Intermediate Assessment/Block/Sedation in SS: Assess/Block/Sedation-SS Anesthetic Plan Anesthetic Plan: GA Disposition: Standard PACU and Inp. Admit - Standard Bed
[2024-05-30] VITALS (10 sets, daily range): BP systolic 131–165; BP diastolic 81–100; PULSE 83–98; RESP 16–20; TEMP 36–37.7; O2SAT 95–98; BMI 45.3
[2024-05-30] MEDS: Lactated Ringers 1,000 ML 999 ML IV ×2 (10:42→12:03)
[2024-05-30] MEDS: Aprepitant 32 MG/4.4 ML VIAL IVPUSH (10:46)
[2024-05-30 11:09] LABS: HCG Quantitative < 2 mIU/mL
--- NOTE | 2024-05-30 12:59 | MHC.SHP ---
Pre-Procedural Eval Section A - 24 Hr Update-Section A only Date of Service: 05/30/24 The patient is an INPATIENT: Yes The patient has been examined within 24 hours of the surgical procedure. The History & Physical has been completed within 30 days and I have reviewed it.: No Section B - Complete if H&P > 30 days Chief Complaint: Morbid (severe) obesity Relevant Family History (Specify if Yes): No Relevant Social History: None Present Medications: None Medical History: No relevant PMH History of Previous Operations: No relevant previous surgery Allergies: Allergies Allergy/AdvReac Type Severity Reaction Status Date / Time No Known Allergies Allergy Verified 05/24/24 09:26 Review of Systems Sugical H&P ROS: Negative: Constitution, Cardiovascular, Respiratory, Neurological, Psychiatric, Hem-Onc, Allergic/Immunologic, Gastrointestinal, Genitourinary, Musculoskeletal, Integumentary, Endocrine and Eyes/Ears/Nose/Throat Exam Surgical H&P Exam: Normal: HEENT, Normal: Heart, Normal: Lungs, Normal: Extremities, Normal: Abdomen, Normal: Skin and Normal: Neurological Plan Diagnosis/Plan: Unchanged I have reviewed the history and physical and performed a pertinent physical examination on my patient. No changes have occurred unless specified. Time Spent With Patient Time: Total time managing care of this patient today ____ minutes.
--- NOTE | 2024-05-30 13:01 | P.BOP_ITS ---
Brief Operative Note Date of Service: 05/30/24 Pre-op diagnosis: Morbid obesity with comorbidities (see below) Post-op diagnosis: same Procedure: INITIAL PATIENT BMI ON PRESENTATION AT OUR OFFICE:53.7 kg/m2 LAST BMI BEFORE SURGERY: 45.3 kg/m2 COMORBIDITIES: Hypertension, asthma, GERD, back pain ?The patient presented to the Weight Management Program with significant obesity that was negatively impacting the patient's comorbidities as listed above.? The program is a phased program with a special focus on preoperative medical weight management to promote substantial weight loss and prepare the patients for the second phase of the program: bariatric surgery. The patient participated in an intensive weekly lifestyle ?intervention and exercise program during which the patient ?has lost between the initial office visit and the last preoperative visit 55.2 lbs, or 15.6% of initial actual body weight. It was deemed appropriate for the patient to now have bariatric surgery. In light of the current Covid-19 pandemic and the well documented strong association of obesity and increased risk of worse outcomes if infected with Covid-19 (REFERENCES: https://pubmed.ncbi.nlm.nih.gov/97222664/ ,? https://pub med.ncbi.nlm.nih.gov/56996967/ ), any delay in undergoing bariatric surgery may lead to the patient's worsening health condition and increased?risk of more severe Covid-19 disease if infected. In addition a recent?study from [facility] published in [facility] on 02/08/2021 ([email or web address]) found that, among patients with obesity, substantial weight loss achieved with surgery was associated with improved outcomes of COVID-19 infection. The findings suggest that obesity can be a modifiable risk factor for the severity of COVID-19 infection. In addition, the patient met the BMI-criteria for bariatric surgery based on the BMI on initial presentation. The patient should not be penalized for achieving such weight loss because ?it is not sustainable long-term without surgical intervention and it was achieved in preparation for bariatric surgery ?under my direction and based on my published research ([email or web address]).[email or web address] and? https://www.soard.org/article/[email or web address](59)89327-X/pdf ) ?that a 10% preoperative weight loss improves long-term weight loss after surgery and reduces perioperative complications.? Insurance carriers such as [facility] have endorsed my recommendations ?and have included in their policies criteria to include a 10% preoperative weight loss requirement. PROCEDURE: Esophago-gastroscopy, laparoscopic sleeve gastrectomy and laparoscopic gastropexy INDICATIONS: This is a 38 year-old female who was electively scheduled for laparoscopic, possibly open sleeve gastrectomy. The risks and complications of the procedure were discussed with the patient in advance, particularly the possibility of ; pulmonary embolism; staple line leak; bleeding; GERD; cardiac, pulmonary, or renal complications; as well as long-term problems such as insufficient weight loss, vitamin deficiency, strictures, or ulcers. The patient understood all the risks, and was in agreement to proceed with surgery. DESCRIPTION OF PROCEDURE: After informed consent was obtained from the patient, the patient was given preoperative antibiotics, and was transferred to the operating room. After successful induction of general anesthesia, pneumatic compression devices were placed on both lower extremities. An upper endoscopy was performed next. The oropharynx and esophagus appeared to be within normal limits. There was no significant diaphragmatic hernia present.. The stomach was entered. Then after all fluid and air were suctioned and the stomach was fully decompressed, the scope was withdrawn and secured in the mid esophagus. The patient was then prepped and draped in the usual sterile manner, and abdominal access was established at the right upper quadrant with the Elissa technique. A 12 mm blunt port was inserted, and the abdomen was insufflated with CO2 to a pressure of 15 mmHg. Under direct visualization, additional ports were placed, specifically two 5 mm Versi-step ports to the left upper quadrant, and a 5 mm Versi-Step port to the right upper quadrant. 1% lidocaine plain was used to infiltrate all port sites as well as all fascia defects. Following that, the patient was placed in a steep reverse Trendelenburg position. An additional 5 mm port was placed to the right flank for the Mediflex retractor that was used to retract the left lobe of the liver. The gastro-esophageal fat pad was opened with the ultrasonic device (Thmarcellerbeat, Olympus) and the anterior esophagus and hiatus were exposed. The angle of His was opened with the ultrasonic device the fundus of the stomach from any diaphragmatic and splenic attachments. I then opened the gastrocolic ligament between the transverse colon and the greater curvature of the stomach with the ultrasonic device to enter the lesser sac and facilitate the ligation of the short gastric vessels. I started at a mid-point along the greater curvature and using the Thunderbeat, all short gastric vessels were divided all the way to the angle of His until the left eugenia was completely dissected at its entirety. I then divided the gastro-colic ligament distally to a distance of about 3-4 cm proximal to the pylorus. The stomach was then divided transversely with three Endo UMAIR-45 purple and three UMAIR-60 articulating purple loads using the mobintent stapler and loads. Every effort was made that the gastric sleeve had a tubular shape and an even caliber throughout. Once the sleeve resection was completed, the staple line of the gastric sleeve was reinforced with Hemoclips. The resected stomach was retrieved without difficulty from the Elissa port. A gastropexy was then performed in order to prevent postoperative GERD and partial gastric volvulus. Several interrupted 2.0 Surgidac sutures were placed between the sleeve's staple line and the previously divided greater omentum and gastro-colic ligament using the Endo-Stitch device. ?An upper endoscopy was performed. There was no narrowing at the GE junction. The scope was easily advanced all the way to the pylorus which was clearly visualized. There was no narrowing anywhere and the sleeve's caliber was even throughout. The sleeve's staple line was inspected and there was no evidence of ischemia, bleeding or dehiscence. At that point the gastroscope was withdrawn from the patient?s mouth while we were decompressing the bowel and the stomach from any remaining air. I looked into the lesser sac to see how the sleeve was situating and it was situating well. There was no bleeding from the staple line, spleen, or short gastric vessels. The Mediflex retractor was removed, and the undersurface of the liver was inspected and there was no bleeding. The patient was placed in supine position. I closed the fascial defect of the 12 mm port site with a figure of eight #1 Polysorb suture. Then 30cc Ropivacaine plain with 10 mg of Dexamethasone were used to infiltrate the fascial closure as well as all skin incisions. At this point, the abdomen was deflated, all ports were removed under direct vision, and no bleeding was noted from any of the port sites. The skin incisions were irrigated with saline and were closed with 4-0 absorbable monofilament sutures. Steri-Strips and OpSites were used to cover all incisions. The patient was extubated and was transferred in stable condition to the recovery room for further care. I was present and performed all mosqueda parts of the procedure. Mr. Carpenter was the preschool assistant. There were no residents to assist with this case. Balwinder Fox MD, PhD, FACS Surgeon: Jairon Fox MD Anesthesia: GETA, local and other (TAP block) Was an Fabric Lay Out Worker used for this Procedure?: No Fabric Lay Out Worker: Hamzah Carpenter Estimated blood loss (mL): 10 IV fluids (mL): 2,500 Urine output (mL): 0 Pathology: other (1) Stomach, 2) Gastro-esophageal fat pad) Condition: stable Disposition: PACU
--- NOTE | 2024-05-30 13:04 | P.PNGS_ITS ---
Subjective Subjective Date of Service: 05/31/24 Interval history: Feels well. Mild incisional pain. She is tolerating phase 1 bariatric diet Physical Exam 2 Vital Signs: Vital Signs: Last Vital Signs Temp 97.4 F 05/30/24 10:33 Pulse 87 05/30/24 10:33 Resp 16 05/30/24 10:33 BP 131/81 05/30/24 10:33 Pulse Ox 98 05/30/24 10:33 O2 Del Method Room Air 05/30/24 10:33 BMI result Body Mass Index 45.4 GI: Inspection: Yes normal to inspection, Yes incision (clean, dry and intact) and Yes obesity Palpation (GI): Soft to palpation Extrem: Right lower extremity: normal to inspection (no calf tenderness) L eft lower extremity: normal to inspection (no calf tenderness) Objective Data Active Medications Albuterol Sulfate (Albuterol Sulfate (0.083%) 2.5 Mg/3 Ml Vial.Neb) 2.5 mg INHALE ONCE PRN PRN Reason: Shortness of Breath/Wheezing Lactated Ringer's (Lr) 1,000 mls @ 100 mls/hr IVCONT .Q10H MINOR Labs 05/31/24 05:54 05/31/24 05:54 Labs: Laboratory Results - last 24 hr 05/30/24 10:22 Beta HCG, Quant < 2 Procedures Date of Service Date of Service: 05/31/24 Progress Note: A&P Assessment and plan (1) Morbid obesity: Status: Acute Assessment and Plan: s/p laparoscopic sleeve gastrectomy and gastropexy Doing well Will check am labs and if OK the patient will be discharged home (2) Hypertension: Status: Acute (3) GERD (gastroesophageal reflux disease): Status: Acute (4) Back pain: Status: Acute (5) Asthma: Status: Acute (6) S/P laparoscopic sleeve gastrectomy: Status: Acute Time Spent With Patient Time: Total time managing care of this patient today ____ minutes. Quality Stroke Does the patient have a stroke diagnosis?: No VTE Prior VTE?: No VTE Risk Level:: Surgical - moderate VTE Device Contraindication: N/A - Device Ordered VTE Drug Contraindication: Treatment Not Indicated
[2024-05-30] MEDS: ceFAZolin Sodium/Dextrose,Iso 2 GM/50 ML PIGGYBACK IV ×2 (13:30→19:59)
[2024-05-30] MEDS: Acetaminophen 1,000 MG/100 ML PIGGYBACK 400 MG IV (13:53)
--- NOTE | 2024-05-30 15:38 | P.DS_ITS ---
DS: Providers Provider Date of Service: 05/31/24 Date of admission: 05/30/24 09:49 Date of discharge: 05/31/24 Primary care physician: Aida Vasquez DO DS: Diagnosis Discharge Diagnosis (1) Morbid obesity: Status: Acute (2) Hypertension: Status: Acute (3) GERD (gastroesophageal reflux disease): Status: Acute (4) Back pain: Status: Acute (5) Asthma: Status: Acute DS: Summary Hospital Course Hospital Course: ADMITTING DIAGNOSIS: morbid obesity, iron deficiency anemia, htn, gerd, asthma ? DISCHARGE DIAGNOSIS: same, s/p laparoscopic sleeve gastrectomy ? PAST SURGICAL HISTORY: bladder suspension ? PROCEDURE: upper endoscopy, laparoscopic sleeve gastrectomy ? DISCHARGE SUMMARY: ? History of Present Illness: ? The patient is a?38 year-old woman with a BMI of?53.7 kg/m2 and associated co- morbidities as described above. The patient had extensive work-up,lost?50.4 lbs preoperatively and was electively scheduled for laparoscopic, possible open sleeve gastrectomy and gastropexy. Risks and complications of the surgery were discussed with the patient in advance, particularly the possibility of , pulmonary embolism, anastomotic leak, bleeding, bowel injury, GERD, cardiac, renal or pulmonary complications. The patient understood all the risks and was in agreement with the surgical plan. ? Hospital Course: ? The patient underwent an uneventful laparoscopic sleeve gastrectomy with gastropexy on the day of admission. Postoperatively, the patient was transferred to the surgical floor. The patient received IV Acetaminophen and IV dilaudid for pain control. Patient was started on bariatric phase 1 diet POD #0. On postoperative day one, the patient was feeling well without nausea, vomiting, fevers, or tachycardia. The patient had some mild incisional pain and the abdomen was soft. ? On the morning of postoperative day one, the patient was continued on 1 ounce of water or ice every half hour. During the day, the patient did fairly well, having some incisional pain, but able to ambulate adequately and to tolerate liquids well. ? Since the patient is doing well, we decided that the patient was ready to be discharged. The patient was given instructions to follow-up with me next week and to call my office for any fever over 101, persistent abdominal pain, nausea, vomiting, GERD, symptoms of DVT such as calf tenderness, or leg swelling, or pulmonary embolism such as chest pain or shortness of breath. The patient was also instructed to drink 40-60 ounces of liquids per day using the 1-ounce cups. The patient had been given prescriptions for Tylenol for pain, Zofran prn for nausea, and pantoprazole and carafate previously. The patient was encouraged to ambulate and use the incentive spirometer. The patient was allowed to shower, but no baths, and encouraged to stay active at home. All of these instructions were given to the patient personally. All questions were answered and the patient understood all instructions, the instructions were also given to the patient in print. Time Attestation Total time managing care of this patient today: 25 mintues. Discharge Coordination Time (in mins): 25 Quality: Safe Use of Opioids Does Pt have an Active Cancer Diagnosis on the Problem List?: No Quality: Stroke Does the patient have a stroke diagnosis?: No Physical Exam Vital Signs: Vital Signs: Last Vital Signs Temp 97.4 F 05/30/24 10:33 Pulse 87 05/30/24 10:33 Resp 16 05/30/24 10:33 BP 131/81 05/30/24 10:33 Pulse Ox 98 05/30/24 10:33 O2 Del Method Room Air 05/30/24 10:33 BMI result Body Mass Index 45.4 DS: Data Data Completed and Pending Completed studies during hospitalization [Text1]: Procedures Transfusion of Nonautologous Red Blood Cells into Peripheral Vein, Percutaneous Approach (02/15/23) Pending studies at discharge: Pending at discharge 05/30/24 14:51 Surgical [PTH] Routine Labs on day of discharge: Laboratory Results - last 24 hr 05/30/24 10:22 Beta HCG, Quant < 2 Discharge Plan Discharge Anticipated Discharge Date/Time: 05/31/24 22:00 Patient Disposition: Home, Self-Care Discharge Diagnosis: s/p laparoscopic sleeve gastrectomy Referrals: Aida Vasquez DO [Primary Care Provider] - 1 Week Discharge Medications: Continued Vitron-C 65 mg iron- 125 mg tablet,delayed release (DR/EC) 1 tab PO DAILY Qty: 90 0RF Rx Instructions: swallow whole; do not chew/break/dissolve/open fluticasone propionate [Flovent HFA] 220 mcg/actuation HFA aerosol inhaler 2 puff INHALATION BID PRN (Reason: Shortness Of Breath Or Wheezing) albuterol sulfate [Ventolin HFA] 90 mcg/actuation HFA aerosol inhaler 2 puff INHALATION Q4-6H PRN (Reason: wheezing) pantoprazole 40 mg tablet,delayed release (DR/EC) 40 mg PO DAILY Qty: 90 0RF sucralfate 100 mg/mL suspension 10 ml PO BID Qty: 600 2RF ondansetron 4 mg tablet,disintegrating 4 mg PO Q12H Qty: 20 0RF Rx Instructions: Only take one every 12 hours as needed if you have nausea Held cholecalciferol (vitamin D3) 125 mcg (5,000 unit) capsule 125 mcg PO DAILY Qty: 90 0RF Hold Instructions: Resume on 06/14/24. calcium carbonate [Calcium Antacid] 200 mg calcium (500 mg) tablet,chewable 400 mg PO NEEDED Hold Instructions: Resume on 06/14/24. Discontinued Zepbound 7.5 mg/0.5 mL pen injector 7.5 mg subcut QWEEK Qty: 2 0RF Patient Comments: patient takes every Monday lisinopril 10 mg tablet 10 mg PO DAILY Qty: 90 0RF amlodipine 5 mg tablet 5 mg PO DAILY Qty: 90 0RF baclofen 10 mg tablet 10 mg PO TID PRN (Reason: muscle spasm) omeprazole 20 mg capsule,delayed release(DR/EC) 20 mg PO DAILY PRN (Reason: Acid Reflux) Discharge Orders: Discharge Order (Routine); Ordered 05/31/24 Ordered By: Jairon Fox Activity on Discharge: No heavy lifting Stand Alone Forms: Patient Portal Discharge page Print Language: Khmer Care Plan Goals: weight loss Health Concerns: morbid obesity Plan of Treatment: No tub baths, sex or returning to work until discussed at first post op appointment. No exercise, alcohol, tobacco or illegal drug use. Continue to use incentive spirometer hourly while awake. Walk in home for 5- 10 minutes every 2 hours during the first week. Follow all instructions in the bariatric handbook and call with any questions.Discharge Instructions 1. Please call your doctor or come back to the emergency room should any new symptoms arise. 2. You will receive a courtesy call from [facility] 24-48 hours after discharge. 3. Activity: abstain from alcohol, practice limited stair climbing, no bending, no driving, no exercise, no illicit substances, no lifting, no sex, no tub bath, no work. 4. Diet: continue as discussed with Dr. Fox. 5. Dressing Change/Wound Care: Your incision is covered by clear bandages and guaze underneath. If the area is tender, you may apply an ice pack for short intervals (no more than 20 minutes on, followed by at least 20 minutes off). Do not apply heat. Do not use creams, lotions, or topical antibiotics unless instructed to do so by your surgeon. These can cause infection or allergic reaction. 6. Call your doctor if: - Your temperature exceeds 101.5 F - You experience excessive pain or swelling - You have an unexpected reaction to medication - You have excessive bleeding - You experience continued vomiting/nausea - Your incision begins to separate - Your incision shows signs of infection such as increased redness, swelling, excessive pain, heat, or drainage (light blood or clear fluid is normal) 7. General instructions: No lifting greater than 5 lbs for 1 week and not more than 20lbs the next 3?weeks. No driving until seen at the office in 5-7 days after surgery. If you do not move your bowels in the next 2 days, please tell?Dr. Fox. Please walk around your home every hour or two to prevent blood clots from forming in your legs. You do not need to wake from sleeping to walk. Please sleep in a bed or couch to prevent kinking at the hips and knees. Please take your incentive spirometer (your lung training specialist) home with you and use it for the next few days to prevent pneumonia. You may shower, no hot tubs, baths or swimming pools.?Please follow the post op diet instructions you are?given by Dr Fox? and text me daily at 5-6pm for an update.?If you have any issues or concerns or questions please communicate this to him via text.? The Celebrate shakes have all of the bariatric vitamins you need if you consume these shakes. If you are drinking other protein shakes, you will need to purchase the Celebrate multivitamins and calcium that are available in the hospital gift shop on the first floor of the [facility].??Do not take anything without first discussing with Dr Fox. Please make sure you are consuming at least 40 ounces of fluids per day starting the?day AFTER your discharge from the hospital. Always drink 1-2 ml per minute using the 5ml?syringe. If you drink faster you may experience?bloating,?gas pain, burping, nausea or heartburn. In that case please slow down your pace and use the syringe to?understand better the?proper?pace and volume of drinking. Do not hesitate to contact the office with any questions at . The patient's medical history has been reviewed and they are considered low risk for post op DVT and therefore DVT prophylaxis is not considered necessary. Travel after surgery was reviewed. The patient has not disclosed any travel plans during the first 30 days after surgery and they have been advised that within the first 30 days after surgery any bus, plane, train or car travel over 2 hours in duration is contraindicated due to the possibility of developing blood clots from immobility. Any travel, needs to include periods of ambulation of 10 minutes in duration every 2 hours.? The patient was instructed to discuss any plans for travel during this period with their bariatric surgeon. Assessment: stable s/p laparoscopic sleeve gastrectomy
[2024-05-30] MEDS: Metoclopramide HCl 10 MG/2 ML VIAL IVPUSH ×2 (15:44→22:01)
[2024-05-30 16:46] LABS: Hematocrit 33.2 % (37.0-47.0); Hemoglobin 9.9 g/dl (12.0-16.0)
[2024-05-30 16:48] LABS: Anion Gap 13 (12-20); Blood Urea Nitrogen 8 mg/dL (9-16); Calcium 9.2 mg/dL (8.4-10.2); Carbon Dioxide 22 mmol/L (22-29); Chloride 107 mmol/L (96-108); Creatinine Clr Calc Pharmacy 150.7; Estimated Glomerular Filt Rate > 60; Sodium 138 mmol/L (135-145)
[2024-05-30 16:55] LABS: Glucose Random 128 mg/dL (60-115)
[2024-05-30] MEDS: Lactated Ringers 1,000 ML 100 ML IVCONT (17:10)
[2024-05-30] MEDS: ondansetron HCL 4 MG/2 ML VIAL IVPUSH (18:39)
[2024-05-30] MEDS: Acetaminophen 1,000 MG/100 ML PIGGYBACK 16.7 MG IV (20:02)
[2024-05-31] MEDS: Acetaminophen 1,000 MG/100 ML PIGGYBACK 16.7 MG IV (01:09)
[2024-05-31] MEDS: Lactated Ringers 1,000 ML 100 ML IVCONT (01:11)
[2024-05-31] MEDS: ondansetron HCL 4 MG/2 ML VIAL IVPUSH (02:30)
[2024-05-31 03:21] VITALS: BP 161/88; PULSE 86; RESP 20; TEMP 37; O2SAT 96
[2024-05-31 06:01] LABS: MANUAL DIFF FLAG NO
[2024-05-31] MEDS: Pantoprazole Sodium 40 MG/10 ML VIAL IVPUSH (06:01)
[2024-05-31 06:07] LABS: Basophils Percent Auto 0.3 % (0-2); Hematocrit 35.2 % (37.0-47.0); Hemoglobin 10.5 g/dl (12.0-16.0); Imm Gran Abs Auto 0.05 X10*3/uL (0.00-0.03); Imm Gran Pct Auto 0.4 % (0.0-0.4); Lymphocytes Absolute Auto 1.4 X10*3/uL (1.2-4.9); Mean Corpuscular HGB Conc 29.8 g/dl (31.0-35.0); Mean Corpuscular Hemoglobin 22.4 pg (27.0-33.0); Mean Corpuscular Volume 75.1 fL (80.0-98.0); Mean Platelet Volume 10.8 fL (9.4-12.3); Monocytes Absolute Auto 0.3 X10*3/uL (0.1-1.2); Monocytes Percent Auto 2.9 % (2-11); Neutrophils Absolute Auto 9.6 x10*3/uL (2.0-8.3); Neutrophils Percent Auto 84.4 % (45-73); Platelet Count 475 X10*3/uL (160-400); Red Blood Count 4.69 X10*6/uL (4.20-5.50); Red Cell Distribution Width 20.6 % (11.0-16.0); White Blood Count 11.3 X10*3/uL (4.8-10.8)
[2024-05-31 06:24] LABS: Anion Gap 14 (12-20); Blood Urea Nitrogen 6 mg/dL (9-16); Calcium 9.7 mg/dL (8.4-10.2); Carbon Dioxide 21 mmol/L (22-29); Chloride 106 mmol/L (96-108); Creatinine Clr Calc Pharmacy 163.3; Estimated Glomerular Filt Rate > 60; Glucose Random 103 mg/dL (60-115); Potassium 4.2 mmol/L (3.3-5.1); Sodium 137 mmol/L (135-145)
[2024-05-31 07:45] VITALS: BP 168/80; PULSE 84; RESP 16; TEMP 36.9; O2SAT 98
[2024-05-31] MEDS: amLODIPine Besylate 5 MG TABLET PO (07:54)
[2024-05-31] MEDS: Metoclopramide HCl 10 MG/2 ML VIAL IVPUSH (07:55)
[2024-05-31] MEDS: lisinopriL 10 MG TABLET PO (07:55)
--- NOTE | 2024-05-31 08:42 | MHC.CM.PN ---
pt dcd home self care
--- NOTE | 2024-05-31 08:43 | MHC.CM.PN ---
pt dcd home prior to being seen by cm
--- NOTE | 2024-05-31 08:50 | HO.POSTANES ---
Post Anesthesia Evaluation Post Anesthesia Evaluation Date of Service: 05/31/24 Vital Signs: Vital Signs Temp Pulse Resp BP Pulse Ox O2 Del Method 05/31/24 07:45 98.4 F 84 16 168/80 H 98 Room Air 05/31/24 03:21 98.6 F 86 20 161/88 H 96 Room Air 05/30/24 23:37 97.3 F 86 20 157/82 H 97 Room Air Anesthesia: General Endotracheal-GETA Mental Status: Awake Pain Control: Satisfactory Nausea/Vomiting: None Hydration: Adequate Anesthesia-Related Issues: No Anes. Related Issues
== END 2024-05-31 10:06 | disposition home or self-care (01) | DRG 403 ==
LOC: HO.SSSA 10:12 → HO.S3 15:26
PROVIDERS: Anesthesiology; Physician Assistant Surgical; Admitting Provider Surgery; PCP Family Medicine; Visit Provider Surgery
PROC: 0DB64Z3 Excision of Stomach, Percutaneous Endoscopic Approach, Vertical (ICD-10-PCS; CPT 43845; principal; 2024-05-30 13:40)
DX: E66.01 Morbid (severe) obesity due to excess calories (principal); D50.9 Iron deficiency anemia, unspecified; I10 Essential (primary) hypertension; Z68.42 Body mass index [BMI] 45.0-49.9, adult; J45.909 Unspecified asthma, uncomplicated; K21.9 Gastro-esophageal reflux disease without esophagitis; M54.9 Dorsalgia, unspecified; Z79.899 Other long term (current) drug therapy
CPT/HCPCS: 36415; 80048; 80053; 80061; 83036; 83525; 84443; 84702; 85014; 85018; 85025; 85610; 85730; 86140; 86850; 86870; 86885; 86900; 86901; 86905; 86920; 86922; 88304; 88305; 88307; 88342; A4649; C9145; J0131; J0690; J1100; J1171; J2003; J2250; J2405; J2470; J2704; J2765; J2795; J3010; J7120

== ENCOUNTER → 2024-05-30 09:49 | Outpatient (BNV) | payer MEDICAID, SELFPAY | PROVIDERS: Admitting Provider Surgery; PCP Family Medicine; Visit Provider Surgery | DX: E66.01 Morbid (severe) obesity due to excess calories (principal); I10 Essential (primary) hypertension; K21.9 Gastro-esophageal reflux disease without esophagitis; M54.9 Dorsalgia, unspecified; J45.909 Unspecified asthma, uncomplicated; Z98.84 Bariatric surgery status | CPT/HCPCS: 43659; 43775; 99024; 99499 ==

== ENCOUNTER 2024-06-06 10:08 | Outpatient (AMB) | payer OTHER, SELFPAY ==
--- NOTE | 2024-06-06 10:00 | A.OFFWM_ITS ---
Intake 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: TV Pre Op LSG 05/30/24 Allergies No Known Allergies Allergy (Verified 05/24/24 09:26) PFSH Medical History (Updated 06/01/24 @ 00:02 by Braden Griffith) Abnormal uterine bleeding Influenza History of transfusion of packed red blood cells Hypertension GERD (gastroesophageal reflux disease) Back pain Morbid obesity Anemia Asthma Surgical History (Updated 06/06/24 @ 15:25 by Michelle Rosa CMA) S/P laparoscopic sleeve gastrectomy History of esophagogastroduodenoscopy (EGD) H/O dilation and curettage History of bladder suspension procedure Social History Household Members: Family Housing: Apartment Are you a primary housekeeper child care to a significant other at home: No Do you presently have visiting nurse or other home services: No Alcohol intake: never Patient Tobacco Use Status: Never used Tobacco Tobacco use type: Cigarette Cigarettes Per Day: 1 Second Hand Smoke Exposure: Yes service: No Current occupational status: employed 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 She reports a generally good recovery, denying any pain after the initial two days post-op. However, she shared feeling ?a little miserable? due to stomach cramps and frequent bathroom use. She also expressed difficulty with being ?stuck at home? during recovery. Patient reports strong emotional support from her children, boyfriend, sister, and mother. She denies feeling physical hunger but notes she is tired of consuming only shakes and is eager to progress to other foods and resume more activities. Objective: Patient attended a follow-up visit via Telehealth. * Facilitated a guided emotional check-in to assess current mood and emotional well-being * Provided psychoeducation on common emotional and psychological adjustments following bariatric surgery * Administered the PHQ-9 to screen for symptoms of depression * Normalized emotional fluctuations and discussed the non-linear nature of post- operative recovery * Reinforced the importance of monitoring mood and seeking support if symptoms persist * Encouraged continued connection with the care team for medical and nutritional guidance Assessment/Response: * Mental Status: Mild mood lability noted; no signs of clinical depression; functioning remains intact * Risk: No risk behaviors or safety concerns reported or observed Patient appears motivated to continue recovery, though experiencing mild emotional distress related to post-op limitations Food/Weight/Diet Expectations of change The initial Goal was lose 10% of her weight before surgery, about 35 lbs. Ultimate weight goal: 318lbs before surgery. Start weight 01/04- 353 lbs. weight 02/05/2024: 351Lbs Weight 02/19/2024: 342Lbs Weight 03/29/2024: 321Lbs 05/30/2024 - Day of surgery weight: 293 lbs 06/06/2024 Post-op weight: 280.8 lbs . Meal plan: liquid diet. (3 shakes, Gatorade/Propel flavor water, water) Exercise plan: can do some walking. Questionnaires PHQ-9 Over the last 2 weeks, how often have you been bothered by any of the following problems? 1. Little interest or pleasure in doing things: several days 2. Feeling down, depressed, or hopeless: several days (2 days last week, cried. ) 3. Trouble falling or staying asleep, or sleeping too much: not at all 4. Feeling tired or having little energy: several days 5. Poor appetite or overeating: not at all 6. Feeling bad about yourself - or that you are a failure or have let yourself or your family down: several days (been having moments of regret, but only for a short period of time. ) 7. Trouble concentrating on things, such as reading the newspaper or watching television: not at all 8. Moving or speaking so slowly that other people could have noticed. Or the opposite - being so fidgety or restless that you have been moving around a lot more than usual: not at all 9. Thoughts that you would be better off or of hurting yourself in some way: not at all Total score: 4 56182 - PHQ-9 Billing: Yes Source: Developed by Drs. Schuyler Hanley, Anjelica Lopez, Adrian Farmer and colleagues, with an educational cyrus from [employer]. Assessment & Plan Assessment & Plan (1) Morbid obesity: Code(s): E66.01 - Morbid (severe) obesity due to excess calories (2) Adjustment disorder, unspecified: Code(s): F43.20 - Adjustment disorder, unspecified Plan Reminded patient of her 7-day post-op visit scheduled with TOM today Encouraged her to bring food-related questions to her medical provider to gain clarity on timeline for food progression Patient declined behavioral health follow-up at this time but is aware of availability of support services if needed Telehealth Telehealth Telehealth Platform: [employer] Location of provider rendering services: other Location of patient: address on file Patient Identification confirmed using: Name, : Yes Telehealth method: video Patient verbally consented to treatment: Yes Patient verbally consented to billing insurance company: Yes Patient informed of any privacy concerns related to visit: Yes Minutes spent on Phone/Video with Pt.: 45 Coding Level of Care Code Established Pt Tele Psytx 45 mins (01257) Patient Type Established Diagnoses Morbid obesity E66.01 Adjustment disorder, unspecified F43.20 Additional Codes PHQ-9 - 70482 - PHQ-9 Billing: Yes ([id number]) Time Spent (min) 45 Comment start time: 9:55 am, end time: 10:40 am.
--- OUTSIDE RECORDS SUMMARY | 2024-06-06 11:42 | XMS_ITS | Encounter Summary ---
Author Organization [email or web address] Address [address] [facility] [address] [place] [address] Care Team Providers Care Car Worker Helper Name Role Phone Pedro Aida Primary Care Provider + [phone] Encounter Details Date Type Department Care Team (Late st Contact Info) Description 03/30/2024 Orders Only [facility] [address] [place] [address] ProviderQueta MD Social History Tobacco Use Types [...] EST Narrative 04/15/2024 10:17 AM EST ? [facility] ?[address] ?[place] [address] ? Fluoroscopy Report ? Signed ? Patient: Colon,Quiara ?MR#: [id number] ? : 1985 ?Acct:[id number] ? Age/Sex: 38 / F ?ADM Date: 04/15/24 ? Loc: HO.XRAY ? Attending Dr: Jairon Fox MD ? Ordering Physician: Jairon Fox MD ?? Date of Service: 04/15/24 ?? Procedure(s): FL upper GI w air ?? Accession Number(s): [id number] ? cc: Aida Vasquez DO; Jairon Fox [...] DD/ 0811 ? TD/TT: 04/15/24 0845 ? [employer]: MSM ? Procedure Note Cristhian, Image - 04/15/2024 [place] [address] Fluoroscopy Report Signed Patient: Shanae Rosa#: [id number] : 1985Acct:[id number] Age/Sex: 38 / FADM Date: 04/15/24 Loc: DASH Attending Dr: Jairon Fox MD Ordering Physician: Jairon Fox MD Date of Service: 04/15/24 Procedure(s): FL upper GI w air Accession Number(s): [id number] cc: Aida Vasquez DO; Jairon Fox MD [...] 04/15/24 1014 DD/ 0811 TD/TT: 04/15/24 0845 [employer]: PEDRO [facility] External Provider IMG FLU OROSCOPY PROCEDURES Final Result * HM PAP/HPV (01/23/2024 5:50 PM EST) Historical Provider HEALTH MAINTENANCE Final Result documented in this encounter Visit Diagnoses Not on filedocumented in this encounter Additional Health Concerns Assessment Noted Time PHQ-9 Depression Total Score: 11 024 11:07 AM EST documented as of this encounter Care Teams Car Worker Helper Relationship Specialty Start Date End Date Aida Vasquez DO [address] [place] [phone] PCP - General Family Medicine 10/24/14 documented as of this encounter
--- OUTSIDE RECORDS SUMMARY | 2024-06-06 11:42 | XMS_ITS | Clinical Summary ---
Author Organization [employer] Address [address] [facility] [address] [place] [address] Care Team Providers Care Corrosion Control Fitter Name Role Phone Aida Vasquez Primary Care Provider Allergies Active Allergy Reactions Criticality Noted Date Comments Pollen Extract 07/08/2022 Medications * This document contains information received from the source organization and may not represent a complete record from that organization. acetaminophen (Tylenol 8 Hour) 650 MG ER tablet TAKE 1 TABLET BY MOUTH EVERY 8 HOURS NEEDED FOR PAIN OR FEVER 2 Active ergocalciferol (Vitamin D2) 1.25 MG (28652 UT) capsuleIndicatio ns:Vitamin D deficiency Take 1 capsule (1.25 mg) by mouth 1 (one) time per week. 12 capsule 3 4 Active nicotine polacrilex (Nicorette) 4 MG gumIndications:T obacco dependence CHEW 1 PIECE OF GUM NEEDED SMOKING CESSATION, UP TO 20 PER DAY 110 each 4 Active nicotine (Nicoderm, Step 1) 21 MG/24HR patchIndications :Tobacco dependence APPLY 1 PATCH TOPICALLY TO THE SKIN IN THE MORNING *DO NOT SMOKE WHILE USING PATCH* 30 patch 4 Active omeprazole (PriLOSEC) [address] capsule TAKE 1 CAPSULE BY MOUTH TWICE DAILY BEFORE BREAKFAST AND BEFORE SUPPER DO NOT BREAK, CRUSH, DISSOLVE OR CHEW 180 capsule 3 4 Active baclofen (Lioresal) 10 MG tabletIndication s:Acute right-sided low back pain, unspecified whether sciatica present TAKE 1 TABLET BY MOUTH THREE TIMES DAILY NEEDED FOR MUSCLE SPASMS OR MUSCLE PAIN 60 tablet 4 Active cyclobenzaprine (Flexeril) 10 MG tablet Take 1 tablet (10 mg) by mouth at bedtime for 15 days. 15 tablet 4 Active meloxicam (Mobic) 7.5 MG tablet Take 1 tablet (7.5 mg) by mouth Once per day. 60 tablet 11 4 10/25/19 25 Active Asmanex HFA 200 MCG/ACT aerosol INHALE 2 PUFFS BY MOUTH TWICE DAILY RINSE MOUTH AFTER USING. 13 g 3 4 Active loratadine (Claritin) 10 MG tablet Take 1 tablet (10 mg) by mouth Once per day. 90 tablet 3 4 01/19/20 25 Active oxybutynin XL (Ditropan XL) 5 MG 24 hr tablet Take 1 tablet (5 mg) by mouth Once per day. Do not crush, chew, or split. 90 tablet 3 4 01/19/20 25 Active Semaglutide-Weig ht Management (Wegovy) 0.25 MG/0.5ML solution auto-injector Inject 0.5 mL (0.25 mg) under the skin 1 (one) time per week. 2 mL 3 4 Active ferrous sulfate (Fe Tabs) 325 (65 Fe) MG EC tabletIndication s:Anemia, unspecified type Take 1 tablet (325 mg) by mouth with breakfast. 90 tablet 3 4 01/23/20 25 Active cholecalciferol (Vitamin D-3) 50 MCG (2000 UT) capsule Take 1 capsule (50 mcg) by mouth Once per day. 90 capsule 3 4 01/23/20 25 Active albuterol (2.5 MG/3ML) 0.083% nebulizer solution INHALE 1 AMPULE USING A NEBULIZER EVERY 4 HOURS NEEDED FOR COUGH, WHEEZING, OR SHORTNESS OF BREATH 90 mL 2 5 Active calcium carbonate (Calcium Antacid) 500 MG chewable tablet CHEW 2 TABLETS BY MOUTH AFTER MEALS NEEDED FOR HEARTBURN, DO NOT EXCEED 8 TABLETS / 24 HOURS 180 tablet 5 Active albuterol (Ventolin HFA) 108 (90 Base) MCG/ACT inhalerIndicatio ns:Asthma, unspecified asthma severity, unspecified whether complicated, unspecified whether persistent INHALE 2 PUFFS BY MOUTH EVERY 4 TO 6 HOURS NEEDED FOR COUGH, WHEEZING, OR SHORTNESS OF BREATH 18 g 1 5 Active Active Problems Problem Noted Date Diagnosed Date [...] Type Department Care Team Description 05/05/2024 Refill [facility] [address] [facility] [place] [address] Aida Vasquez DO Asthma, unspecified asthma severity, unspecified whether complicated, unspecified whether persistent 04/26/2024 Population Health Risk Score [facility] (C[facility]) Department [address] [phone] Provider, Population Health Generic 04/25/2024 Refill [facility] [address] [place] [address] Aida Vasquez DO 04/15/2024 Orders Only GENERIC EXTERNAL DATA DEPARTMENT Provider, Generic External Data 03/30/2024 Orders Only [facility] [address] [place] [address] ProviderQueta MD 03/25/2024 Refill [facility] [address] [place] [address] Aida Vasquez DO Asthma, unspecified asthma severity, unspecified whether complicated, unspecified whether persistent from Last 3 Months Immunizations Name Administration Dates Next Due DTaP 05/02/1990, 0,08/02/1988,06/02,04/04/1988 Hep B, Adolescent or Pediatric 01/06/1999,1997,12/18/1997 Hib ([facility]) 01/02/1990 Influenza injectable quadriv alent IIV4 [...] 12/18/2002 SDOH Screening 02/23/2024 02/22/2023 Depression Monitoring 07/19/2024 01/19/2024, 024 Alcohol/Substance Use Screening 01/18/2025 01/19/2024 Depression Screening 01/18/2025 01/19/2024, 01/19/20 24 Tobacco Screening 01/18/2025 01/19/2024 Cervical Cancer Screening [...] COTININE, URINE Routine 04/15/2024 8:05 AM EST HM PAP/HPV Routine 01/23/2024 5:50 [...] EST Narrative 04/15/2024 10:17 AM EST ? [facility] ?[address] ?[place] [address] ? Fluoroscopy Report ? Signed ? Patient: Colon,Quiara ?MR#: [id number] ? : 1985 ?Acct:[id number] ? Age/Sex: 38 / F ?ADM Date: 04/15/24 ? Loc: HO.XRAY ? Attending Dr: Jairon Fox MD ? Ordering Physician: Jairon Fox MD ?? Date of Service: 04/15/24 ?? Procedure(s): FL upper GI w air ?? Accession Number(s): [id number] ? cc: Aida Vasquez DO; Jairon Fox [...] DD/ 0811 ? TD/TT: 04/15/24 0845 ? Archery Equipment Repairer: MSM ? Procedure Note Donkathryn, Image - 04/15/2024 [place] [address] Fluoroscopy Report Signed Patient: Shanae Rosa#: [id number] : 1985Acct:[id number] Age/Sex: 38 / FADM Date: 04/15/24 Loc: HO.XRAY Attending Dr: Jairon Fox MD Ordering Physician: Jairon Fox MD Date of Service: 04/15/24 Procedure(s): FL upper GI w air Accession Number(s): [id number] cc: Aida Vasquez DO; Jairon Fox MD [...] 04/15/24 1014 DD/ 0811 TD/TT: 04/15/24 0845 Archery Equipment Repairer: PEDRO [facility] External Provider IMG FLU OROSCOPY PROCEDURES Final Result * Nicotine and Metabolite, Qnt, Plasma, Whole Blood, or Serum (04/15/2024 8:06 AM EST) Nicotine, Serum/Plasma <2 see note ng/mL [facility] Comment:Reference Ranges(ng/ mL): Non-Smoker Active Tobacco User < or = to 4 2-10 Cotinine, Serum/Plasma 11 see note ng/mL [facility] Comment:Reference Ranges(ng/ mL): Non-Smoker Active Tobacco User < or = to 8 16-145This test was developed and its analytical performancecharacteristics have been determined by [facility] [place], [place]. It hasnot been cleared or approved by the U.S. Food and DrugAdministration. This assay has been validated pursuantto the CLIA regulations and is used for clinicalpurposes.THIS TEST WAS PERFORMED AT:[facility] [place] [address]MTKICEHPRABHU BUSTAMANTE MD,PHD 04/15/2024 8:06 AM EST 04/15/2024 8:06 AM EST Generic External Data Provider LAB BLOOD ORDERAB LES Final Result [facility] [address] [place] [phone] * Nicotine and Cotinine, Urine (04/15/2024 8:05 AM EST) Nicotine, Urine 24 ng/mL [facility] Cotinine, Urine 84 ng/mL [facility] Comment:Reference Range: Mundo otine, Urine Smokers: 200-700 ng/mL Nonsmokers: < or = 17 ng/mL Cotinine, Urine Smokers: 300-1300 ng/mL Nonsmokers: < or = 20 ng/mLIndividuals exposed to second-hand or passive tobaccosmoke may demonstrate concentrations of nicotine andcotinine greater than those indicated for non-smokers.This test was developed and its analytical performancecharacteristics have been determined by [facility] [place], [place]. It hasnot been cleared or approved by the U.S. Food and DrugAdministration. This assay has been validated pursuantto the CLIA regulations and is used for clinicalpurposes.THIS TEST WAS PERFORMED AT:[facility] [place] [address]TKUQISSPRABHU BUSTAMANTE MD,PHD 04/15/2024 8:05 AM EST 04/15/2024 8:15 AM EST us Generic External Data Provider LAB URINE ORDERAB LES Final Result [facility] [address] [place] [phone] * HM PAP/HPV (01/23/2024 5:50 PM EST) us Historical Provider HEALTH MAINTENANCE Final Result * (ABNORMAL) Lipid Panel, Standard (01/23/2024 10:12 AM EST) Triglycerides 92 <150 mg/dL [facility] Comment:Desirable Triglyceri de: less than 150 mg/dLBorderline High Triglyceride 150-199 mg/dLHigh Triglyceride: 200-499 mg/dLVery High Triglyceride: greater than or equal to 5OO mg/dL Cholesterol 120 <200 mg/dL [facility] Comment:Desirable Cholestero l: less than 200 mg/dLBorderline High Cholesterol: 200-239 mg/dLHigh Cholesterol: greater than 239 mg/dL LDL Cholesterol Calculated 66 <100 mg/dL [facility] Comment:Desirable LDL: less than 100 mg/dLNear Optimal/Above Optimal LDL: 110- 129 mg/dLBorderline High LDL: 130-159 mg/dLHigh LDL: 160-189 mg/dLVery High LDL: greater than or equal to 190 mg/dL HDL Cholesterol 36(L) >40 mg/dL [facility] Comment:Desirable HDL: great er than 40 mg/dL Note: This HDL assay may give artificially low results in patients with liver disease. 01/23/2024 10:1 2 AM EST 01/23/2024 10:12 AM EST us Generic External Data Provider LAB BLOOD ORDERAB LES Final Result Performing Organization Address [facility] Co de Phone Number [facility] [address] [place] [phone] * Hepatitis C Antibody with Reflex to HCV, RNA, Quantitative, Real-Time PCR (01/19/2024 11:52 AM EST) Hepatitis C Antibody Nonreactive Nonreactive [facility] Comment:Antibodies to HCV no t detected; does not exclude early acuteHCV infection. Blood Venous blood specimen / Unknown 01/19/2024 11:52 AM EST 01/19/2024 12:55 PM EST us Aida Vasquez DO LAB BLOOD ORDERABLES Final R esult Performing Organization Address [facility]/ZIP Co de Phone Number [facility] [address] [place] [phone] [phone] * HIV-1/2 Antigen and Antibodies, Fourth Generation, with Reflexes (01/19/2024 11:52 AM EST) HIV AB/AG Nonreactive Nonreactive [facility] Comment:HIV-1 p24 Ag and/or HIV-1/HIV-2 Ab not detected.A test result that is nonreactive does not exclude thepossibility of exposure to or infection with HIV-1 and/orHIV-2. Nonreactive results in this assay for individualswith prior exposure to HIV-1 and/or HIV-2 may be due toantigen and antibody levels that are below the limit ofdetection of this assay.The [employer] HIV Ag/Ab Combo assay result andsupplemental assay results should be interpreted inconjunction with the patient's clinical presentation,history and other laboratory results. If the results areinconsistent with clinical evidence, additional testing issuggested to confirm the result. Blood Venous blood specimen / Unknown 01/19/2024 11:52 AM EST 01/19/2024 12:55 PM EST us Aida Vasquez DO LAB BLOOD ORDERABLES Final R esult [facility] [address] [place] [phone] from Last 3 Months or Most Recently Relevant to Health Maintenance Insurance [address] [place], [place] [address] Care Teams Corrosion Control Fitter Relationship Specialty Start Date End Date Aida Vasquez DO [address] [place] [address] PCP - General Family Medicine 10/24/14
--- OUTSIDE RECORDS SUMMARY | 2024-06-06 11:42 | XMS_ITS | Encounter Summary ---
Author Organization [employer] Address [address] [facility] [address] [place] [address] Care Team Providers Care Nuisance Animal Damage Control Agent Name Role Phone Adia Vasquez DO Primary Care Provider [phone] Encounter Details Date Type Department Care Team (Late st Contact Info) Description 05/12/2022 Orders Only [facility] [address] [place] [address] Aida Feliz LPN Social History Tobacco Use [...] on filedocumented in this encounter Care Teams Nuisance Animal Damage Control Agent Relationship Specialty Start Date End Date Aida Vasquez DO [address] [place] [address] PCP - General Family Medicine 10/24/14 documented as of this encounter
--- OUTSIDE RECORDS SUMMARY | 2024-06-06 11:42 | XMS_ITS | Encounter Summary ---
Author Organization [employer] Address [address] [facility] [address] [place] [address] Care Team Providers Care Keyboard Instrument Tuner Name Role Phone Aida Vasquez DO Primary Care Provider [phone] Encounter Details Date Type Department Care Team (Late st Contact Info) Description 03/01/2022 Orders Only [facility] [address] [place] [address] Cielo Elias LPN Social History Tobacco Use [...] on filedocumented in this encounter Care Teams Keyboard Instrument Tuner Relationship Specialty Start Date End Date Aida Vasquez DO [address] [place] [address] PCP - General Family Medicine 10/24/14 documented as of this encounter
== END 2024-06-06 10:44 | disposition home or self-care (01) ==
LOC: HO.HBST 10:08
PROVIDERS: PCP Family Medicine; Visit Provider Counselor Mental Health
DX: F43.20 Adjustment disorder, unspecified (principal); E66.01 Morbid (severe) obesity due to excess calories
CPT/HCPCS: 90834

== ENCOUNTER → 2024-06-06 10:08 | Outpatient (BNVA) | payer OTHER, MEDICAID, SELFPAY | PROVIDERS: PCP Family Medicine; Visit Provider Counselor Mental Health | DX: E66.01 Morbid (severe) obesity due to excess calories (principal); Z98.84 Bariatric surgery status; Z68.41 Body mass index [BMI] 40.0-44.9, adult | CPT/HCPCS: 99212 ==

== ENCOUNTER 2024-06-06 15:19 | Outpatient (AMB) | payer MEDICAID, SELFPAY ==
--- NOTE | 2024-06-06 15:21 | MHC.OFFVISWM ---
VS Expanded 06/06/24 15:34 BP 129/88 Blood Pressure Location Rt brachial Blood Pressure Position Sitting Pulse 102 H Pulse Source Pulse Oximeter Temp 97.0 F Temperature Source Temporal Artery Scan Pulse Oximetry 95 Oxygen Delivery Method Room Air Height 5 ft 8 in Weight 280 lb 9.6 oz BMI 42.7 Body Fat % 50.2 Body Fat Mass 140.8 Fat Free Mass 139.6 Visceral Fat Rating 14.0 Body Water % 35.7 Body Water Mass 100.0 Muscle Mass/Score 132.4 Basal Metabolic Rate/Score 2,024 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: (OV) PO LSG 05/30/24 Allergies No Known Allergies Allergy (Verified 05/24/24 09:26) HPI Comments Details: Patient is a pleasant 38-year-old female who returns to the office today in follow-up. She is 7 days post sleeve gastrectomy performed on 05/30/2024. Tolerating 3 Premier protein shakes with 1 scoop each and proximally 40 oz of fluid. She is moving her bowels. She does report lower pelvic discomfort that is relieved with bowel movements. Otherwise no other complaints. [facility] Medical History (Updated 06/01/24 @ 00:02 by [facility] Dashan) Abnormal uterine bleeding Influenza History of transfusion of packed red blood cells Hypertension GERD (gastroesophageal reflux disease) Back pain Morbid obesity Anemia Asthma Surgical History (Updated 06/06/24 @ 15:25 by Michelle Rosa CMA) S/P laparoscopic sleeve gastrectomy History of esophagogastroduodenoscopy (EGD) H/O dilation and curettage History of bladder suspension procedure Social History (Updated 06/06/24 @ 15:25 by Michelle Rosa CMA) Household Members: Family Housing: Apartment Are you a primary residential care officer to a significant other at home: No Do you presently have visiting nurse or other home services: No Alcohol intake: never Patient Tobacco Use Status: Never used Tobacco Tobacco use type: Cigarette Cigarettes Per Day: 1 Second Hand Smoke Exposure: Yes service: No Current occupational status: employed 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 Original weight on 01/22/2024 was 353.2 pounds and op weight was 302.8 pounds. Be sure to text Dr Fox exactly 1 week after surgery your weight from your home scale so he can adjust your meal plan. Continue meal plan until f/u olga Goodson in 2 weeks May shower, no submersion in bath for another week Continue abdominal binder with activity and exercise for the next 2 weeks. Exercise prior to surgery was treadmill and may resume No abdominal exercises for 6 weeks post operatively Will be emailed link to post op video for review Reminded of the pace of drinking, 2 mL per minute, 1 oz/15 min.
[2024-06-06 15:34] VITALS: BP 129/88; PULSE 102; TEMP 36.1; O2SAT 95; BMI 42.7
--- OUTSIDE RECORDS SUMMARY | 2024-06-06 18:03 | XMS_ITS | Encounter Summary ---
Author Organization [employer] Address 75 [facility] 7t [place] [address] Care Team Providers Care Clerical Office Name Role Phone Aida Vasquez DO Primary Care Provider [phone] Encounter Details Date Type Department Care Team (Late st Contact Info) Description 05/12/2022 Orders Only [facility] & P[facility] [address] [place] [address] Aida Feliz LPN Social History Tobacco Use [...] on filedocumented in this encounter Care Teams Clerical Office Relationship Specialty Start Date End Date Aida Vasquez DO [address] [place] [address] PCP - General Family Medicine 10/24/14 documented as of this encounter
--- OUTSIDE RECORDS SUMMARY | 2024-06-06 18:03 | XMS_ITS | Clinical Summary ---
Author Organization [employer] Address [address] [facility] 7t [place] [address] Care Team Providers Care Paster Operator Name Role Phone Aida Vasquez Primary Care [...] 2 Active ergocalciferol (Vitamin D2) 1.25 MG (56093 UT) capsuleIndicatio ns:Vitamin D deficiency Take 1 [...] Type Department Care Team Description 05/05/2024 Refill [facility] [address] [facility] [address] Aida Vasquez DO Asthma, unspecified asthma severity, unspecified whether complicated, unspecified whether persistent 04/26/2024 Population Health Risk Score [facility] (C3) Department [address] [phone] Provider, Population Health Generic 04/25/2024 Refill [facility] MEDICINE [address] [place] [address] Aida Vasquez DO 04/15/2024 Orders Only GENERIC EXTERNAL DATA DEPARTMENT Provider, Generic External Data 03/30/2024 Orders Only [facility] MED[facility] [address] [place] [address] ProviderQueta MD 03/25/2024 Refill [facility] [address] [place] [address] Aida Vasquez DO Asthma, unspecified asthma severity, unspecified whether complicated, unspecified whether persistent from Last 3 Months Immunizations Name Administration Dates Next Due DTaP 05/02/1990, 0,08/02/1988,06/02,04/04/1988 Hep B, Adolescent or Pediatric 01/06/1999,1997,12/18/1997 Hib ([facility]) 01/02/1990 Influenza injectable quadriv alent IIV4 with [...] EST Narrative 04/15/2024 10:17 AM EST ? [facility] ?[address] ?[place] [address] ? Fluoroscopy Report ? Signed ? Patient: Colon,Quiara ?MR#: [id number] ? : 1985 ?Acct:[id number] ? Age/Sex: 38 / F ?ADM Date: 04/15/24 ? Loc: HO.XRAY ? Attending Dr: Jairon Fox MD ? Ordering Physician: Jairon Fox MD ?? Date of Service: 04/15/24 ?? Procedure(s): FL upper GI w air ?? Accession Number(s): [id number] ? cc: Aida Vasquez DO; Jairon Fox [...] DD/ 0811 ? TD/TT: 04/15/24 0845 ? Recycling Collections Driver: MSM ? Procedure Note Donkathryn, Image - 04/15/2024 [place] [address] Fluoroscopy Report Signed Patient: Shanae Rosa#: [id number] : 1985Acct:[id number] Age/Sex: 38 / FADM Date: 04/15/24 Loc: HO.XRAY Attending Dr: Jairon Fox MD Ordering Physician: Jairon Fox MD Date of Service: 04/15/24 Procedure(s): FL upper GI w air Accession Number(s): [id number] cc: Aida Vasquez DO; Jairon Fox MD [...] 04/15/24 1014 DD/ 0811 TD/TT: 04/15/24 0845 Recycling Collections Driver: PEDRO [facility] External Provider IMG FLU OROSCOPY PROCEDURES Final Result * Nicotine and Metabolite, Qnt, Plasma, Whole Blood, or Serum (04/15/2024 8:06 AM EST) Nicotine, Serum/Plasma <2 see note ng/mL [facility] Comment:Reference Ranges(ng/ mL): Non-Smoker Active Tobacco User < or = to 4 2-10 Cotinine, Serum/Plasma 11 see note ng/mL [facility] Comment:Reference Ranges(ng/ mL): Non-Smoker Active Tobacco User < or = to 8 16-145This test was developed and its analytical performancecharacteristics have been determined by [employer] [place], [place]. It hasnot been cleared or approved by the U.S. Food and DrugAdministration. This assay has been validated pursuantto the CLIA regulations and is used for clinicalpurposes.THIS TEST WAS PERFORMED AT:[employer]/[facility] [place] [address]SDMWAMJPRABHU BUSTAMANTE MD,PHD 04/15/2024 8:06 AM EST 04/15/2024 8:06 AM EST Generic External Data Provider LAB BLOOD ORDERAB LES Final Result [facility] [address] [place] [phone] * Nicotine and Cotinine, Urine (04/15/2024 8:05 AM EST) Nicotine, Urine 24 ng/mL [facility] Cotinine, Urine 84 ng/mL [facility] Comment:Reference Range: Mundo otine, Urine Smokers: 200-700 ng/mL Nonsmokers: < or = 17 ng/mL Cotinine, Urine Smokers: 300-1300 ng/mL Nonsmokers: < or = 20 ng/mLIndividuals exposed to second-hand or passive tobaccosmoke may demonstrate concentrations of nicotine andcotinine greater than those indicated for non-smokers.This test was developed and its analytical performancecharacteristics have been determined by [employer] [place], [place]. It hasnot been cleared or approved by the U.S. Food and DrugAdministration. This assay has been validated pursuantto the CLIA regulations and is used for clinicalpurposes.THIS TEST WAS PERFORMED AT:[employer]/[facility] [place] [address]AURCJMNPRABHU BUSTAMANTE MD,PHD 04/15/2024 8:05 AM EST 04/15/2024 8:15 AM EST us Generic External Data Provider LAB URINE ORDERAB LES Final Result [facility] [address] [place] [phone] * HM PAP/HPV (01/23/2024 5:50 PM EST) us Historical Provider HEALTH MAINTENANCE Final Result * (ABNORMAL) Lipid Panel, Standard (01/23/2024 10:12 AM EST) Triglycerides 92 <150 mg/dL [facility] Comment:Desirable Triglyceri de: less than 150 mg/dLBorderline High Triglyceride 150-199 mg/dLHigh Triglyceride: 200-499 mg/dLVery High Triglyceride: greater than or equal to 5OO mg/dL Cholesterol 120 <200 mg/dL [facility] Comment:Desirable Cholestero l: less than 200 mg/dLBorderline High Cholesterol: 200-239 mg/dLHigh Cholesterol: greater than 239 mg/dL LDL Cholesterol Calculated 66 <100 mg/dL [facility] Comment:Desirable LDL: less than 100 mg/dLNear Optimal/Above Optimal LDL: 110- 129 mg/dLBorderline High LDL: 130-159 mg/dLHigh LDL: 160-189 mg/dLVery High LDL: greater than or equal to 190 mg/dL HDL Cholesterol 36(L) >40 mg/dL [facility] Comment:Desirable HDL: great er than 40 mg/dL Note: This HDL assay may give artificially low results in patients with liver disease. 01/23/2024 10:1 2 AM EST 01/23/2024 10:12 AM EST us Generic External Data Provider LAB BLOOD ORDERAB LES Final Result Performing Organization Address [facility] Co de Phone Number [facility] [address] [place] [phone] * Hepatitis C Antibody with Reflex to HCV, RNA, Quantitative, Real-Time PCR (01/19/2024 11:52 AM EST) Hepatitis C Antibody Nonreactive Nonreactive [facility] Comment:Antibodies to HCV no t detected; does not exclude early acuteHCV infection. Blood Venous blood specimen / Unknown 01/19/2024 11:52 AM EST 01/19/2024 12:55 PM EST us Aida Vasquez DO LAB BLOOD ORDERABLES Final R esult Performing Organization Address [facility]/ZIP Co de Phone Number [facility] [address] [place] [phone] [phone] * HIV-1/2 Antigen and Antibodies, Fourth Generation, with Reflexes (01/19/2024 11:52 AM EST) HIV AB/AG Nonreactive Nonreactive [facility] Comment:HIV-1 p24 Ag and/or HIV-1/HIV-2 Ab not detected.A test result that is nonreactive does not exclude thepossibility of exposure to or infection with HIV-1 and/orHIV-2. Nonreactive results in this assay for individualswith prior exposure to HIV-1 and/or HIV-2 may be due toantigen and antibody levels that are below the limit ofdetection of this assay.The [employer] HIV Ag/Ab Combo assay result andsupplemental assay results should be interpreted inconjunction with the patient's clinical presentation,history and other laboratory results. If the results areinconsistent with clinical evidence, additional testing issuggested to confirm the result. Blood Venous blood specimen / Unknown 01/19/2024 11:52 AM EST 01/19/2024 12:55 PM EST us Aida Vasquez DO LAB BLOOD ORDERABLES Final R esult [facility] [address] [place] [phone] from Last 3 Months or Most Recently Relevant to Health Maintenance Insurance [address] [place], [place] [address] Care Teams Paster Operator Relationship Specialty Start Date End Date Aida Vasquez DO [address] [place] [address] PCP - General Family Medicine 10/24/14
--- OUTSIDE RECORDS SUMMARY | 2024-06-06 18:03 | XMS_ITS | Encounter Summary ---
Author Organization [employer] Address [address] [facility] 7t [place] [address] Care Team Providers Care Family Service Caseworker Name Role Phone Aida Vasquez DO Primary Care Provider [phone] Encounter Details Date Type Department Care Team (Late st Contact Info) Description 03/01/2022 Orders Only [facility] [address] [place] [address] Cielo Eilas LPN Social History Tobacco Use Types Packs/Day [...] on filedocumented in this encounter Care Teams Family Service Caseworker Relationship Specialty Start Date End Date Aida Vasquez DO [address] [place] [address] PCP - General Family Medicine 10/24/14 documented as of this encounter
--- OUTSIDE RECORDS SUMMARY | 2024-06-06 18:03 | XMS_ITS | Encounter Summary ---
Author Organization [employer] Address 75 [facility] 7t [place] [address] Care Team Providers Care Wire Frame Maker Name Role Phone Pedro Aida Primary Care Provider [phone] Encounter Details Date Type Department Care Team (Late st Contact Info) Description 03/30/2024 Orders Only [facility] MED[facility] [address] [place] [address] ProviderQueta MD Social History Tobacco Use Types [...] EST Narrative 04/15/2024 10:17 AM EST ? [facility] ?[address] ?[place] [address] ? Fluoroscopy Report ? Signed ? Patient: Colon,Quiara ?MR#: [id number] ? : 1985 ?Acct:[id number] ? Age/Sex: 38 / F ?ADM Date: 04/15/24 ? Loc: HO.XRAY ? Attending Dr: Jairon Fox MD ? Ordering Physician: Jairon Fox MD ?? Date of Service: 04/15/24 ?? Procedure(s): FL upper GI w air ?? Accession Number(s): [id number] ? cc: Aida Vasquez DO; Jairon Fox [...] DD/ 0811 ? TD/TT: 04/15/24 0845 ? Payroll Assistant: MSM ? Procedure Note Cristhian, Image - 04/15/2024 [place] [address] Fluoroscopy Report Signed Patient: Shanae Rosa#: [id number] : 1985Acct:[id number] Age/Sex: 38 / FADM Date: 04/15/24 Loc: DASH Attending Dr: Jairon Fox MD Ordering Physician: Jairon Fox MD Date of Service: 04/15/24 Procedure(s): FL upper GI w air Accession Number(s): [id number] cc: Aida Vasquez DO; Jairon Fox MD [...] 04/15/24 1014 DD/ 0811 TD/TT: 04/15/24 0845 Payroll Assistant: PEDRO [facility] External Provider IMG FLU OROSCOPY PROCEDURES Final Result * HM PAP/HPV (01/23/2024 5:50 PM EST) Historical Provider HEALTH MAINTENANCE Final Result documented in this encounter Visit Diagnoses Not on filedocumented in this encounter Additional Health Concerns Assessment Noted Time PHQ-9 Depression Total Score: 11 024 11:07 AM EST documented as of this encounter Care Teams Wire Frame Maker Relationship Specialty Start Date End Date Aida Vasquez DO [address] [place] [phone] PCP - General Family Medicine 10/24/14 documented as of this encounter
== END 2024-06-06 16:00 | disposition home or self-care (01) ==
LOC: HO.HBS 15:20
PROVIDERS: PCP Family Medicine; Visit Provider Physician Assistant Surgical
DX: Z98.84 Bariatric surgery status (principal)
CPT/HCPCS: 99024

== ENCOUNTER 2024-06-25 14:38 | Outpatient (REF) | payer MEDICAID, SELFPAY ==
--- OUTSIDE RECORDS SUMMARY | 2024-06-25 15:48 | XMS_ITS | Clinical Summary ---
Author Organization [employer] Address 75 [facility] 7t [place] [address] Care Team Providers Care Contractor General Engineering Name Role Phone Aida Vasquez DO Primary Care Provider [phone] Allergies Active Allergy Reactions Criticality Noted Date Comments Pollen Extract 07/08/2022 Medications * This document contains information received from the source organization and may not represent a complete record from that organization. acetaminophen (Tylenol 8 Hour) 650 MG ER tablet TAKE 1 TABLET BY MOUTH EVERY 8 HOURS NEEDED FOR PAIN OR FEVER 2 Active ergocalciferol (Vitamin D2) 1.25 MG (41444 UT) capsuleIndicatio ns:Vitamin D deficiency Take 1 [...] Encounters Date Type Department Care Team Description 06/25/2024 1:45 PM EDT Office Visit [facility] [place] [address] Aida Vasquez DO Major depression, recurrent, chronic (CMS/HCC) (Primary Dx); Moderate persistent asthma with acute exacerbation; Anemia, unspecified type; Chronic gastroesophageal reflux disease; Abnormal uterine bleeding (AUB); Urinary frequency; Morbid obesity with BMI of 50.0-59.9, adult (CMS/[facility]); Healthcare maintenance 06/25/2024 Travel 06/24/2024 Telephone [facility] [place] [address] Aida Vasquez DO Chart Prep 06/24/2024 Travel 05/05/2024 Refill [facility] [place] [address] Aida Vasquez DO Asthma, unspecified asthma severity, unspecified whether complicated, unspecified whether persistent 04/26/2024 Population Health Risk Score [facility] () Department [address] [place] [phone] Provider, Population Health Generic 04/25/2024 Refill [facility] [address] Aida Vasquez DO 04/15/2024 Orders Only GENERIC EXTERNAL DATA DEPARTMENT Provider, Generic External Data 03/30/2024 Orders Only [facility] [place] [address] ProviderQueta MD from Last 3 Months Immunizations Name Administration [...] Answer Date Recorded Patient Health Questionnaire-9 Score 0 06/25/2024 Patient Health Questionnaire-9 Score 0 06/25/2024 Last PHQ-9: Questionnaire Data Not on file 0 06/25/2024 Housing Stability Answer Date Recorded What is [...] Answer Date Recorded Patient Health Questionnaire-2 Score 0 06/25/2024 Comments Unknown Sex and Gender Information Value Date Recorded Sex Assigned at Female 12/13/2021 10:14 AM EDT Legal Sex Female 10:14 AM EDT Gender Identity Female 12/13/2021 10:14 AM EDT Sexual Orientation Lesbian or Lucio 12/13/2021 10 :14 AM EDT Last Filed Vital Signs Vital Sign Reading Time Taken Comments Blood Pressure 132/86 06/25/2024 1:40 PM EDT Pulse 95 06/25/2024 1:40 PM EDT Temperature 36.4 ??C (97.5 ??F) 06/25/2024 1:40 PM ED T Respiratory Rate 20 06/25/2024 1:40 PM EDT Oxygen Saturation 96% 10/25/2023 10:31 AM EDT Inhaled Oxygen Concentration - - Weight 129 kg (284 lb) 06/25/2024 1:40 PM EDT Height 172.7 cm (5' 8 ) 06/25/2024 1:40 PM EDT Body Mass Index 43.18 06/25/2024 1:40 PM EDT Plan of Treatment Health Maintenance Due Date Last Done Comments Family Planning (PISQ) 12/18/2002 SDOH Screening 02/23/2024 02/22/2023 Alcohol/Substance Use Screening 01/18/2025 01/19/2024 Depression Screening 06/25/2025 06/25/2024, 06/26/19 25 Tobacco Screening 06/25/2025 06/25/2024 Cervical Cancer Screening 01/22/2029 HPV/Cotest 01/22/2029 Lipid Panel 01/22/2029 01/23/2024, 1207/2023, 07/08/2022, Additional history exists Pap Smear 01/22/2029 [...] EST Narrative 04/15/2024 10:17 AM EST ? [facility] ?[address] ?[place] [address] ? Fluoroscopy Report ? Signed ? Patient: Colon,Quiara ?MR#: [id number] ? : 1985 ?Acct:[id number] ? Age/Sex: 38 / F ?ADM Date: 04/15/24 ? Loc: HO.XRAY ? Attending Dr: Jairon Fox MD ? Ordering Physician: Jairon Fox MD ?? Date of Service: 04/15/24 ?? Procedure(s): FL upper GI w air ?? Accession Number(s): [id number] ? cc: Aida Vasquez DO; Jairon Fox [...] DD/ 0811 ? TD/TT: 04/15/24 0845 ? Water Quality Specialist: MSM ? Procedure Note Cristhian, Image - 04/15/2024 [place] [address] Fluoroscopy Report Signed Patient: Shanae Rosa#: [id number] : 1985Acct:[id number] Age/Sex: 38 / FADM Date: 04/15/24 Loc: DASH Attending Dr: Jairon Fox MD Ordering Physician: Jairon Fox MD Date of Service: 04/15/24 Procedure(s): FL upper GI w air Accession Number(s): [id number] cc: Aida Vasquez DO; Jairon Fxo MD EXAMINATION: XR FLUOROSCOPY UPPER GI WITH [...] 04/15/24 1014 DD/ 0811 TD/TT: 04/15/24 0845 Water Quality Specialist: PEDRO [facility] External Provider IMG FLU OROSCOPY PROCEDURES Final Result * Nicotine and Metabolite, Qnt, Plasma, Whole Blood, or Serum (04/15/2024 8:06 AM EST) Nicotine, Serum/Plasma <2 see note ng/mL [facility] Comment:Reference Ranges(ng/ mL): Non-Smoker Active Tobacco User < or = to 4 2-10 Cotinine, Serum/Plasma 11 see note ng/mL [facility] Comment:Reference Ranges(ng/ mL): Non-Smoker Active Tobacco User < or = to 8 16-145This test was developed and its analytical performancecharacteristics have been determined by [facility] [place], [place]. It hasnot been cleared or approved by the U.S. Food and DrugAdministration. This assay has been validated pursuantto the CLIA regulations and is used for clinicalpurposes.THIS TEST WAS PERFORMED AT:[employer]/[address] [place] [address]LOPRLTBPRABHU BUSTAMANTE MD,PHD 04/15/2024 8:06 AM EST 04/15/2024 8:06 AM EST Generic External Data Provider LAB BLOOD ORDERAB LES Final Result Performing Organization Address [facility] de Phone Number [facility] [address] [place] [phone] * Nicotine and Cotinine, Urine (04/15/2024 8:05 AM EST) Nicotine, Urine 24 ng/mL [facility] Cotinine, Urine 84 ng/mL [facility] Comment:Reference Range: Mundo otine, Urine Smokers: 200-700 ng/mL Nonsmokers: < or = 17 ng/mL Cotinine, Urine Smokers: 300-1300 ng/mL Nonsmokers: < or = 20 ng/mLIndividuals exposed to second-hand or passive tobaccosmoke may demonstrate concentrations of nicotine andcotinine greater than those indicated for non-smokers.This test was developed and its analytical performancecharacteristics have been determined by [facility] [place], [place]. It hasnot been cleared or approved by the U.S. Food and DrugAdministration. This assay has been validated pursuantto the CLIA regulations and is used for clinicalpurposes.THIS TEST WAS PERFORMED AT:[employer]/[address] [place] [address]GJFXSVMPRABHU BUSTAMANTE MD,PHD 04/15/2024 8:05 AM EST 04/15/2024 8:15 AM EST us Generic External Data Provider LAB URINE ORDERAB LES Final Result Performing Organization Address [facility]/ZIP Co de Phone Number [facility] [address] [place] [phone] * HM PAP/HPV (01/23/2024 5:50 PM EST) Historical Provider HEALTH MAINTENANCE Final Result * (ABNORMAL) Lipid Panel, Standard (01/23/2024 10:12 AM EST) Triglycerides 92 <150 mg/dL [facility] Comment:Desirable Triglyceri de: less than 150 mg/dLBorderline High Triglyceride 150-199 mg/dLHigh Triglyceride: 200-499 mg/dLVery High Triglyceride: greater than or equal to 5OO mg/dL Cholesterol 120 <200 mg/dL [facility] Comment:Desirable Cholestero l: less than 200 mg/dLBorderline High Cholesterol: 200-239 mg/dLHigh Cholesterol: greater than 239 mg/dL LDL Cholesterol Calculated 66 <100 mg/dL [facility] Comment:Desirable LDL: less than 100 mg/dLNear Optimal/Above Optimal LDL: 110- 129 mg/dLBorderline High LDL: 130-159 mg/dLHigh LDL: 160-189 mg/dLVery High LDL: greater than or equal to 190 mg/dL HDL Cholesterol 36(L) >40 mg/dL [facility] Comment:Desirable HDL: great er than 40 mg/dL Note: This HDL assay may give artificially low results in patients with liver disease. 01/23/2024 10:1 2 AM EST 01/23/2024 10:12 AM EST us Generic External Data Provider LAB BLOOD ORDERAB LES Final Result Performing Organization Address [facility] Co de Phone Number [facility] [address] [place] [phone] * Hepatitis C Antibody with Reflex to HCV, RNA, Quantitative, Real-Time PCR (01/19/2024 11:52 AM EST) Hepatitis C Antibody Nonreactive Nonreactive [facility] Comment:Antibodies to HCV no t detected; does not exclude early acuteHCV infection. Blood Venous blood specimen / Unknown 01/19/2024 11:52 AM EST 01/19/2024 12:55 PM EST us Aida Vasquez DO LAB BLOOD ORDERABLES Final R esult Performing Organization Address City/[facility]/ZIP Co de Phone Number [facility] [address] [place] [phone] * HIV-1/2 Antigen and Antibodies, Fourth Generation, with Reflexes (01/19/2024 11:52 AM EST) HIV AB/AG Nonreactive Nonreactive [facility] Comment:HIV-1 p24 Ag and/or HIV-1/HIV-2 Ab not detected.A test result that is nonreactive does not exclude thepossibility of exposure to or infection with HIV-1 and/orHIV-2. Nonreactive results in this assay for individualswith prior exposure to HIV-1 and/or HIV-2 may be due toantigen and antibody levels that are below the limit ofdetection of this assay.The [employer] HIV Ag/Ab Combo assay result andsupplemental assay results should be interpreted inconjunction with the patient's clinical presentation,history and other laboratory results. If the results areinconsistent with clinical evidence, additional testing issuggested to confirm the result. Blood Venous blood specimen / Unknown 01/19/2024 11:52 AM EST 01/19/2024 12:55 PM EST us Aida Vasquez DO LAB BLOOD ORDERABLES Final R esult [facility] [address] [place] [phone] from Last 3 Months or Most Recently Relevant to Health Maintenance Insurance [facility] [place] [address] [place] [id number] Care Teams Contractor General Engineering Relationship Specialty Start Date End Date Aida Vasquez DO [address] [place] [phone] PCP - General Family Medicine 10/24/14
--- OUTSIDE RECORDS SUMMARY | 2024-06-25 15:48 | XMS_ITS | Encounter Summary ---
Author Organization [employer] Address [address] [facility] 7t [place] [address] Care Team Providers Care Packaging Clerk Name Role Phone Aida Vasquez DO Primary Care Provider + [phone] Reason for Visit * Reason Comments Asthma Encounter Details Date Type Department Care Team (Latest Contact Info) Description 06/25/2024 1:45 PM EDT Office Visit [facility] [address] [place] [address] Aida Vasquez DO [address] [place] [address] Major depression, recurrent, chronic (CMS/HCC) (Primary Dx); Moderate persistent asthma with acute exacerbation; Anemia, unspecified type; Chronic gastroesophageal reflux disease; Abnormal uterine bleeding (AUB); Urinary frequency; Morbid obesity with BMI of 50.0-59.9, adult (CMS/HCC); Healthcare maintenance Social History Tobacco Use Types Packs/Day Years [...] the past 12 months, has t he [employer], gas, oil or water company threatened to [...] AM EDT documented as of this encounter Last Filed Vital Signs Vital Sign Reading Time Taken Comments Blood Pressure 132/86 06/25/2024 1:40 PM EDT Pulse 95 06/25/2024 1:40 PM EDT Temperature 36.4 ??C (97.5 ??F) 06/25/2024 1:40 PM ED T Respiratory Rate 20 06/25/2024 1:40 PM EDT Oxygen Saturation - - Inhaled Oxygen Concentration - - Weight 129 kg (284 lb) 06/25/2024 1:40 PM EDT Height 172.7 cm (5' 8 ) 06/25/2024 1:40 PM EDT Body Mass Index 43.18 06/25/2024 1:40 PM EDT documented in this encounter Plan of Treatment Scheduled Orders Name Type Priority Associated Diagnoses Orde r Schedule T-SPOT??.TB Lab Routine Healthcare maintenance Expected: 06/25/2024 (Approximate), Expires: 06/25/2025 documented as of this encounter Visit Diagnoses Diagnosis Major depression, recurrent, chronic ([facility])- Primary Moderate persistent asthma with acute exacerbation Anemia, unspecified type Chronic gastroesophageal reflux disease Abnormal uterine bleeding (AUB) Urinary frequency Morbid obesity with BMI of 50.0-59.9, adult ([facility]) Healthcare maintenance documented in this encounter Additional Health Concerns Assessment Noted Time PHQ-9 Depression Total Score: 0 06/26/19 25 2:45 PM EDT documented as of this encounter Care Teams Packaging Clerk Relationship Specialty Start Date End Date Aida Vasquez DO [address] [place] [address] PCP - General Family Medicine 10/24/14 documented as of this encounter
--- OUTSIDE RECORDS SUMMARY | 2024-06-25 15:48 | XMS_ITS | Encounter Summary ---
Author Organization [employer] Address [address] 7[address] [place] [address] Care Team Providers Care Superior Court Justice Name Role Phone Aida Vasquez DO Primary Care Provider [phone] Encounter Details Date Type Department Care Team (Late st Contact Info) Description 05/12/[address] [facility] [address] [place] [address] Aida Feliz LPN Social History Tobacco Use [...] on filedocumented in this encounter Care Teams Superior Court Justice Relationship Specialty Start Date End Date Aida Vasquez DO [address] [place] [address] PCP - General Family Medicine 10/24/14 documented as of this encounter
--- OUTSIDE RECORDS SUMMARY | 2024-06-25 15:48 | XMS_ITS | Encounter Summary ---
Author Organization [employer] Address [address] [facility] [address] 7t [place] [address] Care Team Providers Care Textile Converter Name Role Phone PedroAida Primary Care Provider + [phone] Encounter Details Date Type Department Care Team (Late st Contact Info) Description 03/30/2024 Orders Only [facility] MEDICINE [address] [place] [address] Provider, MD Queta Social History Tobacco Use Types Packs/Day Years [...] EST Narrative 04/15/2024 10:17 AM EST ? [facility] ?[address] ?[place] [address] ? Fluoroscopy Report ? Signed ? Patient: Colon,Quiara ?MR#: [id number] ? : 1985 ?Acct:[id number] ? Age/Sex: 38 / F ?ADM Date: 04/15/24 ? Loc: HO.XRAY ? Attending Dr: Jairon Fox MD ? Ordering Physician: Jairon Fox MD ?? Date of Service: 04/15/24 ?? Procedure(s): FL upper GI w air ?? Accession Number(s): [id number] ? cc: Aida Vasquez DO; Jairon Fox [...] AM EST RP ? Dictated By: ?Clay Geogres MD ? Signed By: ?<Electronically signed by Clay Georges MD in OV> ?04/15/24 1014 ? DD/ 0811 ? TD/TT: 04/15/24 0845 ? Painter Barrel: MSM ? Procedure Note Cristhian, Image - 04/15/2024 [place] [address] Fluoroscopy Report Signed Patient: Shanae Rosa#: [id number] : 1985Acct:[id number] Age/Sex: 38 / FADM Date: 04/15/24 Loc: DASH Attending Dr: Jairon Fox MD Ordering Physician: Jairon Fox MD Date of Service: 04/15/24 Procedure(s): FL upper GI w air Accession Number(s): [id number] cc: Aida Vasquez DO; Jairon Fox MD [...] 04/15/24 1014 DD/ 0811 TD/TT: 04/15/24 0845 Painter Barrel: PEDRO [facility] External Provider IMG FLU OROSCOPY PROCEDURES Final Result * HM PAP/HPV (01/23/2024 5:50 PM EST) Historical Provider HEALTH MAINTENANCE Final Result documented in this encounter Visit Diagnoses Not on filedocumented in this encounter Additional Health Concerns Assessment Noted Time PHQ-9 Depression Total Score: 11 024 11:07 AM EST documented as of this encounter Care Teams Textile Converter Relationship Specialty Start Date End Date Aida Vasquez DO [address] [place] [phone] PCP - General Family Medicine 10/24/14 documented as of this encounter
--- OUTSIDE RECORDS SUMMARY | 2024-06-25 15:48 | XMS_ITS | Encounter Summary ---
Author Organization [employer] Address [address] [address] [facility] [address] 7[address] [place] [address] Care Team Providers Care Department Administrator Name Role Phone Aida Vasquez Primary Care Provider + [phone] Encounter Details Date Type Department Care Team (Latest Contact Info) Description 06/24/2024 Travel Social History Tobacco Use Types Packs/Day Years [...] documented as of this encounter Care Teams Department Administrator Relationship Specialty Start Date End Date Aida Vasquez DO [address] [place] [phone] PCP - General Family Medicine 10/24/14 documented as of this encounter
--- OUTSIDE RECORDS SUMMARY | 2024-06-25 15:48 | XMS_ITS | Encounter Summary ---
Author Organization [employer] Address [address] [facility] 7t [place] [address] Care Team Providers Care Field Cashier Name Role Phone Aida Vasquez DO Primary Care Provider + [phone] Reason for Visit * Reason Onset Date Comments Chart Prep 06/24/2024 Encounter Details Date Type Department Care Team (Late st Contact Info) Description 06/24/2024 Telephone [facility] MEDICINE [address] [place] [address] Aida Vasquez DO [address] [place] [address] Chart Prep Social History Tobacco Use Types Packs/Day Years [...] AM EDT documented as of this encounter Miscellaneous Notes * Telephone Encounter - Lara Higgins [place] - 06/24/2024 1:54 PM EDT Chart Prep Labs: done Images: done US Pelvis Transvaginal Results([facility]) Referrals: appointment pending [facility] Urology Vaccines due: no updates Screenings: LMP Overdue care gaps: SDOH, NIYA-7, and Disability screen documented in this encounter Plan of Treatment Not on file documented as of this encounter Visit Diagnoses Not on filedocumented in this encounter Additional Health Concerns Assessment Noted Time PHQ-9 Depression Total Score: 11 024 11:07 AM EST documented as of this encounter Care Teams Field Cashier Relationship Specialty Start Date End Date Aida Vasquez DO [address] [place] [phone] PCP - General Family Medicine 10/24/14 documented as of this encounter
--- OUTSIDE RECORDS SUMMARY | 2024-06-25 15:48 | XMS_ITS | Encounter Summary ---
Author Organization [employer] Address [address] [facility] 7t [place] [address] Care Team Providers Care Clinical Rn Manager Name Role Phone Aida Vasquez DO Primary Care Provider [phone] Encounter Details Date Type Department Care Team (Late st Contact Info) Description 03/01/2022 Orders Only [facility] MEDICINE [address] [place] [address] Cielo Elias LPN Social History Tobacco Use [...] on filedocumented in this encounter Care Teams Clinical Rn Manager Relationship Specialty Start Date End Date Aida Vasquez DO [address] [place] [address] PCP - General Family Medicine 10/24/14 documented as of this encounter
--- OUTSIDE RECORDS SUMMARY | 2024-06-25 15:48 | XMS_ITS | Encounter Summary ---
Author Organization [employer] Address [address] [facility] [address] 7[address] [place] [address] Care Team Providers Care Cuff Setter Overlock Name Role Phone Aida Vasquez Primary Care Provider + [phone] Encounter Details Date Type Department Care Team (Latest Contact Info) Description 06/25/2024 Travel Social History Tobacco Use Types Packs/Day [...] documented as of this encounter Care Teams Cuff Setter Overlock Relationship Specialty Start Date End Date Aida Vasquez DO [address] [place] [phone] PCP - General Family Medicine 10/24/14 documented as of this encounter
[2024-06-27 23:33] LABS: TS Negative Control Passed; TS Panel A 0; TS Panel B 0; TS Positive Control Passed; TSpotTB Negative (Negative)
== END 2024-06-25 14:39 | disposition home or self-care (01) ==
LOC: HO.HHCL 14:38
PROVIDERS: Visit Provider Family Medicine
DX: Z11.1 Encounter for screening for respiratory tuberculosis (principal)
CPT/HCPCS: 36415; 86481

== ENCOUNTER 2024-06-26 14:38 | Outpatient (AMB) | payer MEDICAID, SELFPAY ==
--- NOTE | 2024-06-26 14:40 | A.OFFVIS_ITS ---
VS Expanded 06/26/24 14:49 BP 146/94 H Blood Pressure Location Rt brachial Blood Pressure Position Sitting Pulse 97 Pulse Source Pulse Oximeter Temp 97.2 F Temperature Source Temporal Artery Scan Pulse Oximetry 97 Oxygen Delivery Method Room Air Height 5 ft 8 in Weight 281 lb 12.8 oz BMI 42.8 Body Fat % 46.2 Body Fat Mass 130.0 Fat Free Mass 151.6 Visceral Fat Rating 13.0 Body Water % 38.5 Body Water Mass 108.4 Muscle Mass/Score 144.0 Basal Metabolic Rate/Score 2,167 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: OV PO LSG 05/30/24 Tenter Frame Operator Required: No Allergies No Known Allergies Allergy (Verified 06/26/24 14:47) Medication List - Last Reconciled 06/26/24 by BROOKE Rivas albuterol sulfate 90 mcg/actuation (Ventolin HFA) 2 puffs inhalation Q4-6H PRN calcium carbonate (Calcium Antacid) 400 mg PO NEEDED cholecalciferol (vitamin D3) 125 mcg PO DAILY fluticasone propionate 220 mcg/actuation (Flovent HFA) 2 puffs inhalation BID PRN iron,carbonyl-vitamin C 65 mg iron- 125 mg (Vitron-C) 1 tab PO DAILY pantoprazole 40 mg PO DAILY sucralfate 10 mL PO BID HPI Comments Details: This?a?38?yo female who is s/p LSG without hiatal hernia repair on?05/30/2024. Presents for 1 month post op visit. Weight today is 281.8 pounds, with a BMI of 42.8. There has been a 71.4 pound weight loss,(initial weight 353.2 pounds) since starting the program on 01/22/2024 reflecting a 20.2 % total body weight loss and a weight loss of 21 pounds since surgery (operative weight 302.8 pounds) reflecting a 6.9 % TBWL since surgery. No complaints of nausea, emesis, abdominal pain or reflux. Reports infrequent but normal bowel movements every 2- 3 days and uses stool softeners regularly. She states she is a little frustrated with the last two weeks she has not lost weight. She is also frustrated with not currently on Zepbound. Present meal plan includes: 8-11 premier protein 2 scoops in 8 oz almond milk 12-2 fit crunch bar 3-6 another shake 7 pm meal w 3 forks eggs or yi yogurt or cottage cheese 9-11 pm fit crunch bar 30 oz fluids daily Exercise plan: treadmill at PF 4-5 days per week x 1 hour, 350 tanya, speed 3-3.1 incline 0-4 PFSH Medical History Abnormal uterine bleeding Influenza History of transfusion of packed red blood cells Hypertension GERD (gastroesophageal reflux disease) Back pain Morbid obesity Anemia Asthma Surgical History S/P laparoscopic sleeve gastrectomy History of esophagogastroduodenoscopy (EGD) H/O dilation and curettage History of bladder suspension procedure Social History Household Members: Family Housing: Apartment Are you a primary assistant child care teacher to a significant other at home: No Do you presently have visiting nurse or other home services: No Alcohol intake: never Patient Tobacco Use Status: Never used Tobacco Tobacco use type: Cigarette Cigarettes Per Day: 1 Second Hand Smoke Exposure: Yes service: No Current occupational status: employed 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 She will discuss with Dr. Fox a request to change her shake product to ready to drink. Additionally, we discussed strategy to improve the stall that she has experienced. Discussed adding recumbent bike and elliptical to her exercise routine. Discussed achieving a goal of burning 400 calories per day, 6 days per week. Discussed not skipping any items within the meal plan. Additionally discussed increasing fluid intake to approximately 60 oz as she is able. Discussed the pharmacology of Zepbound and why it is inappropriate to add back into her routine at this time. She was satisfied with the explanation. We will have her return to the office in approximately 3 weeks.
--- OUTSIDE RECORDS SUMMARY | 2024-06-26 14:40 | XMS_ITS | Clinical Summary ---
Author Organization [employer] Address [address] [facility] 7t [place] [address] Care Team Providers Care Franchise Sales Representative Name Role Phone Aida Vasquez DO Primary Care Provider [phone] Allergies Active Allergy Reactions Criticality Noted Date Comments Pollen Extract 07/08/2022 Medications * This document contains information received from the source organization and may not represent a complete record from that organization. acetaminophen (Tylenol 8 Hour) 650 MG ER tablet TAKE 1 TABLET BY MOUTH EVERY 8 HOURS NEEDED FOR PAIN OR FEVER 2 Active ergocalciferol (Vitamin D2) 1.25 MG (21308 UT) capsuleIndicatio ns:Vitamin D deficiency Take 1 [...] Description 06/25/2024 1:45 PM EDT Office Visit [facility] [place] [address] Aida Vasquez DO Major depression, recurrent, chronic (CMS/HCC) (Primary Dx); Moderate persistent asthma with acute exacerbation; Anemia, unspecified type; Chronic gastroesophageal reflux disease; Abnormal uterine bleeding (AUB); Urinary frequency; Morbid obesity with BMI of 50.0-59.9, adult (CMS/[facility]); Healthcare maintenance 06/25/2024 Travel 06/24/2024 Telephone [facility] [place] [place] [address] Aida Vasquez DO Chart Prep 06/24/2024 Travel 05/05/2024 Refill [facility] [address] Aida Vasquez DO Asthma, unspecified asthma severity, unspecified whether complicated, unspecified whether persistent 04/26/2024 Population Health Risk Score [facility] () Department [address] [place] [phone] Provider, Population Health Generic 04/25/2024 Refill [facility] [address] Aida Vasquez DO 04/15/2024 Orders Only GENERIC EXTERNAL DATA DEPARTMENT Provider, Generic External Data 03/30/2024 Orders Only [facility] [address] ProviderQueta MD from Last 3 Months Immunizations Immunization Administration Dates Next Due DTaP 05/02/1990, 0,08/02/1988,06/02,04/04/1988 [...] patient's age to complete this topic Meningococcal B Vaccine Aged Out No l onger eligible based on patient's age to complete [...] EST Narrative 04/15/2024 10:17 AM EST ? [facility] ?[address] [facility] ?[place] [phone] ? Fluoroscopy Report ? Signed ? Patient: Colon,Quiara ?MR#: [id number] ? : 1985 ?Acct:[id number] ? Age/Sex: 38 / F ?ADM Date: 04/15/24 ? Loc: HO.XRAY ? Attending Dr: Jairon Fox MD ? Ordering Physician: Jairon Fox MD ?? Date of Service: 04/15/24 ?? Procedure(s): FL upper GI w air ?? Accession Number(s): [id number] ? cc: Aida Vasquez DO; Jairon Fox [...] DD/ 0811 ? TD/TT: 04/15/24 0845 ? Pull Through Hooker: MSM ? Procedure Note Son Morrow - 04/15/2024 [place] [address] Fluoroscopy Report Signed Patient: Shanae Rosa#: [id number] : 1985Acct:[id number] Age/Sex: 38 / FADM Date: 04/15/24 Loc: DASH Attending Dr: Jairon Fox MD Ordering Physician: Jairon Fox MD Date of Service: 04/15/24 Procedure(s): FL upper GI w air Accession Number(s): [id number] cc: Aida Vasquez DO; Jairon Fox MD [...] 04/15/24 1014 DD/ 0811 TD/TT: 04/15/24 0845 Pull Through Hooker: PEDRO [facility] External Provider IMG FLU OROSCOPY PROCEDURES Final Result * Nicotine and Metabolite, Qnt, Plasma, Whole Blood, or Serum (04/15/2024 8:06 AM EST) Nicotine, Serum/Plasma <2 see note ng/mL [facility] Comment:Reference Ranges(ng/ mL): Non-Smoker Active Tobacco User < or = to 4 2-10 Cotinine, Serum/Plasma 11 see note ng/mL [facility] Comment:Reference Ranges(ng/ mL): Non-Smoker Active Tobacco User < or = to 8 16-145This test was developed and its analytical performancecharacteristics have been determined by [employer] [place], [place]. It hasnot been cleared or approved by the U.S. Food and DrugAdministration. This assay has been validated pursuantto the CLIA regulations and is used for clinicalpurposes.THIS TEST WAS PERFORMED AT:[employer] [id number] [place] [address]CCSSGEKPRABHU BUSTAMANTE MD,PHD 04/15/2024 8:06 AM EST 04/15/2024 8:06 AM EST us Generic External Data Provider LAB BLOOD ORDERAB LES Final Result Performing Organization Address [facility] Co de Phone Number [facility] [address] [place] [phone] * Nicotine and Cotinine, Urine (04/15/2024 8:05 AM EST) Nicotine, Urine 24 ng/mL [facility] Cotinine, Urine 84 ng/mL [facility] Comment:Reference Range: Mundo otine, Urine Smokers: 200-700 ng/mL Nonsmokers: < or = 17 ng/mL Cotinine, Urine Smokers: 300-1300 ng/mL Nonsmokers: < or = 20 ng/mLIndividuals exposed to second-hand or passive tobaccosmoke may demonstrate concentrations of nicotine andcotinine greater than those indicated for non-smokers.This test was developed and its analytical performancecharacteristics have been determined by [employer] [place], [place]. It hasnot been cleared or approved by the U.S. Food and DrugAdministration. This assay has been validated pursuantto the CLIA regulations and is used for clinicalpurposes.THIS TEST WAS PERFORMED AT:[employer] [place] [address]ISILCNUPRABHU BUSTAMANTE MD,PHD 04/15/2024 8:05 AM EST 04/15/2024 8:15 AM EST us Generic External Data Provider LAB URINE ORDERAB LES Final Result Performing Organization Address City/[facility]/ZIP Co de Phone Number [facility] [address] [place] [phone] * HM PAP/HPV (01/23/2024 5:50 PM EST) us Historical Provider HEALTH MAINTENANCE Final Result * (ABNORMAL) Lipid Panel, Standard (01/23/2024 10:12 AM EST) Triglycerides 92 <150 mg/dL [facility] Comment:Desirable Triglyceri de: less than 150 mg/dLBorderline High Triglyceride 150-199 mg/dLHigh Triglyceride: 200-499 mg/dLVery High Triglyceride: greater than or equal to 5OO mg/dL Cholesterol 120 <200 mg/dL [facility] Comment:Desirable Cholestero l: less than 200 mg/dLBorderline High Cholesterol: 200-239 mg/dLHigh Cholesterol: greater than 239 mg/dL LDL Cholesterol Calculated 66 <100 mg/dL [facility] Comment:Desirable LDL: less than 100 mg/dLNear Optimal/Above Optimal LDL: 110- 129 mg/dLBorderline High LDL: 130-159 mg/dLHigh LDL: 160-189 mg/dLVery High LDL: greater than or equal to 190 mg/dL HDL Cholesterol 36(L) >40 mg/dL [facility] Comment:Desirable HDL: great er than 40 mg/dL Note: This HDL assay may give artificially low results in patients with liver disease. 01/23/2024 10:1 2 AM EST 01/23/2024 10:12 AM EST us Generic External Data Provider LAB BLOOD ORDERAB LES Final Result Performing Organization Address [facility] de Phone Number [facility] [address] [place] [phone] * Hepatitis C Antibody with Reflex to HCV, RNA, Quantitative, Real-Time PCR (01/19/2024 11:52 AM EST) Hepatitis C Antibody Nonreactive Nonreactive [facility] Comment:Antibodies to HCV no t detected; does not exclude early acuteHCV infection. Blood Venous blood specimen / Unknown 01/19/2024 11:52 AM EST 01/19/2024 12:55 PM EST us Aida Vasquez DO LAB BLOOD ORDERABLES Final R esult Performing Organization Address City/[facility]/ZIP Co de Phone Number [facility] [address] [place] [phone] [phone] * HIV-1/2 Antigen and Antibodies, Fourth Generation, with Reflexes (01/19/2024 11:52 AM EST) HIV AB/AG Nonreactive Nonreactive [facility] Comment:HIV-1 p24 Ag and/or HIV-1/HIV-2 Ab not detected.A test result that is nonreactive does not exclude thepossibility of exposure to or infection with HIV-1 and/orHIV-2. Nonreactive results in this assay for individualswith prior exposure to HIV-1 and/or HIV-2 may be due toantigen and antibody levels that are below the limit ofdetection of this assay.The [employer] HIV Ag/Ab Combo assay result andsupplemental assay results should be interpreted inconjunction with the patient's clinical presentation,history and other laboratory results. If the results areinconsistent with clinical evidence, additional testing issuggested to confirm the result. Blood Venous blood specimen / Unknown 01/19/2024 11:52 AM EST 01/19/2024 12:55 PM EST us Aida Vasquez DO LAB BLOOD ORDERABLES Final R esult [facility] [address] [place] [phone] [phone] from Last 3 Months or Most Recently Relevant to Health Maintenance Insurance [facility] C3 Care Teams Franchise Sales Representative Relationship Specialty Start Date End Date Aida Vasquez DO [address] [place] [phone] PCP - General Family Medicine 10/24/14
--- OUTSIDE RECORDS SUMMARY | 2024-06-26 14:41 | XMS_ITS | Encounter Summary ---
Author Organization [employer] Address [address] [facility] 7t [place] [address] Care Team Providers Care Dental Surgery Doctor Name Role Phone Aida Vasquez DO Primary Care Provider + [phone] Reason for Visit * Reason Comments Asthma Encounter Details Date Type Department Care Team (Latest Contact Info) Description 06/25/2024 1:45 PM EDT Office Visit [facility] MED[facility]INE [address] [place] [address] Aida Vasquez DO [address] [place] [address] Major depression, recurrent, chronic (CMS/HCC) (Primary Dx); [...] the past 12 months, has t he Whatever, gas, oil or water company threatened to [...] 1:40 PM EDT documented in this encounter Functional Status * Over the past 2 weeks, how often have you been bothered by any of the following problems? Question Answer Date of Assessment Author Patient Health Questionnaire -2 Score 0 06/25/2024 2:45 PM EDT Evelyn Szymanski MA * Little interest or pleasure in doing things Answer Date of Assessment Author Not at all 06/25/2024 2:45 PM EDT Evelyn Szymanski MA * Feeling down, depressed, or hopeless Answer Date of Assessment Author Not at all 06/25/2024 2:45 PM EDT Evelyn Szymanski MA * Trouble falling or staying asleep, or sleeping too much Answer Date of Assessment Author Not at all 06/25/2024 2:45 PM EDT Evelyn Szymanski MA * Feeling tired or having little energy Answer Date of Assessment Author Not at all 06/25/2024 2:45 PM EDT Evelyn Szymanski MA * Poor appetite or overeating Answer Date of Assessment Author Not at all 06/25/2024 2:45 PM EDT Evelyn Szymanski MA * Feeling bad about yourself - or that you are a failure or have let yourself or your family down Answer Date of Assessment Author Not at all 06/25/2024 2:45 PM EDT Evelyn Szymanski MA * Trouble concentrating on things, such as reading the newspaper or watching television Answer Date of Assessment Author Not at all 06/25/2024 2:45 PM EDT Evelyn Szymanski MA * Moving or speaking so slowly that other people could have noticed? Or the opposite - being so fidgety or restless that you have been moving around a lot more than usual. Answer Date of Assessment Author Not at all 06/25/2024 2:45 PM EDT Evelyn Szymanski MA * Thoughts that you would be better off or hurting yourself in some way Answer Date of Assessment Author Not at all 06/25/2024 2:45 PM EDT Evelyn Szymanski MA * Patient Health Questionnaire-9 Score Answer Date of Assessment Author 0 06/25/2024 2:45 PM EDT Evelyn Szymanski MA * Over the last 2 weeks, how often have you been bothered by any of the following problems? Question Answer Date of Assessment Author Feeling nervous, anxious, or on edge 0 06/25/2024 2:45 PM EDT Evelyn Szymanski MA Not being able to stop or co ntrol worrying 0 06/25/2024 2:45 PM LANETTET Evelyn Szymanski MA Worrying too much about diff erent things 0 06/25/2024 2:45 PM EDT Evelyn Szymanski MA Trouble relaxing 0 06/25/2024 2:45 PM EDT Evelyn Jules MA Being so restless that it is hard to sit still 0 06/25/2024 2:45 PM EDT Evelyn Szymanski MA Becoming easily annoyed or irritable 0 06/25/2024 2:45 PM EDT Evelyn Szymanski MA Feeling afraid as if somethi ng awful might happen 0 06/25/2024 2:45 PM EDT Evelyn Szymanski MA NIYA-7 Total Score 0 06/25/2024 2:45 PM EDT Evelyn Szymanski MA documented as of this encounter Plan of Treatment Scheduled Orders Name Type Priority Associated Diagnoses Orde r Schedule T-SPOT??.TB Lab Routine Healthcare maintenance Expected: 06/25/2024 (Approximate), Expires: 06/25/2025 documented as of this encounter Visit Diagnoses Diagnosis Major depression, recurrent, chronic ([facility])- Primary Moderate persistent asthma with acute exacerbation Anemia, unspecified type Chronic gastroesophageal reflux disease Abnormal uterine bleeding (AUB) Urinary frequency Morbid obesity with BMI of 50.0-59.9, adult ([facility]) Healthcare maintenance documented in this encounter Additional Health Concerns Assessment Noted Time PHQ-9 Depression Total Score: 0 06/26/19 25 2:45 PM EDT documented as of this encounter Care Teams Dental Surgery Doctor Relationship Specialty Start Date End Date Aida Vasquez DO [address] [place] [phone] PCP - General Family Medicine 10/24/14 documented as of this encounter
--- OUTSIDE RECORDS SUMMARY | 2024-06-26 14:41 | XMS_ITS | Encounter Summary ---
Author Organization [employer] Address [address] [facility] [address] 7t [place] [address] Care Team Providers Care Environmental Health Technician Name Role Phone Aida Vasquez Primary Care Provider + [phone] Encounter Details Date Type Department Care Team [...] documented as of this encounter Care Teams Environmental Health Technician Relationship Specialty Start Date End Date Aida Vasquez DO [address] [place] [address] PCP - General Family Medicine 10/24/14 documented as of this encounter
--- OUTSIDE RECORDS SUMMARY | 2024-06-26 14:41 | XMS_ITS | Encounter Summary ---
Author Organization [employer] Address [address] [facility] [address] 7[address] [place] [address] Care Team Providers Care Lift Truck Mechanic Name Role Phone PedroAida Primary Care Provider + [phone] Encounter Details Date Type Department Care Team (Late st Contact Info) Description 03/30/2024 Orders Only [facility] [address] [place] [address] Provider, MD Queta Social History Tobacco Use [...] EST Narrative 04/15/2024 10:17 AM EST ? [facility] ?[address] ?[place] [address] ? Fluoroscopy Report ? Signed ? Patient: Colon,Quiara ?MR#: [id number] ? : 1985 ?Acct:[id number] ? Age/Sex: 38 / F ?ADM Date: 04/15/24 ? Loc: HO.XRAY ? Attending Dr: Jairon Fox MD ? Ordering Physician: Jairon Fox MD ?? Date of Service: 04/15/24 ?? Procedure(s): FL upper GI w air ?? Accession Number(s): [id number] ? cc: Aida Vasquez DO; Jairon Fox [...] ? Signed By: ?<Electronically signed by Clay Goerges MD in OV> ?04/15/24 1014 ? DD/ 0811 ? TD/TT: 04/15/24 0845 ? Campground Caretaker: MSM ? Procedure Note Cristhian, Image - 04/15/2024 [place] [address] Fluoroscopy Report Signed Patient: Shanae Rosa#: [id number] : 1985Acct:[id number] Age/Sex: 38 / FADM Date: 04/15/24 Loc: DASH Attending Dr: aJiron Fox MD Ordering Physician: Jairon Fox MD Date of Service: 04/15/24 Procedure(s): FL upper GI w air Accession Number(s): [id number] cc: Aida Vasquez DO; Jairon Fox MD [...] 04/15/24 1014 DD/ 0811 TD/TT: 04/15/24 0845 Campground Caretaker: PEDRO [facility] External Provider IMG FLU OROSCOPY PROCEDURES Final Result * HM PAP/HPV (01/23/2024 5:50 PM EST) Historical Provider HEALTH MAINTENANCE Final Result documented in this encounter Visit Diagnoses Not on filedocumented in this encounter Additional Health Concerns Assessment Noted Time PHQ-9 Depression Total Score: 11 024 11:07 AM EST documented as of this encounter Care Teams Lift Truck Mechanic Relationship Specialty Start Date End Date Aida Vasquez DO [address] [place] [address] PCP - General Family Medicine 10/24/14 documented as of this encounter
--- OUTSIDE RECORDS SUMMARY | 2024-06-26 14:41 | XMS_ITS | Encounter Summary ---
Author Organization [employer] Address [address] [facility] 7t [place] [address] Care Team Providers Care Mink Slicer Name Role Phone Aida Vasquez DO Primary Care Provider + [phone] Reason for Visit * Reason Onset Date Comments Chart Prep 06/24/2024 Encounter Details Date Type Department Care Team (Late st Contact Info) Description 06/24/2024 Telephone [facility] [address] [place] [address] Aida Vasquez DO [address] [place] [address] Chart Prep Social History Tobacco Use Types [...] Labs: done Images: done US Pelvis Transvaginal Results([facility] Referrals: appointment pending [facility] Urology Vaccines due: no updates Screenings: LMP Overdue care gaps: SDOH, NIYA-7, and Disability screen documented in this encounter Plan of Treatment Not on file documented as of this encounter Visit Diagnoses Not on filedocumented in this encounter Additional Health Concerns Assessment Noted Time PHQ-9 Depression Total Score: 11 024 11:07 AM EST documented as of this encounter Care Teams Mink Slicer Relationship Specialty Start Date End Date Aida Vasquez DO [address] [place] [address] PCP - General Family Medicine 10/24/14 documented as of this encounter
--- OUTSIDE RECORDS SUMMARY | 2024-06-26 14:41 | XMS_ITS | Encounter Summary ---
Author Organization [employer] Address [address] [facility] [address] 7t [place] [address] Care Team Providers Care Vc++ Developer Name Role Phone Aida Vasquez DO Primary Care Provider [phone] Encounter Details Date Type Department Care Team (Late st Contact Info) Description 05/12/2022 Orders Only [facility] & P[facility] [address] [place] [address] Aida Feliz LPN Social History Tobacco Use [...] on filedocumented in this encounter Care Teams Vc++ Developer Relationship Specialty Start Date End Date Aida Vasquez DO [address] [place] [address] PCP - General Family Medicine 10/24/14 documented as of this encounter
--- OUTSIDE RECORDS SUMMARY | 2024-06-26 14:41 | XMS_ITS | Encounter Summary ---
Author Organization [employer] Address [address] [facility] 7t [place] [address] Care Team Providers Care Middle School Humanities Teacher Name Role Phone Aida Vasquez DO Primary Care Provider [phone] Encounter Details Date Type Department Care Team (Late st Contact Info) Description 03/01/2022 Orders Only [facility]INE [address] [place] [address] Cielo Elias LPN Social History Tobacco Use [...] on filedocumented in this encounter Care Teams Middle [employer] Humanities Teacher Relationship Specialty Start Date End Date Aida Vasquez DO [address] [place] [address] PCP - General Family Medicine 10/24/14 documented as of this encounter
--- OUTSIDE RECORDS SUMMARY | 2024-06-26 14:41 | XMS_ITS | Encounter Summary ---
Author Organization [employer] Address [address] [facility] [address] 7[address] [place] [address] Care Team Providers Care Front Desk Attendant Name Role Phone Aida Vasquez Primary Care Provider + [phone] Encounter Details Date Type Department Care Team [...] AM EDT documented as of this encounter Functional Status * Over the [...] co ntrol worrying 0 06/25/2024 2:45 PM EDT Evelyn Szymanski MA Worrying too much about [...] documented as of this encounter Care Teams Front Desk Attendant Relationship Specialty Start Date End Date Aida Vasquez DO [address] [place] [address] PCP - General Family Medicine 10/24/14 documented as of this encounter
[2024-06-26 14:49] VITALS: BP 146/94; PULSE 97; TEMP 36.2; O2SAT 97; BMI 42.8
== END 2024-06-26 15:48 | disposition home or self-care (01) ==
LOC: HO.HBS 14:39
PROVIDERS: PCP Family Medicine; Visit Provider Physician Assistant Surgical
DX: Z98.84 Bariatric surgery status (principal)
CPT/HCPCS: 99024

== ENCOUNTER → 2024-06-26 14:38 | Outpatient (BNVA) | payer MEDICAID, SELFPAY | PROVIDERS: PCP Family Medicine; Visit Provider Physician Assistant Surgical | DX: Z48.815 Encounter for surgical aftercare following surgery on the digestive system (principal); Z98.84 Bariatric surgery status | CPT/HCPCS: 99212 ==

== ENCOUNTER 2024-07-26 13:07 | Outpatient (AMB) | payer MEDICAID, SELFPAY ==
[2024-07-26 08:42] VITALS: BMI 38.0
--- NOTE | 2024-07-26 08:42 | A.OFFVIS_ITS ---
VS Expanded 07/26/24 08:42 Height 5 ft 8 in Weight 250 lb BMI 38.0 Body Fat % 32 Fat Free Mass 170 Visceral Fat Rating 19 Body Water % 39.6 Muscle Mass/Score 159.8 Basal Metabolic Rate/Score 2,043 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: TV PO LSG 05/30/24 Shrimp Trawler Required: No Allergies No Known Allergies Allergy (Verified 06/26/24 14:47) Medication List - Last Reconciled 07/26/24 by BROOKE Rivas albuterol sulfate 90 mcg/actuation (Ventolin HFA) 2 puffs inhalation Q4-6H PRN calcium carbonate (Calcium Antacid) 400 mg PO NEEDED cholecalciferol (vitamin D3) 125 mcg PO DAILY fluticasone propionate 220 mcg/actuation (Flovent HFA) 2 puffs inhalation BID PRN iron,carbonyl-vitamin C 65 mg iron- 125 mg (Vitron-C) 1 tab PO DAILY pantoprazole 40 mg PO DAILY sucralfate 10 mL PO BID HPI Comments Details: This?a?38?yo female who is s/p LSG without hiatal hernia repair on?05/30/2024. Presents for 2 month post op visit. Weight today is 250 pounds, with a BMI of 38. There has been a 103.2 pound weight loss,(initial weight 353.2 pounds) since starting the program on 01/22/2024 reflecting a 29.2 % total body weight loss and a weight loss of 52.8 pounds since surgery (operative weight 302.8 pounds) reflecting a 17.4 % TBWL since surgery. No complaints of nausea, emesis, abdominal pain or reflux. Reports infrequent but normal bowel movements every 2-3 days and uses stool softeners regularly. She states she has a new meal plan by Dr Fox Present meal plan includes: 8-11 premier protein 1 scoop in 8 oz almond milk 12-2 fit crunch bar 3-6 another shake, 2 scoops in 8 oz almond milk 7 pm meal w 3 forks protein and 3 forks cooked veg 9-11 pm fit crunch bar 40-50 oz fluids daily Exercise plan: none in 7-10 days due to having to care for her mom treadmill at 4-5 days per week x 1 hour, 350 tanya, speed 3-3.1 incline 0-4 [facility] Medical History Abnormal uterine bleeding Influenza History of transfusion of packed red blood cells Hypertension GERD (gastroesophageal reflux disease) Back pain Morbid obesity Anemia Asthma Surgical History S/P laparoscopic sleeve gastrectomy History of esophagogastroduodenoscopy (EGD) H/O dilation and curettage History of bladder suspension procedure Social History Household Members: Family Housing: Apartment Are you a primary customer care representative to a significant other at home: No Do you presently have visiting nurse or other home services: No Alcohol intake: never Patient Tobacco Use Status: Never used Tobacco Tobacco use type: Cigarette Cigarettes Per Day: 1 Second Hand Smoke Exposure: Yes service: No Current occupational status: employed 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 Telehealth Telehealth Telehealth Platform: Telephone Location of provider rendering services: practice address Location of patient: address on file Patient Identification confirmed using: Name, : Yes Telehealth method: voice only Patient verbally consented to treatment: Yes Patient verbally consented to billing insurance company: Yes Patient informed of any privacy concerns related to visit: Yes Minutes spent on Phone/Video with Pt.: 15 Assessment & Plan Assessment & Plan (1) S/P laparoscopic sleeve gastrectomy: Code(s): Z98.84 - Bariatric surgery status Category: Surgical Plan: Clarified for patient 1 scoop in her 1st shake and 2 scoops in her 2nd shake based upon recommendations by Dr. Fox who was using the ready to drink formulary, patient is using powder. Discussed the importance of exercise and returning to exercise regularly. She has had increased responsibilities having to care for her mother, encouraged to continue to text weekly her weight and with any questions or concerns. Congratulated on her 103 lb weight loss so far. She had no complaints at today's visit.
--- OUTSIDE RECORDS SUMMARY | 2024-07-26 13:30 | XMS_ITS | Clinical Summary ---
Author Organization [employer] Address [address] [facility] 7t [place] [address] Care Team Providers Care Nail Puller Name Role Phone Aida Vasquez DO Primary Care Provider [phone] Allergies Active Allergy Reactions Criticality Noted Date Comments Pollen Extract 07/08/2022 Medications * This document contains information received from the source organization and may not represent a complete record from that organization. acetaminophen (Tylenol 8 Hour) 650 MG ER tablet TAKE 1 TABLET BY MOUTH EVERY 8 HOURS NEEDED FOR PAIN OR FEVER 11/30/19 22 Active ergocalciferol (Vitamin D2) 1.25 MG (99428 UT) capsuleIndicati ons:Vitamin D deficiency Take 1 [...] BREATH 90 mL 2 04/26/19 25 Active albuterol (Ventolin HFA) 108 (90 Base) MCG/ACT inhalerIndicati ons:Asthma, unspecified asthma severity, unspecified whether complicated, unspecified whether persistent INHALE 2 PUFFS BY MOUTH EVERY 4 TO 6 HOURS NEEDED FOR COUGH, WHEEZING, OR SHORTNESS OF BREATH 18 g 1 06/28/19 25 Active calcium carbonate (Calcium Antacid) 500 MG chewable tablet CHEW 2 TABLETS BY MOUTH AFTER MEALS NEEDED FOR HEARTBURN, DO NOT EXCEED 8 TABLETS / 24 HOURS 180 tablet 07/13/19 25 Active calcium carbonate (Calcium Antacid) 500 MG chewable tablet CHEW 2 TABLETS BY MOUTH AFTER MEALS NEEDED FOR HEARTBURN, DO NOT EXCEED 8 TABLETS / 24 HOURS 180 tablet 04/26/19 25 025 Discontinued(Re order (will not trigger notification to Pharmacy)) albuterol (Ventolin HFA) 108 (90 Base) MCG/ACT inhalerIndicati ons:Asthma, unspecified asthma severity, unspecified whether complicated, unspecified whether persistent INHALE 2 PUFFS BY MOUTH EVERY 4 TO 6 HOURS NEEDED FOR COUGH, WHEEZING, OR SHORTNESS OF BREATH 18 g 1 05/07/19 25 025 Discontinued Active Problems Problem Noted [...] Encounters Date Type Department Care Team Description 07/12/2024 Refill [facility] & PEDS [address] [place], [place] [phone] Aida Vasquez DO 06/27/2024 Refill [facility] MEDICINE [address] [place] [address] Aida Vasquez DO Asthma, unspecified asthma severity, unspecified whether complicated, unspecified whether persistent 06/25/2024 1:45 PM EDT Office Visit [facility] [address] [place] [address] Aida Vasquez DO Major depression, recurrent, chronic (CMS/HCC) (Primary Dx); Moderate persistent asthma with acute exacerbation; Anemia, unspecified type; Chronic gastroesophageal reflux disease; Abnormal uterine bleeding (AUB); Urinary frequency; Morbid obesity with BMI of 50.0-59.9, adult (CMS/HCC); Healthcare maintenance 06/25/2024 Travel 06/24/2024 Telephone [facility] [address] [place], [place] [phone] Aida Vasquez DO Chart Prep 06/24/2024 Travel 05/05/2024 Refill [facility] [address] [place], [place] [phone] Aida Vasquez DO Asthma, unspecified asthma severity, unspecified whether complicated, unspecified whether persistent 04/26/2024 Population Health Risk Score [facility] (C[facility]) Department [address] [phone] Provider, Population Health Generic 04/25/2024 Refill [facility] [address] [place] [address] Aida Vasquez DO from Last 3 Months Immunizations Immunization Administration Dates Next Due DTaP 05/02/1990, 0,08/02/1988,06/02,04/04/1988 Hep B, Adolescent or Pediatric 01/06/1999,1997,12/18/1997 Hib (HbO) 01/02/1990 Influenza injectable quadriv alent IIV4 with [...] Health Maintenance Due Date Last Done Comments Disability Screening 1985 Family Planning (PISQ) 12/18/2002 SDOH Screening 02/23/2024 02/22/2023 Alcohol/Substance Use Screening 01/18/2025 01/19/2024 Depression Screening 06/25/2025 06/25/2024, 06/26/19 Tobacco Screening 06/25/2025 06/25/2024 Cervical Cancer Screening [...] Procedure Name Priority Date/Time Associated Diagnosis Comments T-SPOT(R).TB Routine 06/25/2024 2:41 PM EDT Healthcare maintenance HM PAP/HPV Routine 01/23/2024 5:50 PM EST [...] Recently Relevant to Health Maintenance Results * T-SPOT??.TB (06/25/2024 2:41 PM EDT) Pathologist [facility] T Spot TB Negative Negative [facility] Comment:A negative test resu lt does not exclude the possibilityof exposure to or infection with Mycobacteriumtuberculosis (M. tuberculosis). Patients with recentexposure to TB infected individuals exhibiting anegative T-SPOT.TB result should be considered forretesting within 6 weeks or if other relevant clinicalsymptoms indicate. Results from T-SPOT.TB testing mustbe used in conjunction with each individual'sepidemiological history, current medical status,and results of other diagnostic evaluations.The T-SPOT.TB test is qualitative and results arereported as positive, borderline, or negative, giventhat the test controls perform as expected. In linewith the Centers for Disease Control and Prevention's2010 recommendation to report quantitative measurementsalongside the qualitative result, the laboratoryprovides spot counts for informational purposes only.The T-SPOT.TB test should not be interpreted as aquantitative test. TS PANEL A 0 [facility] TS PANEL B 0 [facility] Negative Control Passed [facility] Positive Control Passed [facility] Comment:For additional infor mation, please refer tohttp://education.[facility]/faq/JZW552(This link is being provided for informational/educational purposes only.)THIS TEST WAS PERFORMED AT:[employer] [id number] [place] [id number] BUSTAMANTE MD,PHD 06/25/2024 2:41 PM EDT 06/25/2024 4:17 PM EDT Aida Vasquez DO LAB BLOOD ORDERABLES Final R esult [facility] [address] [place] [phone] * HM PAP/HPV (01/23/2024 5:50 PM EST) Historical Provider HEALTH MAINTENANCE Final Result * (ABNORMAL) Lipid Panel, Standard (01/23/2024 10:12 AM EST) Triglycerides 92 <150 mg/dL [facility] Comment:Desirable Triglyceri de: less than 150 mg/dLBorderline High Triglyceride 150-199 mg/dLHigh Triglyceride: 200-499 mg/dLVery High Triglyceride: greater than or equal to 5OO mg/dL Cholesterol 120 <200 mg/dL [facility] Comment:Desirable Cholestero l: less than 200 mg/dLBorderline High Cholesterol: 200-239 mg/dLHigh Cholesterol: greater than 239 mg/dL LDL Cholesterol Calculated 66 <100 mg/dL [facility] Comment:Desirable LDL: less than 100 mg/dLNear Optimal/Above Optimal LDL: 110- 129 mg/dLBorderline High LDL: 130-159 mg/dLHigh LDL: 160-189 mg/dLVery High LDL: greater than or equal to 190 mg/dL HDL Cholesterol 36(L) >40 mg/dL [facility] Comment:Desirable HDL: great er than 40 mg/dL Note: This HDL assay may give artificially low results in patients with liver disease. 01/23/2024 10:1 2 AM EST 01/23/2024 10:12 AM EST us Generic External Data Provider LAB BLOOD ORDERAB LES Final Result Performing Organization Address [facility] Co de Phone Number [facility] [address] [place] [phone] * Hepatitis C Antibody with Reflex to HCV, RNA, Quantitative, Real-Time PCR (01/19/2024 11:52 AM EST) Hepatitis C Antibody Nonreactive Nonreactive [facility] Comment:Antibodies to HCV no t detected; does not exclude early acuteHCV infection. Blood Venous blood specimen / Unknown 01/19/2024 11:52 AM EST 01/19/2024 12:55 PM EST us Aida Vasquez DO LAB BLOOD ORDERABLES Final R esult Performing Organization Address [facility]/ZIP Co de Phone Number [facility] [address] [place] [phone] [phone] * HIV-1/2 Antigen and Antibodies, Fourth Generation, with Reflexes (01/19/2024 11:52 AM EST) HIV AB/AG Nonreactive Nonreactive [facility] Comment:HIV-1 p24 Ag and/or HIV-1/HIV-2 Ab not detected.A test result that is nonreactive does not exclude thepossibility of exposure to or infection with HIV-1 and/orHIV-2. Nonreactive results in this assay for individualswith prior exposure to HIV-1 and/or HIV-2 may be due toantigen and antibody levels that are below the limit ofdetection of this assay.The [employer] HIV Ag/Ab Combo assay result andsupplemental assay results should be interpreted inconjunction with the patient's clinical presentation,history and other laboratory results. If the results areinconsistent with clinical evidence, additional testing issuggested to confirm the result. Blood Venous blood specimen / Unknown 01/19/2024 11:52 AM EST 01/19/2024 12:55 PM EST us Aida Vasquez DO LAB BLOOD ORDERABLES Final R esult [facility] [address] [place] [phone] from Last 3 Months or Most Recently Relevant to Health Maintenance [facility] Care Teams Nail Puller Relationship Specialty Start Date End Date Aida Vasquez DO [address] [place] [phone] PCP - General Family Medicine 10/24/14
== END 2024-07-26 13:14 | disposition home or self-care (01) ==
LOC: HO.HBS 13:07
PROVIDERS: PCP Family Medicine; Visit Provider Physician Assistant Surgical
DX: Z98.84 Bariatric surgery status (principal)
CPT/HCPCS: 99024

== ENCOUNTER → 2024-07-26 13:07 | Outpatient (BNVA) | payer MEDICAID, SELFPAY | PROVIDERS: PCP Family Medicine; Visit Provider Physician Assistant Surgical | DX: Z98.84 Bariatric surgery status (principal); Z71.3 Dietary counseling and surveillance | CPT/HCPCS: 99212 ==

== ENCOUNTER 2025-01-29 09:19 | Outpatient (REF) | payer MEDICAID, SELFPAY ==
--- OUTSIDE RECORDS SUMMARY | 2025-01-29 09:00 | XMS_ITS | Encounter Summary ---
Author Organization [employer] Address [address] [facility] [address]t [place] [address] Care Team Providers Care Physical Medicine Teacher Name Role Phone Aida Vasquez DO Primary Care Provider [phone] Encounter Details Date Type Department Care Team ([facility] st Contact Info) Description 01/29/2025 9:00 AM EST Office Visit [facility] [address] [place] [address] Aida Vasquez DO [address] [place], [place] [phone] Arrived Social History Tobacco Use Types Packs/Day Years Used Date Smoking Tobacco: Every Day Cigarettes Passive Smoke Exposure: Current Smokeless Tobacco: Never Tobacco Cessation:Ready to Q uit: Not Asked; Counseling Given: Not Answered Alcohol Use Standard Drinks/Week Comments Not Currently 0 (1 standard drink = 0.6 oz pur e alcohol) social Alcohol Answer Date Recorded How often do you have a drink containing alcohol ? 0 01/29/2025 How many drinks containing a lcohol do you have on a typical day when you are drinking? 0 01/29/2025 How often do you have six or more drinks on one occasion? 0 01/29/2025 Depression Answer Date Recorded Patient Health Questionnaire-9 Score 0 01/29/2025 Patient Health Questionnaire-9 Score 0 01/29/2025 Last PHQ-9: Questionnaire Data Not on file 1 04/01/2024 Housing Stability Answer Date Recorded What is your housing situation today? I have marya jain 12/13/[address] you li ve. Do you have problems with any of the following? Pests such as bugs, ants, or mice 12/13/2024 Food Insecurity Answer Date Recorded Within the past 12 months, y ou worried that your food would run out before you got money to buy more: Sometimes True 2024 Within the past 12 months,th e food you bought just didn't last and you didn't have enough money to get more: Never True 12/13/2024 Transportation Answer Date Recorded In the past 12 months, has l ack of transportation kept you from medical appts, meetings, work or from getting things needed for daily living? No 12/13/2024 Utilities Answer Date Recorded In the past 12 months, has t he electric, gas, oil or water company threatened to shut off services in your home? No 12/13/2024 Depression Answer Date Recorded Patient Health Questionnaire-2 Score 0 01/29/2025 Internet Access Answer Date Recorded Internet Access Q1 Yes 12/13/2024 Internet Access Q2 Not on file 12/13/2024 Comments No Sex and Gender Information Value Date Recorded Sex Assigned at Female 12/13/2021 10:14 AM EDT Legal Sex Female 10:14 AM EDT Gender Identity Female 12/13/2021 10:14 AM EDT Sexual Orientation Lesbian or Lucio 12/13/2021 10 :14 AM EDT documented as of this encounter Last Filed Vital Signs Vital Sign Reading Time Taken Comments Blood Pressure 144/102 01/29/2025 9:26 AM EST Pulse 76 01/29/2025 9:02 AM EST Temperature 36.9 C (98.5 F) 01/29/2025 9:02 AM EST Respiratory Rate 19 01/29/2025 9:02 AM EST Oxygen Saturation - - Inhaled Oxygen Concentration - - Weight 94.1 kg (207 lb 8 oz) 01/29/2025 9:02 AM EST Height 172.7 cm (5' 8 ) 01/29/2025 9:02 AM EST Body Mass Index 31.55 01/29/2025 9:02 AM EST documented in this encounter Functional Status * Over the past 2 weeks, how often have you been bothered by any of the following problems? Question Answer Date of Assessment Author Patient Health Questionnaire-2 Score 0 01/13 9:03 AM EST Mor Baldwin MA * Little interest or pleasure in doing things Answer Date of Assessment Author Not at all 01/29/2025 9:03 AM Olga Shaffer MA * Feeling down, depressed, or hopeless Answer Date of Assessment Author Not at all 01/29/2025 9:03 AM Olga Shaffer MA * Trouble falling or staying asleep, or sleeping too much Answer Date of Assessment Author Not at all 01/29/2025 9:03 AM Olga Shaffer MA * Feeling tired or having little energy Answer Date of Assessment Author Not at all 01/29/2025 9:03 AM Olga Shaffer MA * Poor appetite or overeating Answer Date of Assessment Author Not at all 01/29/2025 9:03 AM Olga Shaffer MA * Feeling bad about yourself - or that you are a failure or have let yourself or your family down Answer Date of Assessment Author Not at all 01/29/2025 9:03 AM Olga Shaffer MA * Trouble concentrating on things, such as reading the newspaper or watching television Answer Date of Assessment Author Not at all 01/29/2025 9:03 AM Olga Shaffer MA * Moving or speaking so slowly that other people could have noticed? Or the opposite - being so fidgety or restless that you have been moving around a lot more than usual. Answer Date of Assessment Author Not at all 01/29/2025 9:03 AM Olga Shaffer MA * Thoughts that you would be better off or hurting yourself in some way Answer Date of Assessment Author Not at all 01/29/2025 9:03 AM Olga Shaffer MA * Patient Health Questionnaire-9 Score Answer Date of Assessment Author 0 01/29/2025 9:03 AM Olga Shaffer MA * Over the last 2 weeks, how often have you been bothered by any of the following problems? Question Answer Date of Assessment Author Feeling nervous, anxious, or on edge 0 01/13 9:04 AM Mor Shaffer MA Not being able to stop or co ntrol worrying 0 01/29/2025 9:04 AM Mor Shaffer MA Worrying too much about diff erent things 0 01/29/2025 9:04 AM EST Mor Baldwin MA Trouble relaxing 0 01/29/2025 9:04 AM EST Mor Huddleston MA Being so restless that it is hard to sit still 0 01/29/2025 9:04 AM EST Mor Baldwin MA Becoming easily annoyed or irritable 0 01/13 9:04 AM EST Mor Baldwin MA Feeling afraid as if somethi ng awful might happen 0 01/29/2025 9:04 AM EST Mor Baldwin MA NIYA-7 Total Score 0 01/29/2025 9:04 AM Mor Shaffer MA documented as of this encounter Plan of Treatment Not on file documented as of this encounter Visit Diagnoses Not on filedocumented in this encounter Additional Health Concerns Assessment Noted Time PHQ-9 Depression Total Score: 0 01/30/20 25 9:03 AM EST documented as of this encounter Care Teams Physical Medicine Teacher Relationship Specialty Start Date End Date Aida Vasquez DO [address] [place] [address] PCP - General Family Medicine 10/24/14 documented as of this encounter
--- OUTSIDE RECORDS SUMMARY | 2025-01-29 10:33 | XMS_ITS | Encounter Summary ---
Author Organization [employer] Address [address] [facility] 7t [place] [address] Care Team Providers Care Manager Planning Name Role Phone Pedro Aida Primary Care Provider + [phone] Encounter Details Date Type Department Care Team (Late st Contact Info) Description 03/30/2024 Orders Only [facility] MED[facility]INE [address] [place] [address] ProviderQueta MD Social History Tobacco Use Types [...] AM EST Narrative 04/15/2024 10:17 AM EST [place] [address] Fluoroscopy Report Signed Patient: Mayte Rosa MR#: [id number] : 1985 Acct:[id number] Age/Sex: 38 / F ADM Date: 04/15/24 Loc: HO.XRAY Attending Dr: Jairon Fox MD Ordering Physician: Jairon Fox MD Date of Service: 04/15/24 Procedure(s): FL upper GI w air Accession Number(s): [id number] cc: Aida Vasquez DO; Jairon Fox MD [...] by: Clay Georges MD 04/15/2024 10:14 AM [facility] Dictated By: Clay Georges MD Signed By: <Electronically signed by Clay Georges MD in OV> 04/15/24 1014 DD/ 0811 TD/TT: 04/15/24 0845 Entry Level Sales Consultant: PEDRO Procedure Note Donotuseinterpreter, Image - 04/15/2024 [place] [address] Fluoroscopy Report Signed Patient: Shanae Rosa#: [id number] : 1985Acct:[id number] Age/Sex: 38 / FADM Date: 04/15/24 Loc: HO.XRAY Attending Dr: Jairon Fox MD Ordering Physician: Jairon Fox MD Date of Service: 04/15/24 Procedure(s): FL upper GI w air Accession Number(s): [id number] cc: Aida Vasquez DO; Jairon Fox MD [...] 04/15/24 1014 DD/ 0811 TD/TT: 04/15/24 0845 Entry Level Sales Consultant: PEDRO [facility] External Provider IMG FLU OROSCOPY PROCEDURES Final Result * HM PAP/HPV (01/23/2024 5:50 PM EST) Historical Provider HEALTH MAINTENANCE Final Result documented in this encounter Visit Diagnoses Not on filedocumented in this encounter Additional Health Concerns Assessment Noted Time PHQ-9 Depression Total Score: 11 024 11:07 AM EST documented as of this encounter Care Teams Manager Planning Relationship Specialty Start Date End Date Aida Vasquez DO [address] [place] [address] PCP - General Family Medicine 10/24/14 documented as of this encounter
--- OUTSIDE RECORDS SUMMARY | 2025-01-29 10:33 | XMS_ITS | Encounter Summary ---
Author Organization [employer] Address [address] [facility] 7t [place] [address] Care Team Providers Care Door Frame Assembler Machine Name Role Phone Aida Vasquez DO Primary Care Provider Reason for Visit * Reason Onset Date Comments Med Refill 10/16/2024 Encounter Details Date Type Department Care Team (Late st Contact Info) Description 10/16/2024 Refill [facility] [address] [place] [address] Aida Vasquez DO [address] [place] [address] Social History Tobacco Use Types Packs/Day Years [...] documented as of this encounter Care Teams Door Frame Assembler Machine Relationship Specialty Start Date End Date Aida Vasquez DO [address] [place] [address] PCP - General Family Medicine 10/24/14 documented as of this encounter
--- OUTSIDE RECORDS SUMMARY | 2025-01-29 10:33 | XMS_ITS | Encounter Summary ---
Author Organization [employer] Address [address] [facility] 7t [place] [address] Care Team Providers Care Cutlet Maker Pork Name Role Phone Aida Vasquez DO Primary Care Provider Encounter Details Date Type Department Care Team ([facility] st Contact Info) Description 05/12/2022 Orders Only [facility] & PEDS [address] [place] [address] Aida Feliz LPN Social History Tobacco Use [...] on filedocumented in this encounter Care Teams Cutlet Maker Pork Relationship Specialty Start Date End Date Aida Vasquez DO [address] [place] [phone] PCP - General Family Medicine 10/24/14 documented as of this encounter
--- OUTSIDE RECORDS SUMMARY | 2025-01-29 10:33 | XMS_ITS | Clinical Summary ---
Author Organization [employer] Address [address] [facility] 7t [place] [address] Care Team Providers Care Beehive Kiln Charcoal Burner Name Role Phone Aida Vasquez DO Primary Care Provider [phone] Allergies Active Allergy Reactions Criticality Noted Date Comments Pollen Extract 07/08/2022 Medications * This document contains information received from the source organization and may not represent a complete record from that organization. acetaminophen (Tylenol 8 Hour) 650 MG ER tablet TAKE 1 TABLET BY MOUTH EVERY 8 HOURS NEEDED FOR PAIN OR FEVER 11/30/19 22 Active ergocalciferol (Vitamin D2) 1.25 MG (19961 UT) capsuleIndicati ons:Vitamin D deficiency Take 1 capsule (1.25 mg) by mouth 1 (one) time per week. 12 capsule 3 04/19/19 24 Active loratadine (Claritin) 10 MG tablet Take 1 tablet (10 mg) by mouth Once per day. 90 tablet 3 01/19/20 24 Active ferrous sulfate (Fe Tabs) 325 (65 Fe) MG EC tabletIndicatio ns:Anemia, unspecified type Take 1 tablet (325 mg) by mouth with breakfast. 90 tablet 3 01/23/20 24 025 Active cholecalciferol (Vitamin D-3) 50 MCG (2000 UT) capsule Take 1 capsule (50 mcg) by mouth Once per day. 90 capsule 3 01/23/20 24 025 Active Mometasone Furoate (Asmanex HFA) 200 MCG/ACT aerosol INHALE 2 PUFFS BY MOUTH TWICE DAILY RINSE MOUTH AFTER USING 13 g 11 5 12:35 PM EST 12/23/19 25 Active baclofen (Lioresal) 10 MG tabletIndicatio ns:Acute right-sided low back pain, unspecified whether sciatica present TAKE 1 TABLET BY MOUTH THREE TIMES DAILY NEEDED FOR MUSCLE SPASMS OR MUSCLE PAIN 60 tablet 3 5 12:35 PM EST 12/23/19 25 Active calcium carbonate (Calcium Antacid) 500 MG chewable tablet CHEW 2 TABLETS BY MOUTH AFTER MEALS NEEDED FOR HEARTBURN, DO NOT EXCEED 8 TABLETS / 24 HOURS 180 tablet 5 12:35 PM EST 12/25/19 25 Active albuterol (2.5 MG/3ML) 0.083% nebulizer solution INHALE 1 AMPULE USING A NEBULIZER EVERY 4 HOURS NEEDED FOR COUGH, WHEEZING, OR SHORTNESS OF BREATH 90 mL 2 5 12:35 PM EST 12/25/19 25 Active Tirzepatide-Salvador ght Management (Zepbound) 2.5 MG/0.5ML solution auto-injector Inject 0.5 mL (2.5 mg) under the skin 1 (one) time per week. 2 mL 2 5 12:44 PM EST 01/04/20 25 Active omeprazole (PriLOSEC) [address] capsule Do not crush or chew.TAKE 1 CAPSULE BY MOUTH TWICE DAILY BEFORE BREAKFAST AND BEFORE SUPPER DO NOT BREAK, CRUSH, DISSOLVE OR CHEW 180 capsule 3 5 9:41 AM EST 01/16/20 25 Active albuterol (Ventolin HFA) 108 (90 Base) MCG/ACT inhalerIndicati ons:Asthma, unspecified asthma severity, unspecified whether complicated, unspecified whether persistent INHALE 2 PUFFS BY MOUTH EVERY 4 TO 6 HOURS NEEDED FOR COUGH, WHEEZING, OR SHORTNESS OF BREATH 18 g 1 5 9:41 AM EST 01/16/20 25 Active omeprazole (PriLOSEC) [address] capsule Do not crush or chew.TAKE 1 CAPSULE BY MOUTH TWICE DAILY BEFORE BREAKFAST AND BEFORE SUPPER DO NOT BREAK, CRUSH, DISSOLVE OR CHEW 180 capsule 3 09/06/19 25 025 Discontinued(Re order (will not trigger notification to Pharmacy)) albuterol (Ventolin HFA) 108 (90 Base) MCG/ACT inhalerIndicati ons:Asthma, unspecified asthma severity, unspecified whether complicated, unspecified whether persistent INHALE 2 PUFFS BY MOUTH EVERY 4 TO 6 HOURS NEEDED FOR COUGH, WHEEZING, OR SHORTNESS OF BREATH 18 g 1 5 12:35 PM EST 11/29/19 25 025 Discontinued(Re order (will not trigger notification to Pharmacy)) Active Problems Problem Noted Date Diagnosed Date Status post sleeve gastrectomy 12/22/2024 Fatty liver 12/22/2024 Chronic allergic rhinitis 12/22/2024 History of hypertension 03/29/2023 History of gestational hypertension 07/08/2022 Chronic gastroesophageal reflux disease 07/09/19 PCOS (polycystic ovarian syndrome) 07/08/2022 Anemia 07/08/2022 Chronic low back pain 07/08/2022 Moderate persistent asthma 06/01/2016 Anxiety 01/28/2015 BMI 33.0-33.9,adult 01/28/2015 Tobacco dependence 01/28/2015 Major depression, recurrent, [...] episode of recurren t major depressive disorder (CMS/HCC) 08/19/2022 03/29/2023 Assessment & Plan (08/19/2022 3:19 [...] OP setting, but requested it be telehealth. Family conflict 08/19/2022 12/22/2024 Encounters Date Type Department Care Team Description 01/29/2025 9:00 AM EST Office Visit [facility] [place] [address] Aida Vasquez DO Arrived 01/29/2025 Travel 01/20/2025 Patient Outreach [facility] [place] [address] Aida Vasquez DO Pre-visit Planning (SDOH screening completed on 12/13/2024) 01/14/2025 Travel 01/14/2025 Telephone [facility] [place] [address] Aida Vasquez DO Appointment Request 01/14/2025 Telephone [facility] [place] [place] [address] Aida Vasquez DO 01/13/2025 Telephone [facility] [place] [place] [address] Aida Vasquez DO Chart Prep 01/11/2025 Refill [facility] [place] [address] Aida Vasquez DO Asthma, unspecified asthma severity, unspecified whether complicated, unspecified whether persistent 01/11/2025 Refill [facility] [place] [address] Aida Vasquez DO Asthma, unspecified asthma severity, unspecified whether complicated, unspecified whether persistent 01/04/2025 Telephone [facility] [place] [address] Aida Vasquez DO Recall Appointment 01/04/2025 Travel 01/01/2025 Refill [facility] [address] [place] [address] Aida Vasquez DO Asthma, unspecified asthma severity, unspecified whether complicated, unspecified whether persistent; Acute right-sided low back pain, unspecified whether sciatica present 12/25/2024 Refill [facility] [address] [place] [address] Aida Vasquez DO Asthma, unspecified asthma severity, unspecified whether complicated, unspecified whether persistent; Acute right-sided low back pain, unspecified whether sciatica present 12/23/2024 Refill [facility] [address] [place] [address] Aida Vasquez DO 12/23/2024 Refill [facility] [address] [place] [address] Aida Vasquez DO Asthma, unspecified asthma severity, unspecified whether complicated, unspecified whether persistent; Acute right-sided low back pain, unspecified whether sciatica present 12/17/2024 Telephone [facility] [address] [place] [address] Aida Vasquez DO Prior Authorization ( PA: Yvonne) 12/13/2024 9:00 AM EDT Office Visit [address] [address] Aida Vasquez DO Obesity (BMI 30.0-34.9) (Primary Dx); Status post sleeve gastrectomy; Moderate persistent asthma without complication; Chronic allergic rhinitis; Major depression, recurrent, chronic (CMS/HCC); Anemia, unspecified type; Chronic gastroesophageal reflux disease; Fatty liver; Abnormal uterine bleeding; Urinary frequency; Healthcare maintenance; Acute right-sided low back pain, unspecified whether sciatica present 12/13/2024 Travel 12/03/2024 Telephone [facility] [address] [place] [address] Aida Vasquez DO Chart Prep 12/02/2024 Refill [facility] [address] [place] [address] Aida Vasquez DO 11/27/2024 Refill [facility] [address] [place] [address] Aida Vasquez, Asthma, unspecified asthma severity, unspecified whether complicated, unspecified whether persistent 11/24/2024 Refill [facility] [address] [place] [address] Aida Vasquez, Asthma, unspecified asthma severity, unspecified whether complicated, unspecified whether persistent from Last 3 Months Immunizations Immunization Administration Dates Next Due DTaP 05/02/1990, 0,08/02/1988,06/02,04/04/1988 Hep B, Adolescent or Pediatric 01/06/1999,1997,12/18/1997 Hib ([facility]) 01/02/1990 Influenza injectable quadriv alent [...] 19 01/29/2025 9:02 AM EST Oxygen Saturation 98% 12/13/2024 9:08 AM EDT Inhaled Oxygen Concentration - - Weight 94.1 kg (207 lb 8 oz) 01/29/2025 9:02 AM EST Height 172.7 cm (5' 8 ) 01/29/2025 9:02 AM EST Body Mass Index 31.55 01/29/2025 9:02 AM EST Plan of Treatment Health Maintenance Due Date Last Done Comments Family Planning (PISQ) 12/18/2002 HPV Vaccines (1 - 3-dose series) 12/18/2002 Hepatitis A Vaccines (1 of 2 - Risk 2-dose series) 12/18/2006 COVID-19 Vaccine ( season) 2024 01/19/2024, 10/15/2020, 09/24/2020 Influenza Vaccine (#1) 2024 , 03/13/2023, 01/14/2020, Additional history exists Disability Screening 12/13/2025 12/13/2024 SDOH Screening 12/13/2025 12/13/2024 Alcohol/Substance Use Screening 01/29/2026 01/29/2025 Depression Screening 01/29/2026 01/29/2025, 01/30/20 Tobacco Screening 01/29/2026 01/29/2025 Cervical Cancer Screening 01/22/2029 HPV/Cotest 01/22/2029 Lipid Panel 01/22/2029 01/23/2024, 1207/2023, 07/08/2022, Additional history exists Pap Smear 01/22/2029 01/23/2024 DTaP/Tdap/Td Vaccines (8 - Td or Tdap) 03/13/2033 03/13/2023, 02/14/2013, 07/31/2006, Additional history exists Zoster Vaccines (1 of 2) 12/18/2037 RSV Patients and Patients Aged 60 years or older (1 - 1-dose 75+ series) 12/18/2062 HIB Vaccines Completed 01/02/1990 IPV Vaccines Completed 07/02/1992, 06, 06/02/1988, Additional history exists Hepatitis B Vaccines Completed 01/06/1999, 01/19/1998, 12/18/1997 Pneumococcal Vaccine: Pediatrics (0 to 5 Years) and At-Risk Patients (6 to 49) Years Completed 03/13/2023, 11/11/2013 HIV Screening Completed 01/19/2024, 06/14, 10/22/2021, Additional history exists Hepatitis C Screening Completed 01/19/2024 , 07/08/2022, 10/22/2021, Additional history exists Meningococcal B Vaccine Aged Out No l [...] Recently Relevant to Health Maintenance Results * HM PAP/HPV (01/23/2024 5:50 PM EST) Historical Provider MD HEALTH MAINTENANCE Final Result * (ABNORMAL) Lipid Panel, Standard (01/23/2024 10:12 AM EST) Triglycerides 92 <150 mg/dL [facility] Comment:Desirable Triglyceri de: less than 150 mg/dLBorderline High Triglyceride 150-199 mg/dLHigh Triglyceride: 200-499 mg/dLVery High Triglyceride: greater than or equal to 5OO mg/dL Cholesterol 120 <200 mg/dL [facility] Comment:Desirable Cholestero l: less than 200 mg/dLBorderline High Cholesterol: 200-239 mg/dLHigh Cholesterol: greater than 239 mg/dL LDL Cholesterol Calculated 66 <100 mg/dL [facility] Comment:Desirable LDL: less than 100 mg/dLNear Optimal/Above Optimal LDL: 110- 129 mg/dLBorderline High LDL: 130-159 mg/dLHigh LDL: 160-189 mg/dLVery High LDL: greater than or equal to 190 mg/dL HDL Cholesterol 36(L) >40 mg/dL [facility] Comment:Desirable HDL: great er than 40 mg/dL Note: This HDL assay may give artificially low results in patients with liver disease. 01/23/2024 10:1 2 AM EST 01/23/2024 10:12 AM EST us Generic External Data Provider LAB BLOOD ORDERAB LES Final Result Performing Organization Address [facility] Co de Phone Number [facility] [address] [place] [phone] * Hepatitis C Antibody with Reflex to HCV, RNA, Quantitative, Real-Time PCR (01/19/2024 11:52 AM EST) Hepatitis C Antibody Nonreactive Nonreactive [facility] Comment:Antibodies to HCV no t detected; does not exclude early acuteHCV infection. Blood Venous blood specimen / Unknown 01/19/2024 11:52 AM EST 01/19/2024 12:55 PM EST us iAda Vasquez DO LAB BLOOD ORDERABLES Final R esult Performing Organization Address City/[facility]/ZIP Co de Phone Number [facility] [address] [place] [address] [phone] * HIV-1/2 Antigen and Antibodies, Fourth Generation, with Reflexes (01/19/2024 11:52 AM EST) HIV AB/AG Nonreactive Nonreactive [facility] Comment:HIV-1 p24 Ag and/or HIV-1/HIV-2 Ab not detected.A test result that is nonreactive does not exclude thepossibility of exposure to or infection with HIV-1 and/orHIV-2. Nonreactive results in this assay for individualswith prior exposure to HIV-1 and/or HIV-2 may be due toantigen and antibody levels that are below the limit ofdetection of this assay.The ShieldEffect HIV Ag/Ab Combo assay result andsupplemental assay results should be interpreted inconjunction with the patient's clinical presentation,history and other laboratory results. If the results areinconsistent with clinical evidence, additional testing issuggested to confirm the result. Blood Venous blood specimen / Unknown 01/19/2024 11:52 AM EST 01/19/2024 12:55 PM EST us Aida Vasquez DO LAB BLOOD ORDERABLES Final R esult Performing Organization Address City/[facility] Co de Phone Number [facility] [address] [place] [address] [phone] from Last 3 Months or Most Recently Relevant to Health Maintenance [facility] Care Teams Beehive Kiln Charcoal Burner Relationship Specialty Start Date End Date Aida Vasquez DO [address] [place] [phone] PCP - General Family Medicine 10/24/14
--- OUTSIDE RECORDS SUMMARY | 2025-01-29 10:33 | XMS_ITS | Encounter Summary ---
Author Organization [employer] Address [address] [facility] [address] [place] [address] Care Team Providers Care Insurance Checker Name Role Phone Aida Vasquez Primary Care Provider Encounter Details Date Type Department Care Team (Latest Contact Info) Description 01/29/2025 Travel Social History Tobacco Use Types Packs/Day Years Used Date Smoking Tobacco: Every Day Cigarettes Passive Smoke Exposure: Current Smokeless Tobacco: Never Alcohol Use Standard Drinks/Week [...] is your housing situation today? I have mayra jain 12/13/[address] you [...] Health Questionnaire-2 Score 0 01/13 9:03 AM Mor Shaffer [place] * Little interest or pleasure in [...] Author Not at all 01/29/2025 9:03 AM lOga Shaffer MA * Feeling tired or having [...] diff erent things 0 01/29/2025 9:04 AM Mor Shaffer MA Trouble relaxing 0 01/29/2025 9:04 AM EST Mor Huddleston [place] Being so restless that it is hard to sit still 0 01/29/2025 9:04 AM Mor Shaffer MA Becoming easily annoyed or irritable 0 01/13 9:04 AM Mor Shaffer [place] Feeling afraid as if somethi ng awful might happen 0 01/29/2025 9:04 AM Mor Shaffer [place] NIYA-7 Total Score 0 01/29/2025 9:04 AM Mor Shaffer [place] documented as of this encounter Plan of Treatment Not on file documented as of this encounter Visit Diagnoses Not on filedocumented in this encounter Additional Health Concerns Assessment Noted Time PHQ-9 Depression Total Score: 0 01/30/20 25 9:03 AM EST documented as of this encounter Care Teams Insurance Checker Relationship Specialty Start Date End Date Aida Vasquez DO [address] [place] [id number] PCP - General Family Medicine 10/24/14 documented as of this encounter
--- OUTSIDE RECORDS SUMMARY | 2025-01-29 10:33 | XMS_ITS | Encounter Summary ---
Author Organization [employer] Address [address] [facility] 7t [place] [address] Care Team Providers Care It Business Process Architect Name Role Phone Aida Vasquez DO Primary Care Provider Encounter Details Date Type Department Care Team (Late st Contact Info) Description 03/01/2022 Orders Only [facility] MEDICINE [address] [place] [address] Cielo Elias LPN Social History Tobacco Use [...] on filedocumented in this encounter Care Teams It Business Process Architect Relationship Specialty Start Date End Date Aida Vasquez DO [address] [place] [address] PCP - General Family Medicine 10/24/14 documented as of this encounter
--- OUTSIDE RECORDS SUMMARY | 2025-01-29 10:33 | XMS_ITS | Encounter Summary ---
Author Organization [employer] Address [address] [facility] 7t [place] [address] Care Team Providers Care Business Development Name Role Phone Aida Vasquez DO Primary Care Provider Reason for Visit * Reason Comments Med Refill Encounter Details Date Type Department Care Team (Late st Contact Info) Description 09/14/2024 Refill [facility] MEDICINE [address] [place] [address] Aida Vaqsuez DO [address] [place] [address] Asthma, unspecified asthma severity, unspecified whether complicated, [...] documented as of this encounter Care Teams Business Development Relationship Specialty Start Date End Date Aida Vasquez DO [address] [place] [address] PCP - General Family Medicine 10/24/14 documented as of this encounter
--- OUTSIDE RECORDS SUMMARY | 2025-01-29 10:34 | XMS_ITS | Encounter Summary ---
Author Organization [employer] Address [address] [facility] [address] [place] [address] Care Team Providers Care Input Output Clerk Name Role Phone Aida Vasquez DO Primary Care Provider [phone] Reason for Visit * Reason Onset Date Comments Med Refill 12/25/2024 Encounter Details Date Type Department Care Team (Late st Contact Info) Description 12/25/2024 Refill [facility] MEDICINE [address] [place] [address] Aida Vasquez DO [address] [place] [address] Asthma, unspecified asthma severity, unspecified whether complicated, unspecified whether persistent; Acute right-sided low back pain, unspecified whether sciatica present Social History Tobacco Use Types Packs/Day Years Used Date Smoking Tobacco: Every Day Cigarettes Smokeless Tobacco: Never Alcohol Use Standard Drinks/Week Comments Not Currently 0 (1 standard drink = 0.6 oz pur e alcohol) social Depression Answer Date Recorded Patient Health Questionnaire-9 Score 0 12/13/2024 Patient Health Questionnaire-9 Score 0 12/13/2024 Last PHQ-9: Questionnaire Data Not on file 1 Housing Stability Answer Date Recorded What is [...] Date Recorded Patient Health Questionnaire-2 Score 0 12/13/2024 Internet Access Answer Date Recorded Internet Access [...] severity, unspecified whether complicated, unspecified whether persistent Acute right-sided low back pain, unspecified whether sciatica present documented in this encounter Additional Health Concerns Assessment Noted Time PHQ-9 Depression Total Score: 0 12/14/19 25 9:10 AM EDT documented as of this encounter Care Teams Input Output Clerk Relationship Specialty Start Date End Date Aida Vasquez DO [address] [place] [address] PCP - General Family Medicine 10/24/14 documented as of this encounter
--- OUTSIDE RECORDS SUMMARY | 2025-01-29 10:34 | XMS_ITS | Encounter Summary ---
Author Organization [employer] Address [address] [facility] 7[address] [place] [address] Care Team Providers Care Gin Feeder Name Role Phone Aida Vasquez DO Primary Care Provider Reason for Visit * Reason Onset Date Comments Med Refill 10/28/2024 Encounter Details Date Type Department Care Team (Late st Contact Info) Description 10/28/2024 Refill [facility] MEDICINE [address] [place] [address] Aida Vasquez DO [address] [place] [address] Social History Tobacco Use Types Packs/Day Years [...] documented as of this encounter Care Teams Gin Feeder Relationship Specialty Start Date End Date Aida Vasquez DO [address] [place] [id number] PCP - General Family Medicine 10/24/14 documented as of this encounter
--- OUTSIDE RECORDS SUMMARY | 2025-01-29 10:34 | XMS_ITS | Encounter Summary ---
Author Organization [employer] Address [address] [facility] 7t [place] [address] Care Team Providers Care Head Of Merchandise Buying Name Role Phone Aida Vasquez DO Primary Care Provider Reason for Visit * Reason Onset Date Comments Med Refill 11/24/2024 Encounter Details Date Type Department Care Team (Late st Contact Info) Description 11/24/2024 Refill [facility] MEDICINE [address] [place] [address] Aida Vasquez DO [address] [place] [address] Asthma, unspecified asthma severity, unspecified whether complicated, [...] documented as of this encounter Care Teams Head Of Merchandise Buying Relationship Specialty Start Date End Date Aida Vasquez DO [address] [place] [id number] PCP - General Family Medicine 10/24/14 documented as of this encounter
--- OUTSIDE RECORDS SUMMARY | 2025-01-29 10:34 | XMS_ITS | Encounter Summary ---
Author Organization [employer] Address [address] [facility] 7[address] [place] [address] Care Team Providers Care Computer Game Tester Name Role Phone Aida Vasquez DO Primary Care Provider Reason for Visit * Reason Onset Date Comments Med Refill 12/23/2024 Encounter Details Date Type Department Care Team (Late st Contact Info) Description 12/23/2024 Refill [facility] MEDICINE [address] [place] [address] Aida Vasquez DO [address] [place] [address] Social History Tobacco Use Types Packs/Day Years [...] documented as of this encounter Care Teams Computer Game Tester Relationship Specialty Start Date End Date Aida Vasquez DO [address] [place] [address] PCP - General Family Medicine 10/24/14 documented as of this encounter
--- OUTSIDE RECORDS SUMMARY | 2025-01-29 10:34 | XMS_ITS | Encounter Summary ---
Author Organization [employer] Address [address] [facility] 7t [place] [address] Care Team Providers Care Ocean Transportation Intermediary Name Role Phone Aida Vasquez DO Primary Care Provider Reason for Visit * Reason Onset Date Comments Med Refill 01/01/2025 Encounter Details Date Type Department Care Team (Late st Contact Info) Description 01/01/2025 Refill [facility] MEDICINE [address] [place] [address] Aida Vasquez DO [address] [place] [address] Asthma, unspecified asthma severity, unspecified whether complicated, [...] documented as of this encounter Care Teams Ocean Transportation Intermediary Relationship Specialty Start Date End Date Aida Vasquez DO [address] [place] [address] PCP - General Family Medicine 10/24/14 documented as of this encounter
--- OUTSIDE RECORDS SUMMARY | 2025-01-29 10:34 | XMS_ITS | Encounter Summary ---
Author Organization [employer] Address [address] [facility] 7t [place] [address] Care Team Providers Care Manager Nicu Name Role Phone Aida Vasquez DO Primary Care Provider Reason for Visit * Reason Onset Date Comments Med Refill 12/02/2024 Encounter Details Date Type Department Care Team (Late st Contact Info) Description 12/02/2024 Refill [facility] MEDICINE [address] [place] [address] Aida Vasquez DO [address] [place] [address] Social History Tobacco Use Types Packs/Day Years [...] as of this encounter Care Teams Manager Nicu Relationship Specialty Start Date End Date Aida Vasquez DO [address] [place] [id number] PCP - General Family Medicine 10/24/14 documented as of this encounter
[2025-01-29 11:31] LABS: MANUAL DIFF FLAG NO
[2025-01-29 11:39] LABS: Hematocrit 33.9 % (37.0-47.0); Hemoglobin 10.4 g/dl (12.0-16.0); Imm Gran Abs Auto 0.02 X10*3/uL (0.00-0.03); Imm Gran Pct Auto 0.2 % (0.0-0.4); Lymphocytes Absolute Auto 3.1 X10*3/uL (1.2-4.9); Mean Corpuscular HGB Conc 30.7 g/dl (31.0-35.0); Mean Corpuscular Hemoglobin 25.7 pg (27.0-33.0); Mean Corpuscular Volume 83.7 fL (80.0-98.0); NRBC Abs Auto 0.000 X10*3/uL (0.0-0.012); NRBC Pct Auto 0.0 /100WBC (0.0-0.2); Platelet Count 337 X10*3/uL (160-400); Red Blood Count 4.05 X10*6/uL (4.20-5.50); White Blood Count 8.6 X10*3/uL (4.8-10.8)
[2025-01-29 11:53] LABS: Alanine Aminotransferase 10 U/L (0-31); Albumin Level 4.4 g/dL (3.5-5.0); Alkaline Phosphatase 77 U/L (39-117); Anion Gap 11 (12-20); Aspartate Amino Transferase 20 U/L (5-31); Blood Urea Nitrogen 12 mg/dL (9-16); Calcium 9.6 mg/dL (8.4-10.2); Carbon Dioxide 25 mmol/L (22-29); Chloride 107 mmol/L (96-108); Cholesterol 163 mg/dL (<200); Estimated Glomerular Filt Rate > 60; HDL Cholesterol 30 mg/dL (>40); Iron 30 mcg/dL (30-160); Percent Iron Saturation 9 % (15-50); Potassium 3.4 mmol/L (3.3-5.1); Sodium 140 mmol/L (135-145); Total Iron Binding Capacity 325 mcg/dL (228-428); Total Protein 7.5 g/dL (6.5-8.0); Triglycerides 94 mg/dL (<150); Unsaturated Iron Binding 295 ug/dL
[2025-01-29 12:12] LABS: Ferritin 12 ng/mL (10-122); Free T4 (Free Thyroxine) 1.12 ng/dL (0.71-1.85); Thyroid Stimulating Hormone 0.54 uIU/mL (0.32-4.0)
[2025-01-29 12:30] LABS: Folate 10.5 ng/mL (> or = 4.0); Vitamin B12 614 pg/mL (200-900)
[2025-01-29 12:46] LABS: HIV Num 1 0.08 S/CO (0.00-0.99); ~HepC Num1 0.12 S/CO (0.00-0.79); ~Hepatitis B Surface Antibody REACTIVE (Nonreactive); ~Hepatitis C Antibody Nonreactive (Nonreactive)
[2025-01-30 13:28] LABS: HBsAGNum1 0.29 S/CO (0.00-0.99); Hepatitis B Surface Antigen Negative (Negative)
== END 2025-01-29 09:20 | disposition home or self-care (01) ==
LOC: HO.HHCL 09:19
PROVIDERS: PCP Family Medicine; Visit Provider Family Medicine
DX: Z11.4 Encounter for screening for human immunodeficiency virus [HIV] (principal); Z11.59 Encounter for screening for other viral diseases; Z11.3 Encounter for screening for infections with a predominantly sexual mode of transmission; D64.9 Anemia, unspecified; K76.0 Fatty (change of) liver, not elsewhere classified
CPT/HCPCS: 36415; 80048; 80061; 80076; 82105; 82306; 82607; 82728; 82746; 83036; 83540; 84439; 84443; 85025; 86592; 86706; 86803; 87340; 87389